=== PATIENT | male | born 1935 | race Caucasian/White ===

== ENCOUNTER 2016-04-22 13:19 | Inpatient (IN) | payer MEDICARE ==
--- NOTE | 2016-04-22 13:44 | ED ---
SOB HPI - General Chief Complaint: Shortness of Breath Stated Complaint: diff breathing Time Seen by Provider: 04/22/16 13:33 Source: patient, EMS, RN notes reviewed Mode of arrival: EMS Limitations: no limitations - History of Present Illness Initial Comments: 80-year-old male presents emergency Department with chief complaint shortness of breath. Patient had increased shortness breath last 3 days. Patient states that he has been at [facility] on the leg for rehab after being in the hospital for pneumonia. Patient denies fever, chills. Patient states she has a history of CHF and has been taken his water pill as directed. He has complained bilateral lower extremity swelling. Patient denies any abdominal pain including nausea, vomiting, diarrhea constipation. Patient has no chest pain. Patient denies any back pain of the usual. Denies any cold-like symptoms. - Related Data Home Medications Medication Instructions Recorded Confirmed Amiodarone [Cordarone] 200 mg PO DAILY 04/22/16 04/22/16 Ammonium Lactate Lotion 1 applic TOPICAL HS 04/22/16 04/22/16 [Lac-Hydrin 12% Lotion] Apixaban [Eliquis] 2.5 mg PO BID 04/22/16 04/22/16 Ascorbic Acid [Vitamin C] 500 mg PO DAILY 04/22/16 04/22/16 Aspirin EC [Ecotrin Low Dose] 81 mg PO DAILY@1200 04/22/16 04/22/16 Atorvastatin [Lipitor] 40 mg PO 04/22/16 04/22/16 Bisacodyl [Dulcolax] 10 mg RECTAL DAILY PRN 04/22/16 04/22/16 Budesonide [Pulmicort] 1 mg INHALATION RT-BID 04/22/16 04/22/16 Carvedilol [Coreg] 12.5 mg PO DAILY@1200 04/22/16 04/22/16 Carvedilol [Coreg] 25 mg PO DAILY 04/22/16 04/22/16 Carvedilol [Coreg] 37.5 mg PO DAILY@2100 04/22/16 04/22/16 Cholecalciferol [Vitamin D3] 2,000 unit PO BID 04/22/16 04/22/16 Clopidogrel [Plavix] 75 mg PO DAILY@1200 04/22/16 04/22/16 Fenofibrate Nanocrystallized 145 mg PO HS 04/22/16 04/22/16 [Tricor] Ferrous Sulfate [Feosol] 325 mg PO BID 04/22/16 04/22/16 Fluticasone Nasal [place] [Flonase 2 spr EA NOSTRIL DAILY 04/22/16 04/22/16 Nasal [place]] Folic Acid 1 mg PO DAILY@1200 04/22/16 04/22/16 Furosemide [Lasix] 20 mg PO BID 04/22/16 04/22/16 Furosemide [Lasix] 40 mg PO BID 04/22/16 04/22/16 Insulin Aspart [NovoLOG] See Protocol SQ ACHS 04/22/16 04/22/16 Insulin Detemir [Levemir] 10 unit SQ BID 04/22/16 04/22/16 Ipratropium-Albuterol Nebulize 3 ml INHALATION RT-TID PRN 04/22/16 04/22/16 [Duoneb 0.5 mg-3 mg/3 ml Soln] Isosorbide Mononitrate ER [Imdur] 60 mg PO BID 04/22/16 04/22/16 Lactobacillus Acidophilus 1 tab PO DAILY 04/22/16 04/22/16 [Acidophilus] Melatonin 6 mg PO HS 04/22/16 04/22/16 [place]-3 Fatty Acids/Fish Oil [Fish 1 cap PO BID 04/22/16 04/22/16 Oil 1,000 mg Softgel] Pantoprazole Sodium [Protonix] 40 mg PO DAILY 04/22/16 04/22/16 Polyethylene Glycol 3350 [Miralax] 17 gm PO DAILY PRN 04/22/16 04/22/16 Potassium Chloride [K-Tab ER] 10 meq PO BID 04/22/16 04/22/16 Potassium Chloride [K-Tab ER] 10 meq PO BID 04/22/16 04/22/16 Sennosides [Senna] 17.2 mg PO BID 04/22/16 04/22/16 Tamsulosin HCl [Flomax] 0.4 mg PO HS 04/22/16 04/22/16 Thera-M Multiple Vitamin Minerals 1 tab PO DAILY 04/22/16 Vitamin B Complex 1 cap PO DAILY 04/22/16 04/22/16 amLODIPine [Norvasc] 5 mg PO BID 04/22/16 04/22/16 cloNIDine HCL [Catapres] 0.1 mg PO DAILY PRN 04/22/16 04/22/16 rOPINIRole HCL [Requip] 1 mg PO HS 04/22/16 04/22/16 Allergies Allergy/AdvReac Type Severity Reaction Status Date / Time ciprofloxacin [From Cipro] Allergy Unknown Verified 04/22/16 13:26 corticotropin Allergy Unknown Verified 04/22/16 13:26 erythromycin base Allergy Unknown Verified 04/22/16 13:26 gabapentin Allergy Unknown Verified 04/22/16 13:26 hydralazine Allergy Unknown Verified 04/22/16 13:26 Penicillins Allergy Unknown Verified 04/22/16 13:26 pentoxifylline [From Trental] Allergy Unknown Verified 04/22/16 13:26 prednisone Allergy Unknown Verified 04/22/16 13:26 doxycycline AdvReac Unknown Verified 04/22/16 13:26 Review of Systems ROS Statement: Those systems with pertinent positive or pertinent negative responses have been documented in the HPI. ROS Other: All systems not noted in ROS Statement are negative. Past Medical History Past Medical History: COPD, Hyperlipidemia, Hypertension, Myocardial Infarction ([place]), Pneumonia Additional Past Medical History / Comment(s): CHF, History of Any Multi-Drug Resistant Organisms: None Reported Additional Past Surgical History / Comment(s): heart surgery, stents Past Psychological History: No Psychological Hx Reported Smoking Status: Former smoker Past Alcohol Use History: None Reported Past Drug Use History: None Reported General Exam Limitations: no limitations General appearance: alert, in no apparent distress Head exam: Present: atraumatic, normocephalic, normal inspection Eye exam: Present: normal appearance, PERRL, EOMI. Absent: scleral icterus, conjunctival injection, periorbital swelling ENT exam: Present: normal exam, normal oropharynx, mucous membranes moist Neck exam: Present: normal inspection, full ROM. Absent: tenderness, meningismus, lymphadenopathy Respiratory exam: Present: respiratory distress (Minimal tachypnea, hypoxia), rales (Bilateral). Absent: normal lung sounds bilaterally, wheezes, rhonchi, stridor Cardiovascular Exam: Present: regular rate, normal rhythm, normal heart sounds. Absent: systolic murmur, diastolic murmur, rubs, gallop, clicks Extremities exam: Present: pedal edema Neurological exam: Present: alert, oriented X3, CN II-XII intact Skin exam: Present: warm, dry, intact, normal color. Absent: rash Course Vital Signs 04/22/16 04/22/16 13:21 13:53 Pulse Rate 78 Respiratory 26 H 24 Rate Blood Pressure 171/76 O2 Sat by Pulse 85 L Oximetry Medical Decision Making - Lab Data Result diagrams: 04/22/16 13:49 04/22/16 13:49 Lab Results 04/22/16 04/22/16 04/22/16 Range/Units 13:49 13:49 13:49 WBC 8.0 (3.8-10.6) k/uL RBC 3.02 L (4.30-5.90) m/uL Hgb 8.2 L (13.0-17.5) gm/dL Hct 27.4 L (39.0-53.0) % MCV 90.7 (80.0-100.0) fL MCH 27.2 (25.0-35.0) pg MCHC 30.0 L (31.0-37.0) g/dL RDW 19.1 H (11.5-15.5) % Plt Count 190 (150-450) k/uL Neutrophils % 83 % Lymphocytes % 9 % Monocytes % 5 % Eosinophils % 2 % Basophils % 0 % Neutrophils # 6.6 (1.3-7.7) k/uL Lymphocytes # 0.7 L (1.0-4.8) k/uL Monocytes # 0.4 (0-1.0) k/uL Eosinophils # 0.1 (0-0.7) k/uL Basophils # 0.0 (0-0.2) k/uL Hypochromasia Moderate Poikilocytosis Slight Anisocytosis Slight PT (9.0-12.0) sec INR (<1.1) APTT (22.0-30.0) sec Sodium 145 (137-145) mmol/L Potassium 4.9 (3.5-5.1) mmol/L Chloride 105 (98-107) mmol/L Carbon Dioxide 34 H (22-30) mmol/L Anion Gap 6 mmol/L BUN 29 H (9-20) mg/dL Creatinine 1.60 H (0.66-1.25) mg/dL Est GFR (MDRD) Af Amer 51 (>60 ml/min/1.73 sqM) Est GFR (MDRD) Non-Af 42 (>60 ml/min/1.73 sqM) Glucose 121 H (74-99) mg/dL Calcium 9.3 (8.4-10.2) mg/dL Magnesium 2.2 (1.6-2.3) mg/dL Total Bilirubin 0.7 (0.2-1.3) mg/dL AST 20 (17-59) U/L ALT 48 (21-72) U/L Alkaline Phosphatase 82 (38-126) U/L NT-Pro-B Natriuret Pep 6850 pg/mL Total Protein 5.9 L (6.3-8.2) g/dL Albumin 3.1 L (3.5-5.0) g/dL 04/22/16 Range/Units 13:49 WBC (3.8-10.6) k/uL RBC (4.30-5.90) m/uL Hgb (13.0-17.5) gm/dL Hct (39.0-53.0) % MCV (80.0-100.0) fL MCH (25.0-35.0) pg MCHC (31.0-37.0) g/dL RDW (11.5-15.5) % Plt Count (150-450) k/uL Neutrophils % % Lymphocytes % % Monocytes % % Eosinophils % % Basophils % % Neutrophils # (1.3-7.7) k/uL Lymphocytes # (1.0-4.8) k/uL Monocytes # (0-1.0) k/uL Eosinophils # (0-0.7) k/uL Basophils # (0-0.2) k/uL Hypochromasia Poikilocytosis Anisocytosis PT 13.5 H (9.0-12.0) sec INR 1.4 (<1.1) APTT 29.1 (22.0-30.0) sec Sodium (137-145) mmol/L Potassium (3.5-5.1) mmol/L Chloride (98-107) mmol/L Carbon Dioxide (22-30) mmol/L Anion Gap mmol/L BUN (9-20) mg/dL Creatinine (0.66-1.25) mg/dL Est GFR (MDRD) Af Amer (>60 ml/min/1.73 sqM) Est GFR (MDRD) Non-Af (>60 ml/min/1.73 sqM) Glucose (74-99) mg/dL Calcium (8.4-10.2) mg/dL Magnesium (1.6-2.3) mg/dL Total Bilirubin (0.2-1.3) mg/dL AST (17-59) U/L ALT (21-72) U/L Alkaline Phosphatase (38-126) U/L NT-Pro-B Natriuret Pep pg/mL Total Protein (6.3-8.2) g/dL Albumin (3.5-5.0) g/dL 04/22/16 14:15 EKG performed at 13:47 AV dual paced rhythm with a rate of 60, MS interval 186, QRS duration 174, QT/QTC 498/498 Disposition Clinical Impression: CHF exacerbation, Hypoxic, Dyspnea Disposition: ADMITTED IP TO THIS HOSP
[2016-04-22 14:04] LABS: Anisocytosis Slight; Basophils % (A) 0 %; CH 28.2; CHCM 31.3; Eosinophils # (A) 0.1 k/uL (0-0.7); Eosinophils % (A) 2 %; HCT 27.4 % (39.0-53.0); HDW 3.49; HGB 8.2 gm/dL (13.0-17.5); Hypochromasia Moderate; Luc # (Auto) 0.06; Luc % (Auto) 1; Lymphocytes # (A) 0.7 k/uL (1.0-4.8); Lymphocytes % (A) 9 %; MCH 27.2 pg (25.0-35.0); MCV 90.7 fL (80.0-100.0); Mean Platelet Volume 8.4; Monocytes # (A) 0.4 k/uL (0-1.0); Monocytes % (A) 5 %; Neutrophils # (A) 6.6 k/uL (1.3-7.7); Neutrophils % (A) 83 %; Poikilocytosis Slight; RBC 3.02 m/uL (4.30-5.90); RDW 19.1 % (11.5-15.5); WBC (Perox) 8.35
[2016-04-22 14:14] LABS: INR 1.4 (<1.1)
[2016-04-22 14:15] LABS: Partial Thromboplastin Time 29.1 sec (22.0-30.0); Prothrombin Time 13.5 sec (9.0-12.0)
[2016-04-22 14:20] LABS: Calcium 9.3 mg/dL (8.4-10.2); Magnesium 2.2 mg/dL (1.6-2.3); Potassium 4.9 mmol/L (3.5-5.1); Total Bilirubin 0.7 mg/dL (0.2-1.3); Total Protein 5.9 g/dL (6.3-8.2)
[2016-04-22] MEDS ORDERED: FUROSEMIDE 10 MG/ML 4 ML VIAL IV STA (14:42)
--- NOTE | 2016-04-22 14:55 | XR ---
EXAMINATION TYPE: XR chest 2V DATE OF EXAM: 04/22/2016 2:35 PM COMPARISON: None HISTORY: 80-year-old male with difficulty breathing TECHNIQUE: Frontal and lateral views FINDINGS: Median sternotomy wires are present with post-CABG changes in the mediastinum. Left anterior chest wa ll pacemaker generator with right atrial and right ventricle disease. Right heart margin obscured by adjacent pleural parenchymal disease but heart is likely mildly enlarged. Diffuse interstitial promin ence with bibasilar hazy densities and small pleural effusions. Degenerative changes at both shoulder s. IMPRESSION: 1. Correlate for CHF with pulmonary vascular congestion/interstitial edema. 2. Small pleural effusions with adjacent bibasilar atelectasis and/or infiltrates.
[2016-04-22] MEDS ORDERED: cloNIDine HCL 0.1 MG TAB PO PRN (14:58)
[2016-04-22 15:22] LABS: Creatine Kinase MB 1.2 ng/mL (0.0-2.4); Troponin I 0.023 ng/mL (0.000-0.034)
[2016-04-22] MEDS: BUDESONIDE 1 MG/2 ML NEBU INHALATION SCH (19:57)
[2016-04-22] MEDS: IPRATROPIUM-ALBUTEROL 3 ML NEB INHALATION PRN (19:57)
[2016-04-22] MEDS: amLODIPine 5 MG TAB PO SCH (22:47)
[2016-04-22] MEDS: CARVEDILOL 12.5 MG TAB PO SCH (22:47)
[2016-04-22] MEDS: POTASSIUM CHLORIDE ER 10 MEQ TAB.ER.PRT PO SCH (22:47)
[2016-04-22] MEDS: MELATONIN 3 MG TABLET PO SCH (22:47)
[2016-04-22] MEDS: APIXABAN 2.5 MG TABLET PO SCH (22:48)
[2016-04-22] MEDS: FENOFIBRATE 160 MG TAB PO SCH (22:48)
[2016-04-22] MEDS: ATORVASTATIN 40 MG TAB PO SCH (22:48)
[2016-04-22] MEDS: ISOSORBIDE MONONITRATE ER 60 MG TAB.ER.24H PO SCH (22:48)
[2016-04-22] MEDS: FERROUS SULFATE 325 MG TAB PO SCH (22:48)
[2016-04-22] MEDS: TAMSULOSIN 0.4 MG CAP.ER.24H PO SCH (22:48)
[2016-04-22] MEDS: INSULIN DETEMIR 100 UNIT/ML 10 ML VIAL SQ SCH (22:54)
[2016-04-22 22:56] LABS: Glucose,Whole Blood 196 mg/dL (75-99)
[2016-04-22 23:29] VITALS: BMI 29.0
[2016-04-23] MEDS: FUROSEMIDE 10 MG/ML 4 ML VIAL IV SCH ×2 (06:51→17:13)
[2016-04-23] MEDS: ISOSORBIDE MONONITRATE ER 60 MG TAB.ER.24H PO SCH ×2 (08:45→20:17)
[2016-04-23] MEDS: POTASSIUM CHLORIDE ER 10 MEQ TAB.ER.PRT PO SCH ×2 (08:45→20:17)
[2016-04-23] MEDS: APIXABAN 2.5 MG TABLET PO SCH ×2 (08:45→20:17)
[2016-04-23] MEDS: AMIODARONE 200 MG TAB PO SCH (08:45)
[2016-04-23] MEDS: FERROUS SULFATE 325 MG TAB PO SCH ×2 (08:45→20:17)
[2016-04-23] MEDS: amLODIPine 5 MG TAB PO SCH ×2 (08:45→20:17)
[2016-04-23] MEDS: PANTOPRAZOLE 40 MG TABLET PO SCH (08:45)
[2016-04-23] MEDS: INSULIN DETEMIR 100 UNIT/ML 10 ML VIAL SQ SCH ×2 (08:49→20:31)
[2016-04-23] MEDS ORDERED: CARVEDILOL 12.5 MG TAB PO SCH ×2 (09:00→12:00)
[2016-04-23] MEDS: BUDESONIDE 1 MG/2 ML NEBU INHALATION SCH ×2 (09:24→20:56)
[2016-04-23] MEDS: IPRATROPIUM-ALBUTEROL 3 ML NEB INHALATION PRN ×2 (09:24→20:56)
[2016-04-23] MEDS ORDERED: LACTULOSE 20 GM/30 ML CUP PO ONE (12:03)
[2016-04-23 12:22] LABS: Glucose,Whole Blood 110 mg/dL (75-99)
--- NOTE | 2016-04-23 12:23 | ECHOF ---
Referral Reason:LVF MEASUREMENTS -------- HEIGHT: 175.3 cm WEIGHT: 89.4 kg BP: 162/75 RVIDd: 3.7 cm (< 3.3) IVSd: 1.3 cm (0.6 - 1.1) LVIDd: 5.4 cm (3.9 - 5.3) LVPWd: 1.3 cm (0.6 - 1.1) IVSs: 2.1 cm LVIDs: 3.6 cm LVPWs: 1.7 cm LA Diam: 4.1 cm (2.7 - 3.8) LAESV Index (A-L): 44.70 ml/m Ao Diam: 3.9 cm (2.0 - 3.7) AV Cusp: 2.4 cm (1.5 - 2.6) LA Diam: 3.8 cm (2.7 - 3.8) MV EXCURSION: 15.857 mm (> 18.000) MV EF SLOPE: 55 mm/s (70 - 150) EPSS: 0.3 cm MV E Tristen: 0.90 m/s MV DecT: 370 ms MV A Tristen: 0.78 m/s MV E/A Ratio: 1.14 RAP: 5.00 mmHg RVSP: 32.43 mmHg FINDINGS -------- Paced rhythm. Pacerwire seen in RV and RA. This was a technically good study. There is mild concentric left ventricular hypertrophy. Overall left ventricular systolic function is normal with, an EF between 55 - 60 %. The right ventricle is mildly enlarged. LA is severely dilated >40 ml/m2 The right atrium is mildly enlarged. Aortic valve is trileaflet and is mildly thickened. The mitral valve leaflets are mildly thickened. Mild mitral annular calcification present. Mild mitral regurgitation is present. Mild tricuspid regurgitation present. Right ventricular systolic pressure is normal at < 35 mmHg. Pulmonic valve appears structurally normal. The aortic root is mildy dilated. Normal inferior vena cava with normal inspiratory collapse consistent with estimated right atrial pressure of 5 mmHg. There is no pericardial effusion. CONCLUSIONS -------- 1. Paced rhythm. 2. The mitral valve leaflets are mildly thickened. 3. Mild mitral annular calcification present. 4. Mild mitral regurgitation is present. 5. Mild tricuspid regurgitation present. 6. Right ventricular systolic pressure is normal at < 35 mmHg. 7. Pulmonic valve appears structurally normal. 8. The aortic root is mildy dilated. 9. There is no pericardial effusion. 10. Pacerwire seen in RV and RA. 11. This was a technically good study. 12. There is mild concentric left ventricular hypertrophy. 13. Overall left ventricular systolic function is normal with, an EF between 55 - 60 %. 14. The right ventricle is mildly enlarged. 15. LA is severely dilated >40 ml/m2 16. The right atrium is mildly enlarged. 17. Aortic valve is trileaflet and is mildly thickened. PHOTOGRAPHIC INTELLIGENCE OFFICER: Cristian Beltrán RDCS
[2016-04-23] MEDS: INSULIN LISPRO (humaLOG) 300 UNIT/3 ML VIAL SQ SCH ×3 (12:24→20:31)
[2016-04-23] MEDS: ASPIRIN 81 MG CHEW PO SCH (12:31)
[2016-04-23] MEDS: FOLIC ACID 1 MG TAB PO SCH (12:32)
[2016-04-23] MEDS: CLOPIDOGREL 75 MG TAB PO SCH (12:32)
[2016-04-23 13:01] LABS: Hemoglobin A1C 4.7 % (4.2-6.1)
--- NOTE | 2016-04-23 13:02 | P.CNPUL ---
History of Present Illness Consult date: 04/23/16 Requesting physician: Ashu Campbell Reason for consult: dyspnea Chief complaint: Shortness of breath History of present illness: This is a 80-year-old white male with history of stage IV adenocarcinoma of the lungs, this was diagnosed back in February and the diagnosis was made at the [facility]. Patient apparently presented initially to [facility] with a right lung mass, and he underwent CT-guided needle biopsy. The pathology report was nonconclusive. Hence the patient was seen at the [facility] and he underwent bronchoscopy and transbronchial biopsy, and he was diagnosed as having adenocarcinoma. Patient was told that he had a stage IV but he has no idea as to where the metastasis is. Patient was placed on chemotherapy, and so far he received 2 courses of chemotherapy. 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 Patient was discharged from [facility] to the [facility] about a week ago. Over the last few days, the patient has been complaining of increased shortness of breath. And according to him he was retaining fluids in his lower extremities. No fever no chills no cough no wheezing no chest pain. Patient was evaluated in the ER yesterday, chest x-ray was suggestive of congestive heart failure, interstitial edema, and right lower lobe atelectasis with small pleural effusion. His echocardiogram was reported as a relatively normal, however according to the patient he was told by Dr. Chaudhari at [facility] that his LV function is compromised, and it is usually about 40-45%. His CBC on admission showed a low hemoglobin of 8.2 electrolytes were noted to be normal except for elevated bicarb of 34 proBNP level was almost 7000. Patient was admitted with the impression of congestive heart failure, and I was asked to see him on consultation. Presently, the patient denies any headaches, no blurred vision, no dizziness, he is a bit hard of hearing, denies any chest pain , no nausea, no vomiting no abdominal pain no melena no hematemesis no dysuria and no frequency no urgency. Review of Systems 12 point review of systems were obtained, please refer to pertinent positives and negatives as per HPI. Past Medical History Past Medical History: Atrial Fibrillation, COPD, Diabetes Mellitus, Hyperlipidemia, Hypertension, Myocardial Infarction ([place]), Pneumonia Additional Past Medical History / Comment(s): CHF, recently diagnosed non-small cell lung cancer/stage IV. Last Myocardial Infarction Date:: unknown History of Any Multi-Drug Resistant Organisms: None Reported Past Surgical History: Back Surgery, Coronary Bypass/CABG, Heart Catheterization With Stent Additional Past Surgical History / Comment(s): heart surgery, stents (multiple) Past Anesthesia/Blood Transfusion Reactions: No Reported Reaction Additional Past Anesthesia/Blood Transfusion Reaction / Comment(s): blood transfusion Date of Last Stent Placement:: unknown Past Psychological History: No Psychological Hx Reported Smoking Status: Former smoker Past Alcohol Use History: None Reported Past Drug Use History: None Reported - Past Family History Mother Family Medical History: Diabetes Mellitus, Hyperlipidemia, Hypertension Father Family Medical History: Diabetes Mellitus, Hyperlipidemia, Hypertension, Myocardial Infarction ([place]) Medications and Allergies Home Medications Medication Instructions Recorded Confirmed Type Amiodarone [Cordarone] 200 mg PO DAILY 04/22/16 04/22/16 History Ammonium Lactate Lotion 1 applic TOPICAL 04/22/16 04/22/16 History [Lac-Hydrin 12% Lotion] Apixaban [Eliquis] 2.5 mg PO BID 04/22/16 04/22/16 History Ascorbic Acid [Vitamin C] 500 mg PO DAILY 04/22/16 04/22/16 History Aspirin EC [Ecotrin Low Dose] 81 mg PO DAILY@1200 04/22/16 04/22/16 History Atorvastatin [Lipitor] 40 mg PO HS 04/22/16 04/22/16 History Bisacodyl [Dulcolax] 10 mg RECTAL DAILY PRN 04/22/16 04/22/16 History Budesonide [Pulmicort] 1 mg INHALATION RT-BID 04/22/16 04/22/16 History Carvedilol [Coreg] 12.5 mg PO DAILY@1200 04/22/16 04/22/16 History Carvedilol [Coreg] 25 mg PO DAILY 04/22/16 04/22/16 History Carvedilol [Coreg] 37.5 mg PO DAILY@2100 04/22/16 04/22/16 History Cholecalciferol [Vitamin D3] 2,000 unit PO BID 04/22/16 04/22/16 History Clopidogrel [Plavix] 75 mg PO DAILY@1200 04/22/16 04/22/16 History Fenofibrate Nanocrystallized 145 mg PO HS 04/22/16 04/22/16 History [Tricor] Ferrous Sulfate [Feosol] 325 mg PO BID 04/22/16 04/22/16 History Fluticasone Nasal [place] [Flonase 2 spr EA NOSTRIL DAILY 04/22/16 04/22/16 History Nasal [place]] Folic Acid 1 mg PO DAILY@1200 04/22/16 04/22/16 History Furosemide [Lasix] 20 mg PO BID 04/22/16 04/22/16 History Furosemide [Lasix] 40 mg PO BID 04/22/16 04/22/16 History Insulin Aspart [NovoLOG] See Protocol SQ ACHS 04/22/16 04/22/16 History Insulin Detemir [Levemir] 10 unit SQ BID 04/22/16 04/22/16 History Ipratropium-Albuterol Nebulize 3 ml INHALATION RT-TID PRN 04/22/16 04/22/16 History [Duoneb 0.5 mg-3 mg/3 ml Soln] Isosorbide Mononitrate ER [Imdur] 60 mg PO BID 04/22/16 04/22/16 History Lactobacillus Acidophilus 1 tab PO DAILY 04/22/16 04/22/16 History [Acidophilus] Melatonin 6 mg PO HS 04/22/16 04/22/16 History [place]-3 Fatty Acids/Fish Oil [Fish 1 cap PO BID 04/22/16 04/22/16 History Oil 1,000 mg Softgel] Pantoprazole Sodium [Protonix] 40 mg PO DAILY 04/22/16 04/22/16 History Polyethylene Glycol 3350 [Miralax] 17 gm PO DAILY PRN 04/22/16 04/22/16 History Potassium Chloride [K-Tab ER] 10 meq PO BID 04/22/16 04/22/16 History Potassium Chloride [K-Tab ER] 10 meq PO BID 04/22/16 04/22/16 History Sennosides [Senna] 17.2 mg PO BID 04/22/16 04/22/16 History Tamsulosin HCl [Flomax] 0.4 mg PO HS 04/22/16 04/22/16 History Thera-M Multiple Vitamin Minerals 1 tab PO DAILY 04/22/16 History Vitamin B Complex 1 cap PO DAILY 04/22/16 04/22/16 History amLODIPine [Norvasc] 5 mg PO BID 04/22/16 04/22/16 History cloNIDine HCL [Catapres] 0.1 mg PO DAILY PRN 04/22/16 04/22/16 History rOPINIRole HCL [Requip] 1 mg PO HS 04/22/16 04/22/16 History Allergies Allergy/AdvReac Type Severity Reaction Status Date / Time ciprofloxacin [From Cipro] Allergy Unknown Verified 04/22/16 13:26 corticotropin Allergy Unknown Verified 04/22/16 13:26 erythromycin base Allergy Unknown Verified 04/22/16 13:26 gabapentin Allergy Unknown Verified 04/22/16 13:26 hydralazine Allergy Unknown Verified 04/22/16 13:26 Penicillins Allergy Unknown Verified 04/22/16 13:26 pentoxifylline [From Trental] Allergy Unknown Verified 04/22/16 13:26 prednisone Allergy Unknown Verified 04/22/16 13:26 doxycycline AdvReac Unknown Verified 04/22/16 13:26 Physical Exam Vitals: Vital Signs Temp Pulse Pulse Resp BP BP Pulse Ox 04/23/16 09:40 92 04/23/16 09:25 88 04/23/16 08:45 98.1 F 74 20 162/75 95 04/23/16 06:45 18 95 04/23/16 04:00 98.4 F 64 16 157/63 98 04/23/16 00:00 60 18 152/65 97 04/22/16 22:58 98.1 F 62 23 173/77 99 04/22/16 21:48 98.2 F 56 L 16 115/55 95 04/22/16 20:12 65 04/22/16 20:00 61 04/22/16 19:02 98.6 F 66 16 180/95 90 L 04/22/16 15:46 60 24 162/68 90 L 04/22/16 14:59 60 24 187/81 94 L Intake and Output 04/22/16 04/23/16 04/23/16 22:59 06:59 14:59 Intake Total 120 Output Total 450 650 850 Balance -450 650 -730 Intake: Oral 120 Output: Urine 450 650 850 Other: # Voids 1 # Bowel Movements 0 Weight 89.4 kg 89.4 kg Physical Exam: Revealed a 80-year-old white male, looks chronically ill, pale, in no distress. HEENT:[Neck is supple.] [No neck masses.] [No thyromegaly.] [No JVD.] Chest: [Diminished breath sounds at the bases especially at the right base, no crackles or rhonchi or wheezes..] Cardiac Exam: [Irregular rhythm Normal S1 and S2, no S3 gallop, 2/6 systolic murmur throughout the precordium] Abdomen: [Soft, nontender, no megaly, no rebound, no guarding, normal bowel sounds.] Extremities: [No clubbing, trace of bipedal edema, no cyanosis.] Neurological Exam: [No focal neurologic deficit.] Results - Laboratory Findings CBC and BMP: 04/22/16 13:49 04/22/16 13:49 PT/INR, D-dimer PT 13.5 sec (9.0-12.0) H 04/22/16 13:49 INR 1.4 (<1.1) 04/22/16 13:49 Abnormal lab findings: Abnormal Labs 04/22/16 04/23/16 22:36 12:14 POC Glucose (mg/dL) 196 H 110 H - Diagnostic Findings Chest x-ray: image reviewed (Chest x-ray is consistent with congestive heart failure, suspect right lower lobe atelectasis and right pleural effusion.) Assessment and Plan Plan: Impression: Shortness of breath secondary to: 1 congestive heart failure, probable diastolic dysfunction 2 chronic atrial fibrillation 3 chronic anemia 4 chronic obstructive pulmonary disease 5 stage IV bronchogenic carcinoma recently diagnosed, patient is presently on chemotherapy at the [facility]. History of multiple comorbidities including hypertension, coronary artery disease previous SD and previous stents placed, history of hypertension, and recent history of pneumonia as well as recent history of congestive heart failure. Recommendation: Patient seems to be responding well to the present treatment plan, he is on Lasix at 40 mg IV push every 12 hours, he is also on updrafts, he is already feeling better since admission, hence I will recommend we continue the same treatment plan, and we'll repeat chest x-ray in the next 2 days. We'll continue to follow. Time with Patient: Greater than 30
--- NOTE | 2016-04-23 14:06 | P.HPIM ---
History of Present Illness H&P Date: 04/23/16 Chief Complaint: Shortness of breath This is a 80-year-old male. He is residing at [facility] on the [place] under the care of Dr. Jernigan for rehab after hospitalization following pneumonia. He has a past medical history of COPD, chronic systolic heart failure with ejection fraction 40-45%, chronic kidney disease stage III, benign prostatic hypertrophy, atrial fibrillation on eliquis hyperlipidemia, hypertension, myocardial infarction, recent diagnosis of 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, pacemaker, melanoma of the left axillary, diabetes mellitus type 2 with diabetic neuropathy. Patient states he had a recent hospitalization at [facility] and was treated for heart failure. He had pansensitive pseudomonas in his sputum on 03/23/2016. He went to [facility] for rehab and had worsening of his shortness of breath. His pulse ox dropped down to 81% and he was placed on a nonrebreather with respirations of 30. Patient was then transferred to [facility]. Patient came into [facility] emergency center for evaluation. Hemoglobin 8.2, BUN 29 creatinine 1.6. ProBNP 7000. Chest x-ray shows heart failure with pulmonary vascular congestion and interstitial edema. Small pleural effusions with adjacent bibasilar atelectasis and or infiltrates. Patient started on IV Lasix and admitted to the selective care unit. Cardiology consult will be requested. Pulmonary consult also added for history of recent pneumonia, lung cancer. Patient states he was just diagnosed with lung cancer in February 2016. He was initially treated at [facility] for CAT scan guided needle biopsy. Pathology report was nonconclusive. Patient went [facility] underwent bronchoscopy and transbronchial biopsy and was diagnosed with adenocarcinoma. His dietary assistant is Dr. Chaudhari at [place] Review of Systems All systems: negative Constitutional: Denies chills, Denies fever Eyes: denies blurred vision, denies pain Ears, nose, mouth and throat: Denies headache, Denies sore throat Cardiovascular: Reports leg edema, Reports shortness of breath, Denies chest pain Respiratory: Reports wheezing, Denies cough Gastrointestinal: Denies abdominal pain, Denies diarrhea, Denies nausea, Denies vomiting Musculoskeletal: Denies myalgias Integumentary: Denies pruritus, Denies rash Neurological: Denies numbness, Denies weakness Psychiatric: Denies anxiety, Denies depression Endocrine: Denies fatigue, Denies weight change Past Medical History Past Medical History: Atrial Fibrillation, Heart Failure, COPD, Diabetes Mellitus, Hyperlipidemia, Hypertension, Myocardial Infarction (LA), Pneumonia Additional Past Medical History / Comment(s): Chronic systolic heart failure, obstructive sleep apnea, benign prostatic hypertrophy, diabetes type 2 with diabetic neuropathy, 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, melanoma of left axillary Last Myocardial Infarction Date:: unknown History of Any Multi-Drug Resistant Organisms: None Reported Past Surgical History: Back Surgery, Coronary Bypass/CABG, Heart Catheterization With Stent Additional Past Surgical History / Comment(s): CABG, cardiac stents, peripheral stents, pacemaker, left axillary melanoma resection. Past Anesthesia/Blood Transfusion Reactions: No Reported Reaction Additional Past Anesthesia/Blood Transfusion Reaction / Comment(s): blood transfusion Date of Last Stent Placement:: unknown Past Psychological History: No Psychological Hx Reported Smoking Status: Former smoker Past Alcohol Use History: None Reported Additional Past Alcohol Use History / Comment(s): Patient was a smoker and quit 20 years ago. He denies any medical marijuana, marijuana, street drug use. He denies any alcohol abuse. Past Drug Use History: None Reported - Past Family History Mother Family Medical History: Diabetes Mellitus, Hyperlipidemia, Hypertension Additional Family Medical History / Comment(s): Mother is . Father Family Medical History: Diabetes Mellitus, Hyperlipidemia, Hypertension, Myocardial Infarction (LA) Additional Family Medical History / Comment(s): Father is from a myocardial infarction. Brother(s) Additional Family Medical History / Comment(s): Abraham Ramesh has 11 brothers and 2 sisters. Patient has 2 sons and 2 daughters with no major medical problems. Medications and Allergies Home Medications Medication Instructions Recorded Confirmed Type Amiodarone [Cordarone] 200 mg PO DAILY 04/22/16 04/22/16 History Ammonium Lactate Lotion 1 applic TOPICAL HS 04/22/16 04/22/16 History [Lac-Hydrin 12% Lotion] Apixaban [Eliquis] 2.5 mg PO BID 04/22/16 04/22/16 History Ascorbic Acid [Vitamin C] 500 mg PO DAILY 04/22/16 04/22/16 History Aspirin EC [Ecotrin Low Dose] 81 mg PO DAILY@1200 04/22/16 04/22/16 History Atorvastatin [Lipitor] 40 mg PO HS 04/22/16 04/22/16 History Bisacodyl [Dulcolax] 10 mg RECTAL DAILY PRN 04/22/16 04/22/16 History Budesonide [Pulmicort] 1 mg INHALATION RT-BID 04/22/16 04/22/16 History Carvedilol [Coreg] 12.5 mg PO DAILY@1200 04/22/16 04/22/16 History Carvedilol [Coreg] 25 mg PO DAILY 04/22/16 04/22/16 History Carvedilol [Coreg] 37.5 mg PO DAILY@2100 04/22/16 04/22/16 History Cholecalciferol [Vitamin D3] 2,000 unit PO BID 04/22/16 04/22/16 History Clopidogrel [Plavix] 75 mg PO DAILY@1200 04/22/16 04/22/16 History Fenofibrate Nanocrystallized 145 mg PO HS 04/22/16 04/22/16 History [Tricor] Ferrous Sulfate [Feosol] 325 mg PO BID 04/22/16 04/22/16 History Fluticasone Nasal [place] [Flonase 2 spr EA NOSTRIL DAILY 04/22/16 04/22/16 History Nasal [place]] Folic Acid 1 mg PO DAILY@1200 04/22/16 04/22/16 History Furosemide [Lasix] 20 mg PO BID 04/22/16 04/22/16 History Furosemide [Lasix] 40 mg PO BID 04/22/16 04/22/16 History Insulin Aspart [NovoLOG] See Protocol SQ ACHS 04/22/16 04/22/16 History Insulin Detemir [Levemir] 10 unit SQ BID 04/22/16 04/22/16 History Ipratropium-Albuterol Nebulize 3 ml INHALATION RT-TID PRN 04/22/16 04/22/16 History [Duoneb 0.5 mg-3 mg/3 ml Soln] Isosorbide Mononitrate ER [Imdur] 60 mg PO BID 04/22/16 04/22/16 History Lactobacillus Acidophilus 1 tab PO DAILY 04/22/16 04/22/16 History [Acidophilus] Melatonin 6 mg PO HS 04/22/16 04/22/16 History Hoffman-3 Fatty Acids/Fish Oil [Fish 1 cap PO BID 04/22/16 04/22/16 History Oil 1,000 mg Softgel] Pantoprazole Sodium [Protonix] 40 mg PO DAILY 04/22/16 04/22/16 History Polyethylene Glycol 3350 [Miralax] 17 gm PO DAILY PRN 04/22/16 04/22/16 History Potassium Chloride [K-Tab ER] 10 meq PO BID 04/22/16 04/22/16 History Potassium Chloride [K-Tab ER] 10 meq PO BID 04/22/16 04/22/16 History Sennosides [Senna] 17.2 mg PO BID 04/22/16 04/22/16 History Tamsulosin HCl [Flomax] 0.4 mg PO HS 04/22/16 04/22/16 History Thera-M Multiple Vitamin Minerals 1 tab PO DAILY 04/22/16 History Vitamin B Complex 1 cap PO DAILY 04/22/16 04/22/16 History amLODIPine [Norvasc] 5 mg PO BID 04/22/16 04/22/16 History cloNIDine HCL [Catapres] 0.1 mg PO DAILY PRN 04/22/16 04/22/16 History rOPINIRole HCL [Requip] 1 mg PO HS 04/22/16 04/22/16 History Allergies Allergy/AdvReac Type Severity Reaction Status Date / Time ciprofloxacin [From Cipro] Allergy Unknown Verified 04/22/16 13:26 corticotropin Allergy Unknown Verified 04/22/16 13:26 erythromycin base Allergy Unknown Verified 04/22/16 13:26 gabapentin Allergy Unknown Verified 04/22/16 13:26 hydralazine Allergy Unknown Verified 04/22/16 13:26 Penicillins Allergy Unknown Verified 04/22/16 13:26 pentoxifylline [From Trental] Allergy Unknown Verified 04/22/16 13:26 prednisone Allergy Unknown Verified 04/22/16 13:26 doxycycline AdvReac Unknown Verified 04/22/16 13:26 Physical Exam Vitals: Vital Signs Temp Pulse Pulse Resp BP BP Pulse Ox 04/23/16 08:45 98.1 F 74 20 162/75 95 04/23/16 06:45 18 95 04/23/16 04:00 98.4 F 64 16 157/63 98 04/23/16 00:00 60 18 152/65 97 04/22/16 22:58 98.1 F 62 23 173/77 99 04/22/16 21:48 98.2 F 56 L 16 115/55 95 04/22/16 20:12 65 04/22/16 20:00 61 04/22/16 19:02 98.6 F 66 16 180/95 90 L 04/22/16 15:46 60 24 162/68 90 L 04/22/16 14:59 60 24 187/81 94 L Intake and Output 04/22/16 04/23/16 04/23/16 22:59 06:59 14:59 Output Total 450 650 Balance -450 -650 Output: Urine 450 650 Other: # Voids 1 Weight 89.4 kg 89.4 kg Gen: This is a 80-year-old male. He is resting flat in bed and appears to be in no acute distress. No respiratory distress noted. HEENT: Head is atraumatic, normocephalic. Pupils equal, round. Sclerae is anicteric. NECK: Supple. No JVD. No lymphadenopathy. No thyromegaly. LUNGS: Diminished breath sounds with diffuse wheezing and rhonchi. No intercostal retractions. HEART: Regular rate and rhythm. 2/6 systolic murmur. ABDOMEN: Soft. Bowel sounds are present. No masses. No tenderness. EXTREMITIES: No pedal edema. No calf tenderness. NEUROLOGICAL: Patient is awake, alert and oriented x3. Cranial nerves 2 through 12 are grossly intact. Results CBC & Chem 7: 04/22/16 13:49 04/22/16 13:49 Labs: Abnormal Lab Results - Last 24 Hours (Table) 04/22/16 Range/Units 22:36 POC Glucose (mg/dL) 196 H (75-99) mg/dL Thrombosis Risk Factor Assmnt - DVT/VTE Prophylaxis DVT/VTE Prophylaxis: Pharmacologic Prophylaxis ordered - Choose All That Apply Any of the Below Risk Factors Present?: Yes Each Factor Represents 1 point: Swollen legs (current) Other Risk Factors: Yes Each Risk Factor Represents 3 Points: Age 75 years or older Thrombosis Risk Factor Assessment Total Risk Factor Score: 4 Thrombosis Risk Factor Assessment Level: Moderate Risk Assessment and Plan Plan: 1. Acute hypoxic respiratory failure with acute on chronic systolic heart failure with known ejection fraction of 40-45%. Lasix 40 mg IV every 12 hours. Cardiology consult requested. Daily weights and I&O. Monitor electrolytes and kidney function. Consult with Dr. Mckenzie appreciated. 2. Chronic atrial fibrillation status post pacemaker. Continue amiodarone and eliquis. 3. COPD, stable. Continue DuoNeb treatments 3 times daily as needed, Pulmicort 1 mg twice daily. 4. Stage IV adenocarcinoma of the lung recent diagnosis status post chemotherapy at [facility]. Consult with Dr. Mckenzie appreciated. 5. Hypertension. Continue Coreg, Norvasc and Catapres as needed. 6. History of coronary artery disease status post CABG. Continue Plavix, Imdur , aspirin, Lipitor. 7. Diabetes mellitus type 2, insulin requiring. Continue Levemir 10 units twice daily and Humalog scale before meals and at bedtime. 8. Hyperlipidemia. Continue Lipitor 40 mg at bedtime and fenofibrate. 9. Gastroesophageal reflux disease and gastrointestinal prophylaxis. Continue Protonix. 10. Benign prostatic hypertrophy. Continue Flomax. 11. Melanoma left axillary, stable. 12. DVT prophylaxis. Continue eliquis. Patient will be admitted to the hospital for a minimum of 2 night stay. Discharge plan: Return to [facility] Impression and plan of care have been directed as dictated by the signing physician. Arlen Pickering nurse practitioner acting as scribe for signing physician. Time with Patient: Greater than 30
[2016-04-23 16:52] LABS: Glucose,Whole Blood 140 mg/dL (75-99)
[2016-04-23] MEDS: MELATONIN 3 MG TABLET PO SCH (20:17)
[2016-04-23] MEDS: CARVEDILOL 12.5 MG TAB PO SCH (20:17)
[2016-04-23] MEDS: ATORVASTATIN 40 MG TAB PO SCH (20:17)
[2016-04-23] MEDS: FENOFIBRATE 160 MG TAB PO SCH (20:17)
[2016-04-23] MEDS: TAMSULOSIN 0.4 MG CAP.ER.24H PO SCH (20:17)
[2016-04-23 20:28] LABS: Glucose,Whole Blood 214 mg/dL (75-99)
[2016-04-24 05:56] LABS: Anisocytosis Slight; CH 27.8; CHCM 29.8; HCT 27.3 % (39.0-53.0); HDW 3.31; HGB 8.2 gm/dL (13.0-17.5); Hypochromasia Marked; MCH 28.2 pg (25.0-35.0); MCHC 30.1 g/dL (31.0-37.0); MCV 93.6 fL (80.0-100.0); Macrocytosis Slight; Mean Platelet Volume 8.4; RBC 2.92 m/uL (4.30-5.90); RDW 19.1 % (11.5-15.5); WBC 5.6 k/uL (3.8-10.6)
[2016-04-24 06:09] LABS: Potassium 4.3 mmol/L (3.5-5.1)
[2016-04-24] MEDS: FUROSEMIDE 10 MG/ML 4 ML VIAL IV SCH ×2 (06:42→17:15)
[2016-04-24] MEDS: INSULIN LISPRO (humaLOG) 300 UNIT/3 ML VIAL SQ SCH ×4 (06:49→21:07)
[2016-04-24 06:58] LABS: Glucose,Whole Blood 74 mg/dL (75-99)
[2016-04-24] MEDS: IPRATROPIUM-ALBUTEROL 3 ML NEB INHALATION PRN ×2 (08:56→20:35)
[2016-04-24] MEDS: BUDESONIDE 1 MG/2 ML NEBU INHALATION SCH ×2 (08:56→20:35)
[2016-04-24] MEDS: AMIODARONE 200 MG TAB PO SCH (09:05)
[2016-04-24] MEDS: CARVEDILOL 12.5 MG TAB PO SCH ×2 (09:05→17:15)
[2016-04-24] MEDS: amLODIPine 5 MG TAB PO SCH ×2 (09:06→21:07)
[2016-04-24] MEDS: ISOSORBIDE MONONITRATE ER 60 MG TAB.ER.24H PO SCH ×2 (09:06→21:07)
[2016-04-24] MEDS: FERROUS SULFATE 325 MG TAB PO SCH ×2 (09:06→21:06)
[2016-04-24] MEDS: APIXABAN 2.5 MG TABLET PO SCH ×2 (09:06→21:07)
[2016-04-24] MEDS: POTASSIUM CHLORIDE ER 10 MEQ TAB.ER.PRT PO SCH ×2 (09:06→21:07)
[2016-04-24] MEDS: INSULIN DETEMIR 100 UNIT/ML 10 ML VIAL SQ SCH ×2 (09:06→21:06)
[2016-04-24] MEDS: PANTOPRAZOLE 40 MG TABLET PO SCH (09:06)
--- NOTE | 2016-04-24 11:39 | P.PN ---
Subjective Principal diagnosis: Acute congestive heart failure This is a 80-year-old white male with history of stage IV adenocarcinoma of the lungs, this was diagnosed back in February and the diagnosis was made at the [facility]. Patient apparently presented initially to [facility] with a right lung mass, and he underwent CT-guided needle biopsy. The pathology report was nonconclusive. Hence the patient was seen at the [facility] and he underwent bronchoscopy and transbronchial biopsy, and he was diagnosed as having adenocarcinoma. Patient was told that he had a stage IV but he has no idea as to where the metastasis is. Patient was placed on chemotherapy, and so far he received 2 courses of chemotherapy. Since then, the patient was admitted to [facility] with pneumonia and congestive heart failure, and he was eventually transferred to [facility] and he was seen by his skin therapist, and his diuretics were adjusted. Patient was discharged from [facility] to the [facility] about a week ago. Over the last few days, the patient has been complaining of increased shortness of breath. And according to him he was retaining fluids in his lower extremities. No fever no chills no cough no wheezing no chest pain. Patient was evaluated in the ER yesterday, chest x-ray was suggestive of congestive heart failure, interstitial edema, and right lower lobe atelectasis with small pleural effusion. His echocardiogram was reported as a relatively normal, however according to the patient he was told by Dr. Chaudhari at [facility] that his LV function is compromised, and it is usually about 40-45%. His CBC on admission showed a low hemoglobin of 8.2 electrolytes were noted to be normal except for elevated bicarb of 34 proBNP level was almost 7000. Patient was admitted with the impression of congestive heart failure, and I was asked to see him on consultation. Presently, the patient denies any headaches, no blurred vision, no dizziness, he is a bit hard of hearing, denies any chest pain , no nausea, no vomiting no abdominal pain no melena no hematemesis no dysuria and no frequency no urgency. Reevaluated today on 04/24/2016, patient is feeling better, breathing a lot easier. No chest x-ray was done today, hemoglobin remains low at 8.2, electrolytes were reviewed, bicarb is 37 BUN is 29 creatinine is 1.60. His renal profile is the same as it was on admission. Overall the patient is feeling better and breathing easier, and I plan to repeat chest x-ray on this patient early Tuesday. Objective - Vital Signs Vital signs: Vital Signs Temp 97.6 F 04/24/16 03:50 Pulse 76 04/24/16 09:12 Resp 20 04/24/16 03:50 BP 138/58 04/24/16 03:50 Pulse Ox 98 04/24/16 03:50 Intake & Output 04/23/16 04/24/16 04/24/16 18:59 06:59 18:59 Intake Total 720 Output Total 850 1275 375 Balance -130 -1275 -375 Weight 89.4 kg 87 kg Intake: Oral 720 Output: Urine 850 1275 375 Other: # Voids 1 1 1 # Bowel Movements 0 - Exam Physical Exam: Revealed a 80-year-old white male, looks chronically ill, pale, in no distress. HEENT:[Neck is supple.] [No neck masses.] [No thyromegaly.] [No JVD.] Chest: [Diminished breath sounds at the bases especially at the right base, no crackles or rhonchi or wheezes..] Cardiac Exam: [Irregular rhythm Normal S1 and S2, no S3 gallop, 2/6 systolic murmur throughout the precordium] Abdomen: [Soft, nontender, no megaly, no rebound, no guarding, normal bowel sounds.] Extremities: [No clubbing, trace of bipedal edema, no cyanosis.] Neurological Exam: [No focal neurologic deficit.] - Labs CBC & Chem 7: 04/24/16 05:37 04/24/16 05:37 Labs: Abnormal Lab Results - Last 24 Hours (Table) 04/23/16 04/23/16 04/23/16 Range/Units 12:14 16:42 20:25 RBC (4.30-5.90) m/uL Hgb (13.0-17.5) gm/dL Hct (39.0-53.0) % MCHC (31.0-37.0) g/dL RDW (11.5-15.5) % Sodium (137-145) mmol/L Carbon Dioxide (22-30) mmol/L BUN (9-20) mg/dL Creatinine (0.66-1.25) mg/dL POC Glucose (mg/dL) 110 H 140 H 214 H (75-99) mg/dL 04/24/16 04/24/16 04/24/16 Range/Units 05:37 05:37 06:47 RBC 2.92 L (4.30-5.90) m/uL Hgb 8.2 L (13.0-17.5) gm/dL Hct 27.3 L (39.0-53.0) % MCHC 30.1 L (31.0-37.0) g/dL RDW 19.1 H (11.5-15.5) % Sodium 147 H (137-145) mmol/L Carbon Dioxide 37 H (22-30) mmol/L BUN 29 H (9-20) mg/dL Creatinine 1.60 H (0.66-1.25) mg/dL POC Glucose (mg/dL) 74 L (75-99) mg/dL Assessment and Plan Plan: Impression: Shortness of breath secondary to: 1 congestive heart failure, probable diastolic dysfunction 2 chronic atrial fibrillation 3 chronic anemia 4 chronic obstructive pulmonary disease 5 stage IV bronchogenic carcinoma recently diagnosed, patient is presently on chemotherapy at the [facility]. History of multiple comorbidities including hypertension, coronary artery disease previous LA and previous stents placed, history of hypertension, and recent history of pneumonia as well as recent history of congestive heart failure. Recommendation: Patient seems to be responding well to the present treatment plan, he is on Lasix at 40 mg IV push every 12 hours, he is also on updrafts, he is already feeling better since admission, hence I will recommend we continue the same treatment plan, and we'll repeat chest x-ray in the next 2 days. We'll continue to follow. Time with Patient: Less than 30
--- NOTE | 2016-04-24 11:46 | PN ---
Mr. Clemons continued to be hemodynamically stable overnight, but felt some ( ) this morning. The patient is alert, awake and oriented following commands. Denying any chest pain. No nausea, vomiting, abdominal pain, dizziness, light-headedness or blurry vision. His shortness of breath has significantly improved since yesterday. PHYSICAL EXAMINATION: VITAL SIGNS: 97.6, 64, 21, 138/58 and saturation is 98% on nasal cannula. The patient was using BiPAP at nighttime. HEART: Normal S1, S2. LUNGS: Coarse breathing sounds bilaterally with scattered rhonchi. LOWER EXTREMITIES: With improved edema. ABDOMEN: Soft, no tenderness. Positive bowel sounds in all 4 quadrants. IMAGING AND LABS: CBC showed normal findings this morning with stable hemoglobin at 8.2. Chem-7 showed sodium 147, creatinine 1.6. Glucose fluctuating between 74 and 214. ASSESSMENT AND PLAN: 1. Acute respiratory failure, which seems to be multifactorial on chronic respiratory failure, likely with congestive heart failure etiology with ( ) component. I would like to continue current diuretic dose, continue with aggressive pulmonary hygiene and monitor his I's and O's and daily weight. 2. Chronic atrial fibrillation, heart rate is controlled. Patient on Eliquis, seems to be tolerating without difficulty. 3. Chronic obstructive pulmonary disease. Will continue management as above. 4. Stage IV lung cancer, bronchogenic. Patient started chemotherapy at [facility] and we will optimize his medical treatment at this point and have him follow up outpatient in that regard. Discharge process based on clinical progress.
[2016-04-24 11:55] LABS: Glucose,Whole Blood 169 mg/dL (75-99)
--- NOTE | 2016-04-24 12:22 | P.CRDCN ---
<Kami Kc E - Last Filed: 04/24/16 12:04> History of Present Illness Consult date: 04/24/16 Requesting physician: Connie Jernigan Consult reason: congestive heart failure Chief complaint: Shortness of breath History of present illness: This is a 80-year-old gentleman who resides at [facility]. Patient has a known history of COPD, systolic congestive heart failure failure, chronic kidney disease, BPH, paroxysmal atrial fibrillation, hypertension, hyperlipidemia, recent diagnosis of stage IV adenocarcinoma of the lungs status post 2 treatments of chemo, prior pacemaker implantation, diabetes, patient was at [facility] because of a recent admission to [facility] with pneumonia. He was readmitted on this occasion because of worsening shortness of breath. BNP level on admission 7000, chest x-ray reveals congestive cardiac failure. With small bilateral pleural effusions. 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 Patient is currently on IV Lasix 40 mg every 12 hourly. On Eliquis for anticoagulation. Labs today, hemoglobin 8.2, BUN 29, creatinine 1.6. His weight today is down 2 kg. Past Medical History Past Medical History: Atrial Fibrillation, Heart Failure, COPD, Diabetes Mellitus, Hyperlipidemia, Hypertension, Myocardial Infarction ([place]), Pneumonia Additional Past Medical History / Comment(s): Chronic systolic heart failure, obstructive sleep apnea, benign prostatic hypertrophy, diabetes type 2 with diabetic neuropathy, 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, melanoma of left axillary Last Myocardial Infarction Date:: unknown History of Any Multi-Drug Resistant Organisms: None Reported Past Surgical History: Back Surgery, Coronary Bypass/CABG, Heart Catheterization With Stent Additional Past Surgical History / Comment(s): CABG, cardiac stents, peripheral stents, pacemaker, left axillary melanoma resection. Past Anesthesia/Blood Transfusion Reactions: No Reported Reaction Additional Past Anesthesia/Blood Transfusion Reaction / Comment(s): blood transfusion Date of Last Stent Placement:: unknown Past Psychological History: No Psychological Hx Reported Smoking Status: Former smoker Past Alcohol Use History: None Reported Additional Past Alcohol Use History / Comment(s): Patient was a smoker and quit 20 years ago. He denies any medical marijuana, marijuana, street drug use. He denies any alcohol abuse. Past Drug Use History: None Reported - Past Family History Mother Family Medical History: Diabetes Mellitus, Hyperlipidemia, Hypertension Additional Family Medical History / Comment(s): Mother is . Father Family Medical History: Diabetes Mellitus, Hyperlipidemia, Hypertension, Myocardial Infarction ([place]) Additional Family Medical History / Comment(s): Father is from a myocardial infarction. Brother(s) Additional Family Medical History / Comment(s): Abraham Ramesh has 11 brothers and 2 sisters. Patient has 2 sons and 2 daughters with no major medical problems. Medications and Allergies Home Medications Medication Instructions Recorded Confirmed Type Amiodarone [Cordarone] 200 mg PO DAILY 04/22/16 04/22/16 History Ammonium Lactate Lotion 1 applic TOPICAL HS 04/22/16 04/22/16 History [Lac-Hydrin 12% Lotion] Apixaban [Eliquis] 2.5 mg PO BID 04/22/16 04/22/16 History Ascorbic Acid [Vitamin C] 500 mg PO DAILY 04/22/16 04/22/16 History Aspirin EC [Ecotrin Low Dose] 81 mg PO DAILY@1200 04/22/16 04/22/16 History Atorvastatin [Lipitor] 40 mg PO HS 04/22/16 04/22/16 History Bisacodyl [Dulcolax] 10 mg RECTAL DAILY PRN 04/22/16 04/22/16 History Budesonide [Pulmicort] 1 mg INHALATION RT-BID 04/22/16 04/22/16 History Carvedilol [Coreg] 12.5 mg PO DAILY@1200 04/22/16 04/22/16 History Carvedilol [Coreg] 25 mg PO DAILY 04/22/16 04/22/16 History Carvedilol [Coreg] 37.5 mg PO DAILY@2100 04/22/16 04/22/16 History Cholecalciferol [Vitamin D3] 2,000 unit PO BID 04/22/16 04/22/16 History Clopidogrel [Plavix] 75 mg PO DAILY@1200 04/22/16 04/22/16 History Fenofibrate Nanocrystallized 145 mg PO HS 04/22/16 04/22/16 History [Tricor] Ferrous Sulfate [Feosol] 325 mg PO BID 04/22/16 04/22/16 History Fluticasone Nasal [place] [Flonase 2 spr EA NOSTRIL DAILY 04/22/16 04/22/16 History Nasal [place]] Folic Acid 1 mg PO DAILY@1200 04/22/16 04/22/16 History Furosemide [Lasix] 20 mg PO BID 04/22/16 04/22/16 History Furosemide [Lasix] 40 mg PO BID 04/22/16 04/22/16 History Insulin Aspart [NovoLOG] See Protocol SQ ACHS 04/22/16 04/22/16 History Insulin Detemir [Levemir] 10 unit SQ BID 04/22/16 04/22/16 History Ipratropium-Albuterol Nebulize 3 ml INHALATION RT-TID PRN 04/22/16 04/22/16 History [Duoneb 0.5 mg-3 mg/3 ml Soln] Isosorbide Mononitrate ER [Imdur] 60 mg PO BID 04/22/16 04/22/16 History Lactobacillus Acidophilus 1 tab PO DAILY 04/22/16 04/22/16 History [Acidophilus] Melatonin 6 mg PO HS 04/22/16 04/22/16 History Worthing-3 Fatty Acids/Fish Oil [Fish 1 cap PO BID 04/22/16 04/22/16 History Oil 1,000 mg Softgel] Pantoprazole Sodium [Protonix] 40 mg PO DAILY 04/22/16 04/22/16 History Polyethylene Glycol 3350 [Miralax] 17 gm PO DAILY PRN 04/22/16 04/22/16 History Potassium Chloride [K-Tab ER] 10 meq PO BID 04/22/16 04/22/16 History Potassium Chloride [K-Tab ER] 10 meq PO BID 04/22/16 04/22/16 History Sennosides [Senna] 17.2 mg PO BID 04/22/16 04/22/16 History Tamsulosin HCl [Flomax] 0.4 mg PO HS 04/22/16 04/22/16 History Thera-M Multiple Vitamin Minerals 1 tab PO DAILY 04/22/16 History Vitamin B Complex 1 cap PO DAILY 04/22/16 04/22/16 History amLODIPine [Norvasc] 5 mg PO BID 04/22/16 04/22/16 History cloNIDine HCL [Catapres] 0.1 mg PO DAILY PRN 04/22/16 04/22/16 History rOPINIRole HCL [Requip] 1 mg PO HS 04/22/16 04/22/16 History Allergies Allergy/AdvReac Type Severity Reaction Status Date / Time ciprofloxacin [From Cipro] Allergy Unknown Verified 04/22/16 13:26 corticotropin Allergy Unknown Verified 04/22/16 13:26 erythromycin base Allergy Unknown Verified 04/22/16 13:26 gabapentin Allergy Unknown Verified 04/22/16 13:26 hydralazine Allergy Unknown Verified 04/22/16 13:26 Penicillins Allergy Unknown Verified 04/22/16 13:26 pentoxifylline [From Trental] Allergy Unknown Verified 04/22/16 13:26 prednisone Allergy Unknown Verified 04/22/16 13:26 doxycycline AdvReac Unknown Verified 04/22/16 13:26 Physical Exam Vitals: Vital Signs Temp Pulse Pulse Resp BP Pulse Ox 04/24/16 09:12 76 04/24/16 08:56 76 04/24/16 03:50 97.6 F 64 20 138/58 98 04/24/16 00:00 62 17 125/48 98 04/23/16 21:14 77 04/23/16 20:57 74 04/23/16 20:00 98.1 F 60 20 141/67 93 L 04/23/16 15:29 20 04/23/16 15:00 97.5 F L 61 20 152/66 96 04/23/16 12:32 97.5 F L 60 20 160/70 94 L Intake and Output 04/23/16 04/24/16 04/24/16 22:59 06:59 14:59 Intake Total 480 Output Total 475 800 375 Balance 5 -800 -375 Intake: Oral 480 Output: Urine 475 800 375 Other: # Voids 1 1 1 # Bowel Movements 0 Weight 87 kg PHYSICAL EXAMINATION: HEENT: Head is atraumatic, normocephalic. Pupils equal, round. Neck is supple. There is no elevated jugular venous pressure. HEART EXAMINATION: Heart S1 and S2 systolic murmur is heard. CHEST EXAMINATION: Lungs reveal scattered coarse rhonchi throughout with mild diminished air entry to bilateral bases. ABDOMEN: Soft, nontender. Bowel sounds are heard. No organomegaly noted. EXTREMITIES: 2+ peripheral pulses with no evidence of peripheral edema and no calf tenderness noted. NEUROLOGIC patient is awake, alert and oriented -3. . Results 04/24/16 05:37 04/24/16 05:37 CBC 04/24/16 Range/Units 05:37 WBC 5.6 (3.8-10.6) k/uL RBC 2.92 L (4.30-5.90) m/uL Hgb 8.2 L (13.0-17.5) gm/dL Hct 27.3 L (39.0-53.0) % Plt Count 178 (150-450) k/uL Comprehensive Metabolic Panel 04/24/16 Range/Units 05:37 Sodium 147 H (137-145) mmol/L Potassium 4.3 (3.5-5.1) mmol/L Chloride 104 (98-107) mmol/L Carbon Dioxide 37 H (22-30) mmol/L BUN 29 H (9-20) mg/dL Creatinine 1.60 H (0.66-1.25) mg/dL Glucose 75 (74-99) mg/dL Calcium 9.0 (8.4-10.2) mg/dL Current Medications Generic Name Dose Route Start Last Admin Trade Name Freq PRN Reason Stop Dose Admin Albuterol/Ipratropium 3 ml 04/22/16 14:58 04/24/16 08:56 Duoneb 0.5 Mg-3 Mg/3 Ml Soln INHALATION 3 ml RT-TID PRN Administration Shortness Of Breath Amiodarone HCl 200 mg 04/23/16 09:00 04/24/16 09:05 Cordarone PO 200 mg DAILY MELISSA Administration Amlodipine Besylate 5 mg 04/22/16 21:00 04/24/16 09:06 Norvasc PO 5 mg BID MELISSA Administration Apixaban 2.5 mg 04/22/16 21:00 04/24/16 09:06 Eliquis PO 2.5 mg BID MELISSA Administration Aspirin 81 mg 04/23/16 12:00 04/23/16 12:31 Aspirin PO 81 mg DAILY@1200 MELISSA Administration Atorvastatin Calcium 40 mg 04/22/16 21:00 04/23/16 20:17 Lipitor PO 40 mg HS MELISSA Administration Budesonide 1 mg 04/22/16 20:00 04/24/16 08:56 Pulmicort INHALATION 1 mg RT-BID MELISSA Administration Carvedilol 50 mg 04/24/16 08:45 04/24/16 09:05 Coreg PO 50 mg BID-W/MEALS MELISSA Administration Clopidogrel Bisulfate 75 mg 04/23/16 12:00 04/23/16 12:32 Plavix PO 75 mg DAILY@1200 MELISSA Administration Fenofibrate 160 mg 04/22/16 21:00 04/23/16 20:17 Lofibra PO 160 mg HS MELISSA Administration Ferrous Sulfate 325 mg 04/22/16 21:00 04/24/16 09:06 Feosol PO 325 mg BID MELISSA Administration Folic Acid 1 mg 04/23/16 12:00 04/23/16 12:32 Folic Acid PO 1 mg DAILY@1200 MELISSA Administration Furosemide 40 mg 04/23/16 06:00 04/24/16 06:42 Lasix IV 40 mg Q12H MELISSA Administration Insulin Detemir 10 unit 04/22/16 21:00 04/24/16 09:06 Levemir SQ 10 unit BID MELISSA Administration Insulin Human Lispro 0 unit 04/23/16 12:30 04/24/16 06:49 Humalog SQ Not Given ACHS [facility] Protocol Isosorbide Mononitrate 60 mg 04/22/16 21:00 04/24/16 09:06 Imdur PO 60 mg BID MELISSA Administration Melatonin 6 mg 04/22/16 21:00 04/23/16 20:17 Melatonin PO 6 mg HS MELISSA Administration Pantoprazole Sodium 40 mg 04/23/16 09:00 04/24/16 09:06 Protonix PO 40 mg DAILY MELISSA Administration Potassium Chloride 10 meq 04/22/16 21:00 04/24/16 09:06 K-Dur 10 PO 10 meq BID MELISSA Administration Ropinirole HCl 1 mg 04/22/16 21:00 04/23/16 20:16 Requip PO 1 mg HS MELISSA Administration Tamsulosin HCl 0.4 mg 04/22/16 21:00 04/23/16 20:17 Flomax PO 0.4 mg HS MELISSA Administration Intake and Output 04/23/16 04/24/16 04/24/16 22:59 06:59 14:59 Intake Total 480 Output Total 475 800 375 Balance 5 -800 -375 Intake: Oral 480 Output: Urine 475 800 375 Other: # Voids 1 1 1 # Bowel Movements 0 Weight 87 kg 04/24/16 05:37 04/24/16 05:37 EKG Interpretations (text) EKG shows a dual paced rhythm Assessment and Plan Plan: Assessment and plan #1 systolic congestive heart failure acute on chronic, ejection fraction 40-45% . Currently on IV Lasix. #2 chronic persistent atrial fibrillation, on Eliquis for anticoagulation. #3 COPD exacerbation #4 stage IV adenocarcinoma of the lung, recently diagnosed in February. #5 hypertension #6 known history of coronary artery disease with prior bypass surgery #7 hyperlipidemia #8 diabetes #9 BPH Plan Would recommend to continue current dose of IV Lasix. Check daily lytes BUN and creatinine, continue Eliquis and baby aspirin. Further recommendations to follow. DNP note has been reviewed, I agree with a documented findings and plan of care. Patient was seen and examined. <Dom Garrison - Last Filed: 04/24/16 12:47> Physical Exam Vitals: Vital Signs Temp Pulse Pulse Resp BP Pulse Ox 04/24/16 09:12 76 04/24/16 08:56 76 04/24/16 03:50 97.6 F 64 20 138/58 98 04/24/16 00:00 62 17 125/48 98 04/23/16 21:14 77 04/23/16 20:57 74 04/23/16 20:00 98.1 F 60 20 141/67 93 L 04/23/16 15:29 20 04/23/16 15:00 97.5 F L 61 20 152/66 96 Intake and Output 04/23/16 04/24/16 04/24/16 22:59 06:59 14:59 Intake Total 480 Output Total 475 800 375 Balance 5 -800 -375 Intake: Oral 480 Output: Urine 475 800 375 Other: # Voids 1 1 1 # Bowel Movements 0 Weight 87 kg Results 04/24/16 05:37 04/24/16 05:37 CBC 04/24/16 Range/Units 05:37 WBC 5.6 (3.8-10.6) k/uL RBC 2.92 L (4.30-5.90) m/uL Hgb 8.2 L (13.0-17.5) gm/dL Hct 27.3 L (39.0-53.0) % Plt Count 178 (150-450) k/uL Comprehensive Metabolic Panel 04/24/16 Range/Units 05:37 Sodium 147 H (137-145) mmol/L Potassium 4.3 (3.5-5.1) mmol/L Chloride 104 (98-107) mmol/L Carbon Dioxide 37 H (22-30) mmol/L BUN 29 H (9-20) mg/dL Creatinine 1.60 H (0.66-1.25) mg/dL Glucose 75 (74-99) mg/dL Calcium 9.0 (8.4-10.2) mg/dL Current Medications Generic Name Dose Route Start Last Admin Trade Name Freq PRN Reason Stop Dose Admin Albuterol/Ipratropium 3 ml 04/22/16 14:58 04/24/16 08:56 Duoneb 0.5 Mg-3 Mg/3 Ml Soln INHALATION 3 ml RT-TID PRN Administration Shortness Of Breath Amiodarone HCl 200 mg 04/23/16 09:00 04/24/16 09:05 Cordarone PO 200 mg DAILY MLEISSA Administration Amlodipine Besylate 5 mg 04/22/16 21:00 04/24/16 09:06 Norvasc PO 5 mg BID MELISSA Administration Apixaban 2.5 mg 04/22/16 21:00 04/24/16 09:06 Eliquis PO 2.5 mg BID MELISSA Administration Aspirin 81 mg 04/23/16 12:00 04/24/16 12:32 Aspirin PO 81 mg DAILY@1200 MELISSA Administration Atorvastatin Calcium 40 mg 04/22/16 21:00 04/23/16 20:17 Lipitor PO 40 mg HS MELISSA Administration Budesonide 1 mg 04/22/16 20:00 04/24/16 08:56 Pulmicort INHALATION 1 mg RT-BID MELISSA Administration Carvedilol 50 mg 04/24/16 08:45 04/24/16 09:05 Coreg PO 50 mg BID-W/MEALS MELISSA Administration Clopidogrel Bisulfate 75 mg 04/23/16 12:00 04/24/16 12:32 Plavix PO 75 mg DAILY@1200 MELISSA Administration Fenofibrate 160 mg 04/22/16 21:00 04/23/16 20:17 Lofibra PO 160 mg HS MELISSA Administration Ferrous Sulfate 325 mg 04/22/16 21:00 04/24/16 09:06 Feosol PO 325 mg BID MELISSA Administration Folic Acid 1 mg 04/23/16 12:00 04/24/16 12:32 Folic Acid PO 1 mg DAILY@1200 MELISSA Administration Furosemide 40 mg 04/23/16 06:00 04/24/16 06:42 Lasix IV 40 mg Q12H MELISSA Administration Insulin Detemir 10 unit 04/22/16 21:00 04/24/16 09:06 Levemir SQ 10 unit BID MELISSA Administration Insulin Human Lispro 0 unit 04/23/16 12:30 04/24/16 12:33 Humalog SQ 2 unit ACHS MELISSA Administration Protocol Isosorbide Mononitrate 60 mg 04/22/16 21:00 04/24/16 09:06 Imdur PO 60 mg BID MELISSA Administration Melatonin 6 mg 04/22/16 21:00 04/23/16 20:17 Melatonin PO 6 mg HS MELISSA Administration Pantoprazole Sodium 40 mg 04/23/16 09:00 04/24/16 09:06 Protonix PO 40 mg DAILY MELISSA Administration Potassium Chloride 10 meq 04/22/16 21:00 04/24/16 09:06 K-Dur 10 PO 10 meq BID MELISSA Administration Ropinirole HCl 1 mg 04/22/16 21:00 04/23/16 20:16 Requip PO 1 mg HS MELISSA Administration Tamsulosin HCl 0.4 mg 04/22/16 21:00 04/23/16 20:17 Flomax PO 0.4 mg HS MELISSA Administration Intake and Output 04/23/16 04/24/16 04/24/16 22:59 06:59 14:59 Intake Total 480 Output Total 475 800 375 Balance 5 -800 -375 Intake: Oral 480 Output: Urine 475 800 375 Other: # Voids 1 1 1 # Bowel Movements 0 Weight 87 kg 04/24/16 05:37 04/24/16 05:37
[2016-04-24] MEDS: FOLIC ACID 1 MG TAB PO SCH (12:32)
[2016-04-24] MEDS: ASPIRIN 81 MG CHEW PO SCH (12:32)
[2016-04-24] MEDS: CLOPIDOGREL 75 MG TAB PO SCH (12:32)
[2016-04-24 17:10] LABS: Glucose,Whole Blood 155 mg/dL (75-99)
[2016-04-24 21:00] LABS: Glucose,Whole Blood 309 mg/dL (75-99)
[2016-04-24] MEDS: MELATONIN 3 MG TABLET PO SCH (21:06)
[2016-04-24] MEDS: TAMSULOSIN 0.4 MG CAP.ER.24H PO SCH (21:07)
[2016-04-24] MEDS: FENOFIBRATE 160 MG TAB PO SCH (21:07)
[2016-04-24] MEDS: ATORVASTATIN 40 MG TAB PO SCH (21:07)
[2016-04-25 05:57] LABS: Glucose,Whole Blood 98 mg/dL (75-99)
[2016-04-25] MEDS: INSULIN LISPRO (humaLOG) 300 UNIT/3 ML VIAL SQ SCH ×4 (06:12→20:59)
[2016-04-25 06:25] LABS: Anisocytosis Slight; CH 28.1; CHCM 30.3; HCT 26.6 % (39.0-53.0); HDW 3.28; Hypochromasia Marked; MCH 27.9 pg (25.0-35.0); MCHC 29.9 g/dL (31.0-37.0); MCV 93.2 fL (80.0-100.0); Macrocytosis Slight; RBC 2.86 m/uL (4.30-5.90); RDW 19.3 % (11.5-15.5); WBC 6.7 k/uL (3.8-10.6)
[2016-04-25 06:39] LABS: Calcium 8.7 mg/dL (8.4-10.2); Potassium 4.2 mmol/L (3.5-5.1)
[2016-04-25] MEDS: FUROSEMIDE 10 MG/ML 4 ML VIAL IV SCH ×2 (06:59→17:09)
[2016-04-25] MEDS: CARVEDILOL 12.5 MG TAB PO SCH ×2 (07:00→17:09)
[2016-04-25] MEDS: BUDESONIDE 1 MG/2 ML NEBU INHALATION SCH ×2 (09:17→19:54)
[2016-04-25] MEDS: FOLIC ACID 1 MG TAB PO SCH (10:13)
[2016-04-25] MEDS: amLODIPine 5 MG TAB PO SCH ×2 (10:13→20:58)
[2016-04-25] MEDS: CLOPIDOGREL 75 MG TAB PO SCH (10:13)
[2016-04-25] MEDS: APIXABAN 2.5 MG TABLET PO SCH ×2 (10:14→20:58)
[2016-04-25] MEDS: PANTOPRAZOLE 40 MG TABLET PO SCH (10:14)
[2016-04-25] MEDS: ASPIRIN 81 MG CHEW PO SCH (10:14)
[2016-04-25] MEDS: FERROUS SULFATE 325 MG TAB PO SCH ×2 (10:14→20:58)
[2016-04-25] MEDS: POTASSIUM CHLORIDE ER 10 MEQ TAB.ER.PRT PO SCH ×2 (10:14→21:00)
[2016-04-25] MEDS: ISOSORBIDE MONONITRATE ER 60 MG TAB.ER.24H PO SCH ×2 (10:14→21:00)
[2016-04-25] MEDS: INSULIN DETEMIR 100 UNIT/ML 10 ML VIAL SQ SCH ×2 (10:20→20:59)
--- NOTE | 2016-04-25 11:57 | P.PN ---
Subjective Principal diagnosis: Acute congestive heart failure This is a 80-year-old white male with history of stage IV adenocarcinoma of the lungs, this was diagnosed back in February and the diagnosis was made at the [facility]. Patient apparently presented initially to [facility] with a right lung mass, and he underwent CT-guided needle biopsy. The pathology report was nonconclusive. Hence the patient was seen at the [facility] and he underwent bronchoscopy and transbronchial biopsy, and he was diagnosed as having adenocarcinoma. Patient was told that he had a stage IV but he has no idea as to where the metastasis is. Patient was placed on chemotherapy, and so far he received 2 courses of chemotherapy. Since then, the patient was admitted to [facility] with pneumonia and congestive heart failure, and he was eventually transferred to [facility] and he was seen by his keyboard specialist, and his diuretics were adjusted. Patient was discharged from [facility] to the [facility] about a week ago. Over the last few days, the patient has been complaining of increased shortness of breath. And according to him he was retaining fluids in his lower extremities. No fever no chills no cough no wheezing no chest pain. Patient was evaluated in the ER yesterday, chest x-ray was suggestive of congestive heart failure, interstitial edema, and right lower lobe atelectasis with small pleural effusion. His echocardiogram was reported as a relatively normal, however according to the patient he was told by Dr. Chaudhari at [facility] that his LV function is compromised, and it is usually about 40-45%. His CBC on admission showed a low hemoglobin of 8.2 electrolytes were noted to be normal except for elevated bicarb of 34 proBNP level was almost 7000. Patient was admitted with the impression of congestive heart failure, and I was asked to see him on consultation. Presently, the patient denies any headaches, no blurred vision, no dizziness, he is a bit hard of hearing, denies any chest pain , no nausea, no vomiting no abdominal pain no melena no hematemesis no dysuria and no frequency no urgency. Reevaluated today on 04/24/2016, patient is feeling better, breathing a lot easier. No chest x-ray was done today, hemoglobin remains low at 8.2, electrolytes were reviewed, bicarb is 37 BUN is 29 creatinine is 1.60. His renal profile is the same as it was on admission. Overall the patient is feeling better and breathing easier, and I plan to repeat chest x-ray on this patient early Tuesday. Reevaluated on 04/25/2016, continues to improve steadily. No cough no wheezing no shortness of breath. Labs were reviewed, hemoglobin is 8.0, BUN is 30 creatinine is 1.63. Patient was in by cardiology, and recommended continuation of same medical treatment. Patient will definitely need a repeat chest x-ray in a.m. Objective - Vital Signs Vital signs: Vital Signs Temp 97.1 F L 04/25/16 08:00 Pulse 79 04/25/16 08:00 Resp 16 04/25/16 08:00 BP 135/61 04/25/16 08:00 Pulse Ox 97 04/25/16 08:00 Intake & Output 04/24/16 04/25/16 04/25/16 18:59 06:59 18:59 Intake Total 520 680 Output Total 725 700 Balance -205 -700 680 Weight 87.7 kg Intake: Oral 520 680 Output: Urine 725 700 Other: # Voids 1 3 - Exam Physical Exam: Revealed a 80-year-old white male, looks chronically ill, pale, in no distress. HEENT:[Neck is supple.] [No neck masses.] [No thyromegaly.] [No JVD.] Chest: [Diminished breath sounds at the bases especially at the right base, no crackles or rhonchi or wheezes..] Cardiac Exam: [Irregular rhythm Normal S1 and S2, no S3 gallop, 2/6 systolic murmur throughout the precordium] Abdomen: [Soft, nontender, no megaly, no rebound, no guarding, normal bowel sounds.] Extremities: [No clubbing, trace of bipedal edema, no cyanosis.] Neurological Exam: [No focal neurologic deficit.] - Labs CBC & Chem 7: 04/25/16 05:56 04/25/16 05:56 Labs: Abnormal Lab Results - Last 24 Hours (Table) 04/24/16 04/24/16 04/24/16 Range/Units 11:53 17:02 20:51 RBC (4.30-5.90) m/uL Hgb (13.0-17.5) gm/dL Hct (39.0-53.0) % MCHC (31.0-37.0) g/dL RDW (11.5-15.5) % Sodium (137-145) mmol/L Carbon Dioxide (22-30) mmol/L BUN (9-20) mg/dL Creatinine (0.66-1.25) mg/dL POC Glucose (mg/dL) 169 H 155 H 309 H (75-99) mg/dL 04/25/16 04/25/16 Range/Units 05:56 05:56 RBC 2.86 L (4.30-5.90) m/uL Hgb 8.0 L (13.0-17.5) gm/dL Hct 26.6 L (39.0-53.0) % MCHC 29.9 L (31.0-37.0) g/dL RDW 19.3 H (11.5-15.5) % Sodium 146 H (137-145) mmol/L Carbon Dioxide 35 H (22-30) mmol/L BUN 30 H (9-20) mg/dL Creatinine 1.63 H (0.66-1.25) mg/dL POC Glucose (mg/dL) (75-99) mg/dL Assessment and Plan Plan: Impression: Shortness of breath secondary to: 1 congestive heart failure, probable diastolic dysfunction 2 chronic atrial fibrillation 3 chronic anemia 4 chronic obstructive pulmonary disease 5 stage IV bronchogenic carcinoma recently diagnosed, patient is presently on chemotherapy at the [facility]. History of multiple comorbidities including hypertension, coronary artery disease previous CT and previous stents placed, history of hypertension, and recent history of pneumonia as well as recent history of congestive heart failure. Recommendation: Patient seems to be responding well to the present treatment plan, he is on Lasix at 40 mg IV push every 12 hours, he is also on updrafts, he is already feeling better since admission, hence I will recommend we continue the same treatment plan, and we'll repeat chest x-ray in a.m. Time with Patient: Less than 30
[2016-04-25] MEDS: AMIODARONE 200 MG TAB PO SCH (12:12)
[2016-04-25 12:18] LABS: Glucose,Whole Blood 174 mg/dL (75-99)
--- NOTE | 2016-04-25 16:49 | P.PN ---
Subjective Patient is doing better than yesterday. He denies any shortness of breath at rest, no chest discomfort no dizziness or lightheadedness. He had a comfortable night. Examination He is afebrile 97.1F, pulse rate in the 60s, blood pressure 138/68 mmHg Breath sounds are reduced bilaterally with some rhonchi bilaterally Heart sounds soft soft systolic murmur Abdomen is soft Extremities are warm no lower extremity edema Impression Chronic systolic dysfunction ejection fraction 40-45% Permanent atrial fibrillation on ELIQUIS COPD exacerbation Adenocarcinoma of the lung Hypertension Coronary artery disease status post coronary artery bypass grafting Dyslipidemia Diabetes Plan Continue current medications Objective - Vital Signs Vital signs: Vital Signs Temp 97.1 F L 04/25/16 16:00 Pulse 72 04/25/16 16:00 Resp 16 04/25/16 16:00 BP 142/69 04/25/16 16:00 Pulse Ox 97 04/25/16 16:00 Intake & Output 04/24/16 04/25/16 04/25/16 18:59 06:59 18:59 Intake Total 520 680 Output Total 725 700 625 Balance -205 -700 55 Weight 87.7 kg Intake: Oral 520 680 Output: Urine 725 700 625 Other: # Voids 1 3 1 - Labs CBC & Chem 7: 04/25/16 05:56 04/25/16 05:56 Labs: Abnormal Lab Results - Last 24 Hours (Table) 04/24/16 04/24/16 04/25/16 Range/Units 17:02 20:51 05:56 RBC 2.86 L (4.30-5.90) m/uL Hgb 8.0 L (13.0-17.5) gm/dL Hct 26.6 L (39.0-53.0) % MCHC 29.9 L (31.0-37.0) g/dL RDW 19.3 H (11.5-15.5) % Sodium (137-145) mmol/L Carbon Dioxide (22-30) mmol/L BUN (9-20) mg/dL Creatinine (0.66-1.25) mg/dL POC Glucose (mg/dL) 155 H 309 H (75-99) mg/dL 04/25/16 04/25/16 Range/Units 05:56 11:58 RBC (4.30-5.90) m/uL Hgb (13.0-17.5) gm/dL Hct (39.0-53.0) % MCHC (31.0-37.0) g/dL RDW (11.5-15.5) % Sodium 146 H (137-145) mmol/L Carbon Dioxide 35 H (22-30) mmol/L BUN 30 H (9-20) mg/dL Creatinine 1.63 H (0.66-1.25) mg/dL POC Glucose (mg/dL) 174 H (75-99) mg/dL
[2016-04-25 16:54] LABS: Glucose,Whole Blood 180 mg/dL (75-99)
--- NOTE | 2016-04-25 19:23 | PN ---
Patient continued to be hemodynamically stable, said that his shortness of breath has slightly improved from prior examination. Patient is concerned about his medical condition and has a lot of concerns and questions which were addressed all at the bedside. PHYSICAL EXAMINATION: VITAL SIGNS: Reviewed and are stable. LUNGS: Diminished bilaterally. HEART: Normal S1, S2, irregularly irregular heartbeats. ABDOMEN: Soft, no tenderness, positive bowel sounds in all 4 quadrants. Lower extremity improved edema. PSYCH: Alert, and oriented x3. IMAGING AND LABS: CBC revealed stable hemoglobin at 8, normal otherwise. Metabolic panel revealed creat at 1.6, sodium 146 and carbon dioxide is 35. Glucose fluctuating between 98 and 174. ASSESSMENT AND PLAN: 1. Acute respiratory failure with hypoxia. 2. Acute congestive heart failure exacerbation. 3. Chronic obstructive pulmonary disease. 4. Anemia. 5. Chronic atrial fibrillation. 6. Stage IV bronchogenic carcinoma diagnosed in February, status post one time chemotherapy at [facility]. PLAN: 1. I would like to continue with IV Lasix. Continue monitoring kidney function closely. Continue monitoring electrolytes, daily weight, I's and O's and follow up on patient's general condition closely. I would like to wean him off steroids as tolerated, patient with first day improvement. Will monitor him closely. 2. Will have patient follow up with [facility] for continuation of his chemotherapy. 3. All patient's concerns and questions addressed at the bedside and patient is satisfied with the current treatment plan.
[2016-04-25] MEDS: IPRATROPIUM-ALBUTEROL 3 ML NEB INHALATION PRN (19:54)
[2016-04-25 20:51] LABS: Glucose,Whole Blood 342 mg/dL (75-99)
[2016-04-25] MEDS: FENOFIBRATE 160 MG TAB PO SCH (20:58)
[2016-04-25] MEDS: ATORVASTATIN 40 MG TAB PO SCH (20:58)
[2016-04-25] MEDS: MELATONIN 3 MG TABLET PO SCH (21:00)
[2016-04-25] MEDS: TAMSULOSIN 0.4 MG CAP.ER.24H PO SCH (21:00)
[2016-04-26 06:30] LABS: Anisocytosis Slight; CH 27.8; CHCM 29.9; HCT 26.6 % (39.0-53.0); HDW 3.26; Hypochromasia Marked; MCH 28.2 pg (25.0-35.0); MCHC 30.2 g/dL (31.0-37.0); MCV 93.6 fL (80.0-100.0); Macrocytosis Slight; Mean Platelet Volume 7.5; RBC 2.84 m/uL (4.30-5.90); WBC 5.7 k/uL (3.8-10.6)
[2016-04-26] MEDS: INSULIN LISPRO (humaLOG) 300 UNIT/3 ML VIAL SQ SCH ×4 (06:30→20:50)
[2016-04-26 06:38] LABS: Calcium 8.8 mg/dL (8.4-10.2)
[2016-04-26] MEDS: FUROSEMIDE 10 MG/ML 4 ML VIAL IV SCH (06:58)
[2016-04-26] MEDS: CARVEDILOL 12.5 MG TAB PO SCH ×2 (06:58→17:23)
[2016-04-26 06:59] LABS: Glucose,Whole Blood 78 mg/dL (75-99)
[2016-04-26] MEDS: APIXABAN 2.5 MG TABLET PO SCH ×2 (09:01→20:54)
[2016-04-26] MEDS: AMIODARONE 200 MG TAB PO SCH (09:01)
[2016-04-26] MEDS: FERROUS SULFATE 325 MG TAB PO SCH ×2 (09:01→20:54)
[2016-04-26] MEDS: PANTOPRAZOLE 40 MG TABLET PO SCH (09:02)
[2016-04-26] MEDS: ISOSORBIDE MONONITRATE ER 60 MG TAB.ER.24H PO SCH ×2 (09:02→20:54)
[2016-04-26] MEDS: POTASSIUM CHLORIDE ER 10 MEQ TAB.ER.PRT PO SCH ×2 (09:03→20:55)
[2016-04-26] MEDS: BUDESONIDE 1 MG/2 ML NEBU INHALATION SCH ×2 (09:05→20:42)
[2016-04-26] MEDS: IPRATROPIUM-ALBUTEROL 3 ML NEB INHALATION PRN ×2 (09:06→20:42)
--- NOTE | 2016-04-26 09:10 | XR ---
EXAMINATION TYPE: XR chest 1V portable DATE OF EXAM: 04/26/2016 8:59 AM COMPARISON: NONE INDICATION: Follow-up CHF TECHNIQUE: Single frontal view of the chest is obtained. FINDINGS: Heart size is mildly prominent. The pulmonary vasculature is normal. Bibasilar infiltrates are present, greater on the right. Findings are worsening from comparison. Advanced degenerative changes are at the right shoulder. Degenerative changes are present at the left shoulder. Pacemaker overlies left chest IMPRESSION: 1. Bibasilar infiltrates, worsening. Correlate for atelectasis and pneumonia. Continued follow-up is recommended.
[2016-04-26] MEDS: INSULIN DETEMIR 100 UNIT/ML 10 ML VIAL SQ SCH ×2 (09:11→20:50)
[2016-04-26 11:53] LABS: Glucose,Whole Blood 140 mg/dL (75-99)
[2016-04-26] MEDS: CLOPIDOGREL 75 MG TAB PO SCH (12:03)
[2016-04-26] MEDS: amLODIPine 5 MG TAB PO SCH ×2 (12:04→20:55)
[2016-04-26] MEDS: ASPIRIN 81 MG CHEW PO SCH (12:04)
[2016-04-26] MEDS: FOLIC ACID 1 MG TAB PO SCH (12:05)
--- NOTE | 2016-04-26 12:10 | P.PN ---
Subjective Principal diagnosis: CHF This is a 80-year-old gentleman who resides at [facility]. Patient has a known history of COPD, systolic congestive heart failure failure, chronic kidney disease, BPH, paroxysmal atrial fibrillation, hypertension, hyperlipidemia, recent diagnosis of stage IV adenocarcinoma of the lungs status post 2 treatments of chemo, prior pacemaker implantation, diabetes, patient was at [facility] because of a recent admission to [facility] with pneumonia. He was readmitted on this occasion because of worsening shortness of breath. BNP level on admission 7000, chest x-ray revealed congestive cardiac failure. Patient was diuresed overall very well on IV Lasix. Feeling much better today. Creatinine 1.7, hemoglobin 8.0. Objective - Vital Signs Vital signs: Vital Signs Temp 97.5 F L 04/26/16 12:00 Pulse 76 04/26/16 09:20 Resp 20 04/26/16 12:00 BP 130/57 04/26/16 12:00 Pulse Ox 98 04/26/16 12:00 Intake & Output 04/25/16 04/26/16 04/26/16 18:59 06:59 18:59 Intake Total 680 220 Output Total 625 900 400 Balance 55 -900 -180 Weight 88.1 kg Intake: Oral 680 220 Output: Urine 625 900 400 Other: Voiding Method Urinal # Voids 1 1 - Exam PHYSICAL EXAMINATION: HEENT: Head is atraumatic, normocephalic. Pupils equal, round. Neck is supple. There is no elevated jugular venous pressure. HEART EXAMINATION: Heart S1 and S2 systolic murmur is heard. CHEST EXAMINATION: Lungs reveal scattered coarse rhonchi throughout with mild diminished air entry to bilateral bases. ABDOMEN: Soft, nontender. Bowel sounds are heard. No organomegaly noted. EXTREMITIES: 2+ peripheral pulses with no evidence of peripheral edema and no calf tenderness noted. NEUROLOGIC patient is awake, alert and oriented -3. - Labs CBC & Chem 7: 04/26/16 05:29 04/26/16 05:29 Labs: Abnormal Lab Results - Last 24 Hours (Table) 04/25/16 04/25/16 04/25/16 Range/Units 11:58 16:53 20:46 RBC (4.30-5.90) m/uL Hgb (13.0-17.5) gm/dL Hct (39.0-53.0) % MCHC (31.0-37.0) g/dL RDW (11.5-15.5) % Carbon Dioxide (22-30) mmol/L BUN (9-20) mg/dL Creatinine (0.66-1.25) mg/dL Glucose (74-99) mg/dL POC Glucose (mg/dL) 174 H 180 H 342 H (75-99) mg/dL 04/26/16 04/26/16 04/26/16 Range/Units 05:29 05:29 11:33 RBC 2.84 L (4.30-5.90) m/uL Hgb 8.0 L (13.0-17.5) gm/dL Hct 26.6 L (39.0-53.0) % MCHC 30.2 L (31.0-37.0) g/dL RDW 19.0 H (11.5-15.5) % Carbon Dioxide 36 H (22-30) mmol/L BUN 32 H (9-20) mg/dL Creatinine 1.78 H (0.66-1.25) mg/dL Glucose 69 L (74-99) mg/dL POC Glucose (mg/dL) 140 H (75-99) mg/dL Assessment and Plan Plan: Assessment and plan #1 systolic congestive heart failure acute on chronic, ejection fraction 40-45% . Currently on IV Lasix. #2 chronic persistent atrial fibrillation, on Eliquis for anticoagulation. #3 COPD exacerbation #4 stage IV adenocarcinoma of the lung, recently diagnosed in February. #5 hypertension #6 known history of coronary artery disease with prior bypass surgery #7 hyperlipidemia #8 diabetes #9 BPH Plan We will discontinue the patient's IV Lasix. Start the patient on Lasix 60 mg one tablet by mouth twice a day. Patient may be able to be discharged from cardiology's perspective. He's been instructed to follow-up with his flush tester, Dr. Chaudhari, within one to 2 weeks. DNP note has been reviewed, I agree with a documented findings and plan of care. Patient was seen and examined.
--- NOTE | 2016-04-26 13:22 | P.PN ---
Subjective This is a 80-year-old male. He is residing at [facility] on the [place] under the care of Dr. Jernigan for rehab after hospitalization following pneumonia. He has a past medical history of COPD, chronic systolic heart failure with ejection fraction 40-45%, chronic kidney disease stage III, benign prostatic hypertrophy, atrial fibrillation on eliquis hyperlipidemia, hypertension, myocardial infarction, recent diagnosis of 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, pacemaker, melanoma of the left axillary, diabetes mellitus type 2 with diabetic neuropathy. Patient states he had a recent hospitalization at [facility] and was treated for heart failure. He had pansensitive pseudomonas in his sputum on 03/23/2016. He went to [facility] for rehab and had worsening of his shortness of breath. His pulse ox dropped down to 81% and he was placed on a nonrebreather with respirations of 30. Patient was then transferred to [facility]. Patient came into [facility] emergency center for evaluation. Hemoglobin 8.2, BUN 29 creatinine 1.6. ProBNP 7000. Chest x-ray shows heart failure with pulmonary vascular congestion and interstitial edema. Small pleural effusions with adjacent bibasilar atelectasis and or infiltrates. Patient started on IV Lasix and admitted to the selective care unit. Cardiology consult will be requested. Pulmonary consult also added for history of recent pneumonia, lung cancer. Patient states he was just diagnosed with lung cancer in February 2016. He was initially treated at [facility] for CAT scan guided needle biopsy. Pathology report was nonconclusive. Patient went [facility] underwent bronchoscopy and transbronchial biopsy and was diagnosed with adenocarcinoma. His soda flaker is Dr. Chaudhari at [place] 04/26: Echocardiogram reveals mild mitral regurgitation, mild tricuspid regurgitation, mild concentric left hypertrophy, EF 55-60%. Repeat chest x-ray shows bibasilar infiltrates worsening. Correlate for atelectasis and pneumonia. He is continued on IV Lasix 40 mg twice daily which has been increased to 60 mg twice daily by cardiology. BUN 32 and creatinine 1.78. Blood sugar this morning was 69 and last evening 342. No changes made to insulins. Objective - Vital Signs Vital signs: Vital Signs Temp 97.9 F 04/26/16 08:55 Pulse 76 04/26/16 09:06 Resp 20 04/26/16 08:55 BP 127/54 04/26/16 08:55 Pulse Ox 95 04/26/16 08:55 Intake & Output 04/25/16 04/26/16 04/26/16 18:59 06:59 18:59 Intake Total 680 220 Output Total 625 900 400 Balance 55 -900 -180 Weight 88.1 kg Intake: Oral 680 220 Output: Urine 625 900 400 Other: # Voids 1 1 - Exam Gen: This is a 80-year-old male. He is resting flat in bed and appears to be in no acute distress. No respiratory distress noted. HEENT: Head is atraumatic, normocephalic. Pupils equal, round. Sclerae is anicteric. NECK: Supple. No JVD. No lymphadenopathy. No thyromegaly. LUNGS: Diminished breath sounds with diffuse wheezing and rhonchi. No intercostal retractions. HEART: Regular rate and rhythm. 2/6 systolic murmur. ABDOMEN: Soft. Bowel sounds are present. No masses. No tenderness. EXTREMITIES: No pedal edema. No calf tenderness. NEUROLOGICAL: Patient is awake, alert and oriented x3. Cranial nerves 2 through 12 are grossly intact. - Labs CBC & Chem 7: 04/26/16 05:29 04/26/16 05:29 Labs: Abnormal Lab Results - Last 24 Hours (Table) 04/25/16 04/25/16 04/25/16 Range/Units 11:58 16:53 20:46 RBC (4.30-5.90) m/uL Hgb (13.0-17.5) gm/dL Hct (39.0-53.0) % MCHC (31.0-37.0) g/dL RDW (11.5-15.5) % Carbon Dioxide (22-30) mmol/L BUN (9-20) mg/dL Creatinine (0.66-1.25) mg/dL Glucose (74-99) mg/dL POC Glucose (mg/dL) 174 H 180 H 342 H (75-99) mg/dL 04/26/16 04/26/16 Range/Units 05:29 05:29 RBC 2.84 L (4.30-5.90) m/uL Hgb 8.0 L (13.0-17.5) gm/dL Hct 26.6 L (39.0-53.0) % MCHC 30.2 L (31.0-37.0) g/dL RDW 19.0 H (11.5-15.5) % Carbon Dioxide 36 H (22-30) mmol/L BUN 32 H (9-20) mg/dL Creatinine 1.78 H (0.66-1.25) mg/dL Glucose 69 L (74-99) mg/dL POC Glucose (mg/dL) (75-99) mg/dL Assessment and Plan Plan: 1. Acute hypoxic respiratory failure with acute on chronic systolic heart failure with known ejection fraction of 40-45%. Lasix 40 mg IV every 12 hours. Cardiology consult requested. Daily weights and I&O. Monitor electrolytes and kidney function. Consult with Dr. Mckenzie appreciated. 2. Chronic atrial fibrillation status post pacemaker. Continue amiodarone and eliquis. 3. COPD, stable. Continue DuoNeb treatments 3 times daily as needed, Pulmicort 1 mg twice daily. 4. Stage IV adenocarcinoma of the lung recent diagnosis status post chemotherapy at [facility]. Consult with Dr. Mckenzie appreciated. 5. Hypertension. Continue Coreg, Norvasc and Catapres as needed. 6. History of coronary artery disease status post CABG. Continue Plavix, Imdur , aspirin, Lipitor. 7. Diabetes mellitus type 2, insulin requiring. Continue Levemir 10 units twice daily and Humalog scale before meals and at bedtime. 8. Hyperlipidemia. Continue Lipitor 40 mg at bedtime and fenofibrate. 9. Gastroesophageal reflux disease and gastrointestinal prophylaxis. Continue Protonix. 10. Benign prostatic hypertrophy. Continue Flomax. 11. Melanoma left axillary, stable. 12. DVT prophylaxis. Continue eliquis. Discharge plan: Return to [facility] Impression and plan of care have been directed as dictated by the signing physician. Arlen Pickering nurse practitioner acting as scribe for signing physician. Time with Patient: Greater than 30
--- NOTE | 2016-04-26 15:09 | P.PN ---
Subjective This is a 72-year-old gentleman with a history of CHF probably diastolic dysfunction, chronic atrial fibrillation, chronic anemia, COPD, and stage IV bronchogenic carcinoma recently diagnosed and starting on chemotherapy at [facility]. The patient has a history of hypertension CAD previous ID previous stent placement and an episode of pneumonia in the past. When Dr. Solis saw the patient yesterday on April 25, he was improved. Objective - Vital Signs Vital signs: Vital Signs Temp 97.5 F L 04/26/16 12:00 Pulse 76 04/26/16 09:20 Resp 20 04/26/16 12:00 BP 130/57 04/26/16 12:00 Pulse Ox 98 04/26/16 12:00 Intake & Output 04/25/16 04/26/16 04/26/16 18:59 06:59 18:59 Intake Total 680 620 Output Total 625 900 400 Balance 55 -900 220 Weight 88.1 kg Intake: Oral 680 620 Output: Urine 625 900 400 Other: Voiding Method Urinal # Voids 1 1 - Exam No acute distress, oriented 3. Ada patient's laying flat in bed. He is wearing nasal O2. In no distress whatsoever. HEENT examination is grossly unremarkable. Mucous membranes are moist. Neck supple. Full range of motion. No adenopathy. Cardiovascular examination reveals regular rhythm rate.2/6 systolic murmur. No S3. No S4. Sophia examination reveals diminished breath sounds. A few scattered rhonchi. No wheezes. Abdomen soft bowel sounds are heard. Extremities are intact. - Labs CBC & Chem 7: 04/26/16 05:29 04/26/16 05:29 Labs: Abnormal Lab Results - Last 24 Hours (Table) 04/25/16 04/25/16 04/26/16 Range/Units 16:53 20:46 05:29 RBC 2.84 L (4.30-5.90) m/uL Hgb 8.0 L (13.0-17.5) gm/dL Hct 26.6 L (39.0-53.0) % MCHC 30.2 L (31.0-37.0) g/dL RDW 19.0 H (11.5-15.5) % Carbon Dioxide (22-30) mmol/L BUN (9-20) mg/dL Creatinine (0.66-1.25) mg/dL Glucose (74-99) mg/dL POC Glucose (mg/dL) 180 H 342 H (75-99) mg/dL 04/26/16 04/26/16 Range/Units 05:29 11:33 RBC (4.30-5.90) m/uL Hgb (13.0-17.5) gm/dL Hct (39.0-53.0) % MCHC (31.0-37.0) g/dL RDW (11.5-15.5) % Carbon Dioxide 36 H (22-30) mmol/L BUN 32 H (9-20) mg/dL Creatinine 1.78 H (0.66-1.25) mg/dL Glucose 69 L (74-99) mg/dL POC Glucose (mg/dL) 140 H (75-99) mg/dL Assessment and Plan (1) CHF exacerbation Status: Acute (2) Dyspnea Status: Acute (3) Hypoxic Status: Acute Plan: Plan The patient apparently is doing much better. He feels well. He states he probably will be discharged home tomorrow. Other than that doing well. No particular complaints today. Time with Patient: Less than 30
[2016-04-26] MEDS: FUROSEMIDE 20 MG TAB PO SCH (16:07)
[2016-04-26 17:21] LABS: Glucose,Whole Blood 190 mg/dL (75-99)
[2016-04-26 20:46] LABS: Glucose,Whole Blood 258 mg/dL (75-99)
[2016-04-26] MEDS: TAMSULOSIN 0.4 MG CAP.ER.24H PO SCH (20:52)
[2016-04-26] MEDS: MELATONIN 3 MG TABLET PO SCH (20:52)
[2016-04-26] MEDS: ATORVASTATIN 40 MG TAB PO SCH (20:54)
[2016-04-26] MEDS: FENOFIBRATE 160 MG TAB PO SCH (20:54)
[2016-04-26] MEDS ORDERED: FUROSEMIDE 10 MG/ML 10 ML VIAL IV SCH (21:00)
[2016-04-27 06:32] LABS: Glucose,Whole Blood 86 mg/dL (75-99)
[2016-04-27] MEDS: INSULIN LISPRO (humaLOG) 300 UNIT/3 ML VIAL SQ SCH ×2 (06:47→12:16)
[2016-04-27] MEDS: CARVEDILOL 12.5 MG TAB PO SCH (06:55)
[2016-04-27] MEDS: IPRATROPIUM-ALBUTEROL 3 ML NEB INHALATION PRN ×2 (08:26→12:37)
[2016-04-27] MEDS: BUDESONIDE 1 MG/2 ML NEBU INHALATION SCH (08:26)
[2016-04-27] MEDS: FUROSEMIDE 20 MG TAB PO SCH (08:31)
[2016-04-27] MEDS: AMIODARONE 200 MG TAB PO SCH (08:32)
[2016-04-27] MEDS: FERROUS SULFATE 325 MG TAB PO SCH (08:32)
[2016-04-27] MEDS: amLODIPine 5 MG TAB PO SCH (08:32)
[2016-04-27] MEDS: APIXABAN 2.5 MG TABLET PO SCH (08:33)
[2016-04-27] MEDS: PANTOPRAZOLE 40 MG TABLET PO SCH (08:34)
[2016-04-27] MEDS: POTASSIUM CHLORIDE ER 10 MEQ TAB.ER.PRT PO SCH (08:34)
[2016-04-27] MEDS: ISOSORBIDE MONONITRATE ER 60 MG TAB.ER.24H PO SCH (08:34)
[2016-04-27] MEDS: FOLIC ACID 1 MG TAB PO SCH (08:35)
[2016-04-27] MEDS: ASPIRIN 81 MG CHEW PO SCH (08:35)
[2016-04-27] MEDS: CLOPIDOGREL 75 MG TAB PO SCH (08:35)
[2016-04-27] MEDS: INSULIN DETEMIR 100 UNIT/ML 10 ML VIAL SQ SCH (08:39)
--- NOTE | 2016-04-27 10:15 | P.PN ---
Subjective This is a 72-year-old gentleman with a history of CHF probably diastolic dysfunction, chronic atrial fibrillation, chronic anemia, COPD, and stage IV bronchogenic carcinoma recently diagnosed and starting on chemotherapy at [facility]. The patient has a history of hypertension CAD previous ME previous stent placement and an episode of pneumonia in the past. When Dr. Solis saw the patient yesterday on April 25, he was improved. Progress note dated 04/27/2016 This is a 72-year-old male with a history of CHF. It's diastolic CHF. His history of chronic atrial fibrillation chronic anemia COPD bronchogenic carcinoma. The patient also suffers from hypertension CAD with previous ME and previous stent placement. He's also had pneumonia in the past. The patient has since been seen over the last week and over the weekend by Dr. Mcintosh. The patient mentions that he may be discharged home today. Objective - Vital Signs Vital signs: Vital Signs Temp 97.9 F 04/27/16 04:00 Pulse 66 04/27/16 08:48 Resp 24 04/27/16 04:00 BP 120/52 04/27/16 04:00 Pulse Ox 99 04/27/16 04:00 Intake & Output 04/26/16 04/27/16 04/27/16 18:59 06:59 18:59 Intake Total 860 Output Total 400 1000 Balance 460 -1000 Weight 87.9 kg Intake: Oral 860 Output: Urine 400 1000 Other: Voiding Method Urinal Urinal # Voids 2 1 # Bowel Movements 1 - Exam No acute distress, oriented 3. Ada patient's laying flat in bed. He is wearing nasal O2. In no distress whatsoever. HEENT examination is grossly unremarkable. Mucous membranes are moist. Neck supple. Full range of motion. No adenopathy. Cardiovascular examination reveals regular rhythm rate.2/6 systolic murmur. No S3. No S4. Pulmonary examination reveals diminished breath sounds. A few scattered rhonchi. No wheezes. Abdomen soft bowel sounds are heard. Extremities are intact. - Labs CBC & Chem 7: 04/26/16 05:29 04/26/16 05:29 Labs: Abnormal Lab Results - Last 24 Hours (Table) 04/26/16 04/26/16 04/26/16 Range/Units 11:33 17:05 20:44 POC Glucose (mg/dL) 140 H 190 H 258 H (75-99) mg/dL Assessment and Plan (1) CHF exacerbation Status: Acute (2) Dyspnea Status: Acute (3) Hypoxic Status: Acute Plan: Plan The patient apparently is doing much better. He feels well. He states he probably will be discharged home tomorrow. Other than that doing well. No particular complaints today. Plan dated 04/27/2016 The patient is likely be discharged home today. We'll continue to follow. Additional recommendations are made. He has a follow-up appointment with my partner. Time with Patient: Less than 30
[2016-04-27 10:42] LABS: Calcium 8.5 mg/dL (8.4-10.2); Potassium 4.2 mmol/L (3.5-5.1)
[2016-04-27 11:04] VITALS: RESP 16
--- NOTE | 2016-04-27 11:24 | P.DS ---
Providers Date of admission: 04/22/16 14:57 Expected date of discharge: 04/27/16 Attending physician: Ashu Campbell Consults: 04/23/16 09:22 Consult Physician Routine Consulting Provider: Juan Contreras Consult Reason/Comments: CHF Do you want consulting provider notified?: Yes 04/23/16 10:56 Consult Physician Routine Consulting Provider: Maya Mcintosh Consult Reason/Comments: pneumonia, recent pseudomonas sputum, lung ca/nodule Do you want consulting provider notified?: Yes Primary care physician: Connie Jernigan [facility] Hospital Course: This is a 80-year-old male. He is residing at [facility] on the [place] under the care of Dr. Jernigan for rehab after hospitalization following pneumonia. He has a past medical history of COPD, chronic systolic heart failure with ejection fraction 40-45%, chronic kidney disease stage III, benign prostatic hypertrophy, atrial fibrillation on eliquis hyperlipidemia, hypertension, myocardial infarction, recent diagnosis of 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, pacemaker, melanoma of the left axillary, diabetes mellitus type 2 with diabetic neuropathy. Patient states he had a recent hospitalization at [facility] and was treated for heart failure. He had pansensitive pseudomonas in his sputum on 03/23/2016. He went to [facility] for rehab and had worsening of his shortness of breath. His pulse ox dropped down to 81% and he was placed on a nonrebreather with respirations of 30. Patient was then transferred to [facility]. Patient came into [facility] emergency center for evaluation. Hemoglobin 8.2, BUN 29 creatinine 1.6. ProBNP 7000. Chest x-ray shows heart failure with pulmonary vascular congestion and interstitial edema. Small pleural effusions with adjacent bibasilar atelectasis and or infiltrates. Patient started on IV Lasix and admitted to the selective care unit. Cardiology consult will be requested. Pulmonary consult also added for history of recent pneumonia, lung cancer. Patient states he was just diagnosed with lung cancer in February 2016. He was initially treated at [facility] for CAT scan guided needle biopsy. Pathology report was nonconclusive. Patient went [facility] underwent bronchoscopy and transbronchial biopsy and was diagnosed with adenocarcinoma. His modular set crew member is Dr. Chaudhari at [place] 04/26: Echocardiogram reveals mild mitral regurgitation, mild tricuspid regurgitation, mild concentric left hypertrophy, EF 55-60%. Repeat chest x-ray shows bibasilar infiltrates worsening. Correlate for atelectasis and pneumonia. He is continued on IV Lasix 40 mg twice daily which has been increased to 60 mg twice daily by cardiology. BUN 32 and creatinine 1.78. Blood sugar this morning was 69 and last evening 342. No changes made to insulins. 04/27: Cardiology recommends Lasix 60mg twice daily for discharge. BUN 33, creatinine 1.93. Patient will be discharged back to [facility] today in stable condition. Discharge diagnoses: 1. Acute hypoxic respiratory failure with acute on chronic systolic heart failure with known ejection fraction of 40-45%. 2. Chronic atrial fibrillation status post pacemaker. 3. COPD, stable. 4. Stage IV adenocarcinoma of the lung recent diagnosis status post chemotherapy at [facility]. 5. Hypertension. 6. History of coronary artery disease status post CABG. 7. Diabetes mellitus type 2, insulin requiring. 8. Hyperlipidemia. 9. Gastroesophageal reflux disease and gastrointestinal prophylaxis. 10. Benign prostatic hypertrophy. 11. Melanoma left axillary, stable. Discharge plan: Return to [facility] Impression and plan of care have been directed as dictated by the signing physician. Arlen Pickering nurse practitioner acting as scribe for signing physician. Patient Condition at Discharge: Good Plan - Discharge Summary Discharge Medication List Amiodarone [Cordarone] 200 mg PO DAILY 04/22/16 [History] Ammonium Lactate Lotion [Lac-Hydrin 12% Lotion] 1 applic TOPICAL HS 04/22/16 [ History] Apixaban [Eliquis] 2.5 mg PO BID 04/22/16 [History] Ascorbic Acid [Vitamin C] 500 mg PO DAILY 04/22/16 [History] Aspirin EC [Ecotrin Low Dose] 81 mg PO DAILY@1200 04/22/16 [History] Atorvastatin [Lipitor] 40 mg PO HS 04/22/16 [History] Bisacodyl [Dulcolax] 10 mg RECTAL DAILY PRN 04/22/16 [History] Budesonide [Pulmicort] 1 mg INHALATION RT-BID 04/22/16 [History] Cholecalciferol [Vitamin D3] 2,000 unit PO BID 04/22/16 [History] Clopidogrel [Plavix] 75 mg PO DAILY@1200 04/22/16 [History] Fenofibrate Nanocrystallized [Tricor] 145 mg PO HS 04/22/16 [History] Ferrous Sulfate [Iron (65 MG Elemental)] 325 mg PO BID 04/22/16 [History] Fluticasone Nasal [place] [Flonase Nasal [place]] 2 spr EA NOSTRIL DAILY 04/22/16 [ History] Folic Acid 1 mg PO DAILY@1200 04/22/16 [History] Insulin Aspart [NovoLOG] See Protocol SQ ACHS 04/22/16 [History] Insulin Detemir [Levemir] 10 unit SQ BID 04/22/16 [History] Ipratropium-Albuterol Nebulize [Duoneb 0.5 mg-3 mg/3 ml Soln] 3 ml INHALATION RT -TID PRN 04/22/16 [History] Isosorbide Mononitrate ER [Imdur] 60 mg PO BID 04/22/16 [History] Lactobacillus Acidophilus [Acidophilus] 1 tab PO DAILY 04/22/16 [History] Melatonin 6 mg PO HS 04/22/16 [History] Protem-3 Fatty Acids/Fish Oil [Fish Oil 1,000 mg Softgel] 1 cap PO BID 04/22/16 [ History] Pantoprazole Sodium [Protonix] 40 mg PO DAILY 04/22/16 [History] Polyethylene Glycol 3350 [Miralax] 17 gm PO DAILY PRN 04/22/16 [History] Potassium Chloride [K-Tab ER] 10 meq PO BID 04/22/16 [History] Sennosides [Senna] 17.2 mg PO BID 04/22/16 [History] Tamsulosin HCl [Flomax] 0.4 mg PO HS 04/22/16 [History] Thera-M Multiple Vitamin Minerals 1 tab PO DAILY 04/22/16 [History] Vitamin B Complex 1 cap PO DAILY 04/22/16 [History] amLODIPine [Norvasc] 5 mg PO BID 04/22/16 [History] rOPINIRole HCL [Requip] 1 mg PO HS 04/22/16 [History] Carvedilol [Coreg*] 50 mg PO BID-W/MEALS tab 04/26/16 [Rx] Furosemide [Lasix] 60 mg PO BID #0 04/27/16 [Rx] Follow up Appointment(s)/Referral(s): Maya Mcintosh MD [STAFF PHYSICIAN] - 1 Week Connie Jernigan MD [Primary Care Provider] - 1 Week (at [facility]) Activity/Diet/Wound Care/Special Instructions: return to [facility] for rehab Discharge Disposition: TRANSFER TO SNF/ECF
[2016-04-27 11:54] LABS: Glucose,Whole Blood 210 mg/dL (75-99)
[2016-04-27 14:18] VITALS: BP 119/42; PULSE 60; TEMP 97.6
== END 2016-04-27 14:36 | DRG 291 ==
LOC: EC 13:19 → 6SEL 14:57
PROVIDERS: ADMIT Internal Medicine; ATTEND Internal Medicine
DX: I13.0 Hypertensive heart and chronic kidney disease with heart failure and stage 1 through stage 4 chronic kidney disease, or unspecified chronic kidney disease (principal); I50.23 Acute on chronic systolic (congestive) heart failure; J96.21 Acute and chronic respiratory failure with hypoxia; C34.90 Malignant neoplasm of unspecified part of unspecified bronchus or lung; I48.1 Persistent atrial fibrillation; I08.1 Rheumatic disorders of both mitral and tricuspid valves; J98.11 Atelectasis; N18.3 Chronic kidney disease, stage 3 (moderate); E11.40 Type 2 diabetes mellitus with diabetic neuropathy, unspecified; E11.22 Type 2 diabetes mellitus with diabetic chronic kidney disease; J44.9 Chronic obstructive pulmonary disease, unspecified; D64.9 Anemia, unspecified; N40.0 Benign prostatic hyperplasia without lower urinary tract symptoms; E78.5 Hyperlipidemia, unspecified; I25.10 Atherosclerotic heart disease of native coronary artery without angina pectoris; G47.33 Obstructive sleep apnea (adult) (pediatric); I25.2 Old myocardial infarction; Z92.21 Personal history of antineoplastic chemotherapy; Z82.49 Family history of ischemic heart disease and other diseases of the circulatory system; Z95.0 Presence of cardiac pacemaker; Z85.820 Personal history of malignant melanoma of skin; Z95.1 Presence of aortocoronary bypass graft; Z95.5 Presence of coronary angioplasty implant and graft; Z87.891 Personal history of nicotine dependence; Z87.01 Personal history of pneumonia (recurrent); Z79.01 Long term (current) use of anticoagulants; Z79.02 Long term (current) use of antithrombotics/antiplatelets; Z79.82 Long term (current) use of aspirin; Z79.4 Long term (current) use of insulin; Z79.51 Long term (current) use of inhaled steroids; Z79.899 Other long term (current) drug therapy
CPT/HCPCS: 36415; 71010; 71020; 80048; 80053; 82550; 82553; 83036; 83735; 83880; 84443; 84484; 85025; 85027; 85610; 85730; 93005; 93306; 94640; 94660; 94760; 96374; 99285

== ENCOUNTER 2016-05-08 19:56 | Inpatient (IN) | payer MEDICARE ==
[2016-05-08] MEDS ORDERED: SODIUM CHLORIDE 0.9% 1,000 ML IV STA (20:31)
[2016-05-08] MEDS ORDERED: IPRATROPIUM-ALBUTEROL 3 ML NEB INHALATION STA (20:31)
--- NOTE | 2016-05-08 20:35 | ED ---
SOB HPI - General Chief Complaint: Shortness of Breath Stated Complaint: SOB Time Seen by Provider: 05/08/16 20:20 Source: patient, family, RN notes reviewed, old records reviewed Mode of arrival: wheelchair Limitations: no limitations - History of Present Illness Initial Comments: This is a 80-year-old male with a history of COPD who was just discharged from the hospital about a week and a half ago who after a couple days until he is oxygen started developing shortness of breath which is gotten progressively worse since then. He has a cough of dark brown phlegm he denies any fevers he does have some mild chest discomfort with breathing. No nausea no vomiting. He voices no other complaints at this time MD Complaint: shortness of breath, cough - Related Data Home Medications Medication Instructions Recorded Confirmed Amiodarone [Cordarone] 200 mg PO DAILY 04/22/16 04/22/16 Ammonium Lactate Lotion 1 applic TOPICAL HS 04/22/16 04/22/16 [Lac-Hydrin 12% Lotion] Apixaban [Eliquis] 2.5 mg PO BID 04/22/16 04/22/16 Ascorbic Acid [Vitamin C] 500 mg PO DAILY 04/22/16 04/22/16 Aspirin EC [Ecotrin Low Dose] 81 mg PO DAILY@1200 04/22/16 04/22/16 Atorvastatin [Lipitor] 40 mg PO HS 04/22/16 04/22/16 Bisacodyl [Dulcolax] 10 mg RECTAL DAILY PRN 04/22/16 04/22/16 Budesonide [Pulmicort] 1 mg INHALATION RT-BID 04/22/16 04/22/16 Cholecalciferol [Vitamin D3] 2,000 unit PO BID 04/22/16 04/22/16 Clopidogrel [Plavix] 75 mg PO DAILY@1200 04/22/16 04/22/16 Fenofibrate Nanocrystallized 145 mg PO HS 04/22/16 04/22/16 [Tricor] Ferrous Sulfate [Iron (65 MG 325 mg PO BID 04/22/16 04/22/16 Elemental)] Fluticasone Nasal [place] [Flonase 2 spr EA NOSTRIL DAILY 04/22/16 04/22/16 Nasal [place]] Folic Acid 1 mg PO DAILY@1200 04/22/16 04/22/16 Insulin Aspart [NovoLOG] See Protocol SQ ACHS 04/22/16 04/22/16 Insulin Detemir [Levemir] 10 unit SQ BID 04/22/16 04/22/16 Ipratropium-Albuterol Nebulize 3 ml INHALATION RT-TID PRN 04/22/16 04/22/16 [Duoneb 0.5 mg-3 mg/3 ml Soln] Isosorbide Mononitrate ER [Imdur] 60 mg PO BID 04/22/16 04/22/16 Lactobacillus Acidophilus 1 tab PO DAILY 04/22/16 04/22/16 [Acidophilus] Melatonin 6 mg PO HS 04/22/16 04/22/16 [place]-3 Fatty Acids/Fish Oil [Fish 1 cap PO BID 04/22/16 04/22/16 Oil 1,000 mg Softgel] Pantoprazole Sodium [Protonix] 40 mg PO DAILY 04/22/16 04/22/16 Polyethylene Glycol 3350 [Miralax] 17 gm PO DAILY PRN 04/22/16 04/22/16 Potassium Chloride [K-Tab ER] 10 meq PO BID 04/22/16 04/22/16 Sennosides [Senna] 17.2 mg PO BID 04/22/16 04/22/16 Tamsulosin HCl [Flomax] 0.4 mg PO HS 04/22/16 04/22/16 Thera-M Multiple Vitamin Minerals 1 tab PO DAILY 04/22/16 Vitamin B Complex 1 cap PO DAILY 04/22/16 04/22/16 amLODIPine [Norvasc] 5 mg PO BID 04/22/16 04/22/16 rOPINIRole HCL [Requip] 1 mg PO HS 04/22/16 04/22/16 Previous Rx's Medication Instructions Recorded Carvedilol [Coreg*] 50 mg PO BID-W/MEALS tab 04/26/16 Furosemide [Lasix] 60 mg PO BID #0 04/27/16 Allergies Allergy/AdvReac Type Severity Reaction Status Date / Time ciprofloxacin [From Cipro] Allergy Unknown Verified 05/08/16 20:08 corticotropin Allergy Unknown Verified 05/08/16 20:08 erythromycin base Allergy Unknown Verified 05/08/16 20:08 gabapentin Allergy Unknown Verified 05/08/16 20:08 hydralazine Allergy Unknown Verified 05/08/16 20:08 Penicillins Allergy Unknown Verified 05/08/16 20:08 pentoxifylline [From [place]] Allergy Unknown Verified 05/08/16 20:08 prednisone Allergy Unknown Verified 05/08/16 20:08 doxycycline AdvReac Unknown Verified 05/08/16 20:08 Review of Systems ROS Statement: Those systems with pertinent positive or pertinent negative responses have been documented in the HPI. ROS Other: All systems not noted in ROS Statement are negative. 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 Past Anesthesia/Blood Transfusion Reactions: No Reported Reaction Additional Past Anesthesia/Blood Transfusion Reaction / Comment(s): blood transfusion Date of Last Stent Placement:: unknown Past Psychological History: No Psychological Hx Reported Smoking Status: Former smoker Past Alcohol Use History: None Reported Additional Past Alcohol Use History / Comment(s): Patient was a smoker and quit 20 years ago. He denies any medical marijuana, marijuana, street drug use. He denies any alcohol abuse. Past Drug Use History: None Reported - Past Family History Mother Family Medical History: Diabetes Mellitus, Hyperlipidemia, Hypertension Additional Family Medical History / Comment(s): Mother is . Father Family Medical History: Diabetes Mellitus, Hyperlipidemia, Hypertension, Myocardial Infarction ([place]) Additional Family Medical History / Comment(s): Father is from a myocardial infarction. Brother(s) Additional Family Medical History / Comment(s): Abraham Ramesh has 11 brothers and 2 sisters. Patient has 2 sons and 2 daughters with no major medical problems. General Exam - General Exam Comments Initial Comments: This is a well-developed well-nourished awake alert oriented 3 male Limitations: no limitations General appearance: alert, in distress Head exam: Present: atraumatic, normocephalic, normal inspection Eye exam: Present: normal appearance, PERRL, EOMI. Absent: scleral icterus, conjunctival injection, periorbital swelling ENT exam: Present: mucous membranes dry Neck exam: Present: normal inspection. Absent: tenderness, meningismus, lymphadenopathy Respiratory exam: Present: respiratory distress, wheezes, decreased breath sounds, prolonged expiratory. Absent: rales, rhonchi, stridor Cardiovascular Exam: Present: regular rate, normal rhythm, normal heart sounds. Absent: systolic murmur, diastolic murmur, rubs, gallop, clicks GI/Abdominal exam: Present: soft, normal bowel sounds. Absent: distended, tenderness, guarding, rebound, rigid Extremities exam: Present: full ROM, normal capillary refill, pedal edema. Absent: tenderness, joint swelling, calf tenderness Back exam: Present: normal inspection Neurological exam: Present: alert, oriented X3, CN II-XII intact Psychiatric exam: Present: normal affect, normal mood Skin exam: Present: warm, dry, intact, normal color. Absent: rash Course Vital Signs 05/08/16 05/08/16 05/08/16 20:05 21:28 21:41 Temperature 97.9 F Pulse Rate 83 83 82 Respiratory 20 Rate Blood Pressure 131/62 O2 Sat by Pulse 94 L Oximetry 05/08/16 05/08/16 21:50 21:51 Temperature Pulse Rate 63 Respiratory 26 H Rate Blood Pressure 160/73 O2 Sat by Pulse 88 L 93 L Oximetry - Reevaluation(s) Reevaluation #1: 05/08/16 23:21 Reevaluation patient reveals some improvement in his aeration he does have continued wheezing and now rales the bases. Medical Decision Making - Medical Decision Making Reevaluation patient reveals him the breathing somewhat better I did a long discussion with him and his family regarding findings. Patient be admitted I did discuss the case with Dr. Batres. Patient does demonstrate evidence of congestive heart failure as well as COPD exacerbation. He does have chronic anemia. He also has hyperglycemia - Lab Data Result diagrams: 05/08/16 20:24 05/08/16 20:24 Lab Results 05/08/16 05/08/16 05/08/16 Range/Units 20:24 20:24 20:24 WBC 3.9 (3.8-10.6) k/uL RBC 2.84 L (4.30-5.90) m/uL Hgb 7.8 L (13.0-17.5) gm/dL Hct 27.2 L (39.0-53.0) % MCV 95.8 (80.0-100.0) fL MCH 27.5 (25.0-35.0) pg MCHC 28.7 L (31.0-37.0) g/dL RDW 17.9 H (11.5-15.5) % Plt Count 215 (150-450) k/uL Neutrophils % 75 % Lymphocytes % 15 % Monocytes % 6 % Eosinophils % 2 % Basophils % 0 % Neutrophils # 2.9 (1.3-7.7) k/uL Lymphocytes # 0.6 L (1.0-4.8) k/uL Monocytes # 0.2 (0-1.0) k/uL Eosinophils # 0.1 (0-0.7) k/uL Basophils # 0.0 (0-0.2) k/uL Hypochromasia Marked Anisocytosis Slight Macrocytosis Slight PT (9.0-12.0) sec INR (<1.1) APTT (22.0-30.0) sec Sodium 138 (137-145) mmol/L Potassium 5.7 H (3.5-5.1) mmol/L Chloride 96 L (98-107) mmol/L Carbon Dioxide 33 H (22-30) mmol/L Anion Gap 9 mmol/L BUN 67 H (9-20) mg/dL Creatinine 2.30 H (0.66-1.25) mg/dL Est GFR (MDRD) Af Amer 33 (>60 ml/min/1.73 sqM) Est GFR (MDRD) Non-Af 28 (>60 ml/min/1.73 sqM) Glucose 555 H* (74-99) mg/dL Calcium 9.2 (8.4-10.2) mg/dL Magnesium 2.4 H (1.6-2.3) mg/dL Total Bilirubin 0.5 (0.2-1.3) mg/dL AST 14 L (17-59) U/L ALT 31 (21-72) U/L Alkaline Phosphatase 91 (38-126) U/L Total Creatine Kinase 32 L (55-170) U/L CK-MB (CK-2) 2.1 (0.0-2.4) ng/mL CK-MB (CK-2) Rel Index 6.6 Troponin I <0.012 (0.000-0.034) ng/mL NT-Pro-B Natriuret Pep pg/mL Total Protein 6.2 L (6.3-8.2) g/dL Albumin 3.4 L (3.5-5.0) g/dL Acetone, Qual (Negative) 05/08/16 05/08/16 05/08/16 Range/Units 20:24 20:24 20:24 WBC (3.8-10.6) k/uL RBC (4.30-5.90) m/uL Hgb (13.0-17.5) gm/dL Hct (39.0-53.0) % MCV (80.0-100.0) fL MCH (25.0-35.0) pg MCHC (31.0-37.0) g/dL RDW (11.5-15.5) % Plt Count (150-450) k/uL Neutrophils % % Lymphocytes % % Monocytes % % Eosinophils % % Basophils % % Neutrophils # (1.3-7.7) k/uL Lymphocytes # (1.0-4.8) k/uL Monocytes # (0-1.0) k/uL Eosinophils # (0-0.7) k/uL Basophils # (0-0.2) k/uL Hypochromasia Anisocytosis Macrocytosis PT 12.8 H (9.0-12.0) sec INR 1.3 (<1.1) APTT 30.6 H (22.0-30.0) sec Sodium (137-145) mmol/L Potassium (3.5-5.1) mmol/L Chloride (98-107) mmol/L Carbon Dioxide (22-30) mmol/L Anion Gap mmol/L BUN (9-20) mg/dL Creatinine (0.66-1.25) mg/dL Est GFR (MDRD) Af Amer (>60 ml/min/1.73 sqM) Est GFR (MDRD) Non-Af (>60 ml/min/1.73 sqM) Glucose (74-99) mg/dL Calcium (8.4-10.2) mg/dL Magnesium (1.6-2.3) mg/dL Total Bilirubin (0.2-1.3) mg/dL AST (17-59) U/L ALT (21-72) U/L Alkaline Phosphatase (38-126) U/L Total Creatine Kinase (55-170) U/L CK-MB (CK-2) (0.0-2.4) ng/mL CK-MB (CK-2) Rel Index Troponin I (0.000-0.034) ng/mL NT-Pro-B Natriuret Pep 7790 pg/mL Total Protein (6.3-8.2) g/dL Albumin (3.5-5.0) g/dL Acetone, Qual Negative (Negative) - EKG Data -: EKG Interpreted by Me (EKG was reviewed by me ventricular rate of 68 pacer rhythm ME interval 186 ) - Radiology Data Radiology results: report reviewed (I did review the x-ray report is evidence of CHF and pleural effusions.), image reviewed Critical Care Time Critical Care Time: Yes Critical Care Time: 37 minutes of critical care time which includes initial presentation with history physical lab and x-rays evaluation of the same. Reevaluation the patient response to therapy. Discussion with the patient family regarding the findings. Discussed with the admitting physician. Inpatient orders and documentation of the above. Disposition Clinical Impression: Congestive heart failure, Acute exacerbation of chronic obstructive airways disease, Adult respiratory distress syndrome, Hypoglycemia, Dyspnea, CHF exacerbation, Chronic anemia, Renal insufficiency syndrome Disposition: ADMITTED IP TO THIS HOSP Condition: Stable
[2016-05-08] MEDS ORDERED: MAGNESIUM SULFATE-D5W PMX 1 GM in DEXTROSE/WATER 1 100ML.BAG IVPB ONE (20:40)
[2016-05-08 20:55] LABS: Anisocytosis Slight; Basophils % (A) 0 %; CH 27.6; Eosinophils # (A) 0.1 k/uL (0-0.7); Eosinophils % (A) 2 %; HCT 27.2 % (39.0-53.0); HDW 3.15; HGB 7.8 gm/dL (13.0-17.5); Hypochromasia Marked; Luc # (Auto) 0.08; Luc % (Auto) 2; Lymphocytes # (A) 0.6 k/uL (1.0-4.8); Lymphocytes % (A) 15 %; MCH 27.5 pg (25.0-35.0); MCHC 28.7 g/dL (31.0-37.0); MCV 95.8 fL (80.0-100.0); Macrocytosis Slight; Mean Platelet Volume 8.4; Monocytes # (A) 0.2 k/uL (0-1.0); Monocytes % (A) 6 %; Neutrophils # (A) 2.9 k/uL (1.3-7.7); Neutrophils % (A) 75 %; RBC 2.84 m/uL (4.30-5.90); RDW 17.9 % (11.5-15.5); WBC 3.9 k/uL (3.8-10.6); WBC (Perox) 3.96
[2016-05-08 21:03] LABS: Calcium 9.2 mg/dL (8.4-10.2); Magnesium 2.4 mg/dL (1.6-2.3); Potassium 5.7 mmol/L (3.5-5.1); Total Bilirubin 0.5 mg/dL (0.2-1.3); Total Protein 6.2 g/dL (6.3-8.2)
[2016-05-08 21:05] LABS: INR 1.3 (<1.1); Partial Thromboplastin Time 30.6 sec (22.0-30.0); Prothrombin Time 12.8 sec (9.0-12.0)
--- NOTE | 2016-05-08 21:08 | XR ---
EXAMINATION TYPE: XR chest 2V DATE OF EXAM: 05/08/2016 8:56 PM COMPARISON: 04/26/2016 HISTORY: Difficulty breathing TECHNIQUE: Frontal and lateral views of the chest are obtained. FINDINGS: Heart is enlarged. There is pulmonary vascular congestion with blunting of the costophreni c angles. There is infiltrate at the right lung base. There is a left axillary pacemaker with the ricardo d tips in the right ventricle. There are chest leads. There are sternal wires. IMPRESSION: Congestive heart failure with pleural effusions and right basilar pulmonary infiltrates. Pulmonary congestion is the same or worse than last exam. Pleural fluid on the right side is increas ed.
[2016-05-08 21:13] LABS: Creatine Kinase 32 U/L (55-170)
[2016-05-08 21:26] LABS: Creatine Kinase MB 2.1 ng/mL (0.0-2.4); Troponin I <0.012 ng/mL (0.000-0.034)
[2016-05-08] MEDS ORDERED: INSULIN REGULAR 100 UNIT/ML VIAL IV ONE (23:32)
[2016-05-08] MEDS ORDERED: FUROSEMIDE 10 MG/ML 4 ML VIAL IV SCH (23:45)
[2016-05-09] MEDS ORDERED: IPRATROPIUM-ALBUTEROL 3 ML NEB INHALATION SCH
[2016-05-09 00:12] LABS: Glucose,Whole Blood 490 mg/dL (75-99)
[2016-05-09] MEDS: methylPREDNISolone SOD SUCCI 125 MG/2 ML VIAL IV SCH ×5 (00:14→23:46)
[2016-05-09 01:22] LABS: Glucose,Whole Blood 530 mg/dL (75-99)
[2016-05-09] MEDS: SODIUM CHLORIDE 0.9% 1,000 ML IV SCH ×2 (01:50→23:46)
[2016-05-09 02:33] LABS: Glucose,Whole Blood 462 mg/dL (75-99)
[2016-05-09] MEDS ORDERED: SODIUM POLYSTYRENE SULFONATE 15 GM/60 ML BOTTLE PO STA (03:03)
[2016-05-09] MEDS ORDERED: INSULIN LISPRO (humaLOG) 300 UNIT/3 ML VIAL SQ ONE ×2 (03:03→17:12)
[2016-05-09] MEDS: IPRATROPIUM-ALBUTEROL 3 ML NEB INHALATION PRN (04:21)
[2016-05-09 06:13] LABS: Anisocytosis Slight; CH 27.7; CHCM 29.3; HCT 27.1 % (39.0-53.0); HDW 3.09; Hypochromasia Marked; MCH 28.2 pg (25.0-35.0); MCHC 29.7 g/dL (31.0-37.0); MCV 94.9 fL (80.0-100.0); Mean Platelet Volume 7.8; RBC 2.85 m/uL (4.30-5.90); RDW 17.8 % (11.5-15.5); WBC 4.9 k/uL (3.8-10.6)
[2016-05-09 06:21] LABS: Glucose,Whole Blood 311 mg/dL (75-99)
[2016-05-09 06:24] LABS: Calcium 9.3 mg/dL (8.4-10.2); Potassium 4.7 mmol/L (3.5-5.1)
[2016-05-09] MEDS: CARVEDILOL 12.5 MG TAB PO SCH ×2 (06:35→17:20)
[2016-05-09] MEDS: INSULIN LISPRO (humaLOG) 300 UNIT/3 ML VIAL SQ SCH ×4 (06:35→20:57)
[2016-05-09] MEDS ORDERED: INSULIN LISPRO (humaLOG) 300 UNIT/3 ML VIAL SQ SCH ×2 (07:30)
[2016-05-09] MEDS: APIXABAN 2.5 MG TABLET PO SCH ×2 (08:14→21:09)
[2016-05-09] MEDS: AMIODARONE 200 MG TAB PO SCH (08:14)
[2016-05-09] MEDS: FERROUS SULFATE 325 MG TAB PO SCH ×2 (08:14→21:08)
[2016-05-09] MEDS: amLODIPine 5 MG TAB PO SCH ×2 (08:14→21:07)
[2016-05-09] MEDS: ISOSORBIDE MONONITRATE ER 60 MG TAB.ER.24H PO SCH ×2 (08:15→21:08)
[2016-05-09] MEDS: NITROGLYCERIN OINT 1 INCH/GM PACKET TOPICAL SCH ×4 (08:16→21:09)
[2016-05-09] MEDS: INSULIN DETEMIR 100 UNIT/ML 10 ML VIAL SQ SCH ×2 (08:27→20:57)
[2016-05-09] MEDS: PANTOPRAZOLE 40 MG TABLET PO SCH (08:27)
[2016-05-09] MEDS: IPRATROPIUM-ALBUTEROL 3 ML NEB INHALATION SCH ×4 (08:38→20:30)
[2016-05-09] MEDS ORDERED: FUROSEMIDE 40 MG TAB PO SCH (09:00)
[2016-05-09] MEDS ORDERED: INSULIN DETEMIR 100 UNIT/ML 10 ML VIAL SQ SCH (09:00)
--- NOTE | 2016-05-09 09:47 | CONS ---
DATE OF CONSULTATION: 05/09/2016 REASON FOR CONSULTATION: Renal failure. HISTORY OF PRESENT ILLNESS: Patient is a 80-year-old male who was admitted to the hospital with complaints of shortness of breath. He does have cardiomyopathy with ejection fraction of about 50 to 60% with concentric left ventricular hypertrophy on an echocardiogram done in April. His serum creatinine was at 2.3 mg/dL on initial admission. Previous creatinine had been about 1.6 to 1.7 mg/dL in April 2016 when he was recently admitted as well. Patient denies the use of any nonsteroidal anti-inflammatory agents. He has been voiding in a urinal. Blood pressure has not been low in fact slightly on the high side. Chest x-ray showed evidence of pleural effusions. PAST MEDICAL HISTORY: Atrial fibrillation, COPD, type 2 diabetes, hyperlipidemia, chronic kidney disease, and hypertension, history of [place], history of pneumonia, history of lung cancer, status post chemotherapy. History of melanoma in the left axillary region, BPH, and diabetic neuropathy. PAST SURGICAL HISTORY: Coronary artery bypass surgery, back surgery, coronary stent placement, peripheral stent, pacemaker, melanoma resection. SOCIAL HISTORY: The patient is an ex-smoker. No history of drug abuse or alcohol abuse. Medications at home prior to admission included: 1. Amiodarone 2. Vitamin C. 3. Lipitor. 4. Aspirin. 5. Dulcolax. 6. Vitamin D3. 7. Plavix. 8. Pulmicort. 9. Insulin. 10. Protonix. 11. MiraLax. 12. Potassium. 13. Flomax. 14. Norvasc. 15. Requip. 16. Coreg. 17. Lasix. ALLERGIES INCLUDE COSYNTROPIN, AUGMENTIN, ERYTHROMYCIN, CIPRO, PREDNISONE, PENICILLIN, HYDRALAZINE, DOXYCYCLINE. On examination currently the patient is comfortable. He is not in any acute distress. Awake, alert, oriented, blood pressure is 152/69, heart rate 84 per minute. He is afebrile. Examination of the heart S1 and S2. Examination of the lungs: Decreased breath sounds at the bases. Minimal basal crackles. Examination of lower extremities shows chronic skin changes with edema 1+ bilaterally. 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 Labs show sodium 143, potassium 4.7, BUN 66, serum creatinine 2.38. Hemoglobin 8.0 g/dL. ASSESSMENT: 1. Acute kidney injury. Possibly cardiorenal, need to rule out urine retention. Patient's Lasix was changed to p.o. We can give him IV Lasix for 24 hours and then switch back to p.o. tomorrow. 2. Chronic kidney disease with previous creatinine at about 1.6 to 1.7 mg/dL in April 2016 chronic kidney disease stage IIIB, most likely secondary to nephrosclerosis. Will check a urinalysis as well. Ultrasound of the kidneys will also be ordered as I do not see one recently. 3. Cardiomyopathy mainly diastolic dysfunction. 4. Lung cancer, status post chemotherapy for stage IV adenocarcinoma. PLAN: Increase Lasix to IV q.12 hours, repeat labs in a.m., check UA and check a bladder scan to rule out urine retention and check ultrasound of the kidneys. Thank you for this consultation. We will continue to follow the patient with you during his hospitalization.
--- NOTE | 2016-05-09 10:19 | P.HPIM ---
History of Present Illness This is a 80-year-old male. He is residing at [facility] on the [place] under the care of Dr. Reddy and Dr. Jernigan for rehab after hospitalization following pneumonia. He has a past medical history of COPD, chronic systolic heart failure with ejection fraction 40-45%, chronic kidney disease stage III, benign prostatic hypertrophy, atrial fibrillation on eliquis hyperlipidemia, hypertension, myocardial infarction, recent diagnosis of 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, pacemaker, melanoma of the left axillary, diabetes mellitus type 2 with diabetic neuropathy. Patient states he had a recent hospitalization at [facility] and was treated for heart failure. He had pansensitive pseudomonas in his sputum on 03/23/2016. He went to [facility] for rehab and had worsening of his shortness of breath. His pulse ox dropped down to 81% and he was placed on a nonrebreather with respirations of 30. Patient was then transferred to [facility]. At that time was treated and subsequently was sent back to [facility] for a few more days I saw the patient on Tuesday the week before last at [facility] and he was getting ready to be discharged on Tuesday patient was supposed to follow-up with Dr. 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 Review of Systems Constitutional: Reports weight gain, Denies anorexia, Denies chronic headaches, Denies lethargy, Denies malaise, Denies weakness Eyes: denies blurred vision, denies bulging eye, denies decreased vision, denies diplopia Ears: deny: decreased hearing Ears, nose, mouth and throat: Denies dysphagia, Denies neck lump, Denies sore throat, Denies vertigo Cardiovascular: Reports decreased exercise tolerance, Reports dyspnea on exertion, Reports edema, Reports irregular heart beat, Reports leg edema, Reports shortness of breath, Denies chest pain, Denies syncope Respiratory: Reports congestion, Reports cough with sputum, Reports dyspnea, Reports home oxygen, Reports sleep apnea, Denies snoring, Denies wheezing Gastrointestinal: Denies abdominal pain, Denies bloating, Denies change in bowel habits, Denies heartburn, Denies hematemesis, Denies melena, Denies nausea , Denies vomiting Genitourinary: Reports nocturia, Denies dysuria Musculoskeletal: Denies myalgias Musculoskeletal: bilateral: as per HPI, foot swelling, absent: ankle pain, ankle stiffness, ankle swelling, elbow pain, elbow stiffness, elbow swelling, foot pain, foot stiffness, hand pain, hand stiffness, hand swelling, hip pain, hip stiffness, hip swelling, knee pain, knee stiffness, knee swelling, shoulder pain, shoulder stiffness, shoulder swelling, wrist pain, wrist stiffness, wrist swelling Integumentary: Denies pruritus, Denies rash Neurological: Denies numbness, Denies weakness Psychiatric: Denies anxiety, Denies depression Endocrine: Denies fatigue, Denies weight change Past Medical History Past Medical History: Atrial Fibrillation, Heart Failure, COPD, Diabetes Mellitus, Hyperlipidemia, Hypertension, Myocardial Infarction (VT), Pneumonia Additional Past Medical History / Comment(s): Chronic systolic heart failure, obstructive sleep apnea, benign prostatic hypertrophy, diabetes type 2 with diabetic neuropathy, 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, melanoma of left axillary Last Myocardial Infarction Date:: unknown History of Any Multi-Drug Resistant Organisms: None Reported Past Surgical History: Back Surgery, Coronary Bypass/CABG, Heart Catheterization With Stent, Pacemaker Additional Past Surgical History / Comment(s): CABG, cardiac stents, peripheral stents, pacemaker, left axillary melanoma resection. Past Anesthesia/Blood Transfusion Reactions: No Reported Reaction Additional Past Anesthesia/Blood Transfusion Reaction / Comment(s): blood transfusion Date of Last Stent Placement:: unknown Type of Cardiac Device: Permanent Pacemaker Device Placement Date:: 07-07-11 Past Psychological History: Anxiety Smoking Status: Former smoker Past Alcohol Use History: None Reported Additional Past Alcohol Use History / Comment(s): Patient was a smoker and quit 20 years ago. He denies any medical marijuana, marijuana, street drug use. He denies any alcohol abuse. Past Drug Use History: None Reported - Past Family History Mother Family Medical History: Diabetes Mellitus, Hyperlipidemia, Hypertension Additional Family Medical History / Comment(s): Mother is . Father Family Medical History: Diabetes Mellitus, Hyperlipidemia, Hypertension, Myocardial Infarction (VT) Additional Family Medical History / Comment(s): Father is from a myocardial infarction. Brother(s) Additional Family Medical History / Comment(s): Abraham Ramesh has 11 brothers and 2 sisters. Patient has 2 sons and 2 daughters with no major medical problems. Medications and Allergies Home Medications Medication Instructions Recorded Confirmed Type Amiodarone [Cordarone] 200 mg PO DAILY 04/22/16 04/22/16 History Ammonium Lactate Lotion 1 applic TOPICAL HS 04/22/16 04/22/16 History [Lac-Hydrin 12% Lotion] Apixaban [Eliquis] 2.5 mg PO BID 04/22/16 04/22/16 History Ascorbic Acid [Vitamin C] 500 mg PO DAILY 04/22/16 04/22/16 History Aspirin EC [Ecotrin Low Dose] 81 mg PO DAILY@1200 04/22/16 04/22/16 History Atorvastatin [Lipitor] 40 mg PO HS 04/22/16 04/22/16 History Bisacodyl [Dulcolax] 10 mg RECTAL DAILY PRN 04/22/16 04/22/16 History Budesonide [Pulmicort] 1 mg INHALATION RT-BID 04/22/16 04/22/16 History Cholecalciferol [Vitamin D3] 2,000 unit PO BID 04/22/16 04/22/16 History Clopidogrel [Plavix] 75 mg PO DAILY@1200 04/22/16 04/22/16 History Fenofibrate Nanocrystallized 145 mg PO HS 04/22/16 04/22/16 History [Tricor] Ferrous Sulfate [Iron (65 MG 325 mg PO BID 04/22/16 04/22/16 History Elemental)] Fluticasone Nasal [place] [Flonase 2 spr EA NOSTRIL DAILY 04/22/16 04/22/16 History Nasal [place]] Folic Acid 1 mg PO DAILY@1200 04/22/16 04/22/16 History Insulin Aspart [NovoLOG] See Protocol SQ ACHS 04/22/16 04/22/16 History Insulin Detemir [Levemir] 10 unit SQ BID 04/22/16 04/22/16 History Ipratropium-Albuterol Nebulize 3 ml INHALATION RT-TID PRN 04/22/16 04/22/16 History [Duoneb 0.5 mg-3 mg/3 ml Soln] Isosorbide Mononitrate ER [Imdur] 60 mg PO BID 04/22/16 04/22/16 History Lactobacillus Acidophilus 1 tab PO DAILY 04/22/16 04/22/16 History [Acidophilus] Melatonin 6 mg PO HS 04/22/16 04/22/16 History [place]-3 Fatty Acids/Fish Oil [Fish 1 cap PO BID 04/22/16 04/22/16 History Oil 1,000 mg Softgel] Pantoprazole Sodium [Protonix] 40 mg PO DAILY 04/22/16 04/22/16 History Polyethylene Glycol 3350 [Miralax] 17 gm PO DAILY PRN 04/22/16 04/22/16 History Potassium Chloride [K-Tab ER] 10 meq PO BID 04/22/16 04/22/16 History Sennosides [Senna] 17.2 mg PO BID 04/22/16 04/22/16 History Tamsulosin HCl [Flomax] 0.4 mg PO HS 04/22/16 04/22/16 History Thera-M Multiple Vitamin Minerals 1 tab PO DAILY 04/22/16 History Vitamin B Complex 1 cap PO DAILY 04/22/16 04/22/16 History amLODIPine [Norvasc] 5 mg PO BID 04/22/16 04/22/16 History rOPINIRole HCL [Requip] 1 mg PO HS 04/22/16 04/22/16 History Allergies Allergy/AdvReac Type Severity Reaction Status Date / Time ciprofloxacin [From Cipro] Allergy Unknown Verified 05/08/16 20:08 corticotropin Allergy Unknown Verified 05/08/16 20:08 erythromycin base Allergy Unknown Verified 05/08/16 20:08 gabapentin Allergy Unknown Verified 05/08/16 20:08 hydralazine Allergy Unknown Verified 05/08/16 20:08 Penicillins Allergy Unknown Verified 05/08/16 20:08 pentoxifylline [From Trental] Allergy Unknown Verified 05/08/16 20:08 prednisone Allergy Unknown Verified 05/08/16 20:08 doxycycline AdvReac Unknown Verified 05/08/16 20:08 Iodinated Contrast Media - AdvReac Unknown Verified 05/09/16 01:01 Oral and Physical Exam Vitals: Vital Signs Temp Pulse Pulse Resp BP BP BP 05/09/16 04:24 92 05/09/16 04:15 92 05/09/16 04:00 97 F L 78 22 173/77 05/09/16 00:23 61 26 H 151/71 05/08/16 23:55 97 F L 63 22 146/65 Pulse Ox 05/09/16 04:24 05/09/16 04:15 05/09/16 04:00 94 L 05/09/16 00:23 93 L 05/08/16 23:55 97 Intake and Output 05/08/16 05/09/16 05/09/16 22:59 06:59 14:59 Intake Total 420 236 Output Total 350 400 Balance 70 -164 Intake: IV 120 Sodium Chloride 0.9% 1, 120 000 ml @ 20 mls/hr IV . Q24H MELISSA Rx#:[id number] Oral 300 236 Output: Urine 350 400 Other: Voiding Method Urinal # Voids 1 Weight 90 kg - Constitutional General appearance: average body habitus, mild distress - EENT Eyes: anicteric sclerae, PERRLA, no ptosis, no scleral icterus, normal appearance ENT: hearing grossly normal, NA/AT, normal oropharynx, no thrush, no tonsillar exudates Ears: bilateral: normal - Neck Neck: no lymphadenopathy, normal ROM, no rigidity, no stridor, no thyromegaly Carotids: bilateral: upstroke delayed - Respiratory Respiratory: bilateral: diminished, dullness, rhonchi, wheezing, prolonged expiration - Cardiovascular Rhythm: irregularly irregular Heart sounds: normal: S1, S2 Abnormal Heart Sounds: systolic murmur, no rub, no click - Gastrointestinal General gastrointestinal: soft, no tenderness, no umbilical hernia, no ventral hernia - Integumentary Integumentary: normal, normal turgor - Musculoskeletal Musculoskeletal: gait normal, generalized weakness - Psychiatric Psychiatric: A&O x's 3, appropriate affect, intact judgment & insight Results CBC & Chem 7: 05/09/16 05:42 05/09/16 05:42 Labs: Abnormal Lab Results - Last 24 Hours (Table) 05/09/16 05/09/16 05/09/16 Range/Units 00:10 01:20 02:31 RBC (4.30-5.90) m/uL Hgb (13.0-17.5) gm/dL Hct (39.0-53.0) % MCHC (31.0-37.0) g/dL RDW (11.5-15.5) % Carbon Dioxide (22-30) mmol/L BUN (9-20) mg/dL Creatinine (0.66-1.25) mg/dL Glucose (74-99) mg/dL POC Glucose (mg/dL) 490 H 530 H 462 H (75-99) mg/dL 05/09/16 05/09/16 05/09/16 Range/Units 05:42 05:42 06:19 RBC 2.85 L (4.30-5.90) m/uL Hgb 8.0 L (13.0-17.5) gm/dL Hct 27.1 L (39.0-53.0) % MCHC 29.7 L (31.0-37.0) g/dL RDW 17.8 H (11.5-15.5) % Carbon Dioxide 33 H (22-30) mmol/L BUN 66 H (9-20) mg/dL Creatinine 2.38 H (0.66-1.25) mg/dL Glucose 326 H (74-99) mg/dL POC Glucose (mg/dL) 311 H (75-99) mg/dL Thrombosis Risk Factor Assmnt - DVT/VTE Prophylaxis DVT/VTE Prophylaxis: Pharmacologic Prophylaxis ordered, Mechanical Prophylaxis ordered - Choose All That Apply Each Risk Factor Represents 3 Points: Age 75 years or older Thrombosis Risk Factor Assessment Total Risk Factor Score: 3 Thrombosis Risk Factor Assessment Level: Moderate Risk Assessment and Plan Plan: Assessment and plan: 1. Acute respiratory failure secondary to acute systolic heart failure and acute COPD exacerbation. Patient will be started on Lasix 40 mg IV push every 12 hours, Coreg 50 mg orally twice every day, continue to monitor the patient input and updated with. Monitor chest x-ray, start the patient on Solu-Medrol 60 mg IV push every 6 hours, DuoNeb nebulization 4 times every day. 2. Acute kidney injury and top of chronic kidney disease stage III. Continue Lasix 40 mg IV push every 12 hours. Monitor CMP magnesium or phosphorus, nephrology consultation. 3. Chronic atrial fibrillation. Continue Paxil and 2.5 mg orally twice every day and amiodarone 200 mg orally once every day. 4. Hypertension and hypertensive cardiovascular disease. Continue patient on amlodipine 5 mg orally twice every day, Coreg 50 mg orally twice every day. 5. Hyperlipidemia. Continue Lipitor 40 mg orally once every day, discontinue fenofibrate. 6. Diabetes mellitus type 2 with steroid-induced hyperglycemia. Continue and increase Levemir to 15 units twice every day along with the Humalog per sliding scale, continue patient on carbohydrate/cardiac/renal diet. BGM to be checked before each meal and at bedtime. 7. PAD. Monitor the patient very closely. Continue with Lipitor 40 mg orally once every day for secondary prevention. 8. CAD post CABG and PCI with stents. Continue Plavix 75 mg orally once every day, Imdur 30 mg orally once every day, Coreg 50 mg orally twice every day, and Lipitor 40 mg orally once every day. 9. Enlarged Prostate. Continue with Flomax 0.4 g orally once every day. 10. DVT prophylaxis. Continue Adipex event 2.5 mg orally twice every day. 11. GI prophylaxis. Continue Protonix 40 mg orally once every day. 12. Restless leg syndrome. Continue with ropinirole 1 mg orally at bedtime. 13. Admit to inpatient. Estimate length of stay 2 midnights. 14. Patient is full code.
--- NOTE | 2016-05-09 11:32 | US ---
EXAMINATION TYPE: US renals and bladder DATE OF EXAM: 05/09/2016 10:37 AM COMPARISON: NONE CLINICAL HISTORY: renal failure. Renal failure EXAM MEASUREMENTS: Right Kidney: 11.0 x 5.7 x 5.7 cm Left Kidney: 12.2 x 6.0 x 4.7 cm Right Kidney: Appeared wnl Left Kidney: Appeared wnl Bladder: Possible bladder wall thickening Bilateral Jets seen: No There is no evidence for hydronephrosis at this point in time. No nephrolithiasis is seen. No clau s are identified. The urinary bladder is anechoic. Bilateral ureteral jets are seen. Incidental finding gallbladder gallbladder polyp vs. sludge ball IMPRESSION: Remarkable evaluation of the kidneys. Gallbladder polyp versus sludge.
--- NOTE | 2016-05-09 11:51 | CONS ---
DATE OF CONSULTATION: CHIEF COMPLAINT: Shortness of breath Michael is a 80-year-old gentleman with history of diastolic heart failure, carcinoma of the lung, atrial fibrillation, hypertension, diabetes, dyslipidemia, who presented to hospital with worsening shortness of breath. Patient in fact was in the hospital a week ago, went home, comes back complaining of worsening shortness of breath. It is moderate to severe intensity at rest. The patient is not able to lie down in the bed and has some leg edema also. On this admission, we found that his creatinine is elevated suggestive of acute worsening of chronic renal failure. His ejection fraction was normal at last admission. A chest x-ray shows evidence of pleural effusion and pulmonary congestion. Patient has lung cancer and I believe currently being treated at [facility]. At the time of my evaluation this morning, he appears comfortable at rest. Just took a shower. He is lying down comfortably in the bed. BUN and creatinine are elevated at 66 and 2.38. BNP is elevated at 7790/ Past medical history is significant for renal insufficiency, congestive heart failure, coronary artery disease, status post CABG, hypertension, dyslipidemia, insulin-requiring diabetes, CA of the lung, dyslipidemia. Home medications are as listed and are as charted and I reviewed them. ALLERGIES: He has multiple drug allergies which I have reviewed. FAMILY HISTORY: Negative for premature coronary artery disease. SOCIAL HISTORY: Denies current smoking or ETOH abuse. REVIEW OF SYSTEMS: HEENT: Unremarkable. CARDIAC: As described above. RESPIRATORY: As described above. GI: Negative. GENITOURINARY: Significant for worsening renal function. PSYCHOSOCIAL: Negative. ENDOCRINE: Negative. HEMATOLOGICAL: Negative. CONSTITUTIONAL: Negative. Oncological: Significant for CA lung. On exam, heart rate is 84 beats per minute, blood pressure is 150/69, respiratory rate is 18. Chest exam reveals diminished air entry at the bases. Heart exam reveals first and second heart sounds. No gallop. ABDOMEN: Soft. Exam of the extremities reveals 1+ edema. Peripheral pulses are palpable. Labs have been reviewed. Potassium is 4.7, BUN is 56. Creatinine is 2.3. BNP is elevated. Hemoglobin is low at 8. ASSESSMENT: 1. Shortness of breath, probably due to a combination of problems including diastolic heart failure, renal insufficiency, COPD, and underlying lung cancer, shortness of breath is probably more related to the underlying lung cancer than the diastolic heart failure. 2. Renal insufficiency mostly prerenal, probably secondary to the diuretics. 3. Hypertension. 4. Dyslipidemia. 5. Coronary artery disease, status post coronary artery bypass grafting. 6. History of atrial fibrillation. 7. History of sick sinus syndrome status post permanent pacemaker. PLAN: I reviewed his medications. I will continue those. I reviewed his echocardiogram. I am going to let nephrology drive his diuretic therapy at this time. I am not concerned that he is in significant heart failure at this time.
[2016-05-09 12:00] LABS: Glucose,Whole Blood 298 mg/dL (75-99)
[2016-05-09] MEDS: CLOPIDOGREL 75 MG TAB PO SCH (12:09)
[2016-05-09] MEDS: ASPIRIN 81 MG CHEW PO SCH (12:09)
--- NOTE | 2016-05-09 12:20 | CT ---
EXAMINATION TYPE: CT chest wo con DATE OF EXAM: 05/09/2016 12:07 PM COMPARISON: Correlation radiograph 05/08/2016 HISTORY: 80-year-old male follow-up Lung cancer TECHNIQUE: Contiguous axial scanning of the chest without IV contrast. Coronal and sagittal reconstru ctions performed. CT DLP: 569.8 mGycm Automated exposure control for dose reduction was used. FINDINGS: Median sternotomy wires are present with post-CABG changes. Left anterior chest wall pacemaker genera tor with right atrial and right ventricular leads. Heart is borderline enlarged without pericardial effusion. The ascending aorta is ectatic at 3.9 cm with moderate atherosclerotic arch calcifications and conven tional arch vessel branching anatomy. Large caliber to the main right and left pulmonary arteries and 2.9 cm each compatible with underlyin g pulmonary arterial hypertension. There is a small to moderate right and small left pleural effusion. Adjacent atelectasis at the left base and with more extensive right lower lobe basilar segmental collapse/consolidation on the right. There is a mild hazy areas of groundglass in the visualized upper lungs. Bilateral pulmonary nodules are present most numerous on the left side measuring up to 2.8 cm in the superior segment left lower lobe. There are approximately 10 nodules on the left and 3 nodules on the right. Mild left greater than right gynecomastia. No thoracic lymphadenopathy seen by CT size criteria allowing for noncontrast technique. Visualized upper abdomen shows possible noncalcified gallstones in a nondistended gallbladder and natalia ateral renal calcifications equivocal between nonobstructive calculi and vascular calcifications. Sof t tissue thickening of the right adrenal gland measuring up to 2.8 cm. In anterior hilar splenule are demonstrated. Bones: End-stage osteoarthrosis at both glenohumeral joints. Advanced degenerative changes in the upp er lumbar spine. No osseous destructive process seen. IMPRESSION: 1. PULMONARY ARTERIAL HYPERTENSION, BORDERLINE HEART SIZE, SMALL TO MODERATE RIGHT, AND SMALL LEFT PL EURAL EFFUSIONS. THERE ARE HAZY DENSITIES IN THE UPPER LUNGS WELL. CORRELATE FOR MILD TO MODERATE CHF. 2. BILATERAL PULMONARY NODULES MORE NUMEROUS ON THE LEFT MEASURING UP TO 2.8 CM. FINDINGS SUGGEST MET ASTATIC DISEASE. 3. NODULARITY OF THE RIGHT ADRENAL GLAND MEASURING UP TO 2.8 CM. ADRENAL METASTASES NOT EXCLUDED AT T HIS TIME. 4. BASILAR SEGMENTAL RIGHT LOWER LOBE COLLAPSE AND CONSOLIDATION.
[2016-05-09 12:23] LABS: Hemoglobin A1C 5.9 % (4.2-6.1)
--- NOTE | 2016-05-09 13:02 | P.CNPUL ---
History of Present Illness Consult date: 05/09/16 Reason for consult: dyspnea History of present illness: 80-year-old male patient, known history of stage IV adenocarcinoma of the lungs , coming in from home because of worsening shortness of breath and hypoxemia. This is the patient's second admission over the past month for the same. In terms of his lung cancer, the patient was diagnosed having stage IV adenocarcinoma of the lung at [facility] following a bronchoscopy and transbronchial biopsy. The patient does not provide detailed information about his malignancy history however he tells that he has received systemic chemotherapy, probably a total of 2 cycles and treatment was stopped because of complications and comorbidities. He was in [facility] for pneumonia and CHF. He was transferred to [facility] where he was seen by various other consultants including cardiology as the patient was also having issues with congestion heart failure and bilateral pleural effusions. He has a permanent pacemaker in place. The patient has had a previous echocardiogram showing an ejection fraction of 40-45% however his proBNP level was quite elevated and the patient was told to have a combination of systolic and diastolic dysfunction. The patient was treated here in the hospital in mid April was discharged to [facility] and ultimately was released home to be readmitted for the same. Denies having any aspiration. No cough or sputum production. No fever chills or night sweats. Chest x-ray shows cardiomegaly along with increased pulmonary vascular markings and possibly a right-sided pleural effusion. No change in mental status. No hemoptysis. No pleurisy. No calf pain or tenderness. He was noted also that the patient's renal failure has been worse. He has a component of chronic renal insufficiency and has been acute decompensations renal function with a creatinine being up to 2.3. The patient is still producing urine. Ultrasound of the kidneys showed no acute abnormalities. Review of Systems As above 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, melanoma of left axillary, chronic renal failure, chronic anemia, coronary artery disease with previous cardiac catheterization and stenting, chronic back pain, coronary artery bypass surgery, pacemaker insertion , peripheral vascular disease, chronic atrial fibrillation Last Myocardial Infarction Date:: unknown History of Any Multi-Drug Resistant Organisms: None Reported Past Surgical History: Back Surgery, Coronary Bypass/CABG, Heart Catheterization With Stent, Pacemaker Additional Past Surgical History / Comment(s): CABG, cardiac stents, peripheral stents, pacemaker, left axillary melanoma resection. Past Anesthesia/Blood Transfusion Reactions: No Reported Reaction Additional Past Anesthesia/Blood Transfusion Reaction / Comment(s): blood transfusion Date of Last Stent Placement:: unknown Type of Cardiac Device: Permanent Pacemaker Device Placement Date:: 07-07-11 Past Psychological History: Anxiety Smoking Status: Former smoker Past Alcohol Use History: None Reported Additional Past Alcohol Use History / Comment(s): Patient was a smoker and quit 20 years ago. He denies any medical marijuana, marijuana, street drug use. He denies any alcohol abuse. Past Drug Use History: None Reported - Past Family History Mother Family Medical History: Diabetes Mellitus, Hyperlipidemia, Hypertension Additional Family Medical History / Comment(s): Mother is . Father Family Medical History: Diabetes Mellitus, Hyperlipidemia, Hypertension, Myocardial Infarction ([place]) Additional Family Medical History / Comment(s): Father is from a myocardial infarction. Brother(s) Additional Family Medical History / Comment(s): Abraham Ramesh has 11 brothers and 2 sisters. Patient has 2 sons and 2 daughters with no major medical problems. Medications and Allergies Home Medications Medication Instructions Recorded Confirmed Type Amiodarone [Cordarone] 200 mg PO DAILY 04/22/16 05/09/16 History Apixaban [Eliquis] 2.5 mg PO BID 04/22/16 05/09/16 History Ascorbic Acid [Vitamin C] 500 mg PO DAILY 04/22/16 05/09/16 History Aspirin EC [Ecotrin Low Dose] 81 mg PO DAILY@1200 04/22/16 05/09/16 History Atorvastatin [Lipitor] 40 mg PO HS 04/22/16 05/09/16 History Budesonide [Pulmicort] 1 mg INHALATION RT-BID 04/22/16 05/09/16 History Cholecalciferol [Vitamin D3] 2,000 unit PO BID 04/22/16 05/09/16 History Clopidogrel [Plavix] 75 mg PO DAILY@1200 04/22/16 05/09/16 History Fenofibrate Nanocrystallized 145 mg PO HS 04/22/16 05/09/16 History [Tricor] Ferrous Sulfate [Iron (65 MG 325 mg PO BID 04/22/16 05/09/16 History Elemental)] Folic Acid 1 mg PO DAILY@1200 04/22/16 05/09/16 History Ipratropium-Albuterol Nebulize 3 ml INHALATION RT-TID PRN 04/22/16 05/09/16 History [Duoneb 0.5 mg-3 mg/3 ml Soln] Isosorbide Mononitrate ER [Imdur] 60 mg PO BID 04/22/16 05/09/16 History Lactobacillus Acidophilus 1 tab PO DAILY 04/22/16 05/09/16 History [Acidophilus] Melatonin 6 mg PO HS 04/22/16 05/09/16 History Howard-3 Fatty Acids/Fish Oil [Fish 1 cap PO BID 04/22/16 05/09/16 History Oil 1,000 mg Softgel] Pantoprazole Sodium [Protonix] 40 mg PO DAILY 04/22/16 05/09/16 History Polyethylene Glycol 3350 [Miralax] 17 gm PO DAILY PRN 04/22/16 05/09/16 History Potassium Chloride [K-Tab ER] 10 meq PO BID 04/22/16 05/09/16 History Sennosides [Senna] 17.2 mg PO BID 04/22/16 05/09/16 History Tamsulosin HCl [Flomax] 0.4 mg PO HS 04/22/16 05/09/16 History Vitamin B Complex 1 cap PO DAILY 04/22/16 05/09/16 History amLODIPine [Norvasc] 5 mg PO BID 04/22/16 05/09/16 History rOPINIRole HCL [Requip] 1 mg PO HS 04/22/16 05/09/16 History ALPRAZolam [Xanax] 0.25 mg PO DAILY PRN 05/09/16 05/09/16 History Albuterol Inhaler [Ventolin Hfa 1 - 2 puff INHALATION RT-Q6H PRN 05/09/16 History Inhaler] Carvedilol [Coreg] 25 mg PO BID 05/09/16 05/09/16 History Furosemide [Lasix] 40 mg PO TID 05/09/16 05/09/16 History Multivit-Min/FA/Lycopene/Lut 1 tab PO DAILY@1200 05/09/16 05/09/16 History [Centrum Silver Tablet] Nitroglycerin Sl Tabs [Nitrostat] 0.4 mg SUBLINGUAL Q5M PRN 05/09/16 05/09/16 History Pregabalin [Lyrica] 75 mg PO DAILY@1200 05/09/16 05/09/16 History Prochlorperazine [Compazine] 10 mg PO Q6H PRN 05/09/16 05/09/16 History Tiotropium 18 Mcg/Puff [Spiriva] 1 cap INHALATION RT-DAILY 05/09/16 05/09/16 History Zolpidem [Ambien] 5 mg PO HS PRN 05/09/16 05/09/16 History cloNIDine HCL [Catapres] 0.1 mg PO DAILY PRN 05/09/16 05/09/16 History traMADol HCL [Ultram] 50 - 100 mg PO BID PRN 05/09/16 05/09/16 History Allergies Allergy/AdvReac Type Severity Reaction Status Date / Time ciprofloxacin [From Cipro] Allergy Unknown Verified 05/09/16 11:10 corticotropin Allergy Unknown Verified 05/09/16 11:10 erythromycin base Allergy Unknown Verified 05/09/16 11:10 gabapentin Allergy Unknown Verified 05/09/16 11:10 hydralazine Allergy Unknown Verified 05/09/16 11:10 Penicillins Allergy Unknown Verified 05/09/16 11:10 pentoxifylline [From Trental] Allergy Unknown Verified 05/09/16 11:10 prednisone Allergy Unknown Verified 05/09/16 11:10 doxycycline AdvReac Unknown Verified 05/09/16 11:10 Iodinated Contrast Media - AdvReac Unknown Verified 05/09/16 11:10 Oral and Physical Exam Vitals: Vital Signs Temp Pulse Pulse Resp BP BP BP 05/09/16 11:40 97.0 F L 69 18 168/74 05/09/16 08:51 84 05/09/16 08:38 84 05/09/16 08:05 96.9 F L 65 22 152/69 05/09/16 04:24 92 05/09/16 04:15 92 05/09/16 04:00 97 F L 78 22 173/77 05/09/16 00:23 61 26 H 151/71 05/08/16 23:55 97 F L 63 22 146/65 Pulse Ox 05/09/16 11:40 93 L 05/09/16 08:51 05/09/16 08:38 05/09/16 08:05 93 L 05/09/16 04:24 05/09/16 04:15 05/09/16 04:00 94 L 05/09/16 00:23 93 L 05/08/16 23:55 97 Intake and Output 05/08/16 05/09/16 05/09/16 22:59 06:59 14:59 Intake Total 420 236 Output Total 350 400 Balance 70 -164 Intake: IV 120 Sodium Chloride 0.9% 1, 120 000 ml @ 20 mls/hr IV . Q24H [facility] Rx#:[id number] Oral 300 236 Output: Urine 350 400 Other: Voiding Method Urinal Urinal # Voids 1 Weight 90 kg Head exam was generally normal. There was no scleral icterus or corneal arcus. Mucous membranes were moist.Neck was supple and without jugular venous distension, thyromegaly, or carotid bruits. Carotids were easily palpable bilaterally. There was no adenopathy. Lung sounds are diminished bilaterally especially in the right lung base. Few scattered expiratory wheeze otherwise no rhonchi. No significant crackles appreciated. Heart sounds are regular, positive S1-S2, distant, no significant murmurs could be appreciated.Abdominal exam revealed normal bowel sounds. The abdomen was soft, non-tender, and without masses, organomegaly, or appreciable enlargement of the abdominal aorta. Extremities reveal is no edema no cyanosis or clubbing at this point. Neurologically awake and alert. Results - Laboratory Findings CBC and BMP: 05/09/16 05:42 05/09/16 05:42 PT/INR, D-dimer PT 12.8 sec (9.0-12.0) H 05/08/16 20:24 INR 1.3 (<1.1) 05/08/16 20:24 Abnormal lab findings: Abnormal Labs 05/09/16 05/09/16 05/09/16 00:10 01:20 02:31 RBC Hgb Hct MCHC RDW Carbon Dioxide BUN Creatinine Glucose POC Glucose (mg/dL) 490 H 530 H 462 H 02/05/17 02/05/17 02/05/17 05:42 05:42 06:19 RBC 2.85 L Hgb 8.0 L Hct 27.1 L MCHC 29.7 L RDW 17.8 H Carbon Dioxide 33 H BUN 66 H Creatinine 2.38 H Glucose 326 H POC Glucose (mg/dL) 311 H 05/09/16 11:40 RBC Hgb Hct MCHC RDW Carbon Dioxide BUN Creatinine Glucose POC Glucose (mg/dL) 298 H - Diagnostic Findings Chest x-ray: image reviewed Assessment and Plan Plan: Assessment 1 shortness of breath. The patient is chronic dyspnea and hypoxia respiratory failure and there has been interval worsening shortness of breath with further worsening in his oxygenation. Possible decompensated heart failure with development of bilateral pleural effusions. Possible worsening in his metastatic lung cancer with malignant pleural effusions. Pulmonary embolism is less likely. 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 7 BPH 8 paroxysmal atrial fibrillation on long-term anticoagulation 9 chronic renal failure with acute worsening his kidney function and acute rise in the creatinine and nephrology is on the case 10 systemic chemotherapy for metastatic adenocarcinoma of the lung 11 previous coronary intervention and stenting 12 peripheral vascular disease 13 melanoma of the left axillary line, resected 14 chronic anemia Plan Agree on the current treatment. Would optimize CHF. The patient is on diuretics. Monitor renal function as the patient is receiving diuretics. Agree on bronchodilators. Steroids can be tapered knowing that there is no need for COPD exacerbation at this point. We'll obtain a CAT scan of the chest without contrast to characterize abnormalities the patient's chest. A sizable pleural effusion will be considered for thoracentesis with the understanding that the pleural effusions could be also potentially malignant. The CAT scan of the chest was also assess the progression of his underlying lung cancer. This was ordered without contrast. Rest of the medication was reviewed. We'll continue to follow.
[2016-05-09 15:28] LABS: Appearance,Urine Clear (Clear); Bacteria,Urine Rare /hpf; Bilirubin,Urine Negative (Negative); Glucose,Urine (UA) 1+ (Negative); Ketones,Urine Negative (Negative); Leukocyte Esterase,Urine Negative (Negative); Nitrite,Urine Negative (Negative); Particle Count 924; Protein,Urine 1+ (Negative); Specific Gravity,Urine 1.008 (1.001-1.035); UA Billing (MACRO vs. MICRO) MICRO; Urobilinogen,Urine <2.0 mg/dL (<2.0); WBC,Urine 1 /hpf (0-5)
[2016-05-09 16:49] LABS: Glucose,Whole Blood 315 mg/dL (75-99)
[2016-05-09 20:37] LABS: Glucose,Whole Blood 425 mg/dL (75-99)
[2016-05-09] MEDS ORDERED: INSULIN REGULAR BOLUS (FROM DRIP BAG) IV ONE ×2 (20:46→20:54)
[2016-05-09] MEDS ORDERED: FENOFIBRATE 160 MG TAB PO SCH (21:00)
[2016-05-09] MEDS: TAMSULOSIN 0.4 MG CAP.ER.24H PO SCH (21:08)
[2016-05-09] MEDS: ATORVASTATIN 40 MG TAB PO SCH (21:08)
[2016-05-09] MEDS: FUROSEMIDE 10 MG/ML 4 ML VIAL IV SCH (21:09)
[2016-05-09] MEDS: INSULIN REGULAR 100 UNIT in SODIUM CHLORIDE 0.9% 100 ML IV SCH ×2 (21:20→23:38)
[2016-05-09 21:55] LABS: Glucose,Whole Blood 430 mg/dL (75-99)
[2016-05-09 22:30] LABS: Glucose,Whole Blood 278 mg/dL (75-99)
[2016-05-09 22:57] LABS: Glucose,Whole Blood 198 mg/dL (75-99)
[2016-05-10] MEDS: INSULIN REGULAR 100 UNIT in SODIUM CHLORIDE 0.9% 100 ML IV SCH (00:28)
[2016-05-10 01:01] LABS: Glucose,Whole Blood 51 mg/dL (75-99)
[2016-05-10] MEDS: IPRATROPIUM-ALBUTEROL 3 ML NEB INHALATION PRN (01:14)
[2016-05-10 01:18] LABS: Glucose,Whole Blood 58 mg/dL (75-99)
[2016-05-10] MEDS ORDERED: DEXTROSE 50%-WATER 50 ML SYRINGE IVP ONE (01:19)
[2016-05-10 01:36] LABS: Glucose,Whole Blood 204 mg/dL (75-99)
[2016-05-10 03:41] LABS: Glucose,Whole Blood 82 mg/dL (75-99)
[2016-05-10 04:35] LABS: Glucose,Whole Blood 110 mg/dL (75-99)
[2016-05-10 05:51] LABS: Glucose,Whole Blood 154 mg/dL (75-99)
[2016-05-10 06:36] LABS: Anisocytosis Slight; Basophils % (A) 0 %; CH 27.7; CHCM 29.7; Eosinophils % (A) 0 %; HCT 24.3 % (39.0-53.0); HDW 3.17; HGB 7.3 gm/dL (13.0-17.5); Hypochromasia Marked; Luc # (Auto) 0.03; Luc % (Auto) 1; Lymphocytes # (A) 0.3 k/uL (1.0-4.8); Lymphocytes % (A) 5 %; MCH 27.9 pg (25.0-35.0); MCHC 29.9 g/dL (31.0-37.0); MCV 93.5 fL (80.0-100.0); Mean Platelet Volume 7.6; Monocytes # (A) 0.1 k/uL (0-1.0); Monocytes % (A) 2 %; Neutrophils % (A) 92 %; RDW 17.9 % (11.5-15.5); WBC 5.5 k/uL (3.8-10.6); WBC (Perox) 6.31
[2016-05-10 06:52] LABS: Potassium 4.5 mmol/L (3.5-5.1); Total Bilirubin 0.5 mg/dL (0.2-1.3); Total Protein 5.8 g/dL (6.3-8.2)
[2016-05-10] MEDS: CARVEDILOL 12.5 MG TAB PO SCH ×2 (07:06→17:06)
[2016-05-10] MEDS: methylPREDNISolone SOD SUCCI 125 MG/2 ML VIAL IV SCH ×2 (07:06→11:35)
[2016-05-10] MEDS: INSULIN LISPRO (humaLOG) 300 UNIT/3 ML VIAL SQ SCH ×5 (07:07→22:11)
[2016-05-10] MEDS ORDERED: INSULIN LISPRO (humaLOG) 300 UNIT/3 ML VIAL SQ SCH (07:30)
[2016-05-10] MEDS: amLODIPine 5 MG TAB PO SCH ×2 (08:58→22:06)
[2016-05-10] MEDS: NITROGLYCERIN OINT 1 INCH/GM PACKET TOPICAL SCH ×4 (08:58→22:09)
[2016-05-10] MEDS: ASPIRIN 81 MG CHEW PO SCH (08:58)
[2016-05-10] MEDS: PANTOPRAZOLE 40 MG TABLET PO SCH (08:59)
[2016-05-10] MEDS: APIXABAN 2.5 MG TABLET PO SCH ×2 (08:59→22:07)
[2016-05-10] MEDS: FERROUS SULFATE 325 MG TAB PO SCH ×2 (08:59→22:08)
[2016-05-10] MEDS: AMIODARONE 200 MG TAB PO SCH (08:59)
[2016-05-10] MEDS: FUROSEMIDE 10 MG/ML 4 ML VIAL IV SCH ×2 (09:00→22:10)
[2016-05-10] MEDS: ISOSORBIDE MONONITRATE ER 60 MG TAB.ER.24H PO SCH ×2 (09:00→22:09)
[2016-05-10] MEDS: IPRATROPIUM-ALBUTEROL 3 ML NEB INHALATION SCH ×4 (10:31→20:56)
[2016-05-10 11:26] VITALS: BMI 29.5
[2016-05-10] MEDS: CLOPIDOGREL 75 MG TAB PO SCH (11:36)
[2016-05-10 12:01] LABS: Glucose,Whole Blood 352 mg/dL (75-99)
[2016-05-10] MEDS ORDERED: LACTULOSE 20 GM/30 ML CUP PO ONE (12:38)
--- NOTE | 2016-05-10 12:51 | PN ---
CHIEF COMPLAINT: Shortness of breath. This is a 80-year-old gentleman who is admitted to hospital with shortness of breath, has complex and multiple medical problems including stage IV adeno CA, atrial fibrillation, diastolic heart failure, hypertension, diabetes, dyslipidemia, and coronary artery disease, status post CABG. This morning he looks better, but continues to have a shortness of breath with activity. He is being treated with IV diuretics for congestive heart failure. He has already received 2 cycles of chemotherapy. On exam, heart rate is 70 beats per minute, blood pressure is 150/70, respiratory rate is 18. Chest exam reveals diminished air entry at the bases. I do not hear any crackles or rhonchi. Heart exam reveals first and second heart sounds. No gallop. ABDOMEN: Soft. Exam of extremities reveals trace edema. Peripheral pulses are felt. A CT scan of the chest revealed pulmonary hypertension, pleural effusion and some pulmonary nodules. ASSESSMENT: 1. Shortness of breath, probably due to a combination of congestive heart failure exacerbation and underlying adenocarcinoma and chronic obstructive pulmonary disease. 2. Coronary artery disease status post coronary artery bypass graft. 3. Insulin-requiring diabetes. PLAN: I am going to increase the dose of Lasix and see if that makes a difference to his symptoms, but I am not convinced that I am dealing with congestive heart failure as an etiology for his symptomatology.
--- NOTE | 2016-05-10 13:49 | P.PN ---
Subjective Principal diagnosis: Acute on chronic congestive heart failure secondary to LV dysfunction, systolic congestive heart failure 80-year-old male patient, known history of stage IV adenocarcinoma of the lungs , coming in from home because of worsening shortness of breath and hypoxemia. This is the patient's second admission over the past month for the same. In terms of his lung cancer, the patient was diagnosed having stage IV adenocarcinoma of the lung at [facility] following a bronchoscopy and transbronchial biopsy. The patient does not provide detailed information about his malignancy history however he tells that he has received systemic chemotherapy, probably a total of 2 cycles and treatment was stopped because of complications and comorbidities. He was in [facility] for pneumonia and CHF. He was transferred to [facility] where he was seen by various other consultants including cardiology as the patient was also having issues with congestion heart failure and bilateral pleural effusions. He has a permanent pacemaker in place. The patient has had a previous echocardiogram showing an ejection fraction of 40-45% however his proBNP level was quite elevated and the patient was told to have a combination of systolic and diastolic dysfunction. The patient was treated here in the hospital in mid April was discharged to [facility] and ultimately was released home to be readmitted for the same. Denies having any aspiration. No cough or sputum production. No fever chills or night sweats. Chest x-ray shows cardiomegaly along with increased pulmonary vascular markings and possibly a right-sided pleural effusion. No change in mental status. No hemoptysis. No pleurisy. No calf pain or tenderness. He was noted also that the patient's renal failure has been worse. He has a component of chronic renal insufficiency and has been acute decompensations renal function with a creatinine being up to 2.3. The patient is still producing urine. Ultrasound of the kidneys showed no acute abnormalities. Patient was reevaluated today on 04/09/2016, feeling a bit better, breathing easier. I reviewed the chest x-ray, it is mostly consistent with congestive heart failure. Patient is on diuretics, and he is being followed by cardiology. CT of the chest report was also reviewed consistent with CHF and metastatic advanced adenocarcinoma of the lung labs showed the PEEP cigar a 5.5 hemoglobin 7.3 renal profile is abnormal with a BUN of 74 creatinine of 2.30 this is most likely a cardiorenal type picture. Objective - Vital Signs Vital signs: Vital Signs Temp 96.8 F L 05/10/16 11:35 Pulse 72 05/10/16 11:50 Resp 20 05/10/16 11:35 BP 151/67 05/10/16 11:35 Pulse Ox 95 05/10/16 11:35 Intake & Output 05/09/16 05/10/16 05/10/16 18:59 06:59 18:59 Intake Total 661 528.156 616 Output Total 1000 950 325 Balance -339 -421.844 291 Weight 90.6 kg 90.6 kg Intake: IV 180 250 100 Insulin Regular 100 unit 90 In Sodium Chloride 0.9% 100 ml @ Titrate IV .Q0M [facility] Rx#:[id number] Sodium Chloride 0.9% 1, 180 160 100 000 ml @ 20 mls/hr IV . Q24H [facility] Rx#:[id number] Intake, IV Titration 78.156 Amount Insulin Regular 100 unit 78.156 In Sodium Chloride 0.9% 100 ml @ Titrate IV .Q0M [facility] Rx#:[id number] Oral 481 200 516 Output: Urine 1000 950 325 Other: Voiding Method Urinal Urinal Urinal # Voids 2 1 - Exam Physical Exam: Revealed a 80-year-old white male pleasant, in no distress. HEENT:[Neck is supple.] [No neck masses.] [No thyromegaly.] [No JVD.] Chest: [Diminished breath sounds bilaterally mostly at the right lung base.] Cardiac Exam: [Irregular irregular rhythm Normal S1 and S2, no S3 gallop, no murmur.] Abdomen: [Soft, nontender, no megaly, no rebound, no guarding, normal bowel sounds.] Extremities: [No clubbing, no edema, no cyanosis.] Neurological Exam: [No focal neurologic deficit.] - Labs CBC & Chem 7: 05/10/16 05:55 05/10/16 05:55 Labs: Abnormal Lab Results - Last 24 Hours (Table) 05/09/16 05/09/16 05/09/16 Range/Units 15:00 16:40 20:36 RBC (4.30-5.90) m/uL Hgb (13.0-17.5) gm/dL Hct (39.0-53.0) % MCHC (31.0-37.0) g/dL RDW (11.5-15.5) % Lymphocytes # (1.0-4.8) k/uL Carbon Dioxide (22-30) mmol/L BUN (9-20) mg/dL Creatinine (0.66-1.25) mg/dL Glucose (74-99) mg/dL POC Glucose (mg/dL) 315 H 425 H (75-99) mg/dL AST (17-59) U/L Total Protein (6.3-8.2) g/dL Albumin (3.5-5.0) g/dL Urine Protein 1+ H (Negative) Urine Glucose (UA) 1+ H (Negative) Urine Bacteria Rare H (None) /hpf 05/09/16 05/09/16 05/09/16 Range/Units 21:54 22:28 22:56 RBC (4.30-5.90) m/uL Hgb (13.0-17.5) gm/dL Hct (39.0-53.0) % MCHC (31.0-37.0) g/dL RDW (11.5-15.5) % Lymphocytes # (1.0-4.8) k/uL Carbon Dioxide (22-30) mmol/L BUN (9-20) mg/dL Creatinine (0.66-1.25) mg/dL Glucose (74-99) mg/dL POC Glucose (mg/dL) 430 H 278 H 198 H (75-99) mg/dL AST (17-59) U/L Total Protein (6.3-8.2) g/dL Albumin (3.5-5.0) g/dL Urine Protein (Negative) Urine Glucose (UA) (Negative) Urine Bacteria (None) /[facility] 05/10/16 05/10/16 05/10/16 Range/Units 00:59 01:16 01:35 RBC (4.30-5.90) m/uL Hgb (13.0-17.5) gm/dL Hct (39.0-53.0) % MCHC (31.0-37.0) g/dL RDW (11.5-15.5) % Lymphocytes # (1.0-4.8) k/uL Carbon Dioxide (22-30) mmol/L BUN (9-20) mg/dL Creatinine (0.66-1.25) mg/dL Glucose (74-99) mg/dL POC Glucose (mg/dL) 51 L 58 L 204 H (75-99) mg/dL AST (17-59) U/L Total Protein (6.3-8.2) g/dL Albumin (3.5-5.0) g/dL Urine Protein (Negative) Urine Glucose (UA) (Negative) Urine Bacteria (None) /hpf 05/10/16 05/10/16 05/10/16 Range/Units 04:34 05:50 05:55 RBC 2.60 L (4.30-5.90) m/uL Hgb 7.3 L (13.0-17.5) gm/dL Hct 24.3 L (39.0-53.0) % MCHC 29.9 L (31.0-37.0) g/dL RDW 17.9 H (11.5-15.5) % Lymphocytes # 0.3 L (1.0-4.8) k/uL Carbon Dioxide (22-30) mmol/L BUN (9-20) mg/dL Creatinine (0.66-1.25) mg/dL Glucose (74-99) mg/dL POC Glucose (mg/dL) 110 H 154 H (75-99) mg/dL AST (17-59) U/L Total Protein (6.3-8.2) g/dL Albumin (3.5-5.0) g/dL Urine Protein (Negative) Urine Glucose (UA) (Negative) Urine Bacteria (None) /hpf 05/10/16 05/10/16 Range/Units 05:55 11:58 RBC (4.30-5.90) m/uL Hgb (13.0-17.5) gm/dL Hct (39.0-53.0) % MCHC (31.0-37.0) g/dL RDW (11.5-15.5) % Lymphocytes # (1.0-4.8) k/uL Carbon Dioxide 33 H (22-30) mmol/L BUN 74 H (9-20) mg/dL Creatinine 2.30 H (0.66-1.25) mg/dL Glucose 129 H (74-99) mg/dL POC Glucose (mg/dL) 352 H (75-99) mg/dL AST 15 L (17-59) U/L Total Protein 5.8 L (6.3-8.2) g/dL Albumin 3.0 L (3.5-5.0) g/dL Urine Protein (Negative) Urine Glucose (UA) (Negative) Urine Bacteria (None) /hpf Assessment and Plan Plan: 1 shortness of breath. The patient is chronic dyspnea and hypoxia respiratory failure and there has been interval worsening shortness of breath with further worsening in his oxygenation. Possible decompensated heart failure with development of bilateral pleural effusions. Possible worsening in his metastatic lung cancer with malignant pleural effusions. Pulmonary embolism is less likely. 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 7 BPH 8 paroxysmal atrial fibrillation on long-term anticoagulation 9 chronic renal failure with acute worsening his kidney function and acute rise in the creatinine and nephrology is on the case 10 systemic chemotherapy for metastatic adenocarcinoma of the lung 11 previous coronary intervention and stenting 12 peripheral vascular disease 13 melanoma of the left axillary line, resected 14 chronic anemia Recommendation: Continue present treatment plan including diuretics and bronchodilators, continue the tapering of the steroids for COPD, consider discharge planning in the next 24-48 hours. If the right pleural effusion does not improve with diuretics, may have to consider ultrasound guided thoracentesis. Continue to monitor renal functioning, overall prognosis remains poor and guarded, especially with a patient known history of advanced and metastatic adenocarcinoma of the lungs. In the meantime continue aggressive diuresis, and follow-up chest x-ray in a.m. Time with Patient: Less than 30
[2016-05-10 13:55] LABS: Glucose,Whole Blood 384 mg/dL (75-99)
--- NOTE | 2016-05-10 14:20 | P.PN ---
Subjective This is a 80-year-old male. He is residing at [facility] on the [place] under the care of Dr. Reddy and Dr. Jernigan for rehab after hospitalization following pneumonia. He has a past medical history of COPD, chronic systolic heart failure with ejection fraction 40-45%, chronic kidney disease stage III, benign prostatic hypertrophy, atrial fibrillation on eliquis hyperlipidemia, hypertension, myocardial infarction, recent diagnosis of 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, pacemaker, melanoma of the left axillary, diabetes mellitus type 2 with diabetic neuropathy. Patient states he had a recent hospitalization at [facility] and was treated for heart failure. He had pansensitive pseudomonas in his sputum on 03/23/2016. He went to [facility] for rehab and had worsening of his shortness of breath. His pulse ox dropped down to 81% and he was placed on a nonrebreather with respirations of 30. Patient was then transferred to [facility]. At that time was treated and subsequently was sent back to [facility] for a few more days I saw the patient on Tuesday the week before last at [facility] and he was getting ready to be discharged on Tuesday patient was supposed to follow-up with Dr. 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 05/10: Hgb 7.3, BUN 74 and creatinine 2.30. He continues to complain of shortness of breath with ambulating. He appears to be comfortable at rest but now on O2 at 5L. Blood sugars have been high since off insulin drip. He will be placed back on humalog scale and scheduled humalog. Solumedrol will be decreased to 40 mg every 8 hours. Pulmicort added. He is continued on Lasix 40 mg IV every 12 hours. He is also complaining of constipation and requesting Lactulose which was ordered. Objective - Vital Signs Vital signs: Vital Signs Temp 97.1 F L 05/10/16 08:00 Pulse 61 05/10/16 08:00 Resp 20 05/10/16 08:00 BP 116/56 05/10/16 08:00 Pulse Ox 93 L 05/10/16 08:00 Intake & Output 05/09/16 05/10/16 05/10/16 18:59 06:59 18:59 Intake Total 661 528.156 336 Output Total 1000 950 Balance -339 -421.844 336 Weight 90.6 kg Intake: IV 180 250 Insulin Regular 100 unit 90 In Sodium Chloride 0.9% 100 ml @ Titrate IV .Q0M MELISSA Rx#:[id number] Sodium Chloride 0.9% 1, 180 160 000 ml @ 20 mls/hr IV . Q24H MELISSA Rx#:[id number] Intake, IV Titration 78.156 Amount Insulin Regular 100 unit 78.156 In Sodium Chloride 0.9% 100 ml @ Titrate IV .Q0M MELISSA Rx#:[id number] Oral 481 200 336 Output: Urine 1000 950 Other: Voiding Method Urinal Urinal # Voids 2 - Exam General appearance: average body habitus, mild distress - EENT Eyes: anicteric sclerae, PERRLA, no ptosis, no scleral icterus, normal appearance ENT: hearing grossly normal, NA/AT, normal oropharynx, no thrush, no tonsillar exudates Ears: bilateral: normal - Neck Neck: no lymphadenopathy, normal ROM, no rigidity, no stridor, no thyromegaly Carotids: bilateral: upstroke delayed - Respiratory Respiratory: bilateral: diminished, dullness, rhonchi, wheezing, prolonged expiration - Cardiovascular Rhythm: irregularly irregular Heart sounds: normal: S1, S2 Abnormal Heart Sounds: systolic murmur, no rub, no click - Gastrointestinal General gastrointestinal: soft, no tenderness, no umbilical hernia, no ventral hernia - Integumentary Integumentary: normal, normal turgor - Musculoskeletal Musculoskeletal: gait normal, generalized weakness - Psychiatric Psychiatric: A&O x's 3, appropriate affect, intact judgment & insight - Labs CBC & Chem 7: 05/10/16 05:55 05/10/16 05:55 Labs: Abnormal Lab Results - Last 24 Hours (Table) 05/09/16 05/09/16 05/09/16 Range/Units 11:40 15:00 16:40 RBC (4.30-5.90) m/uL Hgb (13.0-17.5) gm/dL Hct (39.0-53.0) % MCHC (31.0-37.0) g/dL RDW (11.5-15.5) % Lymphocytes # (1.0-4.8) k/uL Carbon Dioxide (22-30) mmol/L BUN (9-20) mg/dL Creatinine (0.66-1.25) mg/dL Glucose (74-99) mg/dL POC Glucose (mg/dL) 298 H 315 H (75-99) mg/dL AST (17-59) U/L Total Protein (6.3-8.2) g/dL Albumin (3.5-5.0) g/dL Urine Protein 1+ H (Negative) Urine Glucose (UA) 1+ H (Negative) Urine Bacteria Rare H (None) /hpf 05/09/16 05/09/16 05/09/16 Range/Units 20:36 21:54 22:28 RBC (4.30-5.90) m/uL Hgb (13.0-17.5) gm/dL Hct (39.0-53.0) % MCHC (31.0-37.0) g/dL RDW (11.5-15.5) % Lymphocytes # (1.0-4.8) k/uL Carbon Dioxide (22-30) mmol/L BUN (9-20) mg/dL Creatinine (0.66-1.25) mg/dL Glucose (74-99) mg/dL POC Glucose (mg/dL) 425 H 430 H 278 H (75-99) mg/dL AST (17-59) U/L Total Protein (6.3-8.2) g/dL Albumin (3.5-5.0) g/dL Urine Protein (Negative) Urine Glucose (UA) (Negative) Urine Bacteria (None) /[facility] 05/09/16 05/10/16 05/10/16 Range/Units 22:56 00:59 01:16 RBC (4.30-5.90) m/uL Hgb (13.0-17.5) gm/dL Hct (39.0-53.0) % MCHC (31.0-37.0) g/dL RDW (11.5-15.5) % Lymphocytes # (1.0-4.8) k/uL Carbon Dioxide (22-30) mmol/L BUN (9-20) mg/dL Creatinine (0.66-1.25) mg/dL Glucose (74-99) mg/dL POC Glucose (mg/dL) 198 H 51 L 58 L (75-99) mg/dL AST (17-59) U/L Total Protein (6.3-8.2) g/dL Albumin (3.5-5.0) g/dL Urine Protein (Negative) Urine Glucose (UA) (Negative) Urine Bacteria (None) /hpf 05/10/16 05/10/16 05/10/16 Range/Units 01:35 04:34 05:50 RBC (4.30-5.90) m/uL Hgb (13.0-17.5) gm/dL Hct (39.0-53.0) % MCHC (31.0-37.0) g/dL RDW (11.5-15.5) % Lymphocytes # (1.0-4.8) k/uL Carbon Dioxide (22-30) mmol/L BUN (9-20) mg/dL Creatinine (0.66-1.25) mg/dL Glucose (74-99) mg/dL POC Glucose (mg/dL) 204 H 110 H 154 H (75-99) mg/dL AST (17-59) U/L Total Protein (6.3-8.2) g/dL Albumin (3.5-5.0) g/dL Urine Protein (Negative) Urine Glucose (UA) (Negative) Urine Bacteria (None) /hpf 05/10/16 05/10/16 Range/Units 05:55 05:55 RBC 2.60 L (4.30-5.90) m/uL Hgb 7.3 L (13.0-17.5) gm/dL Hct 24.3 L (39.0-53.0) % MCHC 29.9 L (31.0-37.0) g/dL RDW 17.9 H (11.5-15.5) % Lymphocytes # 0.3 L (1.0-4.8) k/uL Carbon Dioxide 33 H (22-30) mmol/L BUN 74 H (9-20) mg/dL Creatinine 2.30 H (0.66-1.25) mg/dL Glucose 129 H (74-99) mg/dL POC Glucose (mg/dL) (75-99) mg/dL AST 15 L (17-59) U/L Total Protein 5.8 L (6.3-8.2) g/dL Albumin 3.0 L (3.5-5.0) g/dL Urine Protein (Negative) Urine Glucose (UA) (Negative) Urine Bacteria (None) /hpf Assessment and Plan Plan: 1. Acute respiratory failure secondary to acute systolic heart failure and acute COPD exacerbation. Patient will be started on Lasix 40 mg IV push every 12 hours, Coreg 50 mg orally twice every day, continue to monitor the patient input and updated with. Monitor chest x-ray, start the patient on Solu-Medrol 40 mg IV push every 8 hours, DuoNeb nebulization 4 times every day. Pulmicort added. 2. Acute kidney injury and top of chronic kidney disease stage III. Continue Lasix 40 mg IV push every 12 hours. Monitor CMP magnesium or phosphorus, nephrology consultation. 3. Chronic atrial fibrillation. Continue Paxil and 2.5 mg orally twice every day and amiodarone 200 mg orally once every day. 4. Hypertension and hypertensive cardiovascular disease. Continue patient on amlodipine 5 mg orally twice every day, Coreg 50 mg orally twice every day. 5. Hyperlipidemia. Continue Lipitor 40 mg orally once every day, discontinue fenofibrate. 6. Diabetes mellitus type 2 with steroid-induced hyperglycemia. Humalog scheduled and per sliding scale, continue patient on carbohydrate/cardiac/renal diet. BGM to be checked before each meal and at bedtime. 7. PAD. Monitor the patient very closely. Continue with Lipitor 40 mg orally once every day for secondary prevention. 8. CAD post CABG and PCI with stents. Continue Plavix 75 mg orally once every day, Imdur 30 mg orally once every day, Coreg 50 mg orally twice every day, and Lipitor 40 mg orally once every day. 9. Enlarged Prostate. Continue with Flomax 0.4 g orally once every day. 10. DVT prophylaxis. Continue Adipex event 2.5 mg orally twice every day. 11. GI prophylaxis. Continue Protonix 40 mg orally once every day. 12. Restless leg syndrome. Continue with ropinirole 1 mg orally at bedtime. 13. Admit to inpatient. Estimate length of stay 2 midnights. 14. Patient is full code. Discharge plan: Impression and plan of care have been directed as dictated by the signing physician. Arlen Pickering nurse practitioner acting as scribe for signing physician. Time with Patient: Greater than 30
[2016-05-10] MEDS ORDERED: DARBEPOETIN ALFA 40 MCG/0.4 ML SYRINGE SQ SCH (16:15)
[2016-05-10 16:34] LABS: Glucose,Whole Blood 419 mg/dL (75-99)
--- NOTE | 2016-05-10 16:34 | PN ---
Patient is seen for followup for acute kidney injury on top of chronic kidney disease. Patient was admitted to the hospital with weakness and some shortness of breath. He has had lower extremity edema which was slightly worse at the time of admission. Patient is maintained on IV Lasix at 40 mg q.12 hours. He states he is slightly better; however, not significantly improved since admission. He did have a chest CT done yesterday, which shows evidence of pulmonary nodules as well as pleural effusions and possible consolidation on the right side. Serum creatinine has been at about 2.3 mg/dL. Baseline creatinine is about 1.6 to 1.7 mg/dL. Patient's blood pressure has not been low and he has not received any nephrotoxic agents. On examination, he is currently comfortable. Blood pressure is 141/61, heart rate 72 per minute. He is afebrile. HEART: S1 and S2. LUNGS: Bilateral breath sounds are heard. Abdomen is soft, nontender. Lower extremities show edema 2+ bilaterally. TANK OFFICER is grossly intact. Patient is moving all 4 extremities. Labs show sodium 143, potassium 4.5. Hemoglobin 7.3 g/dL. Serum creatinine 2.3. Albumin 3.0. ASSESSMENT: 1. Acute kidney injury on top of chronic kidney disease, possibly cardiorenal. Patient is currently nonoliguric. He is maintained on IV Lasix 40 mg q.12 hours, which we can continue. I will increase that to q.8 hours for maybe 1 to 2 days. Patient is also on amlodipine, which will cause lower extremity edema. Zaroxolyn has been added and it will be started tomorrow. 2. Chronic kidney disease, [employer] stage 3 secondary to nephrosclerosis with urinalysis showing 1+ protein and ultrasound of the kidney which was fairly unremarkable. Baseline creatinine about 1.6 to 1.7 mg/dL. 3. Stage IV adenocarcinoma of the lung, maintained on chemotherapy. 4. Coronary artery disease, being followed by breast surgeon out of town. 5. Congestive heart failure with diastolic dysfunction with ejection fraction 50% to 60% with concentric left ventricular hypertrophy on an echocardiogram done in April of this year. 6. Atrial fibrillation with controlled rate. 7. Chronic obstructive pulmonary disease. 8. Anemia with hemoglobin currently at 7.3 g/dL, which is lower than yesterday, when it was at 8.0. No active bleeding is noted. Check iron studies and start Procrit. PLAN: Add Zaroxolyn, increase Lasix to q.8 hours for 1 day and repeat labs in the a.m. start Aranesp/Procrit. Check iron studies.
[2016-05-10 16:38] LABS: % Iron Saturation 10.5 % (20-50)
[2016-05-10] MEDS: methylPREDNISolone SOD SUCCI 40 MG/ML 1 ML VIAL IV SCH ×2 (17:14→23:58)
[2016-05-10 20:56] LABS: Glucose,Whole Blood 411 mg/dL (75-99)
[2016-05-10] MEDS: BUDESONIDE 0.5 MG/2 ML NEBU INHALATION SCH (20:57)
[2016-05-10] MEDS: TAMSULOSIN 0.4 MG CAP.ER.24H PO SCH (22:08)
[2016-05-10] MEDS: ATORVASTATIN 40 MG TAB PO SCH (22:08)
[2016-05-11 04:44] LABS: Glucose,Whole Blood 167 mg/dL (75-99)
[2016-05-11] MEDS: CARVEDILOL 12.5 MG TAB PO SCH ×2 (06:44→17:03)
[2016-05-11] MEDS: INSULIN LISPRO (humaLOG) 300 UNIT/3 ML VIAL SQ SCH ×7 (06:45→21:25)
--- NOTE | 2016-05-11 06:52 | XR ---
EXAMINATION TYPE: XR chest 2V DATE OF EXAM: 05/11/2016 6:39 AM COMPARISON: Chest x-ray [address] chest 2 days ago. HISTORY: CHF progress study. TECHNIQUE: Frontal and lateral views of the chest are obtained. FINDINGS: Mediastinal clips and sternal wires are redemonstrated. There is persistent cardiomegaly w ith dual lead pacemaker. There is persistent small to moderate-sized right greater than left pleural effusions with associated right basilar atelectasis and/or infiltrate. There is persistent mild to mo derate central vascular congestion. Osseous structures are demineralized. Advanced degenerative thakur e at bilateral glenohumeral joints is redemonstrated. IMPRESSION: Overall stable findings, there is persistent cardiomegaly with central vascular congesti on and small to moderate-sized right greater than left pleural effusions consistent with CHF exacerba tion. Associated right basilar atelectasis and/or infiltrate is redemonstrated.
[2016-05-11 07:23] LABS: Anisocytosis Slight; CHCM 30.3; HCT 24.9 % (39.0-53.0); HDW 3.07; HGB 7.3 gm/dL (13.0-17.5); Hypochromasia Marked; MCH 27.4 pg (25.0-35.0); MCHC 29.5 g/dL (31.0-37.0); MCV 92.8 fL (80.0-100.0); Mean Platelet Volume 9.4; RBC 2.68 m/uL (4.30-5.90); RDW 18.7 % (11.5-15.5); WBC 5.3 k/uL (3.8-10.6)
[2016-05-11 07:48] LABS: Calcium 9.2 mg/dL (8.4-10.2); Potassium 3.8 mmol/L (3.5-5.1)
[2016-05-11] MEDS: IPRATROPIUM-ALBUTEROL 3 ML NEB INHALATION SCH ×4 (08:59→19:16)
[2016-05-11] MEDS: BUDESONIDE 0.5 MG/2 ML NEBU INHALATION SCH ×2 (08:59→19:16)
[2016-05-11] MEDS ORDERED: METOLAZONE 5 MG TAB PO SCH (09:00)
[2016-05-11] MEDS: METOLAZONE 5 MG TAB PO SCH (09:31)
[2016-05-11] MEDS: AMIODARONE 200 MG TAB PO SCH (09:31)
[2016-05-11] MEDS: FERROUS SULFATE 325 MG TAB PO SCH ×2 (09:31→21:24)
[2016-05-11] MEDS: amLODIPine 5 MG TAB PO SCH ×2 (09:31→21:24)
[2016-05-11] MEDS: FUROSEMIDE 10 MG/ML 4 ML VIAL IV SCH (09:31)
[2016-05-11] MEDS: methylPREDNISolone SOD SUCCI 40 MG/ML 1 ML VIAL IV SCH ×2 (09:31→21:25)
[2016-05-11] MEDS: NITROGLYCERIN OINT 1 INCH/GM PACKET TOPICAL SCH ×4 (09:32→21:25)
[2016-05-11] MEDS: PANTOPRAZOLE 40 MG TABLET PO SCH (09:32)
[2016-05-11] MEDS: ISOSORBIDE MONONITRATE ER 60 MG TAB.ER.24H PO SCH ×2 (09:32→21:24)
[2016-05-11] MEDS: APIXABAN 2.5 MG TABLET PO SCH ×2 (09:32→21:24)
[2016-05-11 11:25] LABS: Glucose,Whole Blood 272 mg/dL (75-99)
--- NOTE | 2016-05-11 11:56 | PN ---
Michael is admitted with shortness of breath due to a combination of problems related to his underlying lung CA and congestive heart failure. He has known CAD and had prior bypass surgery. We are treating him with IV diuretics for heart failure. Yesterday, I increased the dose of diuretics with significant improvement in his symptoms. This morning he is feeling well and his shortness of breath had improved. He is on Lasix 40 mg q.8 hours IV. We can switch her to p.o. now. He is also on Eliquis 2.5 b.i.d., amiodarone 200 q. daily, aspirin, Coreg, atorvastatin and Plavix. On exam, comfortable at rest. Vital signs are stable. There is no jugular venous distention. Chest exam reveals good air entry bilaterally. Heart exam reveals first and second heart sounds. No gallop. Chest exam reveals diminished air entry with occasional crackles or rhonchi. Heart exam reveals first and second heart sounds. No gallop. Exam of the extremities revealed trace edema. Peripheral pulses are felt. Labs show that the BUN is 87. Creatinine is 2.3. Hemoglobin is 7.3. ASSESSMENT: Shortness of breath secondary to a combination of problems including heart failure, chronic obstructive pulmonary disease and lung cancer. PLAN: We can switch his Lasix to p.o. today, ambulate him and hopefully home tomorrow.
[2016-05-11] MEDS: ASPIRIN 81 MG CHEW PO SCH (12:11)
[2016-05-11] MEDS: CLOPIDOGREL 75 MG TAB PO SCH (12:11)
--- NOTE | 2016-05-11 13:58 | P.PN ---
Subjective This is a 80-year-old male. He is residing at [facility] on the [place] under the care of Dr. Reddy and Dr. Jernigan for rehab after hospitalization following pneumonia. He has a past medical history of COPD, chronic systolic heart failure with ejection fraction 40-45%, chronic kidney disease stage III, benign prostatic hypertrophy, atrial fibrillation on eliquis hyperlipidemia, hypertension, myocardial infarction, recent diagnosis of 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, pacemaker, melanoma of the left axillary, diabetes mellitus type 2 with diabetic neuropathy. Patient states he had a recent hospitalization at [facility] and was treated for heart failure. He had pansensitive pseudomonas in his sputum on 03/23/2016. He went to [facility] for rehab and had worsening of his shortness of breath. His pulse ox dropped down to 81% and he was placed on a nonrebreather with respirations of 30. Patient was then transferred to [facility]. At that time was treated and subsequently was sent back to [facility] for a few more days I saw the patient on Tuesday the week before last at [facility] and he was getting ready to be discharged on Tuesday patient was supposed to follow-up with Dr. 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 05/10: Hgb 7.3, BUN 74 and creatinine 2.30. He continues to complain of shortness of breath with ambulating. He appears to be comfortable at rest but now on O2 at 5L. Blood sugars have been high since off insulin drip. He will be placed back on humalog scale and scheduled humalog. Solumedrol will be decreased to 40 mg every 8 hours. Pulmicort added. He is continued on Lasix 40 mg IV every 12 hours. He is also complaining of constipation and requesting Lactulose which was ordered. 05/11: Repeat hemoglobin 7.3, BUN 87 creatinine 2.32. Repeat chest x-ray shows overall stable findings, persistent cardiomegaly with central vascular congestion and small to moderate size right greater than left pleural effusions consistent with heart failure exacerbation. Associated right basilar atelectasis and/or infiltrate is redemonstrated. If pleural effusions are not improving with diuretics, pulmonary medicine is contemplating ultrasound-guided thoracentesis. Lasix was changed to oral Zaroxolyn added. Aranesp started. Probable discharge home tomorrow. Objective - Vital Signs Vital signs: Vital Signs Temp 97.1 F L 05/11/16 04:00 Pulse 72 05/11/16 08:59 Resp 18 05/11/16 04:00 BP 121/59 05/11/16 04:00 Pulse Ox 92 L 05/11/16 04:00 Intake & Output 05/10/16 05/11/16 05/11/16 18:59 06:59 18:59 Intake Total 908 180 180 Output Total 325 200 Balance 583 -20 180 Weight 90.6 kg 91.1 kg Intake: IV 170 Sodium Chloride 0.9% 1, 170 000 ml @ 20 mls/hr IV . Q24H MELISSA Rx#:[id number] Oral 738 180 180 Output: Urine 325 200 Other: Voiding Method Urinal Urinal # Voids 1 # Bowel Movements 2 - Exam General appearance: average body habitus, mild distress - EENT Eyes: anicteric sclerae, PERRLA, no ptosis, no scleral icterus, normal appearance ENT: hearing grossly normal, NA/AT, normal oropharynx, no thrush, no tonsillar exudates Ears: bilateral: normal - Neck Neck: no lymphadenopathy, normal ROM, no rigidity, no stridor, no thyromegaly Carotids: bilateral: upstroke delayed - Respiratory Respiratory: bilateral: diminished, dullness, rhonchi, wheezing, prolonged expiration - Cardiovascular Rhythm: irregularly irregular Heart sounds: normal: S1, S2 Abnormal Heart Sounds: systolic murmur, no rub, no click - Gastrointestinal General gastrointestinal: soft, no tenderness, no umbilical hernia, no ventral hernia - Integumentary Integumentary: normal, normal turgor - Musculoskeletal Musculoskeletal: gait normal, generalized weakness - Psychiatric Psychiatric: A&O x's 3, appropriate affect, intact judgment & insight - Labs CBC & Chem 7: 05/11/16 07:11 05/11/16 07:11 Labs: Abnormal Lab Results - Last 24 Hours (Table) 05/10/16 05/10/1605/10/17 Range/Units 05:55 11:58 13:52 RBC (4.30-5.90) m/uL Hgb (13.0-17.5) gm/dL Hct (39.0-53.0) % MCHC (31.0-37.0) g/dL RDW (11.5-15.5) % Carbon Dioxide (22-30) mmol/L BUN (9-20) mg/dL Creatinine (0.66-1.25) mg/dL Glucose (74-99) mg/dL POC Glucose (mg/dL) 352 H 384 H (75-99) mg/dL Iron 30 L (49-181) ug/dL % Saturation 10.5 L (20-50) % 05/10/16 05/10/16 05/11/16 Range/Units 16:31 20:53 04:43 RBC (4.30-5.90) m/uL Hgb (13.0-17.5) gm/dL Hct (39.0-53.0) % MCHC (31.0-37.0) g/dL RDW (11.5-15.5) % Carbon Dioxide (22-30) mmol/L BUN (9-20) mg/dL Creatinine (0.66-1.25) mg/dL Glucose (74-99) mg/dL POC Glucose (mg/dL) 419 H 411 H 167 H (75-99) mg/dL Iron (49-181) ug/dL % Saturation (20-50) % 05/11/16 05/11/16 Range/Units 07:11 07:11 RBC 2.68 L (4.30-5.90) m/uL Hgb 7.3 L (13.0-17.5) gm/dL Hct 24.9 L (39.0-53.0) % MCHC 29.5 L (31.0-37.0) g/dL RDW 18.7 H (11.5-15.5) % Carbon Dioxide 32 H (22-30) mmol/L BUN 87 H* (9-20) mg/dL Creatinine 2.32 H (0.66-1.25) mg/dL Glucose 178 H (74-99) mg/dL POC Glucose (mg/dL) (75-99) mg/dL Iron (49-181) ug/dL % Saturation (20-50) % Assessment and Plan Plan: 1. Acute respiratory failure secondary to acute systolic heart failure and acute COPD exacerbation. Patient will be started on Lasix to oral, Coreg 50 mg orally twice every day, continue to monitor the patient input and updated with. Monitor chest x-ray, start the patient on Solu-Medrol 40 mg IV push every 8 hours, DuoNeb nebulization 4 times every day. Pulmicort added. 2. Acute kidney injury and top of chronic kidney disease stage III. Continue Lasix 40 mg IV push every 12 hours. Monitor CMP magnesium or phosphorus, nephrology consultation. 3. Chronic atrial fibrillation. Continue Paxil and 2.5 mg orally twice every day and amiodarone 200 mg orally once every day. 4. Hypertension and hypertensive cardiovascular disease. Continue patient on amlodipine 5 mg orally twice every day, Coreg 50 mg orally twice every day. 5. Hyperlipidemia. Continue Lipitor 40 mg orally once every day, discontinue fenofibrate. 6. Diabetes mellitus type 2 with steroid-induced hyperglycemia. Humalog scheduled and per sliding scale, continue patient on carbohydrate/cardiac/renal diet. BGM to be checked before each meal and at bedtime. 7. PAD. Monitor the patient very closely. Continue with Lipitor 40 mg orally once every day for secondary prevention. 8. CAD post CABG and PCI with stents. Continue Plavix 75 mg orally once every day, Imdur 30 mg orally once every day, Coreg 50 mg orally twice every day, and Lipitor 40 mg orally once every day. 9. Enlarged Prostate. Continue with Flomax 0.4 g orally once every day. 10. DVT prophylaxis. Continue Adipex event 2.5 mg orally twice every day. 11. GI prophylaxis. Continue Protonix 40 mg orally once every day. 12. Restless leg syndrome. Continue with ropinirole 1 mg orally at bedtime. 13. Chronic hypoxic respiratory failure with home O2. 14. Patient is full code. Discharge plan: Home with [facility] tomorrow. Impression and plan of care have been directed as dictated by the signing physician. Arlen Pickering nurse practitioner acting as scribe for signing physician. Time with Patient: Greater than 30
--- NOTE | 2016-05-11 14:25 | P.PN ---
Subjective This is a very pleasant 80-year-old gentleman who has a history of systolic congestive heart failure. He also has a history of stage IV adenocarcinoma of the lungs and had been undergoing treatment at the [facility]. He was initially treated with systemic chemotherapy but based on complications and comorbidities he states he only received 2 cycles. The patient has had admissions for acute exacerbations of congestive heart failure and was recently here for the same. He was discharged to an extended care facility and subsequently home for a few days but presented back here on 05/08/2016 with complaints of increasing shortness of breath cough and congestion. His chest x- ray and labs were mostly consistent with congestive heart failure. He is being diuresed and this improved. He is anxious to go home. He is seen again today 05/11/2016 on the selective care unit. He is awake and alert in no acute distress. He is currently receiving 5 L of high flow nasal cannula to maintain O2 saturations in the 90s. Today's chest x-ray reveals persistent cardiomegaly with central vascular congestion and a small to moderate right-sided greater than left pleural effusions. Initial proBNP is 7790. He remains anemic at 7.3. Stable creatinine at 2.32. Objective - Vital Signs Vital signs: Vital Signs Temp 96.3 F L 05/11/16 11:45 Pulse 72 05/11/16 13:20 Resp 18 05/11/16 11:45 BP 136/64 05/11/16 11:45 Pulse Ox 93 L 05/11/16 11:45 Intake & Output 05/10/16 05/11/16 05/11/16 18:59 06:59 18:59 Intake Total 908 180 380 Output Total 325 200 Balance 583 -20 380 Weight 90.6 kg 91.1 kg Intake: IV 170 Sodium Chloride 0.9% 1, 170 000 ml @ 20 mls/hr IV . Q24H [facility] Rx#:[id number] Oral 738 180 380 Output: Urine 325 200 Other: Voiding Method Urinal Urinal Urinal # Voids 1 # Bowel Movements 2 1 - Exam GENERAL EXAM: Alert, comfortable in no apparent distress. HEAD: Normocephalic. EYES: Normal reaction of pupils, equal size. NOSE: Clear with pink turbinates. THROAT: No erythema or exudates. NECK: No masses, no JVD. CHEST: No chest wall deformity. LUNGS: Equal air entry with crackles in the last year bases more so on the right.. CVS: S1 and S2 normal with an audible mumur, regular rhythm. ABDOMEN: No hepatosplenomegaly, normal bowel sounds, no guarding or rigidity. Extremities: There is trace peripheral edema. No clubbing, no cyanosis. Peripheral pulses are intact. - Labs CBC & Chem 7: 05/11/16 07:11 05/11/16 07:11 Labs: Abnormal Lab Results - Last 24 Hours (Table) 05/10/16 05/10/16 05/10/16 Range/Units 05:55 16:31 20:53 RBC (4.30-5.90) m/uL Hgb (13.0-17.5) gm/dL Hct (39.0-53.0) % MCHC (31.0-37.0) g/dL RDW (11.5-15.5) % Carbon Dioxide (22-30) mmol/L BUN (9-20) mg/dL Creatinine (0.66-1.25) mg/dL Glucose (74-99) mg/dL POC Glucose (mg/dL) 419 H 411 H (75-99) mg/dL Iron 30 L (49-181) ug/dL % Saturation 10.5 L (20-50) % Crossmatch 05/11/16 05/11/16 05/11/16 Range/Units 04:43 07:11 07:11 RBC 2.68 L (4.30-5.90) m/uL Hgb 7.3 L (13.0-17.5) gm/dL Hct 24.9 L (39.0-53.0) % MCHC 29.5 L (31.0-37.0) g/dL RDW 18.7 H (11.5-15.5) % Carbon Dioxide 32 H (22-30) mmol/L BUN 87 H* (9-20) mg/dL Creatinine 2.32 H (0.66-1.25) mg/dL Glucose 178 H (74-99) mg/dL POC Glucose (mg/dL) 167 H (75-99) mg/dL Iron (49-181) ug/dL % Saturation (20-50) % Crossmatch 05/11/16 05/11/16 Range/Units 11:23 12:38 RBC (4.30-5.90) m/uL Hgb (13.0-17.5) gm/dL Hct (39.0-53.0) % MCHC (31.0-37.0) g/dL RDW (11.5-15.5) % Carbon Dioxide (22-30) mmol/L BUN (9-20) mg/dL Creatinine (0.66-1.25) mg/dL Glucose (74-99) mg/dL POC Glucose (mg/dL) 272 H (75-99) mg/dL Iron (49-181) ug/dL % Saturation (20-50) % Crossmatch See Detail Assessment and Plan Plan: Impression: 1 shortness of breath. The patient is chronic dyspnea and hypoxia respiratory failure and there has been interval worsening shortness of breath with further worsening in his oxygenation. Possible decompensated heart failure with development of bilateral pleural effusions. Possible worsening in his metastatic lung cancer with malignant pleural effusions. Pulmonary embolism is less likely. 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 7 BPH 8 paroxysmal atrial fibrillation on long-term anticoagulation 9 chronic renal failure with acute worsening his kidney function and acute rise in the creatinine and nephrology is on the case 10 systemic chemotherapy for metastatic adenocarcinoma of the lung 11 previous coronary intervention and stenting 12 peripheral vascular disease 13 melanoma of the left axillary line, resected 14 chronic anemia Plan The patient was seen and evaluated by Dr. Mcintosh. His chest x-ray and labs were reviewed. We will continue to titrate down his FiO2 to maintain O2 saturations greater than 92%. We'll continue with his current medications including diuretics him a taper the Solu-Medrol, continue bronchodilators. We will increase his activity as tolerated. We'll continue to follow make further recommendations based on his clinical status.
[2016-05-11] MEDS: FUROSEMIDE 20 MG TAB PO SCH (15:14)
[2016-05-11] MEDS ORDERED: FUROSEMIDE 10 MG/ML 4 ML VIAL IV SCH (16:00)
[2016-05-11 16:36] LABS: Glucose,Whole Blood 244 mg/dL (75-99)
--- NOTE | 2016-05-11 20:11 | PN ---
Patient is seen for followup for acute kidney injury on top of chronic kidney disease. He was admitted to the hospital with weakness. He was short of breath with increased lower extremity edema. Currently patient is maintained on diuretics. Lasix has been changed to p.o. Zaroxolyn has also been added. Hemoglobin is low at 7.3 g/dL. No active bleeding is noted. On examination, blood pressure is 156/72, heart rate of 65 per minute. He is afebrile. EXAMINATION OF THE HEART: S1 and S2. EXAMINATION OF THE LUNGS: Bilateral breath sounds are heard. ABDOMEN: Soft, nontender. Examination of lower extremities shows edema 1+ bilaterally; appears to have decreased from 2 days ago. [employer] exam is grossly intact. Labs show sodium 144, potassium 3.8, BUN 87, serum creatinine 2.32; hemoglobin 7.3 g/dL. ASSESSMENT: 1. Chronic kidney disease with an element of acute kidney injury, possibly cardiorenal, maintained on diuretics. The Lasix has now been changed to p.o. Continue with the Lasix and Zaroxolyn for now. Patient also has significant anemia, which will also impact the acute kidney injury. I will transfuse 1 unit packed RBCs. 2. Chronic kidney disease, NKF stage III, secondary to nephrosclerosis with baseline creatinine about 1.6 to 1.7 mg/dL. 3. Stage IV adenocarcinoma of the lung, maintained on chemotherapy. 4. Coronary artery disease, being followed by a independent agent music education out of town. 5. Congestive heart failure with diastolic dysfunction with ejection fraction 50% to 60% with concentric left ventricular hypertrophy on echocardiogram done in April of this year. 6. Atrial fibrillation with controlled rate. 7. Chronic obstructive pulmonary disease. 8. Anemia; no active bleeding noted; maintained on Aranesp. Transfuse 1 unit packed RBCs. PLAN: Transfuse packed RBCs. Repeat labs in a.m. Hopefully patient can be discharged tomorrow. He will need to follow up as outpatient.
[2016-05-11 20:58] LABS: Glucose,Whole Blood 167 mg/dL (75-99)
[2016-05-11] MEDS: TAMSULOSIN 0.4 MG CAP.ER.24H PO SCH (21:23)
[2016-05-11] MEDS: ATORVASTATIN 40 MG TAB PO SCH (21:24)
[2016-05-12] MEDS: IPRATROPIUM-ALBUTEROL 3 ML NEB INHALATION PRN (01:37)
[2016-05-12 06:20] LABS: Glucose,Whole Blood 249 mg/dL (75-99)
[2016-05-12 06:23] LABS: Anisocytosis Slight; CH 27.8; CHCM 30.5; HCT 28.5 % (39.0-53.0); HDW 3.42; HGB 8.6 gm/dL (13.0-17.5); Hypochromasia Marked; MCH 27.7 pg (25.0-35.0); MCHC 30.3 g/dL (31.0-37.0); MCV 91.6 fL (80.0-100.0); Mean Platelet Volume 7.9; Poikilocytosis Slight; RBC 3.11 m/uL (4.30-5.90); RDW 18.1 % (11.5-15.5); WBC 4.8 k/uL (3.8-10.6)
[2016-05-12] MEDS: CARVEDILOL 12.5 MG TAB PO SCH (06:33)
[2016-05-12 06:47] LABS: Calcium 9.2 mg/dL (8.4-10.2); Potassium 3.8 mmol/L (3.5-5.1)
[2016-05-12] MEDS: INSULIN LISPRO (humaLOG) 300 UNIT/3 ML VIAL SQ SCH ×4 (07:29→13:02)
[2016-05-12] MEDS: AMIODARONE 200 MG TAB PO SCH (08:13)
[2016-05-12] MEDS: APIXABAN 2.5 MG TABLET PO SCH (08:13)
[2016-05-12] MEDS: amLODIPine 5 MG TAB PO SCH (08:13)
[2016-05-12] MEDS: FERROUS SULFATE 325 MG TAB PO SCH (08:13)
[2016-05-12] MEDS: FUROSEMIDE 20 MG TAB PO SCH (08:14)
[2016-05-12] MEDS: ISOSORBIDE MONONITRATE ER 60 MG TAB.ER.24H PO SCH (08:14)
[2016-05-12] MEDS: METOLAZONE 5 MG TAB PO SCH (08:14)
[2016-05-12] MEDS: NITROGLYCERIN OINT 1 INCH/GM PACKET TOPICAL SCH ×2 (08:15→12:53)
[2016-05-12] MEDS: PANTOPRAZOLE 40 MG TABLET PO SCH (08:15)
[2016-05-12 08:21] VITALS: RESP 18
[2016-05-12] MEDS: methylPREDNISolone SOD SUCCI 40 MG/ML 1 ML VIAL IV SCH (08:27)
[2016-05-12] MEDS: BUDESONIDE 0.5 MG/2 ML NEBU INHALATION SCH (08:58)
[2016-05-12] MEDS: IPRATROPIUM-ALBUTEROL 3 ML NEB INHALATION SCH ×2 (08:59→13:12)
[2016-05-12 11:32] VITALS: BP 140/59; TEMP 97.5
[2016-05-12 12:09] LABS: Glucose,Whole Blood 314 mg/dL (75-99)
[2016-05-12] MEDS: ASPIRIN 81 MG CHEW PO SCH (12:59)
[2016-05-12] MEDS: CLOPIDOGREL 75 MG TAB PO SCH (12:59)
--- NOTE | 2016-05-12 13:11 | P.PN ---
Subjective Principal diagnosis: Acute on chronic congestive heart failure secondary to LV dysfunction, systolic congestive heart failure 80-year-old male patient, known history of stage IV adenocarcinoma of the lungs , coming in from home because of worsening shortness of breath and hypoxemia. This is the patient's second admission over the past month for the same. In terms of his lung cancer, the patient was diagnosed having stage IV adenocarcinoma of the lung at [facility] following a bronchoscopy and transbronchial biopsy. The patient does not provide detailed information about his malignancy history however he tells that he has received systemic chemotherapy, probably a total of 2 cycles and treatment was stopped because of complications and comorbidities. He was in [facility] for pneumonia and CHF. He was transferred to [facility] where he was seen by various other consultants including cardiology as the patient was also having issues with congestion heart failure and bilateral pleural effusions. He has a permanent pacemaker in place. The patient has had a previous echocardiogram showing an ejection fraction of 40-45% however his proBNP level was quite elevated and the patient was told to have a combination of systolic and diastolic dysfunction. The patient was treated here in the hospital in mid April was discharged to [facility] and ultimately was released home to be readmitted for the same. Denies having any aspiration. No cough or sputum production. No fever chills or night sweats. Chest x-ray shows cardiomegaly along with increased pulmonary vascular markings and possibly a right-sided pleural effusion. No change in mental status. No hemoptysis. No pleurisy. No calf pain or tenderness. He was noted also that the patient's renal failure has been worse. He has a component of chronic renal insufficiency and has been acute decompensations renal function with a creatinine being up to 2.3. The patient is still producing urine. Ultrasound of the kidneys showed no acute abnormalities. Patient was reevaluated today on 05/10/2016, feeling a bit better, breathing easier. I reviewed the chest x-ray, it is mostly consistent with congestive heart failure. Patient is on diuretics, and he is being followed by cardiology. CT of the chest report was also reviewed consistent with CHF and metastatic advanced adenocarcinoma of the lung labs showed the PEEP cigar a 5.5 hemoglobin 7.3 renal profile is abnormal with a BUN of 74 creatinine of 2.30 this is most likely a cardiorenal type picture. Reevaluated today on 05/12/2016, patient is feeling better, breathing a lot easier , and I believe discharge planning is in progress for today. No cough no wheezing no shortness of breath. Objective - Vital Signs Vital signs: Vital Signs Temp 97.5 F L 05/12/16 11:26 Pulse 60 05/12/16 11:26 Resp 18 05/12/16 11:26 BP 140/59 05/12/16 11:26 Pulse Ox 96 05/12/16 11:26 Intake & Output 05/11/16 05/12/16 05/12/16 18:59 06:59 18:59 Intake Total 952 386 Output Total 450 Balance 952 -450 386 Weight 91.4 kg Intake: IV 40 Insulin Regular 100 unit 40 In Sodium Chloride 0.9% 100 ml @ Titrate IV .Q0M [facility] Rx#:[id number] Oral 602 386 Blood Product 310 Rc As-1 Unit 310 [id number] Output: Urine 450 Other: Voiding Method Urinal Urinal # Bowel Movements 1 - Exam GENERAL EXAM: Alert, comfortable in no apparent distress. HEAD: Normocephalic. EYES: Normal reaction of pupils, equal size. NOSE: Clear with pink turbinates. THROAT: No erythema or exudates. NECK: No masses, no JVD. CHEST: No chest wall deformity. LUNGS: Equal air entry with crackles in the last year bases more so on the right.. CVS: S1 and S2 normal with an audible mumur, regular rhythm. ABDOMEN: No hepatosplenomegaly, normal bowel sounds, no guarding or rigidity. Extremities: There is trace peripheral edema. No clubbing, no cyanosis. Peripheral pulses are intact. - Labs CBC & Chem 7: 05/12/16 05:59 05/12/16 05:58 Labs: Abnormal Lab Results - Last 24 Hours (Table) 05/11/16 05/11/16 05/11/16 Range/Units 12:38 16:32 20:46 RBC (4.30-5.90) m/uL Hgb (13.0-17.5) gm/dL Hct (39.0-53.0) % MCHC (31.0-37.0) g/dL RDW (11.5-15.5) % Chloride (98-107) mmol/L Carbon Dioxide (22-30) mmol/L BUN (9-20) mg/dL Creatinine (0.66-1.25) mg/dL Glucose (74-99) mg/dL POC Glucose (mg/dL) 244 H 167 H (75-99) mg/dL Crossmatch See Detail 05/12/16 05/12/16 05/12/16 Range/Units 05:58 05:59 06:00 RBC 3.11 L (4.30-5.90) m/uL Hgb 8.6 L (13.0-17.5) gm/dL Hct 28.5 L (39.0-53.0) % MCHC 30.3 L (31.0-37.0) g/dL RDW 18.1 H (11.5-15.5) % Chloride 97 L (98-107) mmol/L Carbon Dioxide 34 H (22-30) mmol/L BUN 91 H* (9-20) mg/dL Creatinine 2.27 H (0.66-1.25) mg/dL Glucose 235 H (74-99) mg/dL POC Glucose (mg/dL) 249 H (75-99) mg/dL Crossmatch 05/12/16 Range/Units 11:57 RBC (4.30-5.90) m/uL Hgb (13.0-17.5) gm/dL Hct (39.0-53.0) % MCHC (31.0-37.0) g/dL RDW (11.5-15.5) % Chloride (98-107) mmol/L Carbon Dioxide (22-30) mmol/L BUN (9-20) mg/dL Creatinine (0.66-1.25) mg/dL Glucose (74-99) mg/dL POC Glucose (mg/dL) 314 H (75-99) mg/dL Crossmatch Assessment and Plan Plan: 1 shortness of breath. The patient is chronic dyspnea and hypoxia respiratory failure and there has been interval worsening shortness of breath with further worsening in his oxygenation. Possible decompensated heart failure with development of bilateral pleural effusions. Possible worsening in his metastatic lung cancer with malignant pleural effusions. Pulmonary embolism is less likely. 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 7 BPH 8 paroxysmal atrial fibrillation on long-term anticoagulation 9 chronic renal failure with acute worsening his kidney function and acute rise in the creatinine and nephrology is on the case 10 systemic chemotherapy for metastatic adenocarcinoma of the lung 11 previous coronary intervention and stenting 12 peripheral vascular disease 13 melanoma of the left axillary line, resected 14 chronic anemia Recommendation: Agree with discharge planning, diuretics as recommended by cardiology, continue bronchodilators and follow-up on outpatient basis. If the patient continues to develop worsening right-sided pleural effusion, thoracentesis could be considered on outpatient basis. Time with Patient: Less than 30
[2016-05-12 13:14] VITALS: PULSE 70
--- NOTE | 2016-05-12 13:20 | PN ---
Michael is a 80-year-old gentleman with history of CA lung, known CAD prior bypass surgery who came in with shortness of breath that has improved with diuretics. This morning, he is feeling better. On exam, afebrile. Heart rate is 60 beats per minute, blood pressure 140/59, respiratory rate is 18. Chest exam reveals diminished air entry with occasional rhonchi. Heart exam reveals first and second heart sounds. No gallop. Abdomen is soft. Examination of the extremities reveals trace edema. Peripheral pulses are felt. Labs show a hemoglobin of 8.6. BUN is 90, creatinine is 2.27. ASSESSMENT: 1. Acute exacerbation of heart failure. 2. Carcinoma lung. PLAN: We will continue the patient on current medications including the IV Lasix.
[2016-05-12] MEDS ORDERED: LACTULOSE 20 GM/30 ML CUP PO ONE (14:08)
--- NOTE | 2016-05-12 14:40 | PN ---
Patient is seen for follow-up for acute kidney injury on top of chronic kidney disease. He is currently being treated for volume overload, Zaroxolyn was added and overall the patient states he is feeling better. He was also transfused a unit of packed RBCs yesterday. On examination, blood pressure is 140/59, heart rate 60 per minute. He is afebrile. Examination of the heart S1 and S2. Examination of the lungs: Bilateral breath sounds are heard. Decreased breath sounds at bases. ABDOMEN: Soft, nontender. Examination of the lower extremities shows chronic skin changes with the 1+ edema noted bilaterally. Labs show sodium 143, potassium 3.8. Hemoglobin 8.6 g/dL. ASSESSMENT: 1. Chronic kidney disease, NKF stage III with baseline creatinine about 1.6 to 1.7 mg/dL. 2. Acute kidney injury, mainly cardiorenal maintained on increased dose of diuretics. The patient is stable for discharge. Continue with the Lasix and Zaroxolyn and follow up as outpatient. 3. Stage IV adenocarcinoma of the lungs, maintained on chemotherapy. 4. Coronary artery disease. He is followed by tree trimmer out of town. 5. Congestive heart failure, mainly diastolic dysfunction with ejection fraction 50% to 60% with concentric left ventricular hypertrophy on echocardiogram done in April of this year. 6. Atrial fibrillation with controlled ventricular response. 7. Anemia, likely anemia of chronic disease. No active bleeding noted, maintained on Aranesp, status post 1 unit packed RBC transfusion yesterday. 8. Chronic obstructive pulmonary disease. PLAN: The patient is scheduled for discharge. We will follow as outpatient. Continue current diuretics upon discharge.
--- NOTE | 2016-05-12 15:45 | P.DS ---
Providers Date of admission: 05/08/16 23:36 Expected date of discharge: 05/12/16 Attending physician: Pollo Batres Consults: 05/09/16 00:08 Consult Physician Routine Consulting Provider: Caniddo Ochoa Consult Reason/Comments: CHF Do you want consulting provider notified?: Yes, Notify in am 05/09/16 03:03 Consult Physician Routine Consulting Provider: Sonia Marin Consult Reason/Comments: Renal Insufficiency Do you want consulting provider notified?: Yes, Notify in am 05/09/16 03:04 Consult Physician Routine Consulting Provider: Clemencia Brown Consult Reason/Comments: COPD exacerbation Do you want consulting provider notified?: Yes, Notify in am Primary care physician: Connie Jernigan [facility] Course: This is a 80-year-old male. He is residing at [facility] on [facility] under the care of Dr. Reddy and Dr. Jernigan for rehab after hospitalization following pneumonia. He has a past medical history of COPD, chronic systolic heart failure with ejection fraction 40-45%, chronic kidney disease stage III, benign prostatic hypertrophy, atrial fibrillation on eliquis hyperlipidemia, hypertension, myocardial infarction, recent diagnosis of 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, pacemaker, melanoma of the left axillary, diabetes mellitus type 2 with diabetic neuropathy. Patient states he had a recent hospitalization at [facility] and was treated for heart failure. He had pansensitive pseudomonas in his sputum on 03/23/2016. He went to [facility] for rehab and had worsening of his shortness of breath. His pulse ox dropped down to 81% and he was placed on a nonrebreather with respirations of 30. Patient was then transferred to [facility]. At that time was treated and subsequently was sent back to [facility] for a few more days I saw the patient on Tuesday the week before last at [facility] and he was getting ready to be discharged on Tuesday patient was supposed to follow-up with Dr. 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 05/10: Hgb 7.3, BUN 74 and creatinine 2.30. He continues to complain of shortness of breath with ambulating. He appears to be comfortable at rest but now on O2 at 5L. Blood sugars have been high since off insulin drip. He will be placed back on humalog scale and scheduled humalog. Solumedrol will be decreased to 40 mg every 8 hours. Pulmicort added. He is continued on Lasix 40 mg IV every 12 hours. He is also complaining of constipation and requesting Lactulose which was ordered. 05/11: Repeat hemoglobin 7.3, BUN 87 creatinine 2.32. Repeat chest x-ray shows overall stable findings, persistent cardiomegaly with central vascular congestion and small to moderate size right greater than left pleural effusions consistent with heart failure exacerbation. Associated right basilar atelectasis and/or infiltrate is redemonstrated. If pleural effusions are not improving with diuretics, pulmonary medicine is contemplating ultrasound-guided thoracentesis. Lasix was changed to oral Zaroxolyn added. Aranesp started. Probable discharge home tomorrow. 05/12: Patient is feeling better today. He is seen sitting up in a chair and looks much improved. No cough or wheezing. He denies any shortness of breath. His daughter is at the bedside and prescriptions provided for any medications he did not have at home. Patient will be discharged home today in stable condition. Discharge diagnoses: 1. Acute respiratory failure secondary to acute systolic heart failure and acute COPD exacerbation. 2. Acute kidney injury and top of chronic kidney disease stage III. 3. Chronic atrial fibrillation. 4. Hypertension and hypertensive cardiovascular disease. 5. Hyperlipidemia. 6. Diabetes mellitus type 2 with steroid-induced hyperglycemia. 7. PAD. 8. CAD post CABG and PCI with stents. 9. Enlarged Prostate. 10. Restless leg syndrome. 11. Chronic hypoxic respiratory failure with home O2. Discharge plan: Home with [facility] Impression and plan of care have been directed as dictated by the signing physician. Arlen Pickering nurse practitioner acting as scribe for signing physician. Cc: Dr. Amaury Reddy Patient Condition at Discharge: Good Plan - Discharge Summary New Discharge Prescriptions: Carvedilol [Coreg] 50 mg PO BID #120 tablet Lactulose [Cephulac] 30 gm PO DAILY #1000 ml Metolazone [Zaroxolyn] 10 mg PO DAILY #30 tab Nitroglycerin Sl Tabs [Nitrostat] 0.4 mg SUBLINGUAL Q5M PRN #25 tab PRN Reason: CHEST PAIN Pantoprazole Sodium [Protonix] 40 mg PO DAILY #30 tablet.dr Discharge Medication List Amiodarone [Cordarone] 200 mg PO DAILY 04/22/16 [History] Apixaban [Eliquis] 2.5 mg PO BID 04/22/16 [History] Ascorbic Acid [Vitamin C] 500 mg PO DAILY 04/22/16 [History] Aspirin EC [Ecotrin Low Dose] 81 mg PO DAILY@1200 04/22/16 [History] Atorvastatin [Lipitor] 40 mg PO HS 04/22/16 [History] Budesonide [Pulmicort] 1 mg INHALATION RT-BID 04/22/16 [History] Cholecalciferol [Vitamin D3] 2,000 unit PO BID 04/22/16 [History] Clopidogrel [Plavix] 75 mg PO DAILY@1200 04/22/16 [History] Fenofibrate Nanocrystallized [Tricor] 145 mg PO HS 04/22/16 [History] Ferrous Sulfate [Iron (65 MG Elemental)] 325 mg PO BID 04/22/16 [History] Folic Acid 1 mg PO DAILY@1200 04/22/16 [History] Ipratropium-Albuterol Nebulize [Duoneb 0.5 mg-3 mg/3 ml Soln] 3 ml INHALATION RT -TID PRN 04/22/16 [History] Isosorbide Mononitrate ER [Imdur] 60 mg PO BID 04/22/16 [History] Lactobacillus Acidophilus [Acidophilus] 1 tab PO DAILY 04/22/16 [History] Melatonin 6 mg PO HS 04/22/16 [History] Novinger-3 Fatty Acids/Fish Oil [Fish Oil 1,000 mg Softgel] 1 cap PO BID 04/22/16 [ History] Polyethylene Glycol 3350 [Miralax] 17 gm PO DAILY PRN 04/22/16 [History] Sennosides [Senna] 17.2 mg PO BID 04/22/16 [History] Tamsulosin HCl [Flomax] 0.4 mg PO HS 04/22/16 [History] Vitamin B Complex 1 cap PO DAILY 04/22/16 [History] amLODIPine [Norvasc] 5 mg PO BID 04/22/16 [History] rOPINIRole HCL [Requip] 1 mg PO HS 04/22/16 [History] ALPRAZolam [Xanax] 0.25 mg PO DAILY PRN 05/09/16 [History] Albuterol Inhaler [Ventolin Hfa Inhaler] 1 - 2 puff INHALATION RT-Q6H PRN [History] Multivit-Min/FA/Lycopene/Lut [Centrum Silver Tablet] 1 tab PO DAILY@1200 [History] Pregabalin [Lyrica] 75 mg PO DAILY@1200 05/09/16 [History] Prochlorperazine [Compazine] 10 mg PO Q6H PRN 05/09/16 [History] Tiotropium 18 Mcg/Puff [Spiriva] 1 cap INHALATION RT-DAILY 05/09/16 [History] Zolpidem [Ambien] 5 mg PO HS PRN 05/09/16 [History] traMADol HCL [Ultram] 50 - 100 mg PO BID PRN 05/09/16 [History] Carvedilol [Coreg] 50 mg PO BID #120 tablet 05/12/16 [Rx] Furosemide [Lasix] 60 mg PO BID@0900,1600 tab 05/12/16 [Rx] INSULIN LISPRO (humaLOG) [humaLOG (formulary)] 12 unit SQ AC-TID vial 05/12/16 [Rx] Lactulose [Cephulac] 30 gm PO DAILY #1000 ml 05/12/16 [Rx] Metolazone [Zaroxolyn] 10 mg PO DAILY #30 tab 05/12/16 [Rx] Nitroglycerin Sl Tabs [Nitrostat] 0.4 mg SUBLINGUAL Q5M PRN #25 tab 05/12/16 [Rx ] Pantoprazole Sodium [Protonix] 40 mg PO DAILY #30 tablet. 05/12/16 [Rx] Potassium Chloride [K-Tab ER] 10 meq PO DAILY #0 05/12/16 [Rx] Follow up Appointment(s)/Referral(s): Sonia Marin MD [STAFF PHYSICIAN] - 05/25/16 1:15 pm () Priyank Denney MD [STAFF PHYSICIAN] - 05/18/16 3:00 pm Amaury Reddy MD [REFERRING] - 1 Week (Please call office to make recheck appointment. ) Clemencia Brown MD [STAFF PHYSICIAN] - 05/13/16 2:30 pm Ambulatory/Diagnostic Orders: Basic Metabolic Panel [LAB.AMB] Location: Determined By Patient Complete Blood Count w/diff [LAB.AMB] Location: Determined By Patient Patient Instructions/Handouts: Heart Failure (GEN), Gestational Diabetes (GEN) , Type 2 Diabetes in Adults (GEN) Activity/Diet/Wound Care/Special Instructions: [facility] Discharge Disposition: HOME WITH HOME HEALTH SERVICES
== END 2016-05-12 16:12 | disposition home health service (06) | DRG 291 ==
LOC: EC 19:56 → 6SEL 23:36
PROVIDERS: ADMIT Internal Medicine; ATTEND Internal Medicine
PROC: 30233N1 Transfusion of Nonautologous Red Blood Cells into Peripheral Vein, Percutaneous Approach (ICD-10-PCS; principal; 2016-05-11)
DX: I13.0 Hypertensive heart and chronic kidney disease with heart failure and stage 1 through stage 4 chronic kidney disease, or unspecified chronic kidney disease (principal); I50.41 Acute combined systolic (congestive) and diastolic (congestive) heart failure; J96.21 Acute and chronic respiratory failure with hypoxia; N17.9 Acute kidney failure, unspecified; J91.0 Malignant pleural effusion; E11.22 Type 2 diabetes mellitus with diabetic chronic kidney disease; C34.90 Malignant neoplasm of unspecified part of unspecified bronchus or lung; I42.9 Cardiomyopathy, unspecified; D63.8 Anemia in other chronic diseases classified elsewhere; J44.1 Chronic obstructive pulmonary disease with (acute) exacerbation; J98.11 Atelectasis; E11.40 Type 2 diabetes mellitus with diabetic neuropathy, unspecified; E11.649 Type 2 diabetes mellitus with hypoglycemia without coma; E11.65 Type 2 diabetes mellitus with hyperglycemia; N18.3 Chronic kidney disease, stage 3 (moderate); E78.5 Hyperlipidemia, unspecified; F41.9 Anxiety disorder, unspecified; G25.81 Restless legs syndrome; G47.33 Obstructive sleep apnea (adult) (pediatric); I25.10 Atherosclerotic heart disease of native coronary artery without angina pectoris; I27.2 Other secondary pulmonary hypertension; I48.0 Paroxysmal atrial fibrillation; I48.2 Chronic atrial fibrillation; I73.9 Peripheral vascular disease, unspecified; N40.0 Benign prostatic hyperplasia without lower urinary tract symptoms; T38.0X5A Adverse effect of glucocorticoids and synthetic analogues, initial encounter; T50.2X5A Adverse effect of carbonic-anhydrase inhibitors, benzothiadiazides and other diuretics, initial encounter; Z79.01 Long term (current) use of anticoagulants; I25.2 Old myocardial infarction; Z79.4 Long term (current) use of insulin; Z82.49 Family history of ischemic heart disease and other diseases of the circulatory system; Z85.820 Personal history of malignant melanoma of skin; Z87.01 Personal history of pneumonia (recurrent); Z87.891 Personal history of nicotine dependence; Z88.0 Allergy status to penicillin; Z92.21 Personal history of antineoplastic chemotherapy; Z95.0 Presence of cardiac pacemaker; Z95.1 Presence of aortocoronary bypass graft; Z95.5 Presence of coronary angioplasty implant and graft; Z79.899 Other long term (current) drug therapy; Z79.82 Long term (current) use of aspirin; Z88.1 Allergy status to other antibiotic agents; Z91.041 Radiographic dye allergy status; K59.00 Constipation, unspecified
CPT/HCPCS: 36415; 71020; 71250; 76770; 80048; 80053; 81001; 82009; 82550; 82553; 83036; 83540; 83550; 83735; 83880; 84484; 85025; 85027; 85610; 85730; 86850; 86900; 86901; 86920; 87040; 93005; 94640; 94760; 96365; 96375; 99291

== ENCOUNTER → 2016-05-14 | Outpatient (CLI) | payer MEDICARE ==
[2016-05-14 13:01] LABS: Calcium 8.5 mg/dL (8.4-10.2); Potassium 4.4 mmol/L (3.5-5.1)
[2016-05-14 13:37] LABS: Anisocytosis Slight; Basophils % (A) 0 %; CH 27.7; CHCM 29.6; Eosinophils # (A) 0.1 k/uL (0-0.7); Eosinophils % (A) 2 %; HCT 29.7 % (39.0-53.0); HDW 3.05; Hypochromasia Marked; Luc # (Auto) 0.04; Luc % (Auto) 1; Lymphocytes # (A) 0.5 k/uL (1.0-4.8); Lymphocytes % (A) 11 %; MCH 28.3 pg (25.0-35.0); MCHC 30.2 g/dL (31.0-37.0); MCV 93.8 fL (80.0-100.0); Mean Platelet Volume 8.4; Monocytes # (A) 0.3 k/uL (0-1.0); Monocytes % (A) 6 %; Neutrophils # (A) 3.8 k/uL (1.3-7.7); Neutrophils % (A) 81 %; RBC 3.16 m/uL (4.30-5.90); RDW 17.5 % (11.5-15.5); WBC 4.7 k/uL (3.8-10.6); WBC (Perox) 5.39
== END | disposition home or self-care (01) ==
LOC: LABWHC1 11:51
PROVIDERS: ATTEND Family Medicine
DX: N19 Unspecified kidney failure (principal)
CPT/HCPCS: 36415; 80048; 85025

== ENCOUNTER → 2016-07-27 | Outpatient (CLI) | payer MEDICARE ==
--- NOTE | 2016-07-27 09:32 | CT ---
EXAMINATION TYPE: CT chest wo con DATE OF EXAM: 07/27/2016 7:43 AM COMPARISON: Chest CT May 09, 2016. HISTORY: Lung cancer progress study. CT DLP: 466.30 mGycm. Automated Exposure Control for Dose Reduction was Utilized. TECHNIQUE: CT scan of the thorax is performed without IV contrast. FINDINGS: LUNGS: Mild to moderate underlying emphysematous change is present bilaterally. There is redemonstrat ion of scattered pulmonary nodules which are diminished in size from prior exam. For reference superi or left lower lobe nodule measured 2.8 x 1.8 cm on prior study image 30 now measures 1.4 x 1.3 cm on axial image 29. Largest nodule right middle lobe on current study measures 1.6 x 1.3 cm on axial imag e 39 was obscured by consolidation or atelectasis on prior exam so difficult to assess for interval c hange. Left upper lobe nodule measures 11 mm on long axis prior study image 14 versus 16 mm on prior study axial image 13. There is interval resolution of small bilateral pleural effusions. There is int erval resolution of associated bibasilar atelectasis and/or consolidation. Pleural-based nodule anter iorly left midlung measures 2.1 cm in long axis axial image 27 is grossly stable from prior study axi al image 29 where it measured 1.9 cm on long axis. There is interval resolution of diffuse groundglas s opacity in both upper lungs. MEDIASTINUM: Lack of IV contrast is noted to limit evaluation for mediastinal and especially hilar ad enopathy. There are no definitive greater than 1 cm hilar or mediastinal lymph nodes. No significan t pericardial effusion is seen. Post CABG changes with mediastinal clips and sternal wires is redemon strated. There is persistent borderline mild cardiomegaly with dual lead pacemaker. Main pulmonary re ramila prominent 3.5 cm on axial image 25, adjacent ascending aorta is similar size. Findings suggesti ng underlying pulmonary artery hypertension. OTHER: Some left-sided gynecomastia is redemonstrated. Dependent density is in gallbladder is felt to reflect gallbladder sludge or small stones. Posterior right adrenal mass or nodular thickening is improved on axial image 55 versus prior study, difficult to accurately measure. Anterior lower dense nodularity measuring 1.6 x 1.2 cm on axial imag e 57 is stable. Slight low dense nodular thickening to central aspect of left adrenal gland on axial image 62 is stable. Small splenule in splenic hilum is redemonstrated. There is stable nonspecific 1. 3 cm low dense lesion anterior spleen on axial image 57 favoring benign. Advanced joint space loss with subchondral cystic change and reforming of medial aspect bilateral hum eral heads in bilateral glenohumeral joints is redemonstrated. Bulb Tester image shows aortobiiliac stent g raft. There is moderate to severe calcified plaque in the visualized thoracic aorta. IMPRESSION: 1. Mild to moderate emphysematous change with scattered pulmonary nodules redemonstrated. Left-sided nodules are stable or diminished in size. Right-sided nodules are difficult to assess for change give n more obscured on prior exam. Suspicious posterior right adrenal nodule is diminished in size. 2. Interval resolution of small bilateral pleural effusions and bilateral alveolar edema suggests res olved CHF or fluid overload state. No acute pulmonary process currently.
== END | disposition home or self-care (01) ==
LOC: RADCTMAIN 07:17
PROVIDERS: ATTEND Internal Medicine
DX: R91.8 Other nonspecific abnormal finding of lung field (principal); J90 Pleural effusion, not elsewhere classified; C34.90 Malignant neoplasm of unspecified part of unspecified bronchus or lung
CPT/HCPCS: 71250

== ENCOUNTER → 2016-10-20 | Outpatient (CLI) | payer MEDICARE ==
--- NOTE | 2016-10-20 09:49 | CT ---
EXAMINATION TYPE: CT chest wo con DATE OF EXAM: 10/20/2016 COMPARISON: Previous study dated 07/27/2016. HISTORY: melanoma of lung CT DLP: 850 mGycm. Automated Exposure Control for Dose Reduction was Utilized. TECHNIQUE: CT scan of the thorax is performed without IV contrast. FINDINGS: Previous right middle lobe pulmonary nodule previously measured 16 x 13.4 mm and today janna ures 18.6 x 16.4 mm. A lesion in the posterior segment of the right upper lobe adjacent to the right axilla previously measured 14.7 x 9.4 mm. Today this measures 15.6 x 12.8 mm. On the same slice in th e lateral segment of the right upper lobe there is a peripheral nodule which previously measured 5.9 mm and today measures 3.8 mm groundglass nodule in the posterior segment of the right upper lobe prev iously measured 5.2 mm and today measures 5.1 mm. Left upper lobe pulmonary nodule previously measure d 10.7 mm and today measures 9.7 mm. Lesion in the anterior aspect of the left lingula previously kera sured 20.6 mm and today is less conspicuous and measures 14.4 mm. Lesion in the superior segment of t he left lower lobe previously measured 12.6 mm and today measures 11.7 mm. Small lesion in the apical posterior segment of the left upper lobe previously measured 9.8 mm and today measures 6.6 mm. No de finite new nodules are seen. There is a pacemaker in place via a left subclavian approach. There has been a midline sternotomy and before meals bypass. There is no significant there is a stable 1.6 mm mediastinal lymph node. There is significant coronary artery calcification. There is no pleural or pericardial fluid. The hea rt is not enlarged. This calcifications associated with both kidneys but these are believed to be vascular. The previously described right adrenal mass which previously measured 1.6 x 12 mm today measures 1.6 x 13 mm but appears less conspicuous. Visualized portions of the upper abdomen are otherwise unremark able. This hypertrophic spondylosis within the spine. There is some left-sided gynecomastia which is unchanged from previous. IMPRESSION: 1. WAXING AND WANING PULMONARY NODULES. OVERALL THERE HAS BEEN A REDUCTION OF SIZE OF MOST OF THE NOD ULES. 2. ALTHOUGH MEASUREMENTS ARE UNCHANGED THE PATIENT'S RIGHT ADRENAL MASS APPEARS MUCH LESS CONSPICUOUS ON TODAY'S EXAMINATION. 3. SIGNIFICANT VASCULAR CALCIFICATIONS. 4. DEGENERATIVE CHANGES WITHIN THE SPINE. 5. LEFT-SIDED GYNECOMASTIA.
== END | disposition home or self-care (01) ==
LOC: RADCTMAIN 09:00
PROVIDERS: ATTEND Internal Medicine
DX: C34.80 Malignant neoplasm of overlapping sites of unspecified bronchus and lung (principal); R91.8 Other nonspecific abnormal finding of lung field; N62 Hypertrophy of breast
CPT/HCPCS: 71250

== ENCOUNTER → 2016-12-10 | Outpatient (CLI) | payer MEDICARE ==
--- NOTE | 2016-12-10 11:59 | CT ---
EXAMINATION TYPE: CT lumbar spine wo con DATE OF EXAM: 12/10/2016 COMPARISON: NONE HISTORY: Spinal stenosis with neurogenic claudication CT DLP: 1765.0 mGycm CONTRAST: Unenhanced CT of the lumbar spine was performed. Bone and soft tissue window settings are submitted as well as coronal and sagittal reconstructions. There is curvature of the lumbar spine convex to the right. L1-L2: Severe degenerative disc space narrowing. Ventral and dorsal hypertrophic changes. There is de compressive laminectomy change identified. Calcification extending posterior to the L1 vertebral segm ent measuring 8.7 mm in AP dimension impresses upon the thecal sac. There is a central stenosis and b ilateral foraminal encroachment. Sclerotic osseous changes noted. L2-L3: Severe degenerative disc space narrowing. Probable changes of fusion and left gabrielle-laminectomy . Ventral and dorsal hypertrophic changes moderate in degree. There is moderate central stenosis darrius ntified. Bilateral foraminal encroachment. L3-L4: Moderate degenerative disc space narrowing. Circumferential disc bulge greatest posteriorly. E ffacement of the ventral thecal sac. Hypertrophy of the ligamentum flavum and facet joint arthropathy result in moderate central stenosis. L4-L5: Moderate degenerative disc space narrowing. Circumferential disc bulge greatest posteriorly. E ffacement of the ventral thecal sac. Hypertrophy of the ligamentum flavum and facet joint arthropathy result in moderate to severe central stenosis. L5-S1: Moderate degenerative disc space narrowing. Moderate posterior disc bulge with effacement of t he ventral thecal sac. Hypertrophy of the ligamentum flavum resulting in [id number] central stephenie nosis. No paraspinal masses are identified. Lumbar segments are free if fracture. Renal vascular calcificat ions and nephrolithiasis. IMPRESSION: 1. Severe multilevel degenerative disc disease with multilevel central stenosis as discussed.
== END ==
LOC: RADCTMAIN 10:55
PROVIDERS: ATTEND Family Medicine
DX: M48.06 Spinal stenosis, lumbar region (principal); M51.36 Other intervertebral disc degeneration, lumbar region
CPT/HCPCS: 72131

== ENCOUNTER → 2016-12-10 | Outpatient (CLI) | payer MEDICARE ==
--- NOTE | 2016-12-10 11:49 | CT ---
EXAMINATION TYPE: CT chest wo con DATE OF EXAM: 12/10/2016 COMPARISON: 10/20/2016 HISTORY: Adenocarcinoma CT DLP: 559.[address] of the chest was performed with lung and mediastinal window settings submitted. The la ck of contrast limits evaluation of the vascular, mediastinal and parenchymal structures including th e upper abdomen. LUNGS: Right perihilar and nodular density measures 1.5 cm versus 1.3 cm previously. 4 mm nodule with in the periphery of the right upper lobe is unchanged. Smoothly marginated nodule within the lateral segment right middle lobe measures 1.6 cm versus 1.6 cm previously and is unchanged. Small spiculated nodule left lower lobe posteriorly appears less nodular at this time and currently measures 8 mm lulu orlin 1.2 cm. Enlarging left upper lobe pleural-based nodule and measures 1 cm versus 9.8 mm. Left apic al nodule is smaller in size and measures 6.4 mm versus 9.7 mm maximal dimension previously. Stable l eft upper lobe nodule measuring 6.6 mm versus 6.6 mm previously. Stable area of parenchymal scarring within the region of the lingula. MEDIASTINUM/HARI: Thoracic aorta is of normal caliber with limited evaluation given lack of contrast . The heart is mildly enlarged. Coronary calcifications noted. No evidence for mediastinal mass. No lymph nodes greater than 1cm. UPPER ABDOMEN: Bilateral nephrolithiasis. Adrenal glandular thickening. Hypoattenuating lesion within the spleen is stable and nonspecific and measures approximately 1.6 cm. OTHER: No significant other abnormality. IMPRESSION: 1. Scattered pulmonary nodularity some which have increased slightly in size and also decreased mini bucky in size. No new nodules are identified with absolute certainty at this time.
== END | disposition home or self-care (01) ==
LOC: RADCTMAIN 10:59
PROVIDERS: ATTEND Internal Medicine Critical Care Medicine
DX: C34.90 Malignant neoplasm of unspecified part of unspecified bronchus or lung (principal)
CPT/HCPCS: 71250

== ENCOUNTER 2017-02-09 10:55 | Inpatient (IN) | payer MEDICARE ==
[2017-02-09] MEDS ORDERED: SODIUM CHLORIDE 0.9% 1,000 ML IV STA (11:13)
--- NOTE | 2017-02-09 11:25 | ED ---
General Adult HPI - General Chief complaint: Weakness Stated complaint: Lt weakness Time Seen by Provider: 02/09/17 11:09 Source: patient, family, RN notes reviewed, old records reviewed Mode of arrival: wheelchair Limitations: physical limitation - History of Present Illness Initial comments: This is a 81-year-old male to the ER for evaluation and repair patient is presenting for evaluation of left-sided weakness. Patient has history of lung CA also has multiple medical issues including heart disease. Patient coming in for progressive left-sided weakness and decreased ability to walk over the last 4 days. Patient states he has constant and chronic headaches. He currently does have a headache. Patient denies nausea or vomiting. Patient denies any injury or trauma - Related Data Home Medications Medication Instructions Recorded Confirmed Amiodarone [Cordarone] 100 mg PO DAILY 04/22/16 02/09/17 Apixaban [Eliquis] 2.5 mg PO BID 04/22/16 02/09/17 Aspirin EC [Ecotrin Low Dose] 81 mg PO W/SUPPER 04/22/16 02/09/17 Atorvastatin [Lipitor] 40 mg PO HS 04/22/16 02/09/17 Clopidogrel [Plavix] 75 mg PO W/LUNCH 04/22/16 02/09/17 Ferrous Sulfate [Iron (65 MG 325 mg PO BID@1200,2100 04/22/16 02/09/17 Elemental)] Folic Acid 1 mg PO DAILY@1200 04/22/16 02/09/17 Ipratropium-Albuterol Nebulize 3 ml INHALATION RT-QID PRN 04/22/16 02/09/17 [Duoneb 0.5 mg-3 mg/3 ml Soln] Isosorbide Mononitrate ER [Imdur] 60 mg PO BID 04/22/16 02/09/17 [place]-3 Fatty Acids/Fish Oil [Fish 1 cap PO BID@0800,1200 04/22/16 02/09/17 Oil 1,000 mg Softgel] Polyethylene Glycol 3350 [Miralax] 17 gm PO DAILY PRN 04/22/16 02/09/17 Tamsulosin HCl [Flomax] 0.4 mg PO HS 04/22/16 02/09/17 Vitamin B Complex 1 cap PO W/SUPPER 04/22/16 02/09/17 amLODIPine [Norvasc] 5 mg PO W/SUPPER 04/22/16 02/09/17 rOPINIRole HCL [Requip] 1 mg PO HS 04/22/16 02/09/17 ALPRAZolam [Xanax] 0.25 mg PO DAILY PRN 05/09/16 02/09/17 Albuterol Inhaler [Ventolin Hfa 1 - 2 puff INHALATION RT-Q6H PRN 05/09/16 Inhaler] Pregabalin [Lyrica] 75 mg PO W/SUPPER 05/09/16 02/09/17 Prochlorperazine [Compazine] 10 mg PO Q6H PRN 05/09/16 02/09/17 Tiotropium 18 Mcg/Puff [Spiriva] 1 cap INHALATION RT-DAILY 05/09/16 02/09/17 Zolpidem [Ambien] 5 mg PO HS PRN 05/09/16 02/09/17 traMADol HCL [Ultram] 50 - 100 mg PO BID PRN 05/09/16 02/09/17 Carvedilol [Carvedilol] 25 mg PO W/SUPPER 02/09/17 02/09/17 Carvedilol [Coreg] 12.5 mg PO BID@0800,1200 02/09/17 02/09/17 Furosemide [Lasix] 60 mg PO BID-W/MEALS 02/09/17 02/09/17 INSULIN LISPRO (humaLOG) [humaLOG 12 unit SQ AC-BID 02/09/17 02/09/17 (formulary)] Insulin Glargine [Lantus] 12 unit SQ BID 02/09/17 02/09/17 L.acidoph,Paracasei, B.lactis 1 cap PO W/LUNCH 02/09/17 02/09/17 [Probiotic] Lactulose [Cephulac] 30 gm PO DAILY PRN 02/09/17 02/09/17 Melatonin 10 mg PO HS 02/09/17 02/09/17 Sennosides-Docusate Sodium 2 tab PO BID 02/09/17 02/09/17 [Senokot-S] amLODIPine [Norvasc] 2.5 mg PO W/BRKFST 02/09/17 02/09/17 cloNIDine HCL [Catapres] 0.1 mg PO BID@0000,1200 02/09/17 02/09/17 Previous Rx's Medication Instructions Recorded Nitroglycerin Sl Tabs [Nitrostat] 0.4 mg SUBLINGUAL Q5M PRN #25 tab 05/12/16 Pantoprazole Sodium [Protonix] 40 mg PO DAILY #30 tablet. 05/12/16 Potassium Chloride [K-Tab ER] 10 meq PO DAILY #0 05/12/16 Allergies Allergy/AdvReac Type Severity Reaction Status Date / Time ciprofloxacin [From Cipro] Allergy Rash/Hives Verified 02/09/17 11:51 corticotropin Allergy SEVERE Verified 02/09/17 11:51 HYPERGLYCEMIA erythromycin base Allergy HIVES/SWELL Verified 02/09/17 11:51 ING gabapentin Allergy Swelling Verified 02/09/17 11:51 Iodinated Contrast- Oral and Allergy Unknown Verified 02/09/17 11:51 IV Dye [Iodinated Contrast Media - Oral and] Iodine and Iodide Containing Allergy Unknown Verified 02/09/17 11:51 Produc Penicillins Allergy Unknown Verified 02/09/17 11:51 pentoxifylline [From Trental] Allergy Unknown Verified 02/09/17 11:51 phenytoin [From Dilantin] Allergy Unknown Verified 02/09/17 11:51 sulfamethoxazole Allergy Unknown Verified 02/09/17 11:51 [From Bactrim] trimethoprim [From Bactrim] Allergy Unknown Verified 02/09/17 11:51 doxycycline AdvReac TREMORS Verified 02/09/17 11:51 hydralazine AdvReac Confusion Verified 02/09/17 11:51 prednisone AdvReac NERVOUSNESS Verified 02/09/17 11:51 Review of Systems ROS Statement: Those systems with pertinent positive or pertinent negative responses have been documented in the HPI. ROS Other: All systems not noted in ROS Statement are negative. 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, melanoma of left axillary, chronic renal failure, chronic anemia, coronary artery disease with previous cardiac catheterization and stenting, chronic back pain, coronary artery bypass surgery, pacemaker insertion , peripheral vascular disease, chronic atrial fibrillation Last Myocardial Infarction Date:: unknown History of Any Multi-Drug Resistant Organisms: None Reported Past Surgical History: Back Surgery, Coronary Bypass/CABG, Heart Catheterization With Stent, Pacemaker Additional Past Surgical History / Comment(s): CABG, cardiac stents, peripheral stents, pacemaker, left axillary melanoma resection. Past Anesthesia/Blood Transfusion Reactions: No Reported Reaction Additional Past Anesthesia/Blood Transfusion Reaction / Comment(s): blood transfusion Date of Last Stent Placement:: unknown Type of Cardiac Device: Permanent Pacemaker Device Placement Date:: 07-07-11 Past Psychological History: Anxiety Smoking Status: Former smoker Past Alcohol Use History: None Reported Past Drug Use History: None Reported - Past Family History Mother Family Medical History: Diabetes Mellitus, Hyperlipidemia, Hypertension Additional Family Medical History / Comment(s): Mother is . Father Family Medical History: Diabetes Mellitus, Hyperlipidemia, Hypertension, Myocardial Infarction ([place]) Additional Family Medical History / Comment(s): Father is from a myocardial infarction. Brother(s) Additional Family Medical History / Comment(s): Abraham Ramesh has 11 brothers and 2 sisters. Patient has 2 sons and 2 daughters with no major medical problems. General Exam - General Exam Comments Initial Comments: Left-sided weakness to gravity Limitations: physical limitation General appearance: alert, in no apparent distress Head exam: Present: atraumatic, normocephalic, normal inspection Eye exam: Present: normal appearance, PERRL, EOMI. Absent: scleral icterus, conjunctival injection, periorbital swelling ENT exam: Present: normal exam, mucous membranes moist Neck exam: Present: normal inspection. Absent: tenderness, meningismus, lymphadenopathy Respiratory exam: Present: normal lung sounds bilaterally. Absent: respiratory distress, wheezes, rales, rhonchi, stridor Cardiovascular Exam: Present: regular rate, normal rhythm, normal heart sounds. Absent: systolic murmur, diastolic murmur, rubs, gallop, clicks GI/Abdominal exam: Present: soft, normal bowel sounds. Absent: distended, tenderness, guarding, rebound, rigid Extremities exam: Present: normal inspection, full ROM, normal capillary refill. Absent: tenderness, pedal edema, joint swelling, calf tenderness Back exam: Present: normal inspection Neurological exam: Present: alert, oriented X3, CN II-XII intact Psychiatric exam: Present: normal affect, normal mood Skin exam: Present: warm, dry, intact, normal color. Absent: rash Course Vital Signs 02/09/17 02/09/17 02/09/17 10:58 11:56 13:24 Temperature 97.1 F L Pulse Rate 67 62 60 Respiratory 20 18 16 Rate Blood Pressure 196/81 193/84 191/86 O2 Sat by Pulse 97 97 99 Oximetry - Reevaluation(s) Reevaluation #1: 02/09/17 14:14 Spoke with patient's physicians,, okay to admit for MRI and further evaluation EKG Findings - EKG Comments: EKG Findings:: EKG shows paced rhythm rate of 66, MI 186, QRS 1:30, QTc 505 Medical Decision Making - Medical Decision Making 81 male to ed co left sided weakness, likely brain metastasis disease, will admit for MRI and neuro evaluation - Lab Data Result diagrams: 02/09/17 11:21 02/09/17 11:21 Lab Results 02/09/17 02/09/17 02/09/17 Range/Units 11:21 11:21 11:21 WBC 6.6 (3.8-10.6) k/uL RBC 4.27 L (4.30-5.90) m/uL Hgb 11.8 L (13.0-17.5) gm/dL Hct 37.6 L (39.0-53.0) % MCV 88.0 (80.0-100.0) fL MCH 27.7 (25.0-35.0) pg MCHC 31.4 (31.0-37.0) g/dL RDW 18.5 H (11.5-15.5) % Plt Count 188 (150-450) k/uL Neutrophils % 77 % Lymphocytes % 14 % Monocytes % 6 % Eosinophils % 1 % Basophils % 0 % Neutrophils # 5.1 (1.3-7.7) k/uL Lymphocytes # 1.0 (1.0-4.8) k/uL Monocytes # 0.4 (0-1.0) k/uL Eosinophils # 0.1 (0-0.7) k/uL Basophils # 0.0 (0-0.2) k/uL Hypochromasia Moderate Anisocytosis Slight PT (9.0-12.0) sec INR (<1.2) APTT (22.0-30.0) sec Sodium 140 (137-145) mmol/L Potassium 4.9 (3.5-5.1) mmol/L Chloride 105 (98-107) mmol/L Carbon Dioxide 27 (22-30) mmol/L Anion Gap 8 mmol/L BUN 59 H (9-20) mg/dL Creatinine 2.27 H (0.66-1.25) mg/dL Est GFR (MDRD) Af Amer 34 (>60 ml/min/1.73 sqM) Est GFR (MDRD) Non-Af 28 (>60 ml/min/1.73 sqM) Glucose 227 H (74-99) mg/dL Calcium 9.2 (8.4-10.2) mg/dL Phosphorus 3.9 (2.5-4.5) mg/dL Magnesium 2.4 H (1.6-2.3) mg/dL Total Bilirubin 0.4 (0.2-1.3) mg/dL AST 20 (17-59) U/L ALT 28 (21-72) U/L Alkaline Phosphatase 90 (38-126) U/L Total Creatine Kinase 98 (55-170) U/L CK-MB (CK-2) 2.5 H* (0.0-2.4) ng/mL CK-MB (CK-2) Rel Index 2.6 Troponin I <0.012 (0.000-0.034) ng/mL Total Protein 6.8 (6.3-8.2) g/dL Albumin 3.7 (3.5-5.0) g/dL Urine Color Urine Appearance (Clear) Urine pH (5.0-8.0) Ur Specific [place] (1.001-1.035) Urine Protein (Negative) Urine Glucose (UA) (Negative) Urine Ketones (Negative) Urine Blood (Negative) Urine Nitrite (Negative) Urine Bilirubin (Negative) Urine Urobilinogen (<2.0) mg/dL Ur Leukocyte Esterase (Negative) 02/09/17 02/09/17 Range/Units 11:21 12:20 WBC (3.8-10.6) k/uL RBC (4.30-5.90) m/uL Hgb (13.0-17.5) gm/dL Hct (39.0-53.0) % MCV (80.0-100.0) fL MCH (25.0-35.0) pg MCHC (31.0-37.0) g/dL RDW (11.5-15.5) % Plt Count (150-450) k/uL Neutrophils % % Lymphocytes % % Monocytes % % Eosinophils % % Basophils % % Neutrophils # (1.3-7.7) k/uL Lymphocytes # (1.0-4.8) k/uL Monocytes # (0-1.0) k/uL Eosinophils # (0-0.7) k/uL Basophils # (0-0.2) k/uL Hypochromasia Anisocytosis PT 11.4 (9.0-12.0) sec INR 1.1 (<1.2) APTT 31.0 H (22.0-30.0) sec Sodium (137-145) mmol/L Potassium (3.5-5.1) mmol/L Chloride (98-107) mmol/L Carbon Dioxide (22-30) mmol/L Anion Gap mmol/L BUN (9-20) mg/dL Creatinine (0.66-1.25) mg/dL Est GFR (MDRD) Af Amer (>60 ml/min/1.73 sqM) Est GFR (MDRD) Non-Af (>60 ml/min/1.73 sqM) Glucose (74-99) mg/dL Calcium (8.4-10.2) mg/dL Phosphorus (2.5-4.5) mg/dL Magnesium (1.6-2.3) mg/dL Total Bilirubin (0.2-1.3) mg/dL AST (17-59) U/L ALT (21-72) U/L Alkaline Phosphatase (38-126) U/L Total Creatine Kinase (55-170) U/L CK-MB (CK-2) (0.0-2.4) ng/mL CK-MB (CK-2) Rel Index Troponin I (0.000-0.034) ng/mL Total Protein (6.3-8.2) g/dL Albumin (3.5-5.0) g/dL Urine Color Yellow Urine Appearance Clear (Clear) Urine pH 5.0 (5.0-8.0) Ur Specific [place] 1.007 (1.001-1.035) Urine Protein Negative (Negative) Urine Glucose (UA) Negative (Negative) Urine Ketones Negative (Negative) Urine Blood Negative (Negative) Urine Nitrite Negative (Negative) Urine Bilirubin Negative (Negative) Urine Urobilinogen <2.0 (<2.0) mg/dL Ur Leukocyte Esterase Negative (Negative) - Radiology Data Radiology results: report reviewed (CT brain w with brain mets), image reviewed Disposition Clinical Impression: Brain metastasis, Lung cancer, Right sided weakness Disposition: ADMITTED IP TO THIS HOSP Condition: Serious
[2017-02-09 11:48] LABS: Anisocytosis Slight; Basophils % (A) 0 %; CH 26.9; CHCM 30.7; Eosinophils # (A) 0.1 k/uL (0-0.7); Eosinophils % (A) 1 %; HCT 37.6 % (39.0-53.0); HDW 2.66; HGB 11.8 gm/dL (13.0-17.5); Hypochromasia Moderate; Luc % (Auto) 2; Lymphocytes % (A) 14 %; MCH 27.7 pg (25.0-35.0); MCHC 31.4 g/dL (31.0-37.0); Mean Platelet Volume 8.3; Monocytes # (A) 0.4 k/uL (0-1.0); Monocytes % (A) 6 %; Neutrophils # (A) 5.1 k/uL (1.3-7.7); Neutrophils % (A) 77 %; RBC 4.27 m/uL (4.30-5.90); RDW 18.5 % (11.5-15.5); WBC 6.6 k/uL (3.8-10.6); WBC (Perox) 6.89
[2017-02-09 11:52] LABS: INR 1.1 (<1.2); Prothrombin Time 11.4 sec (9.0-12.0)
[2017-02-09 11:53] LABS: Calcium 9.2 mg/dL (8.4-10.2); Magnesium 2.4 mg/dL (1.6-2.3); Phosphorus 3.9 mg/dL (2.5-4.5); Potassium 4.9 mmol/L (3.5-5.1); Total Bilirubin 0.4 mg/dL (0.2-1.3); Total Protein 6.8 g/dL (6.3-8.2)
[2017-02-09 12:02] LABS: Creatine Kinase 98 U/L (55-170)
--- NOTE | 2017-02-09 12:02 | CT ---
EXAMINATION TYPE: CT brain wo con DATE OF EXAM: 02/09/2017 COMPARISON: NONE HISTORY: Lt sided weakness, history of adenocarcinoma of lungs CT DLP: 946.[address] of the brain was performed. The ventricles, basal cisterns and sulci overlying the cerebral convexities demonstrate mild enlargem ent. There is high right parasagittal lesion noted of increased attenuation measuring 2.4 x 2.0 cm which m ay reflect meningioma or metastatic lesion. Mild surrounding edema is seen. A second lesion is noted within the high left frontal region measuring an estimated 2.2 x 2.2 cm could reflect additional meni ngioma or metastatic lesion. Mild surrounding edema is noted. A third lesion is noted within the left frontal parietal lobe measuring 1.1 cm. No intracranial hemorrhage is identified. No evidence for midline shift. No additional lesions are se en with certainty There is decreased attenuation about the periventricular white matter and deep white matter of both c erebral hemispheres, compatible with chronic small vessel ischemia. Differential diagnosis does inclu de demyelination. Osseous calvarium is intact. If symptoms persist consider MRI. IMPRESSION: 1. Given patient history metastatic disease to the brain as noted above is not excluded. Recommend MR I for further evaluation. 2. Age related atrophic and chronic small vessel ischemic change .
[2017-02-09] MEDS ORDERED: LABETALOL 5 MG/ML VIAL MDV IVP STA (12:11)
[2017-02-09 12:15] LABS: Troponin I <0.012 ng/mL (0.000-0.034)
[2017-02-09 12:19] LABS: Creatine Kinase MB 2.5 ng/mL (0.0-2.4)
[2017-02-09] MEDS ORDERED: DEXAMETHASONE SOD PHOSPHATE 4 MG/ML 1 ML VIAL IV PRN ×2 (12:22→21:15)
[2017-02-09] MEDS ORDERED: DEXAMETHASONE SOD PHOSPHATE 10 MG/ML 1 ML VIAL IV STA (12:22)
[2017-02-09 12:31] LABS: Appearance,Urine Clear (Clear); Bilirubin,Urine Negative (Negative); Glucose,Urine (UA) Negative (Negative); Ketones,Urine Negative (Negative); Leukocyte Esterase,Urine Negative (Negative); Nitrite,Urine Negative (Negative); Protein,Urine Negative (Negative); Specific Gravity,Urine 1.007 (1.001-1.035); UA Billing (MACRO vs. MICRO) CHEM; Urobilinogen,Urine <2.0 mg/dL (<2.0)
[2017-02-09] MEDS ORDERED: SODIUM CHLORIDE 0.9% 1,000 ML IV ONE (13:04)
[2017-02-09] MEDS ORDERED: hydrALAZINE HCL 20 MG/ML 1 ML VIAL IVP STA (13:37)
[2017-02-09 13:58] LABS: Glucose,Whole Blood 218 mg/dL (75-99)
[2017-02-09] MEDS ORDERED: MORPHINE SULFATE 10 MG/ML SYRINGE IVP STA (14:03)
[2017-02-09] MEDS ORDERED: MORPHINE SULFATE 10 MG/ML SYRINGE IVP PRN (14:03)
[2017-02-09] MEDS ORDERED: ENALAPRILAT 1.25 MG/ML 1 ML VIAL IVP PRN (14:22)
[2017-02-09 16:56] LABS: Glucose,Whole Blood 249 mg/dL (75-99)
[2017-02-09] MEDS ORDERED: INSULIN ASPART 100 UNIT/ML 1 ML 10 ML VIAL SQ ONE ×2 (18:11→21:55)
[2017-02-09] MEDS ORDERED: INSULIN ASPART 100 UNIT/ML 1 ML 10 ML VIAL SQ SCH (21:00)
[2017-02-09 21:20] LABS: Glucose,Whole Blood 412 mg/dL (75-99)
[2017-02-09 21:20] LABS: Glucose,Whole Blood 442 mg/dL (75-99)
[2017-02-09] MEDS: INSULIN DETEMIR 100 UNIT/ML 10 ML VIAL SQ SCH (21:34)
[2017-02-09] MEDS: INSULIN ASPART 100 UNIT/ML 1 ML 10 ML VIAL SQ SCH (21:34)
[2017-02-09] MEDS ORDERED: RX INFO: IV CONTRAST WAS GIVEN 1 EACH MISC MISCELLANE PRN (21:44)
--- NOTE | 2017-02-09 21:44 | P.CNNES ---
History of Present Illness Consult date: 02/09/17 Reason for Consult: Patient with history of lung cancer and new left sided weakness. History of Present Illness: Mr. Navdeep Clemons is a 81-year-old right-handed white male who was brought into the emergency room today for evaluation of left leg weakness. The patient states that for the past 2 weeks he has been having difficulty with left-sided weakness. 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 He had a hard time getting in and out of his truck to go to work. His 2 sons with whom he works also noticed that the father was having more weakness. For this reason he was brought into the emergency room at [facility] for further evaluation today. Patient was evaluated in the ER by Dr. Urbina. The patient notes that the left-sided weakness had been progressive over the last 2 weeks. There was concern for possibility of stroke and he was sent for a computed tomography scan of the brain. His CAT scan of the brain without contrast did reveal evidence of 3 lesions. The largest lesion was in the right parasagittal region measuring about 2 x 2 centimeters in size. A second lesion was noted in the left frontal lobe also measuring 2 x 2 centimeters. Third lesion was noted in the left frontal parietal lobe measuring 1 cm in size. It was recommended the patient to undergo MRI of the brain for further evaluation. Unfortunately the patient has a history of atrial fibrillation and does have a pacemaker. Due to the pacemaker he is unable to have an MRI of the brain. Patient has a history of recently being diagnosed with lung cancer around July of this year. He has been followed for his lung cancer at the [facility] and has been treated by Dr. Mckeon. The patient states that Dr. Mckeon recommended starting him on chemotherapy early in the spring of this year. He has completed at least 1-1/2 cycles of chemotherapy since his initial diagnosis. The patient undergo serial CT scans of the chest for monitoring of his lung cancer. Apparently his most recent CAT scan of the lungs revealed shrinkage of the size of the tumors. Apparently the tumors to involve both lobes of the lung. Given the CAT scan findings in the ER the patient was given a one-time dose of IV Decadron at 10 mg. He was admitted to the hospital for further neurological evaluation and recommendations. Review of the CAT scan of the brain results and films clearly indicate 3 isolated lesions. Given his history of lung cancer we are concerned for metastatic lesions to the brain. An oncology consultation has been requested. We will await their further evaluation and recommendations. Since the patient is unable to have an MRI of the brain due to his pacemaker we will attempt a repeat computed tomography scan of the brain tomorrow with him without contrast. The patient may need to consider reinstitution of chemotherapy with radiation therapy as well. We will need to discuss these findings in detail with the patient and his daughter once the CAT scan of the brain with and without contrast is completed and test results reviewed. The patient does have some degree of headache symptoms. We have recommended to have him continue on IV Decadron for at least 2-3 days. This dose of Decadron can be gradually weaned off. We will see if his headache symptoms also improve with the use of the steroids. The patient mentions he does have a history of diabetes mellitus. Since the IV steroids are to be initiated he needs to have his blood sugars very closely monitored. The patient's neurological examination reveals only minimal left-sided weakness on examination. We will await the results of his CAT scan of the brain to be done and we'll discuss further treatment plans with him in detail. We will also need to obtain the input from oncology regarding his lung cancer findings. We have discussed all of the test results and CAT scan results today with the patient in detail. We will continue close neurological follow-up with the patient during this admission. His overall prognosis at this time remains guarded. Review of Systems Constitutional: Denies chills, Denies fever Eyes: denies blurred vision, denies pain Ears, nose, mouth and throat: Denies headache, Denies sore throat Cardiovascular: Denies chest pain, Denies shortness of breath Respiratory: Denies cough Gastrointestinal: Denies abdominal pain, Denies diarrhea, Denies nausea, Denies vomiting Musculoskeletal: Denies myalgias Integumentary: Denies pruritus, Denies rash Neurological: Reports balance difficulties, Reports headaches, Reports paresthesias, Denies numbness, Denies weakness Psychiatric: Denies anxiety, Denies depression Endocrine: Denies fatigue, Denies weight change Past Medical History Past Medical History: Atrial Fibrillation, Coronary Artery Disease (CAD), Cancer , Heart Failure, COPD, Diabetes Mellitus, Hyperlipidemia, Hypertension, Myocardial Infarction ([place]), Pneumonia, Prostate Disorder Additional Past Medical History / Comment(s): pt is rt side dominant.Chronic systolic heart failure, obstructive sleep apnea, benign prostatic hypertrophy, diabetes type 2 with diabetic neuropathy, 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, melanoma of left axillary, chronic renal failure, chronic anemia, coronary artery disease with previous cardiac catheterization and stenting, chronic back pain, coronary artery bypass surgery , pacemaker insertion, peripheral vascular disease, chronic atrial fibrillation , constipation,tremors in hands, rls, Last Myocardial Infarction Date:: unknown History of Any Multi-Drug Resistant Organisms: None Reported Past Surgical History: Back Surgery, Coronary Bypass/CABG, Heart Catheterization With Stent, Pacemaker Additional Past Surgical History / Comment(s): 5 vessel CABG, cardiac stentsx3, peripheral stents, pacemaker, left axillary melanoma resection.natalia cataracts, bronch/bx, past back sx-fusion. Past Anesthesia/Blood Transfusion Reactions: Previous Problems w/ Anesthesia Additional Past Anesthesia/Blood Transfusion Reaction / Comment(s): blood transfusion -no reaction. difficulty waking up after aa. Date of Last Stent Placement:: unknown Type of Cardiac Device: Permanent Pacemaker Device Placement Date:: 07-07-11 Smoking Status: Former smoker - Past Family History Mother Family Medical History: Diabetes Mellitus, Hyperlipidemia, Hypertension Additional Family Medical History / Comment(s): Mother is . Father Family Medical History: Diabetes Mellitus, Hyperlipidemia, Hypertension, Myocardial Infarction ([place]) Additional Family Medical History / Comment(s): Father is from a myocardial infarction. Brother(s) Additional Family Medical History / Comment(s): has 11 brothers and 2 sisters. Patient has 2 sons and 2 daughters with no major medical problems. Medications and Allergies Home Medications Medication Instructions Recorded Confirmed Type Amiodarone [Cordarone] 100 mg PO DAILY 04/22/16 02/09/17 History Apixaban [Eliquis] 2.5 mg PO BID 04/22/16 02/09/17 History Aspirin EC [Ecotrin Low Dose] 81 mg PO W/SUPPER 04/22/16 02/09/17 History Atorvastatin [Lipitor] 40 mg PO HS 04/22/16 02/09/17 History Clopidogrel [Plavix] 75 mg PO W/LUNCH 04/22/16 02/09/17 History Ferrous Sulfate [Iron (65 MG 325 mg PO BID@1200,2100 04/22/16 02/09/17 History Elemental)] Folic Acid 1 mg PO DAILY@1200 04/22/16 02/09/17 History Ipratropium-Albuterol Nebulize 3 ml INHALATION RT-QID PRN 04/22/16 02/09/17 History [Duoneb 0.5 mg-3 mg/3 ml Soln] Isosorbide Mononitrate ER [Imdur] 60 mg PO BID 04/22/16 02/09/17 History [place]-3 Fatty Acids/Fish Oil [Fish 1 cap PO BID@0800,1200 04/22/16 02/09/17 History Oil 1,000 mg Softgel] Polyethylene Glycol 3350 [Miralax] 17 gm PO DAILY PRN 04/22/16 02/09/17 History Tamsulosin HCl [Flomax] 0.4 mg PO HS 04/22/16 02/09/17 History Vitamin B Complex 1 cap PO W/SUPPER 04/22/16 02/09/17 History amLODIPine [Norvasc] 5 mg PO W/SUPPER 04/22/16 02/09/17 History rOPINIRole HCL [Requip] 1 mg PO HS 04/22/16 02/09/17 History ALPRAZolam [Xanax] 0.25 mg PO DAILY PRN 05/09/16 02/09/17 History Albuterol Inhaler [Ventolin Hfa 1 - 2 puff INHALATION RT-Q6H PRN 05/09/16 History Inhaler] Pregabalin [Lyrica] 75 mg PO W/SUPPER 05/09/16 02/09/17 History Prochlorperazine [Compazine] 10 mg PO Q6H PRN 05/09/16 02/09/17 History Tiotropium 18 Mcg/Puff [Spiriva] 1 cap INHALATION RT-DAILY 05/09/16 02/09/17 History Zolpidem [Ambien] 5 mg PO HS PRN 05/09/16 02/09/17 History traMADol HCL [Ultram] 50 - 100 mg PO BID PRN 05/09/16 02/09/17 History Nitroglycerin Sl Tabs [Nitrostat] 0.4 mg SUBLINGUAL Q5M PRN #25 tab 05/12/1611/18 Rx Pantoprazole Sodium [Protonix] 40 mg PO DAILY #30 tablet. 05/12/16 02/09/17 Rx Potassium Chloride [K-Tab ER] 10 meq PO DAILY #0 05/12/16 02/09/17 Rx Carvedilol [Carvedilol] 25 mg PO W/SUPPER 02/09/17 02/09/17 History Carvedilol [Coreg] 12.5 mg PO BID@0800,1200 02/09/17 02/09/17 History Furosemide [Lasix] 60 mg PO BID-W/MEALS 02/09/17 02/09/17 History INSULIN LISPRO (humaLOG) [humaLOG 12 unit SQ AC-BID 02/09/17 02/09/17 History (formulary)] Insulin Glargine [Lantus] 12 unit SQ BID 02/09/17 02/09/17 History L.acidoph,Paracasei, B.lactis 1 cap PO W/LUNCH 02/09/17 02/09/17 History [Probiotic] Lactulose [Cephulac] 30 gm PO DAILY PRN 02/09/17 02/09/17 History Melatonin 10 mg PO HS 02/09/17 02/09/17 History Sennosides-Docusate Sodium 2 tab PO BID 02/09/17 02/09/17 History [Senokot-S] amLODIPine [Norvasc] 2.5 mg PO W/BRKFST 02/09/17 02/09/17 History cloNIDine HCL [Catapres] 0.1 mg PO BID@0000,1200 02/09/17 02/09/17 History Allergies Allergy/AdvReac Type Severity Reaction Status Date / Time ciprofloxacin [From Cipro] Allergy Rash/Hives Verified 02/09/17 11:51 corticotropin Allergy SEVERE Verified 02/09/17 11:51 HYPERGLYCEMIA erythromycin base Allergy HIVES/SWELL Verified 02/09/17 11:51 ING gabapentin Allergy Swelling Verified 02/09/17 11:51 Iodinated Contrast- Oral and Allergy Unknown Verified 02/09/17 11:51 IV Dye [Iodinated Contrast Media - Oral and] Iodine and Iodide Containing Allergy Unknown Verified 02/09/17 11:51 Produc Penicillins Allergy Unknown Verified 02/09/17 11:51 pentoxifylline [From Trental] Allergy Unknown Verified 02/09/17 11:51 phenytoin [From Dilantin] Allergy Unknown Verified 02/09/17 11:51 sulfamethoxazole Allergy Unknown Verified 02/09/17 11:51 [From Bactrim] trimethoprim [From Bactrim] Allergy Unknown Verified 02/09/17 11:51 doxycycline AdvReac TREMORS Verified 02/09/17 11:51 hydralazine AdvReac Confusion Verified 02/09/17 11:51 prednisone AdvReac NERVOUSNESS Verified 02/09/17 11:51 Physical Examination - Vital Signs Vital Signs: Vital Signs Temp Pulse Pulse Resp BP BP Pulse Ox 02/09/17 15:00 97.4 F L 60 18 153/71 96 02/09/17 14:45 97.8 F 60 16 165/71 97 02/09/17 14:13 98.9 F 60 16 166/66 100 02/09/17 13:24 60 16 191/86 99 02/09/17 11:56 62 18 193/84 97 02/09/17 10:58 97.1 F L 67 20 196/81 97 Intake and Output 02/09/17 02/09/17 02/09/17 06:59 14:59 22:59 Other: Weight 92.079 kg Patient Weight 02/10/17 06:59 Weight 92.079 kg - Constitutional General appearance: average body habitus, cooperative - EENT EENT: PERRL, mucous membranes moist - Respiratory Respiratory: lungs clear, normal breath sounds - Cardiovascular Cardiovascular: regular rate, normal S1, normal S2 Extremities: no peripheral edema bilaterally - Gastrointestinal Gastrointestinal: normoactive bowel sounds - Integumentary Integumentary: normal - Neurologic Cranial nerve examination: PERRL, EOMI, VFF, V1/V2/V3 grossly intact, face symmetric, tongue midline, intact gag reflex, intact corneal reflex, normal palatal elevation Speech examination: intact Sensorimotor examination: intact Detailed motor examination: grossly full strength in all extremities Motor examination - right side: 4/5: biceps, triceps, wrist flexion, wrist extension, chiller tender, hip flexors, knee extensors, dorsiflexion, toe extension (EHL) , plantarflexion Motor examination - left side: 4/5: biceps, triceps, wrist flexion, wrist extension, chiller tender, hip flexors, knee extensors, dorsiflexion, toe extension (EHL) , plantarflexion Detailed sensory examination: intact Reflex and gait examination: intact Reflexes: 1+: ankle, bicep, knee, tricep - Musculoskeletal Musculoskeletal: no pain - Psychiatric Psychiatric: mood/affect appropriate, cooperative Results - Laboratory Findings CBC and BMP: 02/09/17 11:21 02/09/17 11:21 Abnormal Lab Findings: Abnormal Labs 02/09/17 02/09/17 02/09/17 11:21 11:21 11:21 RBC 4.27 L Hgb 11.8 L Hct 37.6 L RDW 18.5 H APTT BUN 59 H Creatinine 2.27 H Glucose 227 H POC Glucose (mg/dL) Magnesium 2.4 H CK-MB (CK-2) 2.5 H* 02/09/17 02/09/17 02/09/17 11:21 13:53 16:51 RBC Hgb Hct RDW APTT 31.0 H BUN Creatinine Glucose POC Glucose (mg/dL) 218 H 249 H Magnesium CK-MB (CK-2) Assessment and Plan (1) Brain metastasis Current Visit: Yes Status: Acute Code(s): C79.31 - SECONDARY MALIGNANT NEOPLASM OF BRAIN SNOMED Code(s): 41703251 (2) Left-sided weakness Current Visit: Yes Status: Acute Code(s): R53.1 - WEAKNESS SNOMED Code(s) : 029354849 (3) Lung cancer Current Visit: Yes Status: Acute Code(s): C34.90 - MALIGNANT NEOPLASM OF UNSP PART OF UNSP BRONCHUS OR LUNG SNOMED Code(s): 066251857 (4) Diabetes mellitus Current Visit: Yes Status: Acute Code(s): E11.9 - TYPE 2 DIABETES MELLITUS WITHOUT COMPLICATIONS SNOMED Code(s): 33662474 (5) Atrial fibrillation Current Visit: Yes Status: Acute Code(s): I48.91 - UNSPECIFIED ATRIAL FIBRILLATION SNOMED Code(s): 72995212 (6) Coronary artery disease Current Visit: Yes Status: Acute Code(s): I25.10 - ATHSCL HEART DISEASE OF [place] CORONARY ARTERY W/O ANG PCTRS SNOMED Code(s): 37870741 Plan: This patient is a pleasant 81-year-old right-handed white male who was brought into the emergency room at [facility] for evaluation of left leg weakness. Patient had been symptomatic for over 2 weeks with left-sided weakness. The symptoms became progressively worse causing him difficulty to ambulate. He was also unable to hold things with his left hand. He was evaluated in the emergency room by Dr. Urbina. He was sent for a computed tomography scan of the brain which revealed 3 isolated lesions in the right and left frontoparietal region of the brain. He does have an underlying history of lung cancer. It was felt that these 3 lesions could represent metastatic lesions to the brain. We are recommending to maintain the patient on IV Decadron until her repeat neuroimaging study can be done for him. The patient is unable to go for MRI of the brain as he has a pacemaker. We have recommended a computed tomography scan of the brain with and without contrast to be done tomorrow for further assessment. We will await further recommendations from oncology as well in regards to his lung cancer and possible metastatic disease. We will obtain a routine EEG tomorrow for further evaluation for possibility of partial seizures. He has no previous history of seizures. We have discussed the CAT scan results today with the patient in detail. He is having a clear understanding that these lesions may represent metastatic lesions secondary to his known history of lung cancer. We will continue close neurological follow-up of the patient during this admission. His overall prognosis at this time remains guarded. We will continue close neurological follow-up of this patient during this admission. His overall prognosis at this time remains guarded. Time with Patient: Greater than 30
[2017-02-10 00:18] LABS: Glucose,Whole Blood 398 mg/dL (75-99)
[2017-02-10] MEDS ORDERED: INSULIN ASPART 100 UNIT/ML 1 ML 10 ML VIAL SQ ONE (00:49)
[2017-02-10] MEDS ORDERED: IPRATROPIUM-ALBUTEROL 3 ML NEB INHALATION PRN (00:55)
[2017-02-10] MEDS ORDERED: POLYETHYLENE GLYCOL 3350 17 GM POWD.PACK PO PRN (00:55)
[2017-02-10] MEDS ORDERED: ALPRAZolam 0.25 MG TAB PO PRN (00:55)
[2017-02-10] MEDS ORDERED: PROCHLORPERAZINE 10 MG TAB PO PRN (00:55)
[2017-02-10] MEDS ORDERED: NITROGLYCERIN SL TABS 0.4 MG TAB SUBLINGUAL PRN (00:55)
[2017-02-10] MEDS ORDERED: traMADol 50 MG TAB PO PRN (00:55)
[2017-02-10] MEDS ORDERED: ALBUTEROL NEBULIZED 2.5 MG/3 ML INHALATION PRN (00:55)
[2017-02-10] MEDS ORDERED: amLODIPine 5 MG TAB PO SCH (01:00)
[2017-02-10] MEDS ORDERED: CARVEDILOL 12.5 MG TAB PO SCH ×2 (01:00→08:00)
[2017-02-10] MEDS: DEXAMETHASONE SOD PHOSPHATE 4 MG/ML 1 ML VIAL IV SCH ×4 (01:26→17:49)
[2017-02-10] MEDS: TAMSULOSIN 0.4 MG CAP.ER.24H PO SCH ×2 (02:27→22:36)
[2017-02-10] MEDS: MELATONIN 5 MG TABLET PO SCH ×2 (03:42→22:34)
[2017-02-10] MEDS ORDERED: amLODIPine 2.5 MG TAB PO SCH (07:30)
[2017-02-10] MEDS: FUROSEMIDE 20 MG TAB PO SCH ×2 (07:41→17:48)
[2017-02-10] MEDS: NON-FORMULARY DRUG (Omega-3 Fatty Acids/Fish Oil [Fish Oil 1,000 Mg Softgel] 1 CAP) PO SCH ×2 (07:41→12:38)
[2017-02-10] MEDS: PANTOPRAZOLE 40 MG TABLET PO SCH (07:42)
[2017-02-10] MEDS: ISOSORBIDE MONONITRATE ER 60 MG TAB.ER.24H PO SCH ×2 (07:42→22:35)
[2017-02-10] MEDS: APIXABAN 2.5 MG TABLET PO SCH ×2 (07:42→22:31)
[2017-02-10] MEDS: AMIODARONE 200 MG TAB PO SCH (07:42)
[2017-02-10] MEDS: POTASSIUM CHLORIDE ER 10 MEQ TAB.ER.PRT PO SCH (07:42)
[2017-02-10] MEDS: SENNOSIDES-DOCUSATE SODIUM 1 EACH TAB PO SCH ×2 (07:42→22:36)
[2017-02-10 07:46] LABS: Anisocytosis Slight; Basophils % (A) 0 %; CH 27.6; CHCM 30.6; Eosinophils % (A) 0 %; HCT 39.8 % (39.0-53.0); HDW 2.69; Hypochromasia Moderate; Luc # (Auto) 0.02; Luc % (Auto) 0; Lymphocytes # (A) 0.4 k/uL (1.0-4.8); Lymphocytes % (A) 5 %; MCH 27.3 pg (25.0-35.0); MCHC 30.1 g/dL (31.0-37.0); MCV 90.7 fL (80.0-100.0); Mean Platelet Volume 7.8; Monocytes # (A) 0.3 k/uL (0-1.0); Monocytes % (A) 3 %; Neutrophils # (A) 6.6 k/uL (1.3-7.7); Neutrophils % (A) 91 %; RBC 4.39 m/uL (4.30-5.90); RDW 17.2 % (11.5-15.5); WBC 7.3 k/uL (3.8-10.6); WBC (Perox) 7.68
[2017-02-10 07:51] LABS: Glucose,Whole Blood 290 mg/dL (75-99)
[2017-02-10] MEDS ORDERED: NON-FORMULARY DRUG (Tiotropium 18 Mcg/Puff 1 CAP) INHALATION SCH (08:00)
[2017-02-10 08:09] LABS: Potassium 4.8 mmol/L (3.5-5.1)
[2017-02-10] MEDS: INSULIN ASPART 100 UNIT/ML 1 ML 10 ML VIAL SQ SCH ×6 (08:09→22:40)
[2017-02-10] MEDS: INSULIN DETEMIR 100 UNIT/ML 10 ML VIAL SQ SCH ×2 (08:52→22:31)
[2017-02-10] MEDS: CLOPIDOGREL 75 MG TAB PO SCH (11:44)
[2017-02-10] MEDS: cloNIDine HCL 0.1 MG TAB PO SCH ×2 (11:44→17:48)
[2017-02-10] MEDS: FERROUS SULFATE 325 MG TAB PO SCH ×2 (11:44→22:35)
[2017-02-10] MEDS: CARVEDILOL 12.5 MG TAB PO SCH (11:44)
[2017-02-10] MEDS: FOLIC ACID 1 MG TAB PO SCH (11:44)
[2017-02-10 11:54] LABS: Glucose,Whole Blood 340 mg/dL (75-99)
[2017-02-10] MEDS ORDERED: cloNIDine HCL 0.1 MG TAB PO SCH (12:00)
[2017-02-10] MEDS: LACTOBACILLUS ACIDOPH & BULGAR 1 EACH PACKET PO SCH (12:50)
[2017-02-10] MEDS: amLODIPine 2.5 MG TAB PO SCH (12:50)
--- NOTE | 2017-02-10 13:00 | CT ---
EXAMINATION TYPE: CT brain wo con DATE OF EXAM: 02/10/2017 COMPARISON: 02/09/2017 HISTORY: 81-year-old male 24 hour follow up. History of lung cancer and possible brain metastases. TECHNIQUE: Examination was done in axial plane without intravenous contrast. Coronal and sagittal r econstructions performed. CT DLP: 1026.3 mGycm Automated exposure control for dose reduction was used. FINDINGS: Redemonstrated hyperdense lesions, one at the right paramedian posterior frontal montesinos-white matter in terface measuring 2.5 x 2.0 cm, second in the posterior left frontal lobe measuring 1.6 x 1.7 cm, and a third in the lateral left frontal lobe measuring 1.1 cm. The 2 more superior lesions show similar surrounding vasogenic edema. Some patchy white matter hypodensities elsewhere in the cerebral hemispheres suggesting underlying ch anges of chronic small vessel ischemic disease. No midline shift, hydrocephalus, effacement of basal subarachnoid cisterns, or evidence for acute int racranial hemorrhage. Montesinos-white matter interface is maintained. Continued opacification of the mastoid air cells on both sides IMPRESSION: 1. Redemonstrated 3 hyperdense lesions measuring up to 2.5 cm, unchanged from 02/09/2017. The 2 larger lesions in the posterior frontal lobes continue to show surrounding vasogenic edema. No midline shif t or herniation. 2. Hemorrhagic brain metastases should be excluded if the patient has history of lung cancer. 3. No evolving large vascular territory infarct is seen. 4. Fluid remains trapped within the mastoid air cells on both sides. Correlate for any mastoid pain t o exclude mastoiditis.
[2017-02-10] MEDS ORDERED: LABETALOL 5 MG/ML VIAL MDV IVP PRN (13:19)
--- NOTE | 2017-02-10 13:21 | P.NPCON ---
History of Present Illness - Reason for Consult acute renal failure - History of Present Illness Reason for consultation: Acute kidney injury History of present illness: Patient is a 81-year-old male seen in renal consultation for acute kidney injury on chronic kidney disease. Patient has chronic kidney disease stage IIIB with baseline creatinine near 2. Creatinine was elevated at 2.7 and is down to 1.68 today. Patient presented with right-sided weakness. Patient states he was unable to move his right lower and upper extremity. The symptoms have improved today. Patient is known to have lung adenocarcinoma and was unable to tolerate chemotherapy. He has undergone a brain CT this admission which is suggestive of metastatic disease to the brain. Patient states he has been voiding however according to the nurse he's been having high volumes of bladder scan requiring straight catheterization. His blood pressures have been quite labile according to his daughter as an outpatient. The dose of his Coreg was recently decreased because his blood pressure was running low. However this admission his blood pressure has been high in the systolic 180s to 190s. Urinalysis is completely benign. Denies use of NSAIDs. Denies vomiting or diarrhea. Oral intake is fair. Vital signs are stable. General: The patient appeared well nourished and normally developed. HEENT: Head exam is unremarkable. Neck is without jugular venous distension. LUNGS: Lungs are clear to auscultation and percussion. Breath sounds decreased. HEART: Rate and Rhythm are regular. First and second heart sounds normal. No murmurs, rubs or gallops. ABDOMEN: Abdominal exam reveals normal bowel sounds. Non-tender and non- distended. No evidence of peritonitis. EXTREMITITES: No clubbing, cyanosis, or edema. Past Medical History Past Medical History: Atrial Fibrillation, Coronary Artery Disease (CAD), Cancer , Heart Failure, COPD, Diabetes Mellitus, Hyperlipidemia, Hypertension, Myocardial Infarction ([place]), Pneumonia, Prostate Disorder Additional Past Medical History / Comment(s): pt is rt side dominant.Chronic systolic heart failure, obstructive sleep apnea, benign prostatic hypertrophy, diabetes type 2 with diabetic neuropathy, 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, melanoma of left axillary, chronic renal failure, chronic anemia, coronary artery disease with previous cardiac catheterization and stenting, chronic back pain, coronary artery bypass surgery , pacemaker insertion, peripheral vascular disease, chronic atrial fibrillation , constipation,tremors in hands, rls, Last Myocardial Infarction Date:: unknown History of Any Multi-Drug Resistant Organisms: None Reported Past Surgical History: Back Surgery, Coronary Bypass/CABG, Heart Catheterization With Stent, Pacemaker Additional Past Surgical History / Comment(s): 5 vessel CABG, cardiac stentsx3, peripheral stents, pacemaker, left axillary melanoma resection.natalia cataracts, bronch/bx, past back sx-fusion. Past Anesthesia/Blood Transfusion Reactions: Previous Problems w/ Anesthesia Additional Past Anesthesia/Blood Transfusion Reaction / Comment(s): blood transfusion -no reaction. difficulty waking up after aa. Date of Last Stent Placement:: unknown Type of Cardiac Device: Permanent Pacemaker Device Placement Date:: 07-07-11 Smoking Status: Former smoker - Past Family History Mother Family Medical History: Diabetes Mellitus, Hyperlipidemia, Hypertension Additional Family Medical History / Comment(s): Mother is . Father Family Medical History: Diabetes Mellitus, Hyperlipidemia, Hypertension, Myocardial Infarction ([place]) Additional Family Medical History / Comment(s): Father is from a myocardial infarction. Brother(s) Additional Family Medical History / Comment(s): has 11 brothers and 2 sisters. Patient has 2 sons and 2 daughters with no major medical problems. Medications and Allergies Home Medications Medication Instructions Recorded Confirmed Type Amiodarone [Cordarone] 100 mg PO DAILY 04/22/16 02/09/17 History Apixaban [Eliquis] 2.5 mg PO BID 04/22/16 02/09/17 History Aspirin EC [Ecotrin Low Dose] 81 mg PO W/SUPPER 04/22/16 02/09/17 History Atorvastatin [Lipitor] 40 mg PO HS 04/22/16 02/09/17 History Clopidogrel [Plavix] 75 mg PO W/LUNCH 04/22/16 02/09/17 History Ferrous Sulfate [Iron (65 MG 325 mg PO BID@1200,2100 04/22/16 02/09/17 History Elemental)] Folic Acid 1 mg PO DAILY@1200 04/22/16 02/09/17 History Ipratropium-Albuterol Nebulize 3 ml INHALATION RT-QID PRN 04/22/16 02/09/17 History [Duoneb 0.5 mg-3 mg/3 ml Soln] Isosorbide Mononitrate ER [Imdur] 60 mg PO BID 04/22/16 02/09/17 History [place]-3 Fatty Acids/Fish Oil [Fish 1 cap PO BID@0800,1200 04/22/16 02/09/17 History Oil 1,000 mg Softgel] Polyethylene Glycol 3350 [Miralax] 17 gm PO DAILY PRN 04/22/16 02/09/17 History Tamsulosin HCl [Flomax] 0.4 mg PO HS 04/22/16 02/09/17 History Vitamin B Complex 1 cap PO W/SUPPER 04/22/16 02/09/17 History amLODIPine [Norvasc] 5 mg PO W/SUPPER 04/22/16 02/09/17 History rOPINIRole HCL [Requip] 1 mg PO HS 04/22/16 02/09/17 History ALPRAZolam [Xanax] 0.25 mg PO DAILY PRN 05/09/16 02/09/17 History Albuterol Inhaler [Ventolin Hfa 1 - 2 puff INHALATION RT-Q6H PRN 05/09/16 History Inhaler] Pregabalin [Lyrica] 75 mg PO W/SUPPER 05/09/16 02/09/17 History Prochlorperazine [Compazine] 10 mg PO Q6H PRN 05/09/16 02/09/17 History Tiotropium 18 Mcg/Puff [Spiriva] 1 cap INHALATION RT-DAILY 05/09/16 02/09/17 History Zolpidem [Ambien] 5 mg PO HS PRN 05/09/16 02/09/17 History traMADol HCL [Ultram] 50 - 100 mg PO BID PRN 05/09/16 02/09/17 History Nitroglycerin Sl Tabs [Nitrostat] 0.4 mg SUBLINGUAL Q5M PRN #25 tab 05/12/1611/18 Rx Pantoprazole Sodium [Protonix] 40 mg PO DAILY #30 tablet. 05/12/16 02/09/17 Rx Potassium Chloride [K-Tab ER] 10 meq PO DAILY #0 05/12/16 02/09/17 Rx Carvedilol [Carvedilol] 25 mg PO W/SUPPER 02/09/17 02/09/17 History Carvedilol [Coreg] 12.5 mg PO BID@0800,1200 02/09/17 02/09/17 History Furosemide [Lasix] 60 mg PO BID-W/MEALS 02/09/17 02/09/17 History INSULIN LISPRO (humaLOG) [humaLOG] 12 unit SQ AC-BID 02/09/17 02/09/17 History Insulin Glargine [Lantus] 12 unit SQ BID 02/09/17 02/09/17 History L.acidoph,Paracasei, B.lactis 1 cap PO W/LUNCH 02/09/17 02/09/17 History [Probiotic] Lactulose [Cephulac] 30 gm PO DAILY PRN 02/09/17 02/09/17 History Melatonin 10 mg PO HS 02/09/17 02/09/17 History Sennosides-Docusate Sodium 2 tab PO BID 02/09/17 02/09/17 History [Senokot-S] amLODIPine [Norvasc] 2.5 mg PO W/BRKFST 02/09/17 02/09/17 History cloNIDine HCL [Catapres] 0.1 mg PO BID@0000,1200 02/09/17 02/09/17 History Allergies Allergy/AdvReac Type Severity Reaction Status Date / Time ciprofloxacin [From Cipro] Allergy Rash/Hives Verified 02/09/17 11:51 corticotropin Allergy SEVERE Verified 02/09/17 11:51 HYPERGLYCEMIA erythromycin base Allergy HIVES/SWELL Verified 02/09/17 11:51 ING gabapentin Allergy Swelling Verified 02/09/17 11:51 Iodinated Contrast- Oral and Allergy Unknown Verified 02/09/17 11:51 IV Dye [Iodinated Contrast Media - Oral and] Iodine and Iodide Containing Allergy Unknown Verified 02/09/17 11:51 Produc Penicillins Allergy Unknown Verified 02/09/17 11:51 pentoxifylline [From Trental] Allergy Unknown Verified 02/09/17 11:51 phenytoin [From Dilantin] Allergy Unknown Verified 02/09/17 11:51 sulfamethoxazole Allergy Unknown Verified 02/09/17 11:51 [From Bactrim] trimethoprim [From Bactrim] Allergy Unknown Verified 02/09/17 11:51 doxycycline AdvReac TREMORS Verified 02/09/17 11:51 hydralazine AdvReac Confusion Verified 02/09/17 11:51 prednisone AdvReac NERVOUSNESS Verified 02/09/17 11:51 Physical Exam Vitals: Vital Signs Temp Pulse Pulse Resp BP BP BP 02/10/17 10:54 67 16 180/76 02/10/17 07:00 97.0 F L 66 16 191/81 02/09/17 23:00 97.3 F L 75 20 191/73 02/09/17 15:00 97.4 F L 60 18 153/71 02/09/17 14:45 97.8 F 60 16 165/71 02/09/17 14:13 98.9 F 60 16 166/66 02/09/17 13:24 60 16 191/86 Pulse Ox 02/10/17 10:54 98 02/10/17 07:00 94 L 02/09/17 23:00 96 02/09/17 15:00 96 02/09/17 14:45 97 02/09/17 14:13 100 02/09/17 13:24 99 Intake and Output 02/09/17 02/10/17 02/10/17 22:59 06:59 14:59 Intake Total 200 100 Output Total 1225 800 Balance -1025 -700 Intake: Oral 200 100 Output: Urine 1225 800 Straight 1100 800 Other: Voiding Method Urinal Urinal Urinal # Voids 1 0 # Bowel Movements 0 Results - Lab Results Most recent lab results Calcium 9.0 mg/dL (8.4-10.2) 02/10/17 07:16 Phosphorus 3.9 mg/dL (2.5-4.5) 02/09/17 11:21 Magnesium 2.4 mg/dL (1.6-2.3) H 02/09/17 11:21 02/10/17 07:16 02/10/17 07:16 Assessment and Plan Plan: Assessment: #1. Nonoliguric acute kidney injury mostly prerenal related to hemodynamic instability as well as a component of urinary retention . Resolved. GFR is back to baseline. #2. Chronic kidney disease stage IIIB with baseline creatinine near 2. Etiology is nephrosclerosis. Urinalysis is benign. #3. Urinary retention requiring straight catheterizations. #4. Right-sided weakness possibly related to metastatic disease to the brain. Neurology following. EEG pending. #5. History of lung adenocarcinoma with metastatic disease. #6. Hypertension with chronic kidney disease. His blood pressures have been quite labile. He is currently also on dexamethasone for vasogenic edema which can also be a contributor factor Plan: Insert Green catheter for now. Avoid nephrotoxic agents and hypotensive episodes. I will add labetalol 10 mg IV every 4 hours if needed for systolic blood pressure greater than 160. If blood pressures remain persistently elevated, then we will increase the dose of either amlodipine or Coreg. Repeat electrolytes in the morning. Thank you for the consultation. I will continue to follow the patient with you during his hospital stay.
[2017-02-10 14:58] LABS: Glucose,Whole Blood 298 mg/dL (75-99)
[2017-02-10 17:05] LABS: Glucose,Whole Blood 310 mg/dL (75-99)
[2017-02-10] MEDS: PREGABALIN 75 MG CAP PO SCH (17:48)
[2017-02-10] MEDS: B COMPLEX-VIT C-VIT E-ZINC 1 EACH TAB PO SCH (17:48)
[2017-02-10] MEDS: ASPIRIN 81 MG PO SCH (17:48)
--- NOTE | 2017-02-10 17:52 | P.CONS ---
History of Present Illness - Reason for Consult Consult date: 02/10/17 lesions in brain, hx NSCLC Requesting physician: Kennedi Haque - Chief Complaint left sided weakness - History of Present Illness Mr. Clemons is a very pleasant 81-year-old male patient of Dr. Velazquez at [facility]. Patient has a history of being treated for non-small cell lung adenocarcinoma, patient tolerated "one and a half treatments ", side effects hospitalized him. He was diagnosed earlier this year, May or June, patient has been on follow-up since then. His follow CT scans are available in the [facility] records as he has them locally, patient reports stable disease. Unfortunately though, patient experienced sudden onset, severe left-sided weakness yesterday, he was brought to the hospital for evaluation, CT of the head revealed 3 lesions. Patient was started on steroids with significant improvement in his left arm and left leg weakness. Patient denied headaches, dizziness, vision changes, difficulty swallowing, he states good appetite, no nausea or vomiting, abdominal pain, he does have frequent urination and difficulty initiating the stream but this is not new, he denies dysuria or hematuria, he has chronic constipation, bowel movement about every 3 days is his norm, he is fully ambulatory, no respiratory complaints, no pain. Review of Systems 10 point ROS as stated in HPI Past Medical History Past Medical History: Atrial Fibrillation, Coronary Artery Disease (CAD), Cancer , Heart Failure, COPD, Diabetes Mellitus, Hyperlipidemia, Hypertension, Myocardial Infarction (ID), Pneumonia, Prostate Disorder Additional Past Medical History / Comment(s): pt is rt side dominant.Chronic systolic heart failure, obstructive sleep apnea, benign prostatic hypertrophy, diabetes type 2 with diabetic neuropathy, 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, melanoma of left axillary, chronic renal failure, chronic anemia, coronary artery disease with previous cardiac catheterization and stenting, chronic back pain, coronary artery bypass surgery , pacemaker insertion, peripheral vascular disease, chronic atrial fibrillation , constipation,tremors in hands, rls, Last Myocardial Infarction Date:: unknown History of Any Multi-Drug Resistant Organisms: None Reported Past Surgical History: Back Surgery, Coronary Bypass/CABG, Heart Catheterization With Stent, Pacemaker Additional Past Surgical History / Comment(s): 5 vessel CABG, cardiac stentsx3, peripheral stents, pacemaker, left axillary melanoma resection.natalia cataracts, bronch/bx, past back sx-fusion. Past Anesthesia/Blood Transfusion Reactions: Previous Problems w/ Anesthesia Additional Past Anesthesia/Blood Transfusion Reaction / Comm: blood transfusion -no reaction. difficulty waking up after aa. Date of Last Stent Placement:: unknown Type of Cardiac Device: Permanent Pacemaker Device Placement Date:: 07-07-11 Smoking Status: Former smoker - Past Family History Mother Family Medical History: Diabetes Mellitus, Hyperlipidemia, Hypertension Additional Family Medical History / Comment(s): Mother is . Father Family Medical History: Diabetes Mellitus, Hyperlipidemia, Hypertension, Myocardial Infarction (ID) Additional Family Medical History / Comment(s): Father is from a myocardial infarction. Brother(s) Additional Family Medical History / Comment(s): has 11 brothers and 2 sisters. Patient has 2 sons and 2 daughters with no major medical problems. Medications and Allergies Home Medications Medication Instructions Recorded Confirmed Type RX: Amiodarone [Cordarone] 100 mg PO DAILY 04/22/16 02/09/17 History RX: Apixaban [Eliquis] 2.5 mg PO BID 04/22/16 02/09/17 History RX: Aspirin EC [Ecotrin Low Dose] 81 mg PO W/SUPPER 04/22/16 02/09/17 History RX: Atorvastatin [Lipitor] 40 mg PO HS 04/22/16 02/09/17 History RX: Clopidogrel [Plavix] 75 mg PO W/LUNCH 04/22/16 02/09/17 History RX: Ferrous Sulfate [Iron (65 MG 325 mg PO BID@1200,2100 04/22/16 02/09/17 History Elemental)] RX: Folic Acid 1 mg PO DAILY@1200 04/22/16 02/09/17 History RX: Ipratropium-Albuterol Nebulize 3 ml INHALATION RT-QID PRN 04/22/16 02/09/17 History [Duoneb 0.5 mg-3 mg/3 ml Soln] RX: Isosorbide Mononitrate ER 60 mg PO BID 04/22/16 02/09/17 History [Imdur] RX: [place]-3 Fatty Acids/Fish Oil 1 cap PO BID@0800,1200 04/22/16 02/09/17 History [Fish Oil 1,000 mg Softgel] RX: Polyethylene Glycol 3350 17 gm PO DAILY PRN 04/22/16 02/09/17 History [Miralax] RX: Tamsulosin HCl [Flomax] 0.4 mg PO HS 04/22/16 02/09/17 History RX: Vitamin B Complex 1 cap PO W/SUPPER 04/22/16 02/09/17 History RX: amLODIPine [Norvasc] 5 mg PO W/SUPPER 04/22/16 02/09/17 History RX: rOPINIRole HCL [Requip] 1 mg PO HS 04/22/16 02/09/17 History RX: ALPRAZolam [Xanax] 0.25 mg PO DAILY PRN 05/09/16 02/09/17 History RX: Albuterol Inhaler [Ventolin 1 - 2 puff INHALATION RT-Q6H PRN 05/09/16 History Hfa Inhaler] RX: Pregabalin [Lyrica] 75 mg PO W/SUPPER 05/09/16 02/09/17 History RX: Prochlorperazine [Compazine] 10 mg PO Q6H PRN 05/09/16 02/09/17 History RX: Tiotropium 18 Mcg/Puff 1 cap INHALATION RT-DAILY 05/09/16 02/09/17 History [Spiriva] RX: Zolpidem [Ambien] 5 mg PO HS PRN 05/09/16 02/09/17 History RX: traMADol HCL [Ultram] 50 - 100 mg PO BID PRN 05/09/16 02/09/17 History RX: Nitroglycerin Sl Tabs 0.4 mg SUBLINGUAL Q5M PRN #25 tab 05/12/16 02/09/17 Rx [Nitrostat] RX: Pantoprazole Sodium [Protonix] 40 mg PO DAILY #30 tablet. 05/12/16 Rx RX: Potassium Chloride [K-Tab ER] 10 meq PO DAILY #0 05/12/16 02/09/17 Rx Carvedilol [Carvedilol] 25 mg PO W/SUPPER 02/09/17 02/09/17 History Carvedilol [Coreg] 12.5 mg PO BID@0800,1200 02/09/17 02/09/17 History Insulin Glargine [Lantus] 12 unit SQ BID 02/09/17 02/09/17 History L.acidoph,Paracasei, B.lactis 1 cap PO W/LUNCH 02/09/17 02/09/17 History [Probiotic] RX: Furosemide [Lasix] 60 mg PO BID-W/MEALS 02/09/17 02/09/17 History RX: INSULIN LISPRO (humaLOG) 12 unit SQ AC-BID 02/09/17 02/09/17 History [humaLOG] RX: Lactulose [Cephulac] 30 gm PO DAILY PRN 02/09/17 02/09/17 History RX: Melatonin 10 mg PO HS 02/09/17 02/09/17 History RX: amLODIPine [Norvasc] 2.5 mg PO W/BRKFST 02/09/17 02/09/17 History RX: cloNIDine HCL [Catapres] 0.1 mg PO BID@0000,1200 02/09/17 02/09/17 History Sennosides-Docusate Sodium 2 tab PO BID 02/09/17 02/09/17 History [Senokot-S] Allergies Allergy/AdvReac Type Severity Reaction Status Date / Time ciprofloxacin [From Cipro] Allergy Rash/Hives Verified 02/09/17 11:51 corticotropin Allergy SEVERE Verified 02/09/17 11:51 HYPERGLYCEMIA erythromycin base Allergy HIVES/SWELL Verified 02/09/17 11:51 ING gabapentin Allergy Swelling Verified 02/09/17 11:51 Iodinated Contrast- Oral and Allergy Unknown Verified 02/09/17 11:51 IV Dye [Iodinated Contrast Media - Oral and] Iodine and Iodide Containing Allergy Unknown Verified 02/09/17 11:51 Produc Penicillins Allergy Unknown Verified 02/09/17 11:51 pentoxifylline [From Trental] Allergy Unknown Verified 02/09/17 11:51 phenytoin [From Dilantin] Allergy Unknown Verified 02/09/17 11:51 sulfamethoxazole Allergy Unknown Verified 02/09/17 11:51 [From Bactrim] trimethoprim [From Bactrim] Allergy Unknown Verified 02/09/17 11:51 doxycycline AdvReac TREMORS Verified 02/09/17 11:51 hydralazine AdvReac Confusion Verified 02/09/17 11:51 prednisone AdvReac NERVOUSNESS Verified 02/09/17 11:51 Physical Exam Vitals: Vital Signs Temp Pulse Resp BP BP Pulse Ox 02/10/17 15:00 97.6 F 60 16 151/65 97 02/10/17 10:54 67 16 180/76 98 02/10/17 07:00 97.0 F L 66 16 191/81 94 L 02/09/17 23:00 97.3 F L 75 20 191/73 96 Intake and Output 02/10/17 02/10/17 02/10/17 06:59 14:59 22:59 Intake Total 100 200 Output Total 800 175 Balance -700 25 Intake: Oral 100 200 Output: Urine 800 Straight 800 Post Void Residual 175 Other: Voiding Method Urinal Urinal Urinal # Voids 0 # Bowel Movements 0 0 - Constitutional General appearance: cooperative, no acute distress, obese - EENT Eyes: anicteric sclerae, EOMI, PERRLA, normal appearance ENT: normal oropharynx - Neck Neck: no lymphadenopathy - Respiratory Respiratory: bilateral: CTA - Cardiovascular Rhythm: regular Heart sounds: normal: S1, S2 leg Peripheral Edema: bilateral: None - Gastrointestinal General gastrointestinal: no absent bowel sounds, no decreased bowel sounds, no distended, no hepatomegaly, no hyperactive bowel sounds, normal bowel sounds, no organomegaly, no rigid, no scaphoid, soft, no splenomegaly, no tenderness, no umbilical hernia, no ventral hernia - Integumentary Integumentary: normal - Neurologic Neurologic: CNII-XII intact - Musculoskeletal very minor weakness noted in left hand grasp, patient is able to raise both lower extremities greater than 16 inches off the bed independently, no facial droop, patient's left upper extremity does have restricted range of motion at the shoulder, this is not new for the patient Musculoskeletal: left sided weakness - Psychiatric Psychiatric: A&O x's 3, appropriate affect, intact judgment & insight Results CBC & Chem 7: 02/10/17 07:16 02/10/17 07:16 Labs: Abnormal Lab Results - Last 24 Hours (Table) 02/09/17 02/09/17 02/09/17 Range/Units 11:21 21:16 21:18 Hgb (13.0-17.5) gm/dL MCHC (31.0-37.0) g/dL RDW (11.5-15.5) % Lymphocytes # (1.0-4.8) k/uL BUN (9-20) mg/dL Creatinine (0.66-1.25) mg/dL Glucose (74-99) mg/dL POC Glucose (mg/dL) 412 H 442 H (75-99) mg/dL Hemoglobin A1c 7.3 H (4.0-6.0) % 02/10/17 02/10/17 02/10/17 Range/Units 00:14 07:16 07:16 Hgb 12.0 L (13.0-17.5) gm/dL MCHC 30.1 L (31.0-37.0) g/dL RDW 17.2 H (11.5-15.5) % Lymphocytes # 0.4 L (1.0-4.8) k/uL BUN 56 H (9-20) mg/dL Creatinine 1.68 H (0.66-1.25) mg/dL Glucose 260 H (74-99) mg/dL POC Glucose (mg/dL) 398 H (75-99) mg/dL Hemoglobin A1c (4.0-6.0) % 02/10/17 02/10/17 02/10/17 Range/Units 07:33 11:49 14:57 Hgb (13.0-17.5) gm/dL MCHC (31.0-37.0) g/dL RDW (11.5-15.5) % Lymphocytes # (1.0-4.8) k/uL BUN (9-20) mg/dL Creatinine (0.66-1.25) mg/dL Glucose (74-99) mg/dL POC Glucose (mg/dL) 290 H 340 H 298 H (75-99) mg/dL Hemoglobin A1c (4.0-6.0) % 02/10/17 Range/Units 16:58 Hgb (13.0-17.5) gm/dL MCHC (31.0-37.0) g/dL RDW (11.5-15.5) % Lymphocytes # (1.0-4.8) k/uL BUN (9-20) mg/dL Creatinine (0.66-1.25) mg/dL Glucose (74-99) mg/dL POC Glucose (mg/dL) 310 H (75-99) mg/dL Hemoglobin A1c (4.0-6.0) % Microbiology - Last 24 Hours (Table) 02/09/17 12:20 Urine Culture - Preliminary Urine,Voided Comments: EKG reviewed CT Scan - head: report reviewed Assessment and Plan (1) Brain metastasis Narrative/Plan: Contacted patient's primary Oncologist Dr. Velazquez at the [facility]. Dr. Velazquez is agreeable to Radiation Oncology evaluation and opinion here. Patient is stable with improvement in his neurologic symptoms on steroids so, Dr. Velazquez agreed to allow the patient to be discharged and see him in follow up, he states he will ciontact pt tomorrow. CD of CT of the head requested to be made for patient to take with him, please send copy of Radiation Oncology's opinion and contact information with pt as well. Dr. Velazquez will collaborate with local Radiation Oncology for treatment plan since pt lives locally. Rad/Onc consulted to see pt in AM. If pt remains stable he can be discharged from a Hem/Onc standpoint. Current Visit: Yes Status: Acute Priority: High Code(s): C79.31 - SECONDARY MALIGNANT NEOPLASM OF BRAIN SNOMED Code(s): 68154860 (2) Left-sided weakness Narrative/Plan: continue steroids at 4 mg every 6 hours. Current Visit: Yes Status: Acute Priority: High Code(s): R53.1 - WEAKNESS SNOMED Code(s): 550311563 (3) Non-small cell lung cancer (NSCLC) Narrative/Plan: Previous follow up scans do show stable disease in the body, brain metastasis new finding. Dr. Velazquez contacted, patient will follow up as directed. Current Visit: Yes Status: Chronic Priority: Medium Code(s): C34.90 - MALIGNANT NEOPLASM OF UNSP PART OF UNSP BRONCHUS OR LUNG SNOMED Code(s): 689024692
[2017-02-10] MEDS ORDERED: IPRATROPIUM 0.5 MG/2.5 ML NEBU INHALATION SCH (20:00)
[2017-02-10] MEDS: IPRATROPIUM 0.5 MG/2.5 ML NEBU INHALATION SCH (20:27)
[2017-02-10] MEDS: ALBUTEROL NEBULIZED 2.5 MG/3 ML INHALATION SCH (20:27)
--- NOTE | 2017-02-10 20:44 | P.HPIM ---
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 Patient has been having progressive left- sided weakness and also decrease able to walk over the past 4 days. Patient also slightly confused and was having headache as well. Patient otherwise did not have any nausea or vomiting. No recent trauma. Patients daughter is at bedside. Patient otherwise denied any fever or chills. No recent illnesses or sick contacts at home. EKG showed AV dual paced rhythm CT head showed hiatal right parasagittal lesion noted of increased attenuation measuring 2.4 x 2 which may reflect meningioma are metastatic lesion. Review of Systems Constitutional: Patient denies any fever or chills . No generalized weakness or weight loss. Abdomen: Patient denied nausea vomiting and diarrhea and abdominal pain. Cardiovascular: Patient denies any chest pain or short of breath no palpitations. Respiratory: patient denied any cough is from production. No shortness of breath Neurologic: Patient denied any numbness or tingling . Patient does have left- sided weakness. And headache Musculoskeletal: Patient denies any complaints of joint swelling or deformity. Skin: Negative Psychiatric: Negative Endocrine: No heat or cold intolerance. No recent weight gain. Genitourinary: No dysuria or hematuria. All other 14 point ROS negative except the above Past Medical History Past Medical History: Atrial Fibrillation, Coronary Artery Disease (CAD), Cancer , Heart Failure, COPD, Diabetes Mellitus, Hyperlipidemia, Hypertension, Myocardial Infarction (SC), Pneumonia, Prostate Disorder Additional Past Medical History / Comment(s): pt is rt side dominant.Chronic systolic heart failure, obstructive sleep apnea, benign prostatic hypertrophy, diabetes type 2 with diabetic neuropathy, 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, melanoma of left axillary, chronic renal failure, chronic anemia, coronary artery disease with previous cardiac catheterization and stenting, chronic back pain, coronary artery bypass surgery , pacemaker insertion, peripheral vascular disease, chronic atrial fibrillation , constipation,tremors in hands, rls, Last Myocardial Infarction Date:: unknown History of Any Multi-Drug Resistant Organisms: None Reported Past Surgical History: Back Surgery, Coronary Bypass/CABG, Heart Catheterization With Stent, Pacemaker Additional Past Surgical History / Comment(s): 5 vessel CABG, cardiac stentsx3, peripheral stents, pacemaker, left axillary melanoma resection.natalia cataracts, bronch/bx, past back sx-fusion. Past Anesthesia/Blood Transfusion Reactions: Previous Problems w/ Anesthesia Additional Past Anesthesia/Blood Transfusion Reaction / Comment(s): blood transfusion -no reaction. difficulty waking up after aa. Date of Last Stent Placement:: unknown Type of Cardiac Device: Permanent Pacemaker Device Placement Date:: 07-07-11 Smoking Status: Former smoker - Past Family History Mother Family Medical History: Diabetes Mellitus, Hyperlipidemia, Hypertension Additional Family Medical History / Comment(s): Mother is . Father Family Medical History: Diabetes Mellitus, Hyperlipidemia, Hypertension, Myocardial Infarction ([place]) Additional Family Medical History / Comment(s): Father is from a myocardial infarction. Brother(s) Additional Family Medical History / Comment(s): has 11 brothers and 2 sisters. Patient has 2 sons and 2 daughters with no major medical problems. Medications and Allergies Home Medications Medication Instructions Recorded Confirmed Type Amiodarone [Cordarone] 100 mg PO DAILY 04/22/16 02/09/17 History Apixaban [Eliquis] 2.5 mg PO BID 04/22/16 02/09/17 History Aspirin EC [Ecotrin Low Dose] 81 mg PO W/SUPPER 04/22/16 02/09/17 History Atorvastatin [Lipitor] 40 mg PO HS 04/22/16 02/09/17 History Clopidogrel [Plavix] 75 mg PO W/LUNCH 04/22/16 02/09/17 History Ferrous Sulfate [Iron (65 MG 325 mg PO BID@1200,2100 04/22/16 02/09/17 History Elemental)] Folic Acid 1 mg PO DAILY@1200 04/22/16 02/09/17 History Ipratropium-Albuterol Nebulize 3 ml INHALATION RT-QID PRN 04/22/16 02/09/17 History [Duoneb 0.5 mg-3 mg/3 ml Soln] Isosorbide Mononitrate ER [Imdur] 60 mg PO BID 04/22/16 02/09/17 History [place]-3 Fatty Acids/Fish Oil [Fish 1 cap PO BID@0800,1200 04/22/16 02/09/17 History Oil 1,000 mg Softgel] Polyethylene Glycol 3350 [Miralax] 17 gm PO DAILY PRN 04/22/16 02/09/17 History Tamsulosin HCl [Flomax] 0.4 mg PO HS 04/22/16 02/09/17 History Vitamin B Complex 1 cap PO W/SUPPER 04/22/16 02/09/17 History amLODIPine [Norvasc] 5 mg PO W/SUPPER 04/22/16 02/09/17 History rOPINIRole HCL [Requip] 1 mg PO HS 04/22/16 02/09/17 History ALPRAZolam [Xanax] 0.25 mg PO DAILY PRN 05/09/16 02/09/17 History Albuterol Inhaler [Ventolin Hfa 1 - 2 puff INHALATION RT-Q6H PRN 05/09/16 History Inhaler] Pregabalin [Lyrica] 75 mg PO W/SUPPER 05/09/16 02/09/17 History Prochlorperazine [Compazine] 10 mg PO Q6H PRN 05/09/16 02/09/17 History Tiotropium 18 Mcg/Puff [Spiriva] 1 cap INHALATION RT-DAILY 05/09/16 02/09/17 History Zolpidem [Ambien] 5 mg PO HS PRN 05/09/16 02/09/17 History traMADol HCL [Ultram] 50 - 100 mg PO BID PRN 05/09/16 02/09/17 History Nitroglycerin Sl Tabs [Nitrostat] 0.4 mg SUBLINGUAL Q5M PRN #25 tab 05/12/1611/18 Rx Pantoprazole Sodium [Protonix] 40 mg PO DAILY #30 tablet. 05/12/16 02/09/17 Rx Potassium Chloride [K-Tab ER] 10 meq PO DAILY #0 05/12/16 02/09/17 Rx Carvedilol [Carvedilol] 25 mg PO W/SUPPER 02/09/17 02/09/17 History Carvedilol [Coreg] 12.5 mg PO BID@0800,1200 02/09/17 02/09/17 History Furosemide [Lasix] 60 mg PO BID-W/MEALS 02/09/17 02/09/17 History INSULIN LISPRO (humaLOG) [humaLOG] 12 unit SQ AC-BID 02/09/17 02/09/17 History Insulin Glargine [Lantus] 12 unit SQ BID 02/09/17 02/09/17 History L.acidoph,Paracasei, B.lactis 1 cap PO W/LUNCH 02/09/17 02/09/17 History [Probiotic] Lactulose [Cephulac] 30 gm PO DAILY PRN 02/09/17 02/09/17 History Melatonin 10 mg PO HS 02/09/17 02/09/17 History Sennosides-Docusate Sodium 2 tab PO BID 02/09/17 02/09/17 History [Senokot-S] amLODIPine [Norvasc] 2.5 mg PO W/BRKFST 02/09/17 02/09/17 History cloNIDine HCL [Catapres] 0.1 mg PO BID@0000,1200 02/09/17 02/09/17 History Allergies Allergy/AdvReac Type Severity Reaction Status Date / Time ciprofloxacin [From Cipro] Allergy Rash/Hives Verified 02/09/17 11:51 corticotropin Allergy SEVERE Verified 02/09/17 11:51 HYPERGLYCEMIA erythromycin base Allergy HIVES/SWELL Verified 02/09/17 11:51 ING gabapentin Allergy Swelling Verified 02/09/17 11:51 Iodinated Contrast- Oral and Allergy Unknown Verified 02/09/17 11:51 IV Dye [Iodinated Contrast Media - Oral and] Iodine and Iodide Containing Allergy Unknown Verified 02/09/17 11:51 Produc Penicillins Allergy Unknown Verified 02/09/17 11:51 pentoxifylline [From Trental] Allergy Unknown Verified 02/09/17 11:51 phenytoin [From Dilantin] Allergy Unknown Verified 02/09/17 11:51 sulfamethoxazole Allergy Unknown Verified 02/09/17 11:51 [From Bactrim] trimethoprim [From Bactrim] Allergy Unknown Verified 02/09/17 11:51 doxycycline AdvReac TREMORS Verified 02/09/17 11:51 hydralazine AdvReac Confusion Verified 02/09/17 11:51 prednisone AdvReac NERVOUSNESS Verified 02/09/17 11:51 Physical Exam Vitals: Vital Signs Temp Pulse Resp BP Pulse Ox 02/09/17 14:45 97.8 F 60 16 165/71 97 02/09/17 14:13 98.9 F 60 16 166/66 100 02/09/17 13:24 60 16 191/86 99 02/09/17 11:56 62 18 193/84 97 02/09/17 10:58 97.1 F L 67 20 196/81 97 Intake and Output 02/09/17 02/09/17 02/09/17 06:59 14:59 22:59 Other: Weight 92.079 kg Patient Weight 02/10/17 06:59 Weight 92.079 kg PHYSICAL EXAMINATION: Patient is lying in the bed comfortably, no acute distress, awake alert and oriented.. HEENT: Normocephalic. Neck is supple. Pupils reactive. Nostrils clear. Oral cavity is moist. Ears reveal no drainage. Neck reveals no JVD, carotid bruits, or thyromegaly. CHEST EXAMINATION: Trachea is central. Symmetrical expansion. Lung quick clear to auscultation and percussion. CARDIAC: Normal S1, S2 with no gallops. No murmurs ABDOMEN: Soft. Bowel sounds normal. No organomegaly. No abdominal bruits. Extremities: reveal no edema. No clubbing or cyanosis Neurologically awake, alert, oriented x2-3 with well-coordinated movements. Patient does have left sided motor activity 3/5 Skin: No rash or skin lesions. Psychiatric: Cooperative. Could not be assessed completely Musculoskeletal: No joint swelling or deformity. Normal range of motion. Results CBC & Chem 7: 02/10/17 07:16 02/10/17 07:16 Labs: Abnormal Lab Results - Last 24 Hours (Table) 02/09/17 02/09/17 02/09/17 Range/Units 11:21 11:21 11:21 RBC 4.27 L (4.30-5.90) m/uL Hgb 11.8 L (13.0-17.5) gm/dL Hct 37.6 L (39.0-53.0) % RDW 18.5 H (11.5-15.5) % APTT (22.0-30.0) sec BUN 59 H (9-20) mg/dL Creatinine 2.27 H (0.66-1.25) mg/dL Glucose 227 H (74-99) mg/dL POC Glucose (mg/dL) (75-99) mg/dL Magnesium 2.4 H (1.6-2.3) mg/dL CK-MB (CK-2) 2.5 H* (0.0-2.4) ng/mL 02/09/17 02/09/17 Range/Units 11:21 13:53 RBC (4.30-5.90) m/uL Hgb (13.0-17.5) gm/dL Hct (39.0-53.0) % RDW (11.5-15.5) % APTT 31.0 H (22.0-30.0) sec BUN (9-20) mg/dL Creatinine (0.66-1.25) mg/dL Glucose (74-99) mg/dL POC Glucose (mg/dL) 218 H (75-99) mg/dL Magnesium (1.6-2.3) mg/dL CK-MB (CK-2) (0.0-2.4) ng/mL Assessment and Plan Assessment: #1 left-sided weakness most likely due to brain metastasis involving right parasagittal area as per CT head #2 adenocarcinoma the lung stage IV. With history of 2 courses of chemotherapy #2 acute kidney injury most likely prerenal #3 chronic kidney disease stage III #4 chronic atrial fibrillation on anticoagulation #5 coronary artery disease with history of stent placement and CABG #6 CHF with systolic dysfunction chronic #7 Ischemic cardio myopathy #8 pacemaker placement history #9 BPH #10 diabetes type 2 insulin-dependent. Uncontrolled due to steroids #11 diabetic neuropathy #12 hypertension #13 hyperlipidemia #14 COPD stable #15 and chronic back pain #16 peripheral vascular disease #17 Amaury in hands #18 melanoma left axillary resection history Plan: Patient will be continued on dexamethasone IV every 6 hourly. Patient was given a dose of IV steroids in the ER. We'll continue the insulin Levemir and sliding scale and monitor CBG. Neurology was consulted. Will follow renal function. Prognosis is poor. Patient does have multiple medical problems and comorbid conditions along with stage IV lung cancer. Further recommendations based on the clinical course. Discussed with his daughter at bedside in detail. Time with Patient: Greater than 30
[2017-02-10 21:43] LABS: Glucose,Whole Blood 238 mg/dL (75-99)
[2017-02-10] MEDS: ATORVASTATIN 40 MG TAB PO SCH (22:35)
--- NOTE | 2017-02-10 23:58 | P.PN ---
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 Patient has been having progressive left- sided weakness and also decrease able to walk over the past 4 days. Patient also slightly confused and was having headache as well. Patient otherwise did not have any nausea or vomiting. No recent trauma. Patients daughter is at bedside. Patient otherwise denied any fever or chills. No recent illnesses or sick contacts at home. EKG showed AV dual paced rhythm CT head showed hiatal right parasagittal lesion noted of increased attenuation measuring 2.4 x 2 which may reflect meningioma are metastatic lesion. 02/10/2017 Patient's left lower and upper extremity strength improved today. Repeat CT head was ordered. Patient being continued on IV steroids. Patient is having hyperglycemia due to steroids and insulin dose has been adjusted. Renal function improved with creatinine 1.68. No other acute overnight issues. Patient is more awake and oriented today. All other review of systems negative except the above Current medications reviewed. Objective - Vital Signs Vital signs: Vital Signs Temp 97.6 F 02/10/17 15:00 Pulse 60 02/10/17 15:00 Resp 16 02/10/17 15:00 BP 151/65 02/10/17 15:00 Pulse Ox 97 02/10/17 15:00 Intake & Output 02/10/17 02/10/17 02/11/17 06:59 18:59 06:59 Intake Total 300 200 Output Total 2024 275 Balance -1725 -75 Intake: Oral 300 200 Output: Urine 2024 Straight 1900 Post Void Residual 275 Other: Voiding Method Urinal Urinal # Voids 0 0 # Bowel Movements 0 0 0 - Exam PHYSICAL EXAMINATION: Patient is lying in the bed comfortably, no acute distress, awake alert and oriented.. HEENT: Normocephalic. Neck is supple. Pupils reactive. Nostrils clear. Oral cavity is moist. Ears reveal no drainage. Neck reveals no JVD, carotid bruits, or thyromegaly. CHEST EXAMINATION: Trachea is central. Symmetrical expansion. Lung quick clear to auscultation and percussion. CARDIAC: Normal S1, S2 with no gallops. No murmurs ABDOMEN: Soft. Bowel sounds normal. No organomegaly. No abdominal bruits. Extremities: reveal no edema. No clubbing or cyanosis Neurologically awake, alert, oriented x3 with well-coordinated movements. Left- sided weakness much improved 4/5 motor. Skin: No rash or skin lesions. Psychiatric: Cooperative. Nonsuicidal Musculoskeletal: No joint swelling or deformity. Normal range of motion. - Labs CBC & Chem 7: 02/10/17 07:16 02/10/17 07:16 Labs: Abnormal Lab Results - Last 24 Hours (Table) 02/09/17 02/10/17 02/10/17 Range/Units 11:21 00:14 07:16 Hgb 12.0 L (13.0-17.5) gm/dL MCHC 30.1 L (31.0-37.0) g/dL RDW 17.2 H (11.5-15.5) % Lymphocytes # 0.4 L (1.0-4.8) k/uL BUN (9-20) mg/dL Creatinine (0.66-1.25) mg/dL Glucose (74-99) mg/dL POC Glucose (mg/dL) 398 H (75-99) mg/dL Hemoglobin A1c 7.3 H (4.0-6.0) % 02/10/17 02/10/17 02/10/17 Range/Units 07:16 07:33 11:49 Hgb (13.0-17.5) gm/dL MCHC (31.0-37.0) g/dL RDW (11.5-15.5) % Lymphocytes # (1.0-4.8) k/uL BUN 56 H (9-20) mg/dL Creatinine 1.68 H (0.66-1.25) mg/dL Glucose 260 H (74-99) mg/dL POC Glucose (mg/dL) 290 H 340 H (75-99) mg/dL Hemoglobin A1c (4.0-6.0) % 02/10/17 02/10/17 02/10/17 Range/Units 14:57 16:58 21:38 Hgb (13.0-17.5) gm/dL MCHC (31.0-37.0) g/dL RDW (11.5-15.5) % Lymphocytes # (1.0-4.8) k/uL BUN (9-20) mg/dL Creatinine (0.66-1.25) mg/dL Glucose (74-99) mg/dL POC Glucose (mg/dL) 298 H 310 H 238 H (75-99) mg/dL Hemoglobin A1c (4.0-6.0) % Microbiology - Last 24 Hours (Table) 02/09/17 12:20 Urine Culture - Final Urine,Voided Assessment and Plan Assessment: #1 left-sided weakness most likely due to brain metastasis involving right parasagittal area as per CT head #2 adenocarcinoma the lung stage IV. With history of 2 courses of chemotherapy #2 acute kidney injury most likely prerenal. Improved #3 chronic kidney disease stage III #4 chronic atrial fibrillation on anticoagulation #5 coronary artery disease with history of stent placement and CABG #6 CHF with systolic dysfunction chronic #7 Ischemic cardio myopathy #8 pacemaker placement history #9 BPH #10 diabetes type 2 insulin-dependent. Uncontrolled due to steroids #11 diabetic neuropathy #12 hypertension #13 hyperlipidemia #14 COPD stable #15 and chronic back pain #16 peripheral vascular disease #17 Amaury in hands #18 melanoma left axillary resection history Plan: Patient will be continued on dexamethasone IV every 6 hourly. Patient was given a dose of IV steroids in the ER. We'll continue the insulin Levemir and sliding scale and monitor CBG. Neurology is following. Repeat CT head was ordered.. Will follow renal function. Prognosis is poor. Patient does have multiple medical problems and comorbid conditions along with stage IV lung cancer. Further recommendations based on the clinical course. Discussed with his daughter at bedside in detail. Time with Patient: Greater than 30
--- NOTE | 2017-02-11 00:05 | P.PN ---
Subjective Progress Note Date: 02/10/17 Michael Clemons is a 81-year-old right-handed white male who was seen in neurology consultation yesterday for evaluation of left-sided weakness and possible metastatic lesions to the brain. The patient has a history of being treated for non-small cell lung adenocarcinoma and is being followed by Dr. Velazquez at the [facility]. Patient was diagnosed earlier this year and has undergone 1-1/2 chemotherapy cycles. He had to stop those treatments due to side effect of the medications. The patient had developed significant left-sided weakness over a period of several days. This was his reason for evaluation and admission to the hospital yesterday. His CAT scan of the brain revealed 3 lesions suggesting metastatic disease. There was no evidence of acute hemorrhage. The patient was started on Decadron as there was moderate degree of edema surrounding these lesions. Since starting on the Decadron the patient has noted improvement with his left-sided weakness. He has an able to use his leg and arm easily and feels there is improvement with muscle strength of his left side. Apparently his oncologist at the [facility] Dr. jordan has been contacted regarding this patient's overall findings. He is been suggesting the patient should be seen by radiation oncology for their opinion. He will follow-up with Dr. Velazquez soon after discharge from the hospital. The patient underwent a routine EEG today which was reviewed. His EEG was mildly abnormal with slight slowing however there was no evidence of any epileptiform discharges. We reviewed the results of the EEG today with the patient at bedside. The patient denies any headache symptoms today. He has been able to get up and ambulate fairly well today. We will await further recommendations from oncology and radiation oncology in terms of management of his lung cancer and metastatic disease. We will continue close neurological follow-up with this patient during this admission. Objective - Vital Signs Vital signs: Vital Signs Temp 97.6 F 02/10/17 15:00 Pulse 60 02/10/17 15:00 Resp 16 02/10/17 15:00 BP 151/65 02/10/17 15:00 Pulse Ox 97 02/10/17 15:00 Intake & Output 02/10/17 02/10/17 02/11/17 06:59 18:59 06:59 Intake Total 300 200 Output Total 2024 275 Balance -1724 Intake: Oral 300 200 Output: Urine 2024 Straight 1899 Post Void Residual 275 Other: Voiding Method Urinal Urinal # Voids 0 0 # Bowel Movements 0 0 0 - Exam Physical examination: PHYSICAL EXAMINATION: Patient is resting comfortably in bed. VITAL SIGNS: Blood pressure is [151/65]. Heart rate is [60]. Respiration is [16] . Temperature is [97.7]. HEENT: Head is atraumatic, neck is supple, there were no carotid bruits. CHEST: Lungs are clear to auscultation and percussion. CARDIAC: S1, S2 normal rate and rhythm. There is no murmur. ABDOMEN: Soft and nontender. Bowel sounds are present. EXTREMITIES: There is no pedal edema. Peripheral pulses are present. Neurological examination: Patient is awake alert and oriented 3. His speech is fluent with no evidence of any aphasia or dysarthria. His memory and intellectual functions are appropriate for his age. Cranial nerve examination: Cranial nerves II through XII are grossly intact. Motor examination: There was no pronator drift. Muscle tone is normal. Muscle strength testing reveals 4/5 strength throughout. Sensory examination was intact. Deep tendon reflexes: The DTRs are 1+ and symmetric. Plantar responses flexor bilaterally. Coordination: Finger to nose was performed normally. Gait: Patient has normal based gait. - Labs CBC & Chem 7: 02/10/17 07:16 02/10/17 07:16 Labs: Abnormal Lab Results - Last 24 Hours (Table) 02/09/17 02/10/17 02/10/17 Range/Units 11:21 00:14 07:16 Hgb 12.0 L (13.0-17.5) gm/dL MCHC 30.1 L (31.0-37.0) g/dL RDW 17.2 H (11.5-15.5) % Lymphocytes # 0.4 L (1.0-4.8) k/uL BUN (9-20) mg/dL Creatinine (0.66-1.25) mg/dL Glucose (74-99) mg/dL POC Glucose (mg/dL) 398 H (75-99) mg/dL Hemoglobin A1c 7.3 H (4.0-6.0) % 02/10/17 02/10/17 02/10/17 Range/Units 07:16 07:33 11:49 Hgb (13.0-17.5) gm/dL MCHC (31.0-37.0) g/dL RDW (11.5-15.5) % Lymphocytes # (1.0-4.8) k/uL BUN 56 H (9-20) mg/dL Creatinine 1.68 H (0.66-1.25) mg/dL Glucose 260 H (74-99) mg/dL POC Glucose (mg/dL) 290 H 340 H (75-99) mg/dL Hemoglobin A1c (4.0-6.0) % 02/10/17 02/10/17 02/10/17 Range/Units 14:57 16:58 21:38 Hgb (13.0-17.5) gm/dL MCHC (31.0-37.0) g/dL RDW (11.5-15.5) % Lymphocytes # (1.0-4.8) k/uL BUN (9-20) mg/dL Creatinine (0.66-1.25) mg/dL Glucose (74-99) mg/dL POC Glucose (mg/dL) 298 H 310 H 238 H (75-99) mg/dL Hemoglobin A1c (4.0-6.0) % Microbiology - Last 24 Hours (Table) 02/09/17 12:20 Urine Culture - Final Urine,Voided Assessment and Plan (1) Brain metastasis Current Visit: Yes Status: Acute Priority: High Code(s): C79.31 - SECONDARY MALIGNANT NEOPLASM OF BRAIN SNOMED Code(s): 81068465 (2) Left-sided weakness Current Visit: Yes Status: Acute Priority: High Code(s): R53.1 - WEAKNESS SNOMED Code(s): 058435092 (3) Lung cancer Current Visit: Yes Status: Acute Code(s): C34.90 - MALIGNANT NEOPLASM OF UNSP PART OF UNSP BRONCHUS OR LUNG SNOMED Code(s): 297311316 (4) Diabetes mellitus Current Visit: Yes Status: Acute Code(s): E11.9 - TYPE 2 DIABETES MELLITUS WITHOUT COMPLICATIONS SNOMED Code(s): 48211839 (5) Atrial fibrillation Current Visit: Yes Status: Acute Code(s): I48.91 - UNSPECIFIED ATRIAL FIBRILLATION SNOMED Code(s): 07041535 (6) Coronary artery disease Current Visit: Yes Status: Acute Code(s): I25.10 - ATHSCL HEART DISEASE OF [place] CORONARY ARTERY W/O ANG PCTRS SNOMED Code(s): 98602038 Plan: Navdeep Clemons is a 81-year-old right-handed white male who was admitted to hospital yesterday for evaluation of acute left-sided weakness. Patient has a history of underlying non-small cell lung cancer and is being followed by his oncologist at the [facility] Dr. Velazquez. The patient underwent computed tomography scan of the brain yesterday as well as a repeat study today. There are 3 isolated lesions noted on the CAT scan of the brain. These suggest probable metastatic lesion is some degree of cerebral edema surrounding the lesions. The patient is currently on Decadron for treatment of some of the vasogenic edema symptoms. He has noted improvement with his left-sided weakness since coming into the hospital. His primary oncologist Dr. Velazquez is recommending a radiation oncology evaluation and opinion for this patient. The patient will follow up with Dr. cuellar soon after discharge from the hospital. The patient underwent routine EEG today. The results indicate mild slowing with no evidence of epileptiform discharges. We will continue close neurological follow-up of this patient. We are waiting further recommendations from oncology and radiation oncology in management of this patient with known history of non-small cell lung cancer. His overall prognosis at this time remains guarded. We will continue to follow his neurological course very closely during this admission.
[2017-02-11] MEDS: CARVEDILOL 12.5 MG TAB PO SCH ×3 (01:07→14:01)
[2017-02-11] MEDS: cloNIDine HCL 0.1 MG TAB PO SCH ×4 (01:07→17:48)
[2017-02-11] MEDS: amLODIPine 2.5 MG TAB PO SCH ×2 (01:07→14:01)
[2017-02-11] MEDS: DEXAMETHASONE SOD PHOSPHATE 4 MG/ML 1 ML VIAL IV SCH ×4 (01:41→17:49)
[2017-02-11] MEDS: ALBUTEROL NEBULIZED 2.5 MG/3 ML INHALATION SCH ×3 (05:32→15:37)
[2017-02-11] MEDS: IPRATROPIUM 0.5 MG/2.5 ML NEBU INHALATION SCH ×3 (05:33→15:37)
[2017-02-11 07:57] LABS: Glucose,Whole Blood 271 mg/dL (75-99)
[2017-02-11] MEDS: NON-FORMULARY DRUG (Omega-3 Fatty Acids/Fish Oil [Fish Oil 1,000 Mg Softgel] 1 CAP) PO SCH ×2 (08:11→14:02)
[2017-02-11] MEDS: INSULIN ASPART 100 UNIT/ML 1 ML 10 ML VIAL SQ SCH ×5 (08:13→21:46)
[2017-02-11] MEDS: ISOSORBIDE MONONITRATE ER 60 MG TAB.ER.24H PO SCH ×2 (08:14→21:38)
[2017-02-11] MEDS: SENNOSIDES-DOCUSATE SODIUM 1 EACH TAB PO SCH ×2 (08:14→21:39)
[2017-02-11] MEDS: FUROSEMIDE 20 MG TAB PO SCH ×2 (08:15→17:47)
[2017-02-11] MEDS: PANTOPRAZOLE 40 MG TABLET PO SCH (08:15)
[2017-02-11] MEDS: APIXABAN 2.5 MG TABLET PO SCH ×2 (08:15→21:39)
[2017-02-11] MEDS: AMIODARONE 200 MG TAB PO SCH (08:16)
[2017-02-11] MEDS: POTASSIUM CHLORIDE ER 10 MEQ TAB.ER.PRT PO SCH (08:17)
[2017-02-11 08:43] LABS: Calcium 9.2 mg/dL (8.4-10.2)
[2017-02-11] MEDS: FLUTICASONE 50MCG/SPRAY NASAL 16GM EA NOSTRIL SCH (09:47)
[2017-02-11] MEDS: INSULIN DETEMIR 100 UNIT/ML 10 ML VIAL SQ SCH ×2 (09:47→21:45)
[2017-02-11 12:31] LABS: Glucose,Whole Blood 307 mg/dL (75-99)
--- NOTE | 2017-02-11 12:45 | PN ---
PROGRESS NOTE Patient is seen for followup for acute chronic kidney disease. He has had urine retention overnight. The night nurse describes possible strictures in the urethra. The patient denies having seen a urologist previously. We will consult Urology. He had a postvoid residual of about 300. Previously it had been at 600. EXAMINATION: Blood pressure is 162/73, heart rate 66 per minute. Patient is afebrile. Examination of the heart: S1, S2. Examination lungs: Bilateral breath sounds are heard. Abdomen is soft, nontender. Examination lower extremities shows no significant edema. 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 Patient moving all 4 extremities. LAB: Show sodium of 140, potassium 5.0, BUN 70, serum creatinine 2.01. ASSESSMENT: 1. Chronic kidney disease. Renal function close to baseline, NKF stage IIIB. 2. Urine retention. We will consult Urology. Patient is maintained on Flomax. 3. History of lung adenocarcinoma with metastasis. PLAN: Consult Urology. Continue Flomax and continue to check postvoid residuals every shift. MMODL / IJN: [id number] /
[2017-02-11] MEDS: FERROUS SULFATE 325 MG TAB PO SCH ×2 (14:01→21:39)
[2017-02-11] MEDS: FOLIC ACID 1 MG TAB PO SCH (14:02)
[2017-02-11] MEDS: LACTOBACILLUS ACIDOPH & BULGAR 1 EACH PACKET PO SCH (14:03)
[2017-02-11] MEDS: CLOPIDOGREL 75 MG TAB PO SCH (14:03)
--- NOTE | 2017-02-11 17:27 | P.CONS ---
History of Present Illness - Reason for Consult Consult date: 02/11/17 brain metastases Requesting physician: Sumaya Bae - Chief Complaint left hemiparesis - History of Present Illness The patient is a 81-year-old male with a history of metastatic adenocarcinoma of the lung. The patient has previously undergone chemotherapy, however he stopped after one cycle due to poor tolerance. He has been followed with serial CT scans at the [facility], and his disease has been largely stable since May 2016. Unfortunately, over the past couple of weeks, the patient has had increasing difficulty with left hemiparesis. Specifically, his family notes that his gait had changed, he was having difficulty with ambulation and was unable to lift his left leg when lying down. During this time, the patient was also having intermittent headaches, but denies difficulty with nausea or vomiting. He was admitted to the ER on February 09, and a CT scan of the brain without contrast revealed a right parasagittal lesion 2.4 x 2, and left frontal mass 2.2 cm, and a left frontal parietal mass 1.1 cm. These masses did have vasogenic edema. The patient was started on Decadron, and subsequently has improved with regards to his weakness. Last night, he was able to ambulate with assistance to the nursing station. He did use a walker for this. Of note, the patient has a history of a pacemaker, he has no prior radiotherapy. Review of Systems Constitutional: Denies chills, Denies fever Eyes: denies blurred vision Cardiovascular: Reports dyspnea on exertion, Denies chest pain Respiratory: Denies cough Gastrointestinal: Denies change in bowel habits Musculoskeletal: Denies arm numbness/tingling Neurological: Reports headaches, Reports motor disturbance, Denies aphasia Psychiatric: Denies depression Past Medical History Past Medical History: Atrial Fibrillation, Coronary Artery Disease (CAD), Cancer , Heart Failure, COPD, Diabetes Mellitus, Hyperlipidemia, Hypertension, Myocardial Infarction (SC), Pneumonia, Prostate Disorder Additional Past Medical History / Comment(s): pt is rt side dominant.Chronic systolic heart failure, obstructive sleep apnea, benign prostatic hypertrophy, diabetes type 2 with diabetic neuropathy, 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, melanoma of left axillary, chronic renal failure, chronic anemia, coronary artery disease with previous cardiac catheterization and stenting, chronic back pain, coronary artery bypass surgery , pacemaker insertion, peripheral vascular disease, chronic atrial fibrillation , constipation,tremors in hands, rls, Last Myocardial Infarction Date:: unknown History of Any Multi-Drug Resistant Organisms: None Reported Past Surgical History: Back Surgery, Coronary Bypass/CABG, Heart Catheterization With Stent, Pacemaker Additional Past Surgical History / Comment(s): 5 vessel CABG, cardiac stentsx3, peripheral stents, pacemaker, left axillary melanoma resection.natalia cataracts, bronch/bx, past back sx-fusion. Past Anesthesia/Blood Transfusion Reactions: Previous Problems w/ Anesthesia Additional Past Anesthesia/Blood Transfusion Reaction / Comm: blood transfusion -no reaction. difficulty waking up after aa. Date of Last Stent Placement:: unknown Type of Cardiac Device: Permanent Pacemaker Device Placement Date:: 07-07-11 Past Psychological History: Anxiety Additional Psychological History / Comment(s): pt lives alone in single level home that has 2 porch steps. pt uses a cane when up slao has a rolling walker and glucometer. recieved no home care or outside services. Smoking Status: Former smoker Past Alcohol Use History: Occasional Additional Past Alcohol Use History / Comment(s): Patient started smoking at age 17 and quit at age 72. He denies any medical marijuana, marijuana, street drug use. He denies any alcohol abuse. Past Drug Use History: None Reported - Past Family History Mother Family Medical History: Diabetes Mellitus, Hyperlipidemia, Hypertension Additional Family Medical History / Comment(s): Mother is . Father Family Medical History: Diabetes Mellitus, Hyperlipidemia, Hypertension, Myocardial Infarction (SC) Additional Family Medical History / Comment(s): Father is from a myocardial infarction. Brother(s) Additional Family Medical History / Comment(s): has 11 brothers and 2 sisters. Patient has 2 sons and 2 daughters with no major medical problems. Medications and Allergies Home Medications Medication Instructions Recorded Confirmed Type Amiodarone [Cordarone] 100 mg PO DAILY 04/22/16 02/09/17 History Apixaban [Eliquis] 2.5 mg PO BID 04/22/16 02/09/17 History Aspirin EC [Ecotrin Low Dose] 81 mg PO W/SUPPER 04/22/16 02/09/17 History Atorvastatin [Lipitor] 40 mg PO HS 04/22/16 02/09/17 History Clopidogrel [Plavix] 75 mg PO W/LUNCH 04/22/16 02/09/17 History Ferrous Sulfate [Iron (65 MG 325 mg PO BID@1200,2100 04/22/16 02/09/17 History Elemental)] Folic Acid 1 mg PO DAILY@1200 04/22/16 02/09/17 History Ipratropium-Albuterol Nebulize 3 ml INHALATION RT-QID PRN 04/22/16 02/09/17 History [Duoneb 0.5 mg-3 mg/3 ml Soln] Isosorbide Mononitrate ER [Imdur] 60 mg PO BID 04/22/16 02/09/17 History [place]-3 Fatty Acids/Fish Oil [Fish 1 cap PO BID@0800,1200 04/22/16 02/09/17 History Oil 1,000 mg Softgel] Polyethylene Glycol 3350 [Miralax] 17 gm PO DAILY PRN 04/22/16 02/09/17 History Tamsulosin HCl [Flomax] 0.4 mg PO HS 04/22/16 02/09/17 History Vitamin B Complex 1 cap PO W/SUPPER 04/22/16 02/09/17 History amLODIPine [Norvasc] 5 mg PO W/SUPPER 04/22/16 02/09/17 History rOPINIRole HCL [Requip] 1 mg PO HS 04/22/16 02/09/17 History ALPRAZolam [Xanax] 0.25 mg PO DAILY PRN 05/09/16 02/09/17 History Albuterol Inhaler [Ventolin Hfa 1 - 2 puff INHALATION RT-Q6H PRN 05/09/16 History Inhaler] Pregabalin [Lyrica] 75 mg PO W/SUPPER 05/09/16 02/09/17 History Prochlorperazine [Compazine] 10 mg PO Q6H PRN 05/09/16 02/09/17 History Tiotropium 18 Mcg/Puff [Spiriva] 1 cap INHALATION RT-DAILY 05/09/16 02/09/17 History Zolpidem [Ambien] 5 mg PO HS PRN 05/09/16 02/09/17 History traMADol HCL [Ultram] 50 - 100 mg PO BID PRN 05/09/16 02/09/17 History Nitroglycerin Sl Tabs [Nitrostat] 0.4 mg SUBLINGUAL Q5M PRN #25 tab 05/12/1611/18 Rx Pantoprazole Sodium [Protonix] 40 mg PO DAILY #30 tablet. 05/12/16 02/09/17 Rx Potassium Chloride [K-Tab ER] 10 meq PO DAILY #0 05/12/16 02/09/17 Rx Carvedilol [Carvedilol] 25 mg PO W/SUPPER 02/09/17 02/09/17 History Carvedilol [Coreg] 12.5 mg PO BID@0800,1200 02/09/17 02/09/17 History Furosemide [Lasix] 60 mg PO BID-W/MEALS 02/09/17 02/09/17 History INSULIN LISPRO (humaLOG) [humaLOG] 12 unit SQ AC-BID 02/09/17 02/09/17 History Insulin Glargine [Lantus] 12 unit SQ BID 02/09/17 02/09/17 History L.acidoph,Paracasei, B.lactis 1 cap PO W/LUNCH 02/09/17 02/09/17 History [Probiotic] Lactulose [Cephulac] 30 gm PO DAILY PRN 02/09/17 02/09/17 History Melatonin 10 mg PO HS 02/09/17 02/09/17 History Sennosides-Docusate Sodium 2 tab PO BID 02/09/17 02/09/17 History [Senokot-S] amLODIPine [Norvasc] 2.5 mg PO W/BRKFST 02/09/17 02/09/17 History cloNIDine HCL [Catapres] 0.1 mg PO BID@0000,1200 02/09/17 02/09/17 History Allergies Allergy/AdvReac Type Severity Reaction Status Date / Time ciprofloxacin [From Cipro] Allergy Rash/Hives Verified 02/09/17 11:51 corticotropin Allergy SEVERE Verified 02/09/17 11:51 HYPERGLYCEMIA erythromycin base Allergy HIVES/SWELL Verified 02/09/17 11:51 ING gabapentin Allergy Swelling Verified 02/09/17 11:51 Iodinated Contrast- Oral and Allergy Unknown Verified 02/09/17 11:51 IV Dye [Iodinated Contrast Media - Oral and] Iodine and Iodide Containing Allergy Unknown Verified 02/09/17 11:51 Produc Penicillins Allergy Unknown Verified 02/09/17 11:51 pentoxifylline [From Trental] Allergy Unknown Verified 02/09/17 11:51 phenytoin [From Dilantin] Allergy Unknown Verified 02/09/17 11:51 sulfamethoxazole Allergy Unknown Verified 02/09/17 11:51 [From Bactrim] trimethoprim [From Bactrim] Allergy Unknown Verified 02/09/17 11:51 doxycycline AdvReac TREMORS Verified 02/09/17 11:51 hydralazine AdvReac Confusion Verified 02/09/17 11:51 prednisone AdvReac NERVOUSNESS Verified 02/09/17 11:51 Physical Exam Vitals: Vital Signs Temp Pulse Pulse Resp BP BP Pulse Ox 02/11/17 16:03 60 02/11/17 16:00 20 02/11/17 15:37 56 L 02/11/17 15:00 97.4 F L 60 20 145/67 97 02/11/17 09:12 60 02/11/17 08:55 64 02/11/17 08:00 60 20 02/11/17 07:00 97.2 F L 66 16 164/71 98 02/10/17 23:55 98.2 F 65 20 162/73 97 Intake and Output 02/11/17 02/11/17 02/11/17 06:59 14:59 22:59 Intake Total 100 320 Output Total 900 700 Balance -800 -380 Intake: Oral 100 320 Output: Urine 900 700 Other: Voiding Method Urinal Urinal Urinal # Voids 1 # Bowel Movements 0 - Constitutional General appearance: average body habitus - EENT Eyes: EOMI, PERRLA - Neck Neck: no lymphadenopathy - Respiratory Respiratory: bilateral: CTA - Cardiovascular Rhythm: regular - Gastrointestinal General gastrointestinal: normal bowel sounds - Neurologic Neurologic: CNII-XII intact, focal deficits - Musculoskeletal Musculoskeletal: gait normal - Psychiatric Psychiatric: A&O x's 3, appropriate affect LLE 4/5 strength, RLE 5/5, Bilateral UE 5/5. Results CBC & Chem 7: 02/10/17 07:16 02/11/17 07:46 Labs: Abnormal Lab Results - Last 24 Hours (Table) 02/10/17 02/10/17 02/11/17 Range/Units 16:58 21:38 07:13 BUN (9-20) mg/dL Creatinine (0.66-1.25) mg/dL Glucose (74-99) mg/dL POC Glucose (mg/dL) 310 H 238 H 271 H (75-99) mg/dL 02/11/17 02/11/17 Range/Units 07:46 11:45 BUN 70 H (9-20) mg/dL Creatinine 2.01 H (0.66-1.25) mg/dL Glucose 276 H (74-99) mg/dL POC Glucose (mg/dL) 307 H (75-99) mg/dL Microbiology - Last 24 Hours (Table) 02/09/17 12:20 Urine Culture - Final Urine,Voided CT scan - chest: report reviewed, image reviewed CT Scan - head: report reviewed, image reviewed Assessment and Plan Plan: 1. The patient presents with new diagnosis brain metastases. I discussed his case with Dr. Velazquez at [facility]. I discussed whole-brain radiotherapy as well as radiosurgery with the family. The family does have some concerns regarding the cognitive decline that can be associated with WBRT. Similarly Dr. Velazquez is worried that he has had an excellent performance status (still goes to work!) and may lose some of that independence after whole brain radiotherapy. Therefore, radiosurgery to the 3 lesions was discussed. Unfortunately, the patient cannot get an MRI due to his pacemaker. This would result in suboptimal planning for radiotherapy. The patient is stable to continue on decadron without urgent radiotherapy. I will initiate planning for radiosurgery this Tuesday. We will discuss this plan further with the family. Time with Patient: Greater than 30
[2017-02-11] MEDS ORDERED: INSULIN ASPART 100 UNIT/ML 1 ML 10 ML VIAL SQ SCH (17:30)
[2017-02-11 17:36] LABS: Glucose,Whole Blood 393 mg/dL (75-99)
[2017-02-11] MEDS: B COMPLEX-VIT C-VIT E-ZINC 1 EACH TAB PO SCH (17:47)
[2017-02-11] MEDS: ASPIRIN 81 MG PO SCH (17:48)
[2017-02-11] MEDS: PREGABALIN 75 MG CAP PO SCH (17:56)
[2017-02-11] MEDS: LACTULOSE 20 GM/30 ML CUP PO PRN (18:15)
[2017-02-11] MEDS ORDERED: IPRATROPIUM-ALBUTEROL 3 ML NEB INHALATION PRN (19:27)
[2017-02-11 21:05] LABS: Glucose,Whole Blood 391 mg/dL (75-99)
[2017-02-11] MEDS: IPRATROPIUM-ALBUTEROL 3 ML NEB INHALATION SCH (21:08)
[2017-02-11] MEDS: ATORVASTATIN 40 MG TAB PO SCH (21:39)
[2017-02-11] MEDS: TAMSULOSIN 0.4 MG CAP.ER.24H PO SCH (21:39)
[2017-02-11] MEDS: MELATONIN 5 MG TABLET PO SCH (21:39)
--- NOTE | 2017-02-11 21:51 | P.PN ---
Subjective Progress Note Date: 02/11/17 Michael Clemons is a 81-year-old right-handed white male who was seen in neurology consultation yesterday for evaluation of left-sided weakness and possible metastatic lesions to the brain. The patient has a history of being treated for non-small cell lung adenocarcinoma and is being followed by Dr. Velazquez at the [facility]. Patient was diagnosed earlier this year and has undergone 1-1/2 chemotherapy cycles. He had to stop those treatments due to side effect of the medications. The patient had developed significant left-sided weakness over a period of several days. This was his reason for evaluation and admission to the hospital yesterday. His CAT scan of the brain revealed 3 lesions suggesting metastatic disease. There was no evidence of acute hemorrhage. The patient was started on Decadron as there was moderate degree of edema surrounding these lesions. Since starting on the Decadron the patient has noted improvement with his left-sided weakness. He has an able to use his leg and arm easily and feels there is improvement with muscle strength of his left side. Apparently his oncologist at the [facility] Dr. Velazquez has been contacted regarding this patient' s overall findings. He is been suggesting the patient should be seen by radiation oncology for their opinion. He will follow-up with Dr. Velazquez soon after discharge from the hospital. The patient underwent a routine EEG today which was reviewed. His EEG was mildly abnormal with slight slowing however there was no evidence of any epileptiform discharges. We reviewed the results of the EEG today with the patient at bedside. The patient denies any headache symptoms today. He has been able to get up and ambulate fairly well today. We will await further recommendations from oncology and radiation oncology in terms of management of his lung cancer and metastatic disease.the patient was seen today by radiation oncology and Dr. Jeremiah Eli. Dr. Eli had a long discussion with the patient and his daughter. Various treatment options were discussed in detail. Dr. Velazquez was also informed of these findings today. Treatment options discussed included whole brain radiation vs. radiosurgery. The risk and benefits of both procedures were discussed with the patient and his daughter. The patient himself is leaning more towards radiosurgery procedure. We will await further recommendations from Dr. Eli. The patient continues to do fairly well otherwise. He denies any headaches this evening. We will continue close neurological follow-up with this patient during this admission. Objective - Vital Signs Vital signs: Vital Signs Temp 97.4 F L 02/11/17 15:00 Pulse 60 02/11/17 16:03 Resp 20 02/11/17 16:00 BP 145/67 02/11/17 15:00 Pulse Ox 97 02/11/17 15:00 Intake & Output 02/11/17 02/11/17 02/12/17 06:59 18:59 06:59 Intake Total 300 320 Output Total 900 700 Balance -600 -380 Intake: Oral 300 320 Output: Urine 900 700 Other: Voiding Method Urinal Urinal # Voids 1 # Bowel Movements 0 - Exam Physical examination: PHYSICAL EXAMINATION: Patient is resting comfortably in bed. VITAL SIGNS: Blood pressure is [145/67]. Heart rate is [60]. Respiration is [20] . Temperature is [97.4]. HEENT: Head is atraumatic, neck is supple, there were no carotid bruits. CHEST: Lungs are clear to auscultation and percussion. CARDIAC: S1, S2 normal rate and rhythm. There is no murmur. ABDOMEN: Soft and nontender. Bowel sounds are present. EXTREMITIES: There is no pedal edema. Peripheral pulses are present. Neurological examination: Patient is awake alert and oriented 3. His speech is fluent with no evidence of any aphasia or dysarthria. His memory and intellectual functions are appropriate for his age. Cranial nerve examination: Cranial nerves II through XII are grossly intact. Motor examination: There was no pronator drift. Muscle tone is normal. Muscle strength testing reveals 4/5 strength throughout. Sensory examination was intact. Deep tendon reflexes: The DTRs are 1+ and symmetric. Plantar responses flexor bilaterally. Coordination: Finger to nose was performed normally. Gait: Patient has normal based gait. - Labs CBC & Chem 7: 02/10/17 07:16 02/11/17 07:46 Labs: Abnormal Lab Results - Last 24 Hours (Table) 02/10/17 02/11/17 02/11/17 Range/Units 21:38 07:13 07:46 BUN 70 H (9-20) mg/dL Creatinine 2.01 H (0.66-1.25) mg/dL Glucose 276 H (74-99) mg/dL POC Glucose (mg/dL) 238 H 271 H (75-99) mg/dL 02/11/17 02/11/17 Range/Units 11:45 17:18 BUN (9-20) mg/dL Creatinine (0.66-1.25) mg/dL Glucose (74-99) mg/dL POC Glucose (mg/dL) 307 H 393 H (75-99) mg/dL Microbiology - Last 24 Hours (Table) 02/09/17 12:20 Urine Culture - Final Urine,Voided Assessment and Plan (1) Brain metastasis Current Visit: Yes Status: Acute Priority: High Code(s): C79.31 - SECONDARY MALIGNANT NEOPLASM OF BRAIN SNOMED Code(s): 38955132 (2) Left-sided weakness Current Visit: Yes Status: Acute Priority: High Code(s): R53.1 - WEAKNESS SNOMED Code(s): 609535449 (3) Lung cancer Current Visit: Yes Status: Acute Code(s): C34.90 - MALIGNANT NEOPLASM OF UNSP PART OF UNSP BRONCHUS OR LUNG SNOMED Code(s): 478803105 (4) Diabetes mellitus Current Visit: Yes Status: Acute Code(s): E11.9 - TYPE 2 DIABETES MELLITUS WITHOUT COMPLICATIONS SNOMED Code(s): 76263105 (5) Atrial fibrillation Current Visit: Yes Status: Acute Code(s): I48.91 - UNSPECIFIED ATRIAL FIBRILLATION SNOMED Code(s): 09574287 (6) Coronary artery disease Current Visit: Yes Status: Acute Code(s): I25.10 - ATHSCL HEART DISEASE OF [place] CORONARY ARTERY W/O ANG PCTRS SNOMED Code(s): 84095977 Plan: this patient is a pleasant 81-year-old gentleman who has a history of metastatic adenocarcinoma of the lung. He is undergone chemotherapy for this condition and is being followed closely at the [facility] by Dr. Velazquez. The patient came in due to left-sided weakness and had a computed tomography scan of the brain performed which reveals 3 probable metastatic lesions to the brain. Patient was seen by radiation oncology today and they are considering treatment plans via radiosurgery. We will await further recommendations from Dr. Eli. The patient otherwise continues to do quite well today. We will continue close neurological follow-up with this patient during this admission. His overall prognosis at this time remains guarded.
--- NOTE | 2017-02-11 23:43 | P.PN ---
Subjective Progress Note Date: 02/11/17 Principal diagnosis: Left-sided weakness Patient is a 81-year-old male with a known history of adenocarcinoma the lung with metastasis to brain status post chemotherapy 2, CHF with systolic dysfunction diabetes type 2, coronary artery disease with history of stent and CABG, stent placement and multiple other medical problems came to ER with complaints of left-sided weakness. Patient has been having progressive left- sided weakness and also decrease able to walk over the past 4 days. Patient also slightly confused and was having headache as well. Patient otherwise did not have any nausea or vomiting. No recent trauma. Patients daughter is at bedside. Patient otherwise denied any fever or chills. No recent illnesses or sick contacts at home. EKG showed AV dual paced rhythm CT head showed hiatal right parasagittal lesion noted of increased attenuation measuring 2.4 x 2 which may reflect meningioma are metastatic lesion. 02/10/2017 Patient's left lower and upper extremity strength improved today. Repeat CT head was ordered. Patient being continued on IV steroids. Patient is having hyperglycemia due to steroids and insulin dose has been adjusted. Renal function improved with creatinine 1.68. No other acute overnight issues. Patient is more awake and oriented today. 02/11/2017 Patient's left sided weakness is much improved now. Able to ambulate and sit in the change. Otherwise patient had repeat CT head was done showed 3 metastatic lesions. Patient's oncologist is at [facility], Dr. Velazquez was contacted. Patient was also seen by radiation oncology and recommended possible radiation on Tuesday. MRI could not be done due to his pacemaker. Otherwise patient is still having hyperglycemia due to steroids and insulin dose has been increased and adjusted today. No fever no chills. Otherwise no acute overnight issues. All other review of systems negative except the above Current medications reviewed. Objective - Vital Signs Vital signs: Vital Signs Temp 97.4 F L 02/11/17 15:00 Pulse 64 02/11/17 21:30 Resp 20 02/11/17 16:00 BP 145/67 02/11/17 15:00 Pulse Ox 97 02/11/17 15:00 Intake & Output 02/11/17 02/11/17 02/12/17 06:59 18:59 06:59 Intake Total 300 320 Output Total 900 700 Balance -600 -380 Intake: Oral 300 320 Output: Urine 900 700 Other: Voiding Method Urinal Urinal # Voids 1 # Bowel Movements 0 - Exam PHYSICAL EXAMINATION: Patient is lying in the bed comfortably, no acute distress, awake alert and oriented.. HEENT: Normocephalic. Neck is supple. Pupils reactive. Nostrils clear. Oral cavity is moist. Ears reveal no drainage. Neck reveals no JVD, carotid bruits, or thyromegaly. CHEST EXAMINATION: Trachea is central. Symmetrical expansion. Lung quick clear to auscultation and percussion. CARDIAC: Normal S1, S2 with no gallops. No murmurs ABDOMEN: Soft. Bowel sounds normal. No organomegaly. No abdominal bruits. Extremities: reveal no edema. No clubbing or cyanosis Neurologically awake, alert, oriented x3 with well-coordinated movements. Left- sided weakness almost resolved Skin: No rash or skin lesions. Psychiatric: Cooperative. Nonsuicidal Musculoskeletal: No joint swelling or deformity. Normal range of motion. - Labs CBC & Chem 7: 02/10/17 07:16 02/11/17 07:46 Labs: Abnormal Lab Results - Last 24 Hours (Table) 02/11/17 02/11/17 02/11/17 Range/Units 07:13 07:46 11:45 BUN 70 H (9-20) mg/dL Creatinine 2.01 H (0.66-1.25) mg/dL Glucose 276 H (74-99) mg/dL POC Glucose (mg/dL) 271 H 307 H (75-99) mg/dL 02/11/17 02/11/17 Range/Units 17:18 21:04 BUN (9-20) mg/dL Creatinine (0.66-1.25) mg/dL Glucose (74-99) mg/dL POC Glucose (mg/dL) 393 H 391 H (75-99) mg/dL Microbiology - Last 24 Hours (Table) 02/09/17 12:20 Urine Culture - Final Urine,Voided Assessment and Plan Assessment: #1 left-sided weakness most likely due to brain metastasis involving right parasagittal area as per CT head. Repeat head showed 3 brain lesions. Radiation oncology is planning for radiotherapy on Tuesday. #2 adenocarcinoma the lung stage IV. With history of 2 courses of chemotherapy #2 acute kidney injury most likely prerenal. Improved #3 chronic kidney disease stage III #4 chronic atrial fibrillation on anticoagulation #5 coronary artery disease with history of stent placement and CABG #6 CHF with systolic dysfunction chronic #7 Ischemic cardio myopathy #8 pacemaker placement history #9 BPH #10 diabetes type 2 insulin-dependent. Uncontrolled due to steroids #11 diabetic neuropathy #12 hypertension #13 hyperlipidemia #14 COPD stable #15 and chronic back pain #16 peripheral vascular disease #17 Amaury in hands #18 melanoma left axillary resection history Plan: Patient will be continued on dexamethasone IV every 6 hourly. \ We'll continue the insulin Levemir and sliding scale and added preprandial insulin. 3 times a day before meals and monitor CBG. Neurology is following. Repeat CT head showed 3 foci of lesions. Will follow renal function. Prognosis is poor. Patient does have multiple medical problems and comorbid conditions along with stage IV lung cancer. Further recommendations based on the clinical course. Discussed with his daughter at bedside in detail. Time with Patient: Greater than 30
[2017-02-12] MEDS: CARVEDILOL 12.5 MG TAB PO SCH ×2 (00:25→13:16)
[2017-02-12] MEDS: amLODIPine 2.5 MG TAB PO SCH ×2 (00:25→13:16)
[2017-02-12] MEDS: DEXAMETHASONE SOD PHOSPHATE 4 MG/ML 1 ML VIAL IV SCH ×3 (00:25→13:15)
[2017-02-12] MEDS: cloNIDine HCL 0.1 MG TAB PO SCH ×3 (00:25→13:16)
[2017-02-12 06:42] VITALS: RESP 16; TEMP 96.4
[2017-02-12 07:26] LABS: Glucose,Whole Blood 256 mg/dL (75-99)
[2017-02-12] MEDS: POTASSIUM CHLORIDE ER 10 MEQ TAB.ER.PRT PO SCH (08:03)
[2017-02-12] MEDS: APIXABAN 2.5 MG TABLET PO SCH (08:03)
[2017-02-12] MEDS: FUROSEMIDE 20 MG TAB PO SCH (08:03)
[2017-02-12] MEDS: INSULIN DETEMIR 100 UNIT/ML 10 ML VIAL SQ SCH (08:03)
[2017-02-12] MEDS: FLUTICASONE 50MCG/SPRAY NASAL 16GM EA NOSTRIL SCH (08:05)
[2017-02-12] MEDS: NON-FORMULARY DRUG (Omega-3 Fatty Acids/Fish Oil [Fish Oil 1,000 Mg Softgel] 1 CAP) PO SCH ×2 (08:05→13:14)
[2017-02-12] MEDS: AMIODARONE 200 MG TAB PO SCH (08:05)
[2017-02-12] MEDS: ISOSORBIDE MONONITRATE ER 60 MG TAB.ER.24H PO SCH (08:05)
[2017-02-12] MEDS: PANTOPRAZOLE 40 MG TABLET PO SCH (08:06)
[2017-02-12] MEDS: INSULIN ASPART 100 UNIT/ML 1 ML 10 ML VIAL SQ SCH ×4 (08:15→13:26)
[2017-02-12] MEDS: LACTULOSE 20 GM/30 ML CUP PO PRN (08:16)
[2017-02-12] MEDS: SENNOSIDES-DOCUSATE SODIUM 1 EACH TAB PO SCH (08:20)
[2017-02-12] MEDS: IPRATROPIUM-ALBUTEROL 3 ML NEB INHALATION SCH ×2 (08:25→13:29)
[2017-02-12 11:17] VITALS: BP 148/62
[2017-02-12 12:48] LABS: Glucose,Whole Blood 225 mg/dL (75-99)
--- NOTE | 2017-02-12 12:55 | P.PN ---
Subjective Patient is seen in follow-up for acute kidney injury on chronic kidney disease. Patient has chronic kidney disease stage IIIB with baseline creatinine in the range of 1.6-2.2. Creatinine as of yesterday was 2. He is noted to have urinary retention however in the last 24 hours he has not required straight catheterization. Flomax has been resumed. He denies any chest pain or shortness of breath. He is noted to have lung cancer with metastatic disease and is scheduled to undergo radiotherapy next week. Vital signs are stable. General: The patient appeared well nourished and normally developed. HEENT: Head exam is unremarkable. Neck is without jugular venous distension. LUNGS: Lungs are clear to auscultation and percussion. Breath sounds decreased. HEART: Rate and Rhythm are regular. First and second heart sounds normal. No murmurs, rubs or gallops. ABDOMEN: Abdominal exam reveals normal bowel sounds. Non-tender and non- distended. No evidence of peritonitis. EXTREMITITES: No clubbing, cyanosis, or edema. Objective - Vital Signs Vital signs: Vital Signs Temp 96.4 F L 02/12/17 06:41 Pulse 72 02/12/17 08:36 Resp 16 02/12/17 06:41 BP 148/62 02/12/17 11:17 Pulse Ox 92 L 02/12/17 06:41 Intake & Output 02/11/17 02/12/17 02/12/17 18:59 06:59 18:59 Intake Total 320 Output Total 700 850 Balance -380 -850 Weight 93 kg Intake: Oral 320 Output: Urine 700 850 Other: Voiding Method Urinal Urinal - Labs CBC & Chem 7: 02/10/17 07:16 02/11/17 07:46 Labs: Abnormal Lab Results - Last 24 Hours (Table) 02/11/17 02/11/17 02/12/17 Range/Units 17:18 21:04 07:12 POC Glucose (mg/dL) 393 H 391 H 256 H (75-99) mg/dL 02/12/17 Range/Units 12:45 POC Glucose (mg/dL) 225 H (75-99) mg/dL Assessment and Plan Plan: Assessment: #1. Nonoliguric acute kidney injury mostly prerenal related to hemodynamic instability as well as a component of urinary retention . Resolved. GFR is near baseline. #2. Chronic kidney disease stage IIIB with baseline creatinine near 2. Etiology is nephrosclerosis. Urinalysis is benign. #3. Urinary retention maintained on Flomax. #4. Right-sided weakness possibly related to metastatic disease to the brain. Neurology following. #5. History of lung adenocarcinoma with metastatic disease. #6. Hypertension with chronic kidney disease. His blood pressures have been quite labile. He is currently also on dexamethasone for vasogenic edema which can also be a contributor factor. His blood pressure medications were recently decreased as he was having low blood pressures. He can continue current medications which can be further adjusted as an outpatient. Plan: Avoid nephrotoxic agents and hypotensive episodes. Potential discharge today. He will need to follow-up with urology as an outpatient in the next 1-2 weeks as well as CKD clinic in the next 2 weeks.
[2017-02-12] MEDS: LACTOBACILLUS ACIDOPH & BULGAR 1 EACH PACKET PO SCH (13:15)
[2017-02-12] MEDS: FERROUS SULFATE 325 MG TAB PO SCH (13:16)
[2017-02-12] MEDS: FOLIC ACID 1 MG TAB PO SCH (13:16)
[2017-02-12] MEDS: CLOPIDOGREL 75 MG TAB PO SCH (13:16)
[2017-02-12 13:41] VITALS: PULSE 78
[2017-02-12] MEDS ORDERED: DEXAMETHASONE SOD PHOSPHATE 4 MG/ML 1 ML VIAL PO SCH (18:00)
--- NOTE | 2017-02-12 23:56 | P.DS ---
Providers Date of admission: 02/09/17 13:04 Expected date of discharge: 02/12/17 Attending physician: Chloé Murcia Consults: 02/09/17 13:04 Consult Physician Routine Consulting Provider: Trey Bruno Consult Reason/Comments: brainMets Do you want consulting provider notified?: Yes 02/09/17 16:01 Consult Physician Routine Consulting Provider: Juan J Onofre Consult Reason/Comments: brain CA Do you want consulting provider notified?: Yes 02/10/17 11:02 Consult Physician Routine Consulting Provider: Sonia Marin Consult Reason/Comments: elevated BUN/Creatinine Do you want consulting provider notified?: Yes 02/10/17 18:05 Consult Physician Routine Consulting Provider: Jeremiah Eli Consult Reason/Comments: brain mets, sterotactic vs whole brain? opinion only at this time Do you want consulting provider notified?: Yes, Notify in am Primary care physician: Amaury Reddy [facility] Course: Discharge diagnosis #1 left-sided weakness most likely due to brain metastasis involving right parasagittal area as per CT head. Repeat head showed 3 brain lesions. Radiation oncology is planning for radiotherapy on Tuesday. Left-sided weakness almost resolved with IV Decadron. #2 adenocarcinoma the lung stage IV. With history of 2 courses of chemotherapy #2 acute kidney injury most likely prerenal. Improved #3 chronic kidney disease stage III #4 chronic atrial fibrillation on anticoagulation #5 coronary artery disease with history of stent placement and CABG #6 CHF with systolic dysfunction chronic #7 Ischemic cardio myopathy #8 pacemaker placement history #9 BPH #10 diabetes type 2 insulin-dependent. Uncontrolled due to steroids #11 diabetic neuropathy #12 hypertension #13 hyperlipidemia #14 COPD stable #15 and chronic back pain #16 peripheral vascular disease #17 Amaury in hands #18 melanoma left axillary resection history Hospital course Patient is a 81-year-old male with a known history of adenocarcinoma the lung with metastasis to brain status post chemotherapy 2, CHF with systolic dysfunction diabetes type 2, coronary artery disease with history of stent and CABG, stent placement and multiple other medical problems came to ER with complaints of left-sided weakness. Patient has been having progressive left- sided weakness and also decrease able to walk over the past 4 days. Patient also slightly confused and was having headache as well. Patient otherwise did not have any nausea or vomiting. No recent trauma. Patients daughter is at bedside. Patient otherwise denied any fever or chills. No recent illnesses or sick contacts at home. EKG showed AV dual paced rhythm CT head showed hiatal right parasagittal lesion noted of increased attenuation measuring 2.4 x 2 which may reflect meningioma are metastatic lesion. 02/10/2017 Patient's left lower and upper extremity strength improved today. Repeat CT head was ordered. Patient being continued on IV steroids. Patient is having hyperglycemia due to steroids and insulin dose has been adjusted. Renal function improved with creatinine 1.68. No other acute overnight issues. Patient is more awake and oriented today. 02/11/2017 Patient's left sided weakness is much improved now. Able to ambulate and sit in the change. Otherwise patient had repeat CT head was done showed 3 metastatic lesions. Patient's oncologist is at [facility], Dr. Velazquez was contacted. Patient was also seen by radiation oncology and recommended possible radiation on Tuesday. MRI could not be done due to his pacemaker. Otherwise patient is still having hyperglycemia due to steroids and insulin dose has been increased and adjusted today. No fever no chills. Otherwise no acute overnight issues. 02/12/2017 Patient's left-sided weakness is resolved. Blood sugars are still elevated but improved with increase the insulin dose. Patient was to be discharged home. Patient will be followed with Dr. Eli for radiation therapy on Tuesday. Patient will be continued on Decadron by mouth every 6 hourly and gradual taper after oncology follow-up. Patient was continued on dexamethasone IV every 6 hourly. continue the insulin Levemir and sliding scale and added preprandial insulin. 3 times a day before meals and monitor CBG. Neurology has seen the patient. Repeat CT head showed 3 foci of lesions. Prognosis is poor. Patient does have multiple medical problems and comorbid conditions along with stage IV lung cancer. Patient will be discharged home and follow with radiation oncology on Tuesday. Discharge physical examination was done Patient Condition at Discharge: Serious Plan - Discharge Summary Discharge Rx Participant: Yes New Discharge Prescriptions: New Insulin Aspart [NovoLOG (formulary)] 12 unit SQ AC-TID vial Insulin Aspart [NovoLOG (formulary)] See Protocol SQ ACHS #1 vial Dexamethasone 4 mg PO Q6HR #20 tablet Continue Polyethylene Glycol 3350 [Miralax] 17 gm PO DAILY PRN PRN Reason: Constipation Ipratropium-Albuterol Nebulize [Duoneb 0.5 mg-3 mg/3 ml Soln] 3 ml INHALATION RT-QID PRN PRN Reason: Shortness Of Breath Isosorbide Mononitrate ER [Imdur] 60 mg PO BID Ferrous Sulfate [Iron (65 MG Elemental)] 325 mg PO BID@1200,2100 amLODIPine [Norvasc] 5 mg PO W/SUPPER [place]-3 Fatty Acids/Fish Oil [Fish Oil 1,000 mg Softgel] 1 cap PO BID@0800, 1200 Apixaban [Eliquis] 2.5 mg PO BID Vitamin B Complex 1 cap PO W/SUPPER rOPINIRole HCL [Requip] 1 mg PO HS Clopidogrel [Plavix] 75 mg PO W/LUNCH Atorvastatin [Lipitor] 40 mg PO HS Folic Acid 1 mg PO DAILY@1200 Tamsulosin HCl [Flomax] 0.4 mg PO HS Aspirin EC [Ecotrin Low Dose] 81 mg PO W/SUPPER Amiodarone [Cordarone] 100 mg PO DAILY Pregabalin [Lyrica] 75 mg PO W/SUPPER Tiotropium 18 Mcg/Puff [Spiriva] 1 cap INHALATION RT-DAILY Albuterol Inhaler [Ventolin Hfa Inhaler] 1 - 2 puff INHALATION RT-Q6H PRN PRN Reason: Shortness Of Breath traMADol HCL [Ultram] 50 - 100 mg PO BID PRN PRN Reason: Pain Zolpidem [Ambien] 5 mg PO HS PRN PRN Reason: Insomnia ALPRAZolam [Xanax] 0.25 mg PO DAILY PRN PRN Reason: Anxiety Prochlorperazine [Compazine] 10 mg PO Q6H PRN PRN Reason: Nausea Nitroglycerin Sl Tabs [Nitrostat] 0.4 mg SUBLINGUAL Q5M PRN #25 tab PRN Reason: CHEST PAIN Pantoprazole Sodium [Protonix] 40 mg PO DAILY #30 tablet.dr Potassium Chloride [K-Tab ER] 10 meq PO DAILY #0 amLODIPine [Norvasc] 2.5 mg PO W/BRKFST Carvedilol 25 mg PO W/SUPPER Carvedilol [Coreg] 12.5 mg PO BID@0800,1200 cloNIDine HCL [Catapres] 0.1 mg PO BID@0000,1200 Furosemide [Lasix] 60 mg PO BID-W/MEALS L.acidoph,Paracasei, B.lactis [Probiotic] 1 cap PO W/LUNCH Melatonin 10 mg PO HS Sennosides-Docusate Sodium [Senokot-S] 2 tab PO BID Lactulose [Cephulac] 30 gm PO DAILY PRN PRN Reason: Constipation Changed Insulin Glargine [Lantus] 15 unit SQ BID #0 Discontinued INSULIN LISPRO (humaLOG) [humaLOG] 12 unit SQ AC-BID Discharge Medication List Amiodarone [Cordarone] 100 mg PO DAILY 04/22/16 [History] Apixaban [Eliquis] 2.5 mg PO BID 04/22/16 [History] Aspirin EC [Ecotrin Low Dose] 81 mg PO W/SUPPER 04/22/16 [History] Atorvastatin [Lipitor] 40 mg PO HS 04/22/16 [History] Clopidogrel [Plavix] 75 mg PO W/LUNCH 04/22/16 [History] Ferrous Sulfate [Iron (65 MG Elemental)] 325 mg PO BID@1200,2100 04/22/16 [ History] Folic Acid 1 mg PO DAILY@1200 04/22/16 [History] Ipratropium-Albuterol Nebulize [Duoneb 0.5 mg-3 mg/3 ml Soln] 3 ml INHALATION RT -QID PRN 04/22/16 [History] Isosorbide Mononitrate ER [Imdur] 60 mg PO BID 04/22/16 [History] [place]-3 Fatty Acids/Fish Oil [Fish Oil 1,000 mg Softgel] 1 cap PO BID@0800,1200 04/22/16 [History] Polyethylene Glycol 3350 [Miralax] 17 gm PO DAILY PRN 04/22/16 [History] Tamsulosin HCl [Flomax] 0.4 mg PO HS 04/22/16 [History] Vitamin B Complex 1 cap PO W/SUPPER 04/22/16 [History] amLODIPine [Norvasc] 5 mg PO W/SUPPER 04/22/16 [History] rOPINIRole HCL [Requip] 1 mg PO HS 04/22/16 [History] ALPRAZolam [Xanax] 0.25 mg PO DAILY PRN 05/09/16 [History] Albuterol Inhaler [Ventolin Hfa Inhaler] 1 - 2 puff INHALATION RT-Q6H PRN [History] Pregabalin [Lyrica] 75 mg PO W/SUPPER 05/09/16 [History] Prochlorperazine [Compazine] 10 mg PO Q6H PRN 05/09/16 [History] Tiotropium 18 Mcg/Puff [Spiriva] 1 cap INHALATION RT-DAILY 05/09/16 [History] Zolpidem [Ambien] 5 mg PO HS PRN 05/09/16 [History] traMADol HCL [Ultram] 50 - 100 mg PO BID PRN 05/09/16 [History] Nitroglycerin Sl Tabs [Nitrostat] 0.4 mg SUBLINGUAL Q5M PRN #25 tab 05/12/16 [Rx ] Pantoprazole Sodium [Protonix] 40 mg PO DAILY #30 tablet.dr 05/12/16 [Rx] Potassium Chloride [K-Tab ER] 10 meq PO DAILY #0 05/12/16 [Rx] Carvedilol 25 mg PO W/SUPPER 02/09/17 [History] Carvedilol [Coreg] 12.5 mg PO BID@0800,1200 02/09/17 [History] Furosemide [Lasix] 60 mg PO BID-W/MEALS 02/09/17 [History] L.acidoph,Paracasei, B.lactis [Probiotic] 1 cap PO W/LUNCH 02/09/17 [History] Lactulose [Cephulac] 30 gm PO DAILY PRN 02/09/17 [History] Melatonin 10 mg PO HS 02/09/17 [History] Sennosides-Docusate Sodium [Senokot-S] 2 tab PO BID 02/09/17 [History] amLODIPine [Norvasc] 2.5 mg PO W/BRKFST 02/09/17 [History] cloNIDine HCL [Catapres] 0.1 mg PO BID@0000,1200 02/09/17 [History] Dexamethasone 4 mg PO Q6HR #20 tablet 02/12/17 [Rx] Insulin Aspart [NovoLOG (formulary)] 12 unit SQ AC-TID vial 02/12/17 [Rx] Insulin Aspart [NovoLOG (formulary)] See Protocol SQ ACHS #1 vial 02/12/17 [Rx] Insulin Glargine [Lantus] 15 unit SQ BID #0 02/12/17 [Rx] Follow up Appointment(s)/Referral(s): Jeremiah Eli MD [STAFF PHYSICIAN] - 02/14/17 Amaury Carson MD [STAFF PHYSICIAN] - 1 Week Amaury Reddy MD [Primary Care Provider] - 1-2 days Patient Instructions/Handouts: Heart Failure (DC), Type 2 Diabetes in Adults ( DC) Discharge Disposition: HOME SELF-CARE
--- NOTE | 2017-03-06 21:23 | EEG ---
ELECTROENCEPHALOGRAM REPORT DATE OF EE02/10/2017. REFERRING PHYSICIAN: Dr. Murcia. CONSULTING AND INTERPRETING PHYSICIAN: Dr. Trey Bruno. INDICATION FOR EXAMINATION: This patient is a 81-year-old male being evaluated for episode of TIA versus stroke. AGE: 81. EEG FINDINGS: A routine 21-channel awake digital EEG recording was accomplished utilizing the 10-20 international system with bipolar and referential montages. The background activity in the most alert resting state consists of a low to medium amplitude, fairly well- developed and well-sustained 6-7 Hz activity over the posterior head regions. This posterior rhythm attenuates to eye opening. There is a small amount of low amplitude 18-20 Hz beta activity seen maximally over the anterior head regions. Muscle and movement artifact was observed on a few occasions during the tracing. Hyperventilation was not performed. Photic stimulation at flash frequencies of 2-30 Hz produced a minimal occipital driving response. No epileptiform discharges were seen. Toward the mid and lateral portion of the tracing, the patient does drift into spontaneous drowsiness. IMPRESSION: This EEG is mildly abnormal in a diffuse fashion due to slowing of the EEG background. The EEG failed to reveal any focal, lateralized or epileptiform abnormalities. Clinical correlation is recommended. MMODL / IJN: [id number] /
== END 2017-02-12 16:36 | disposition home or self-care (01) | DRG 54 ==
LOC: EC 10:55 → 4MS4W 13:04
PROVIDERS: ADMIT Hospitalist; ATTEND Hospitalist
DX: C79.31 Secondary malignant neoplasm of brain (principal); G93.6 Cerebral edema; N17.9 Acute kidney failure, unspecified; E11.22 Type 2 diabetes mellitus with diabetic chronic kidney disease; C34.90 Malignant neoplasm of unspecified part of unspecified bronchus or lung; I13.0 Hypertensive heart and chronic kidney disease with heart failure and stage 1 through stage 4 chronic kidney disease, or unspecified chronic kidney disease; G81.94 Hemiplegia, unspecified affecting left nondominant side; I50.22 Chronic systolic (congestive) heart failure; D64.9 Anemia, unspecified; E11.40 Type 2 diabetes mellitus with diabetic neuropathy, unspecified; Z85.820 Personal history of malignant melanoma of skin; E11.51 Type 2 diabetes mellitus with diabetic peripheral angiopathy without gangrene; E11.65 Type 2 diabetes mellitus with hyperglycemia; E78.5 Hyperlipidemia, unspecified; G25.81 Restless legs syndrome; G47.33 Obstructive sleep apnea (adult) (pediatric); G89.29 Other chronic pain; I25.10 Atherosclerotic heart disease of native coronary artery without angina pectoris; I25.2 Old myocardial infarction; I25.5 Ischemic cardiomyopathy; I48.2 Chronic atrial fibrillation; J44.9 Chronic obstructive pulmonary disease, unspecified; N18.3 Chronic kidney disease, stage 3 (moderate); N40.1 Benign prostatic hyperplasia with lower urinary tract symptoms; R33.8 Other retention of urine; T38.0X5A Adverse effect of glucocorticoids and synthetic analogues, initial encounter; Z79.01 Long term (current) use of anticoagulants; Z79.4 Long term (current) use of insulin; Z79.899 Other long term (current) drug therapy; Z82.49 Family history of ischemic heart disease and other diseases of the circulatory system; Z83.3 Family history of diabetes mellitus; Z87.891 Personal history of nicotine dependence; Z92.21 Personal history of antineoplastic chemotherapy; Z95.0 Presence of cardiac pacemaker; Z95.1 Presence of aortocoronary bypass graft; Z95.5 Presence of coronary angioplasty implant and graft; Z88.1 Allergy status to other antibiotic agents; Z88.0 Allergy status to penicillin; Z88.2 Allergy status to sulfonamides; Z88.8 Allergy status to other drugs, medicaments and biological substances; Z60.2 Problems related to living alone; Z98.1 Arthrodesis status; K59.00 Constipation, unspecified; Z87.01 Personal history of pneumonia (recurrent); Z79.82 Long term (current) use of aspirin
CPT/HCPCS: 36415; 70450; 80048; 80053; 81003; 82550; 82553; 83036; 83735; 84100; 84484; 85025; 85610; 85730; 87086; 93005; 94640; 95819; 96361; 96374; 96375; 99285

== ENCOUNTER 2017-02-14 16:42 | Inpatient (IN) | payer MEDICARE ==
--- NOTE | 2017-02-14 16:57 | ED ---
General Adult HPI - General Chief complaint: Recheck/Abnormal Lab/Rx Stated complaint: Hyperglycemia Time Seen by Provider: 02/14/17 16:56 Source: patient, RN notes reviewed, old records reviewed Mode of arrival: wheelchair Limitations: no limitations - History of Present Illness Initial comments: this is a 81-year-old male to the ER for evaluation of abnormal lab tests. Elevated blood sugar. Patient has history of diabetes and currently is receiving steroids and adjunction to his chemotherapy. Patient has no nausea vomiting no chest pain or shortness of breath no bowel pain no diarrhea. No fevers. Taking all medications as directed - Related Data Home Medications Medication Instructions Recorded Confirmed Amiodarone [Cordarone] 100 mg PO W/BRKFST 04/22/16 02/14/17 Apixaban [Eliquis] 2.5 mg PO BID 04/22/16 02/14/17 Aspirin EC [Ecotrin Low Dose] 81 mg PO W/SUPPER 04/22/16 02/14/17 Atorvastatin [Lipitor] 40 mg PO HS 04/22/16 02/14/17 Clopidogrel [Plavix] 75 mg PO W/LUNCH 04/22/16 02/14/17 Ferrous Sulfate [Iron (65 MG 325 mg PO BID@1200,2100 04/22/16 02/14/17 Elemental)] Folic Acid 1 mg PO DAILY@1200 04/22/16 02/14/17 Ipratropium-Albuterol Nebulize 3 ml INHALATION RT-QID PRN 04/22/16 02/14/17 [Duoneb 0.5 mg-3 mg/3 ml Soln] Isosorbide Mononitrate ER [Imdur] 60 mg PO BID 04/22/16 02/14/17 [place]-3 Fatty Acids/Fish Oil [Fish 1 cap PO BID@0800,1200 04/22/16 02/14/17 Oil 1,000 mg Softgel] Polyethylene Glycol 3350 [Miralax] 17 gm PO DAILY PRN 04/22/16 02/14/17 Tamsulosin HCl [Flomax] 0.4 mg PO HS 04/22/16 02/14/17 Vitamin B Complex 1 cap PO W/SUPPER 04/22/16 02/14/17 amLODIPine [Norvasc] 5 mg PO BID@0000,1200 04/22/16 02/14/17 rOPINIRole HCL [Requip] 1 mg PO HS 04/22/16 02/14/17 ALPRAZolam [Xanax] 0.25 mg PO DAILY PRN 05/09/16 02/14/17 Albuterol Inhaler [Ventolin Hfa 1 - 2 puff INHALATION RT-Q6H PRN 05/09/16 Inhaler] Pregabalin [Lyrica] 75 mg PO W/SUPPER 05/09/16 02/14/17 Prochlorperazine [Compazine] 10 mg PO Q6H PRN 05/09/16 02/14/17 Tiotropium 18 Mcg/Puff [Spiriva] 1 cap INHALATION RT-DAILY 05/09/16 02/14/17 Zolpidem [Ambien] 5 mg PO HS PRN 05/09/16 02/14/17 traMADol HCL [Ultram] 50 - 100 mg PO BID PRN 05/09/16 02/14/17 Carvedilol [Coreg] 12.5 mg PO BID@0000,1200 02/09/17 02/14/17 Furosemide [Lasix] 60 mg PO BID-W/MEALS 02/09/17 02/14/17 L.acidoph,Paracasei, B.lactis 1 cap PO W/LUNCH 02/09/17 02/14/17 [Probiotic] Lactulose [Cephulac] 30 gm PO DAILY PRN 02/09/17 02/14/17 Melatonin 10 mg PO HS 02/09/17 02/14/17 Sennosides-Docusate Sodium 2 tab PO BID 02/09/17 02/14/17 [Senokot-S] cloNIDine HCL [Catapres] 0.1 mg PO QID 02/09/17 02/14/17 Ascorbic Acid [Vitamin C] 500 mg PO W/LUNCH 02/14/17 02/14/17 Fluticasone Nasal [place] [Flonase 1 spr EA NOSTRIL DAILY 02/14/17 02/14/17 Nasal [place]] Pantoprazole Sodium [Protonix] 40 mg PO QAM 02/14/17 02/14/17 Potassium Chloride [K-Tab ER] 10 meq PO QAM 02/14/17 02/14/17 Previous Rx's Medication Instructions Recorded Nitroglycerin Sl Tabs [Nitrostat] 0.4 mg SUBLINGUAL Q5M PRN #25 tab 05/12/16 Dexamethasone 4 mg PO Q6HR #20 tablet 02/12/17 Insulin Aspart [NovoLOG 12 unit SQ AC-TID vial 02/12/17 (formulary)] Insulin Aspart [NovoLOG See Protocol SQ ACHS #1 vial 02/12/17 (formulary)] Insulin Glargine [Lantus] 15 unit SQ BID #0 02/12/17 Allergies Allergy/AdvReac Type Severity Reaction Status Date / Time ciprofloxacin [From Cipro] Allergy Rash/Hives Verified 02/14/17 20:17 corticotropin Allergy SEVERE Verified 02/14/17 17:09 HYPERGLYCEMIA erythromycin base Allergy HIVES/SWELL Verified 02/14/17 20:17 ING gabapentin Allergy Swelling Verified 02/14/17 20:17 Iodinated Contrast- Oral and Allergy Unknown Verified 02/14/17 20:17 IV Dye [Iodinated Contrast Media - Oral and] Iodine and Iodide Containing Allergy Unknown Verified 02/14/17 20:17 Produc Penicillins Allergy Unknown Verified 02/14/17 20:17 pentoxifylline [From Trental] Allergy Unknown Verified 02/14/17 20:17 phenytoin [From Dilantin] Allergy Unknown Verified 02/14/17 20:17 sulfamethoxazole Allergy Unknown Verified 02/14/17 20:17 [From Bactrim] trimethoprim [From Bactrim] Allergy Unknown Verified 02/14/17 20:17 Corticosteroids AdvReac Severe Verified 02/14/17 20:17 (Glucocorticoids) hyperglycemia doxycycline AdvReac TREMORS Verified 02/14/17 20:17 hydralazine AdvReac Confusion, Verified 02/14/17 20:17 fatigue, difficulty walking prednisone AdvReac NERVOUSNESS Verified 02/14/17 20:17 Review of Systems ROS Statement: Those systems with pertinent positive or pertinent negative responses have been documented in the HPI. ROS Other: All systems not noted in ROS Statement are negative. Past Medical History Past Medical History: Atrial Fibrillation, Coronary Artery Disease (CAD), Cancer , Heart Failure, COPD, Diabetes Mellitus, Hyperlipidemia, Hypertension, Myocardial Infarction ([place]), Pneumonia, Prostate Disorder Additional Past Medical History / Comment(s): pt is rt side dominant.Chronic systolic heart failure, obstructive sleep apnea, benign prostatic hypertrophy, diabetes type 2 with diabetic neuropathy, 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, melanoma of left axillary, chronic renal failure, chronic anemia, coronary artery disease with previous cardiac catheterization and stenting, chronic back pain, coronary artery bypass surgery , pacemaker insertion, peripheral vascular disease, chronic atrial fibrillation , constipation,tremors in hands, rls, brain ca Last Myocardial Infarction Date:: unknown History of Any Multi-Drug Resistant Organisms: None Reported Past Surgical History: Back Surgery, Coronary Bypass/CABG, Heart Catheterization With Stent, Pacemaker Additional Past Surgical History / Comment(s): 5 vessel CABG, cardiac stentsx3, peripheral stents, pacemaker, left axillary melanoma resection.natalia cataracts, bronch/bx, past back sx-fusion. Past Anesthesia/Blood Transfusion Reactions: Previous Problems w/ Anesthesia Additional Past Anesthesia/Blood Transfusion Reaction / Comment(s): blood transfusion -no reaction. difficulty waking up after aa. Date of Last Stent Placement:: unknown Type of Cardiac Device: Permanent Pacemaker Device Placement Date:: 07-07-11 Past Psychological History: Anxiety Smoking Status: Former smoker Past Alcohol Use History: Occasional Past Drug Use History: None Reported - Past Family History Mother Family Medical History: Diabetes Mellitus, Hyperlipidemia, Hypertension Additional Family Medical History / Comment(s): Mother is . Father Family Medical History: Diabetes Mellitus, Hyperlipidemia, Hypertension, Myocardial Infarction ([place]) Additional Family Medical History / Comment(s): Father is from a myocardial infarction. Brother(s) Additional Family Medical History / Comment(s): has 11 brothers and 2 sisters. Patient has 2 sons and 2 daughters with no major medical problems. General Exam Limitations: no limitations General appearance: alert, in no apparent distress Head exam: Present: atraumatic, normocephalic, normal inspection Eye exam: Present: normal appearance, PERRL, EOMI. Absent: scleral icterus, conjunctival injection, periorbital swelling ENT exam: Present: normal exam, mucous membranes moist Neck exam: Present: normal inspection. Absent: tenderness, meningismus, lymphadenopathy Respiratory exam: Present: normal lung sounds bilaterally. Absent: respiratory distress, wheezes, rales, rhonchi, stridor Cardiovascular Exam: Present: regular rate, normal rhythm, normal heart sounds. Absent: systolic murmur, diastolic murmur, rubs, gallop, clicks GI/Abdominal exam: Present: soft, normal bowel sounds. Absent: distended, tenderness, guarding, rebound, rigid Extremities exam: Present: normal inspection, full ROM, normal capillary refill. Absent: tenderness, pedal edema, joint swelling, calf tenderness Back exam: Present: normal inspection Neurological exam: Present: alert, oriented X3, CN II-XII intact Psychiatric exam: Present: normal affect, normal mood Skin exam: Present: warm, dry, intact, normal color. Absent: rash Course Vital Signs 02/14/17 02/14/17 02/14/17 16:50 17:22 19:00 Temperature 97.0 F L Pulse Rate 63 60 Respiratory 16 22 20 Rate Blood Pressure 201/80 197/76 O2 Sat by Pulse 98 98 Oximetry EKG Findings - EKG Comments: EKG Findings:: EKG shows paced rhythm rate of 60, QRS 200, QTc 512 Medical Decision Making - Medical Decision Making 81 male the ER with severe dehydration severe hyperglycemia secondary to steroid treatment and brain cancer. Patient has increased weakness increased lethargy having occasional headaches. Patient has no neurological complaints at this time. Patient be admitted for continued management of hyperglycemia and dehydration - Lab Data Result diagrams: 02/14/17 17:15 02/14/17 17:15 Lab Results 02/14/17 02/14/17 02/14/17 Range/Units 17:03 17:15 17:15 WBC (3.8-10.6) k/uL RBC (4.30-5.90) m/uL Hgb (13.0-17.5) gm/dL Hct (39.0-53.0) % MCV (80.0-100.0) fL MCH (25.0-35.0) pg MCHC (31.0-37.0) g/dL RDW (11.5-15.5) % Plt Count (150-450) k/uL Neutrophils % % Lymphocytes % % Monocytes % % Eosinophils % % Basophils % % Neutrophils # (1.3-7.7) k/uL Lymphocytes # (1.0-4.8) k/uL Monocytes # (0-1.0) k/uL Eosinophils # (0-0.7) k/uL Basophils # (0-0.2) k/uL Hypochromasia Anisocytosis Sodium 135 L (137-145) mmol/L Potassium 4.5 (3.5-5.1) mmol/L Chloride 101 (98-107) mmol/L Carbon Dioxide 23 (22-30) mmol/L Anion Gap 11 mmol/L BUN 107 H* (9-20) mg/dL Creatinine 1.90 H (0.66-1.25) mg/dL Est GFR (MDRD) Af Amer 42 (>60 ml/min/1.73 sqM) Est GFR (MDRD) Non-Af 34 (>60 ml/min/1.73 sqM) Glucose 502 H* (74-99) mg/dL POC Glucose (mg/dL) 520 H (75-99) mg/dL POC Glu Steam Locomotive Firer/Fireman ID Jackie Horvath Calcium 9.0 (8.4-10.2) mg/dL Phosphorus 4.9 H (2.5-4.5) mg/dL Magnesium 2.3 (1.6-2.3) mg/dL Total Bilirubin 0.3 (0.2-1.3) mg/dL AST 20 (17-59) U/L ALT 36 (21-72) U/L Alkaline Phosphatase 106 (38-126) U/L Total Creatine Kinase 59 (55-170) U/L CK-MB (CK-2) 1.7 (0.0-2.4) ng/mL CK-MB (CK-2) Rel Index 2.9 Troponin I 0.018 (0.000-0.034) ng/mL Total Protein 5.9 L (6.3-8.2) g/dL Albumin 3.4 L (3.5-5.0) g/dL Acetone, Qual Negative (Negative) 02/14/17 02/14/17 Range/Units 17:15 18:43 WBC 7.5 (3.8-10.6) k/uL RBC 4.22 L (4.30-5.90) m/uL Hgb 11.6 L (13.0-17.5) gm/dL Hct 38.7 L (39.0-53.0) % MCV 91.6 (80.0-100.0) fL MCH 27.4 (25.0-35.0) pg MCHC 29.9 L (31.0-37.0) g/dL RDW 16.9 H (11.5-15.5) % Plt Count 178 (150-450) k/uL Neutrophils % 91 % Lymphocytes % 4 % Monocytes % 4 % Eosinophils % 1 % Basophils % 0 % Neutrophils # 6.9 (1.3-7.7) k/uL Lymphocytes # 0.3 L (1.0-4.8) k/uL Monocytes # 0.3 (0-1.0) k/uL Eosinophils # 0.0 (0-0.7) k/uL Basophils # 0.0 (0-0.2) k/uL Hypochromasia Marked Anisocytosis Slight Sodium (137-145) mmol/L Potassium (3.5-5.1) mmol/L Chloride (98-107) mmol/L Carbon Dioxide (22-30) mmol/L Anion Gap mmol/L BUN (9-20) mg/dL Creatinine (0.66-1.25) mg/dL Est GFR (MDRD) Af Amer (>60 ml/min/1.73 sqM) Est GFR (MDRD) Non-Af (>60 ml/min/1.73 sqM) Glucose (74-99) mg/dL POC Glucose (mg/dL) 384 H (75-99) mg/dL POC Glu Steam L[employer]otive Firer/Fireman ID Calcium (8.4-10.2) mg/dL Phosphorus (2.5-4.5) mg/dL Magnesium (1.6-2.3) mg/dL Total Bilirubin (0.2-1.3) mg/dL AST (17-59) U/L ALT (21-72) U/L Alkaline Phosphatase (38-126) U/L Total Creatine Kinase (55-170) U/L CK-MB (CK-2) (0.0-2.4) ng/mL CK-MB (CK-2) Rel Index Troponin I (0.000-0.034) ng/mL Total Protein (6.3-8.2) g/dL Albumin (3.5-5.0) g/dL Acetone, Qual (Negative) Disposition Clinical Impression: Brain metastasis, Lung cancer, Hyperglycemia, Dehydration Disposition: ADMITTED IP TO THIS [facility] Condition: Good Referrals: Amaury Reddy MD [Primary Care Provider] - 1-2 days
[2017-02-14] MEDS ORDERED: SODIUM CHLORIDE 0.9% 500 ML IV STA (16:59)
[2017-02-14] MEDS ORDERED: SODIUM CHLORIDE 0.9% 1,000 ML IV STA ×3 (16:59→18:06)
[2017-02-14 17:30] LABS: Glucose,Whole Blood 520 mg/dL (75-99)
[2017-02-14 17:32] LABS: Anisocytosis Slight; Basophils % (A) 0 %; CH 27.3; Eosinophils % (A) 1 %; HCT 38.7 % (39.0-53.0); HDW 2.52; HGB 11.6 gm/dL (13.0-17.5); Hypochromasia Marked; Luc # (Auto) 0.03; Luc % (Auto) 0; Lymphocytes # (A) 0.3 k/uL (1.0-4.8); Lymphocytes % (A) 4 %; MCH 27.4 pg (25.0-35.0); MCHC 29.9 g/dL (31.0-37.0); MCV 91.6 fL (80.0-100.0); Mean Platelet Volume 9.1; Monocytes # (A) 0.3 k/uL (0-1.0); Monocytes % (A) 4 %; Neutrophils # (A) 6.9 k/uL (1.3-7.7); Neutrophils % (A) 91 %; RBC 4.22 m/uL (4.30-5.90); RDW 16.9 % (11.5-15.5); WBC 7.5 k/uL (3.8-10.6); WBC (Perox) 7.42
[2017-02-14 17:44] LABS: ALT 36 U/L (21-72); AST 20 U/L (17-59); Alkaline Phosphatase 106 U/L (38-126); Anion Gap 11 mmol/L; Carbon Dioxide 23 mmol/L (22-30); Chloride 101 mmol/L (98-107); Magnesium 2.3 mg/dL (1.6-2.3); Non-African American GFR(MDRD) 34 (>60 ml/min/1.73 sqM); Phosphorus 4.9 mg/dL (2.5-4.5); Potassium 4.5 mmol/L (3.5-5.1); Sodium 135 mmol/L (137-145); Total Bilirubin 0.3 mg/dL (0.2-1.3); Total Protein 5.9 g/dL (6.3-8.2)
[2017-02-14 17:46] LABS: Blood Urea Nitrogen 107 mg/dL (9-20); Glucose 502 mg/dL (74-99)
[2017-02-14] MEDS ORDERED: INSULIN REGULAR 100 UNIT/ML VIAL IV ONE ×2 (18:05→18:47)
[2017-02-14] MEDS ORDERED: INSULIN REGULAR 100 UNIT/ML VIAL SQ ONE (18:05)
[2017-02-14 18:09] LABS: Creatine Kinase MB 1.7 ng/mL (0.0-2.4); Troponin I 0.018 ng/mL (0.000-0.034)
[2017-02-14] MEDS ORDERED: ONDANSETRON 4 MG/2 ML VIAL IVP STA (18:45)
[2017-02-14] MEDS ORDERED: KETOROLAC 30 MG/ML 1 ML VIAL IVP STA (18:45)
[2017-02-14] MEDS ORDERED: MORPHINE SULFATE 10 MG/ML SYRINGE IVP STA (18:45)
[2017-02-14 18:49] LABS: Glucose,Whole Blood 384 mg/dL (75-99)
[2017-02-14] MEDS ORDERED: SODIUM CHLORIDE 0.9% 1,000 ML IV ONE (20:38)
[2017-02-14] MEDS ORDERED: LABETALOL 5 MG/ML VIAL MDV IVP STA (20:40)
[2017-02-14 20:51] LABS: Glucose,Whole Blood 321 mg/dL (75-99)
[2017-02-14 22:15] LABS: Appearance,Urine Clear (Clear); Bilirubin,Urine Negative (Negative); Glucose,Urine (UA) 3+ (Negative); Ketones,Urine Negative (Negative); Leukocyte Esterase,Urine Negative (Negative); Nitrite,Urine Negative (Negative); Protein,Urine Trace (Negative); Specific Gravity,Urine 1.009 (1.001-1.035); UA Billing (MACRO vs. MICRO) CHEM; Urobilinogen,Urine <2.0 mg/dL (<2.0)
[2017-02-14] MEDS ORDERED: MORPHINE SULFATE 10 MG/ML SYRINGE IVP PRN (22:49)
[2017-02-14] MEDS ORDERED: INSULIN DETEMIR 100 UNIT/ML 10 ML VIAL SQ SCH (23:45)
[2017-02-14] MEDS ORDERED: LACTULOSE 20 GM/30 ML CUP PO PRN (23:46)
[2017-02-14] MEDS ORDERED: ZOLPIDEM 5 MG TAB PO PRN (23:46)
[2017-02-14] MEDS ORDERED: traMADol 50 MG TAB PO PRN (23:46)
[2017-02-14] MEDS ORDERED: PROCHLORPERAZINE 10 MG TAB PO PRN (23:46)
[2017-02-14] MEDS ORDERED: POLYETHYLENE GLYCOL 3350 17 GM POWD.PACK PO PRN (23:46)
[2017-02-14] MEDS ORDERED: NITROGLYCERIN SL TABS 0.4 MG TAB SUBLINGUAL PRN (23:46)
[2017-02-14] MEDS ORDERED: ALBUTEROL NEBULIZED 2.5 MG/3 ML INHALATION PRN (23:46)
[2017-02-14] MEDS ORDERED: ALPRAZolam 0.25 MG TAB PO PRN (23:46)
[2017-02-15 00:11] LABS: Glucose,Whole Blood 413 mg/dL (75-99)
[2017-02-15] MEDS: amLODIPine 5 MG TAB PO SCH ×2 (00:45→12:55)
[2017-02-15] MEDS: CARVEDILOL 12.5 MG TAB PO SCH ×2 (00:45→12:55)
[2017-02-15] MEDS: DEXAMETHASONE 4 MG TAB PO SCH ×4 (00:45→17:37)
[2017-02-15 02:04] LABS: Glucose,Whole Blood 399 mg/dL (75-99)
[2017-02-15] MEDS: INSULIN REGULAR 100 UNIT in SODIUM CHLORIDE 0.9% 100 ML IV SCH ×2 (02:19→07:54)
[2017-02-15] MEDS: IPRATROPIUM-ALBUTEROL 3 ML NEB INHALATION PRN ×5 (02:55→21:09)
[2017-02-15 03:13] LABS: Glucose,Whole Blood 381 mg/dL (75-99)
[2017-02-15 03:33] LABS: Glucose,Whole Blood 368 mg/dL (75-99)
[2017-02-15 04:02] LABS: Glucose,Whole Blood 343 mg/dL (75-99)
[2017-02-15 04:38] LABS: Glucose,Whole Blood 288 mg/dL (75-99)
[2017-02-15 05:04] LABS: Glucose,Whole Blood 251 mg/dL (75-99)
[2017-02-15 05:33] LABS: Glucose,Whole Blood 227 mg/dL (75-99)
--- NOTE | 2017-02-15 06:01 | HP ---
HISTORY AND PHYSICAL DATE OF SERVICE: 02/14/2017 CHIEF COMPLAINT: Hyperglycemia. HISTORY OF PRESENT ILLNESS: This 81-year-old gentleman with a past medical history of multiple medical problems including adenocarcinoma of the lungs with mets was recently admitted with left- sided weakness, most likely brain metastasis. Patient was treated with IV Decadron and Radiation Oncology is planning radiotherapy this week. The patient went home and apparently the blood sugar is elevated after multiple doses of insulin. Because of lack of improvement. The patient came to [facility] and admitted for further evaluation and treatment. There is no history of vomiting or fever. No history of headache, loss of consciousness or seizures at this time. PAST MEDICAL HISTORY: History of lung cancer with mets, history atrial fibrillation, CAD, CHF, COPD, diabetes, hypertension, history of myocardial infarction. MEDICATIONS: Medications prior to admission include home medications are: 1. Insulin protocol and 12 units t.i.d. with meals. 2. Flonase 1 daily. 3. Vitamin C 500 mg. 4. Requip 1 mg q.h.s. 5. Norvasc 5 mg daily. 6. Ambien 5 mg q.h.s. 7. Compazine 10 mg q.6 p.r.n. 8. Lyrica 75 mg with supper. 9. K-Tab 10 mEq p.o. q.a.m. 10.Melatonin 10 mg q.h.s. 11.Cephulac 30 grams p.o. daily p.r.n. 12.Probiotic 1 capsule with lunch. 13.DuoNeb q.i.d. and p.r.n. 14.Lantus 15 units subcutaneously b.i.d. 15.Fish oil 1 capsule b.i.d. 16.Nitrostat 0.4 sublingual p.r.n. 17.Folic acid 1 mg b.i.d. 18.Iron sulfate 325 mg p.o. b.i.d. 19.Plavix 75 mg with lunch. 20.Coreg 12.5 mg b.i.d. 21.Spiriva 1 cap daily. 22.Lipitor 40 mg q.h.s. 23.Ecotrin 81 mg daily. 24.Ventolin 1 to 2 puffs q.6 p.r.n. 25.Xanax 0.25 daily p.r.n. 26.Ultram 50 to 100 mg daily p.r.n. 27.Vitamin B complex 1 capsule supper. 28.Flomax 0.4 q.h.s. 29.Senokot-S 2 tablets p.o. b.i.d. 30.Catapres 0.1 p.o. q.i.d. 31.Protonix 40 mg q.a.m. 32.Imdur 60 mg p.o. b.i.d. 33.Lasix 60 mg p.o. b.i.d. 34.Eliquis 2.5 mg b.i.d. 35.Cordarone 100 mg with breakfast. 36.Dexamethasone 4 mg q.6. 37.MiraLAX 17 grams daily p.r.n. ALLERGIES: Allergies are CIPRO, CORTICOTROPIN, ERYTHROMYCIN, GABAPENTIN, IODINATED CONTRAST , PENICILLIN, PENTOXIFYLLINE, PHENYTOIN, SULFAMETHOXAZOLE, TRIMETHOPRIM, CORTICOSTEROIDS, DOXYCYCLINE, HYDRALAZINE, PREDNISONE. FAMILY HISTORY: History of diabetes, hypertension, hyperlipidemia. SOCIAL HISTORY: Previous history of smoking. No history of current smoking or alcohol intake. REVIEW OF SYSTEMS: ENT: As mentioned earlier. CARDIOVASCULAR: No angina. RESPIRATORY SYSTEM: No cough. GI: No nausea. : No dysuria. NERVOUS SYSTEM: As mentioned earlier. ALLERGY/IMMUNOLOGY: No history of asthma or hayfever. MUSCULOSKELETAL: As mentioned earlier. HEMATOLOGY/ONCOLOGY: No history of anemia. ENDOCRINE: As mentioned earlier. CONSTITUTIONAL: As mentioned earlier. DERMATOLOGY: Negative. RHEUMATOLOGY: Negative. PSYCHIATRY: As mentioned earlier. PHYSICAL EXAMINATION: The patient is alert and oriented x3. Pulse is 59, blood pressure 156/89, respirations 14, temperature 97.7, pulse ox 98% on room air. HEENT: Conjunctivae normal. NECK: No jugular venous distention. CARDIOVASCULAR: S1, S2 muffled. RESPIRATORY: Breath sounds diminished at the bases. A few scattered rhonchi. No crackles. ABDOMEN: Soft, obese, nontender. No mass palpable. LEGS: No edema, no swelling. NERVOUS SYSTEM: Higher functions as mentioned earlier. Cranial nerves 2 through 12 grossly intact. Moves all 4 limbs. Mild diffuse weakness. LYMPHATICS: No lymphadenopathy in the neck, axillae or groin. SKIN: No ulcers, rashes or bleeding. LABS: WBC 7.5, hemoglobin 11.6. Sodium 135, potassium 4.5. Glucose 502. ASSESSMENT: 1. Diabetes type 2, uncontrolled, hyperosmolar diabetic state with no evidence of acute acidosis. 2. Atrial fibrillation. 3. History of lung cancer with brain metastasis. 4. Coronary artery disease. 5. Congestive heart failure. 6. Chronic obstructive pulmonary disease. 7. Hyperlipidemia. 8. Hypertension. 9. History of myocardial infarction. 10.History of prostate disorder. 11.History of chronic renal failure. 12.History of coronary artery disease, CABG, stent. RECOMMENDATIONS AND DISCUSSION: This 81-year-old gentleman who presented with multiple complex medical issues, will monitor the patient closely. Continue the current medications. Continue symptomatic treatment. I would recommend continue with scale and as well as increase Lantus to units subcutaneously b.i.d. Resume the home medications. Otherwise with the sugars being persistently elevated, I would recommend insulin drip to control the blood sugars to avoid the risk of any occurrence of ketoacidosis. Otherwise, home medications are reviewed and initiated. Overall prognosis is extremely guarded and diet is recommended as well diabetic education. Recommend continued monitoring in the outpatient setting. Also discussed with the family, understands and agrees. MMJOSUÉL / IJN: [id number] / [place]
[2017-02-15] MEDS ORDERED: traMADol 50 MG TAB PO PRN (07:15)
[2017-02-15] MEDS: IPRATROPIUM 0.5 MG/2.5 ML NEBU INHALATION SCH ×4 (07:24→21:10)
[2017-02-15] MEDS ORDERED: INSULIN ASPART 100 UNIT/ML 1 ML 10 ML VIAL SQ SCH ×5 (07:30→17:30)
[2017-02-15 07:38] LABS: Glucose,Whole Blood 169 mg/dL (75-99)
[2017-02-15] MEDS: FUROSEMIDE 20 MG TAB PO SCH ×2 (07:44→17:38)
[2017-02-15] MEDS: cloNIDine HCL 0.1 MG TAB PO SCH ×2 (07:44→12:54)
[2017-02-15] MEDS: SENNOSIDES-DOCUSATE SODIUM 1 EACH TAB PO SCH ×2 (07:44→20:58)
[2017-02-15] MEDS: FLUTICASONE 50MCG/SPRAY NASAL 16GM EA NOSTRIL SCH (07:45)
[2017-02-15] MEDS: AMIODARONE 100 MG TAB PO SCH (07:45)
[2017-02-15] MEDS: APIXABAN 2.5 MG TABLET PO SCH ×2 (07:45→20:57)
[2017-02-15] MEDS: ISOSORBIDE MONONITRATE ER 60 MG TAB.ER.24H PO SCH ×2 (07:45→20:57)
[2017-02-15] MEDS: PANTOPRAZOLE 40 MG TABLET PO SCH (07:46)
[2017-02-15] MEDS: NON-FORMULARY DRUG (Omega-3 Fatty Acids/Fish Oil [Fish Oil 1,000 Mg Softgel] 1 CAP) PO SCH ×2 (07:48→13:08)
[2017-02-15] MEDS: POTASSIUM CHLORIDE ER 10 MEQ TAB.ER.PRT PO SCH (07:49)
[2017-02-15] MEDS: INSULIN ASPART 100 UNIT/ML 1 ML 10 ML VIAL SQ SCH ×5 (08:08→21:00)
[2017-02-15 08:51] LABS: Anisocytosis Slight; Basophils % (A) 0 %; CH 27.7; CHCM 30.7; Eosinophils % (A) 0 %; HCT 37.3 % (39.0-53.0); HDW 2.57; HGB 11.1 gm/dL (13.0-17.5); Hypochromasia Moderate; Luc # (Auto) 0.08; Luc % (Auto) 1; Lymphocytes # (A) 0.4 k/uL (1.0-4.8); Lymphocytes % (A) 4 %; MCHC 29.8 g/dL (31.0-37.0); MCV 90.5 fL (80.0-100.0); Mean Platelet Volume 8.6; Monocytes # (A) 0.5 k/uL (0-1.0); Monocytes % (A) 6 %; Neutrophils # (A) 7.6 k/uL (1.3-7.7); Neutrophils % (A) 89 %; RBC 4.12 m/uL (4.30-5.90); RDW 17.1 % (11.5-15.5); WBC 8.6 k/uL (3.8-10.6); WBC (Perox) 8.82
[2017-02-15 09:04] LABS: Calcium 9.1 mg/dL (8.4-10.2); Potassium 4.2 mmol/L (3.5-5.1)
[2017-02-15 09:42] LABS: Glucose,Whole Blood 196 mg/dL (75-99)
[2017-02-15 11:47] LABS: Glucose,Whole Blood 149 mg/dL (75-99)
[2017-02-15 12:45] LABS: Glucose,Whole Blood 124 mg/dL (75-99)
[2017-02-15] MEDS: LACTOBACILLUS ACIDOPH & BULGAR 1 EACH PACKET PO SCH (12:53)
[2017-02-15] MEDS: FOLIC ACID 1 MG TAB PO SCH (12:53)
[2017-02-15] MEDS: ASCORBIC ACID 500 MG TAB PO SCH (12:53)
[2017-02-15] MEDS: FERROUS SULFATE 325 MG TAB PO SCH ×2 (12:54→20:57)
[2017-02-15] MEDS: CLOPIDOGREL 75 MG TAB PO SCH (12:55)
[2017-02-15] MEDS: OMEGA PO SCH (13:06)
[2017-02-15] MEDS: FISH OIL PO SCH (13:06)
[2017-02-15] MEDS: FATTY ACIDS PO SCH (13:06)
[2017-02-15] MEDS ORDERED: NON-FORMULARY DRUG (Insulin Glargine 15 UNIT) SQ SCH (13:45)
[2017-02-15] MEDS ORDERED: INSULIN ASPART 100 UNIT/ML 1 ML 10 ML VIAL SQ ONE (13:52)
[2017-02-15] MEDS: INSULIN DETEMIR 100 UNIT/ML 10 ML VIAL SQ SCH ×2 (14:23→20:52)
--- NOTE | 2017-02-15 14:27 | P.PN ---
Subjective Progress Note Date: 02/15/17 Principal diagnosis: brain metastases Patient is a 81-year-old male with a history of metastatic non-small cell lung cancer, with newly diagnosed brain metastases. The patient was hospitalized 1 week ago with left-sided hemiparesis. He has subsequently shown partial improvement since starting Decadron. At the time of his discharge, the patient was able to ambulate with a walker. Unfortunately, the patient has developed difficulty with control of his blood sugars. He reports feeling very fatigued at home, and his blood sugars were over 500. This is likely been exacerbated by his steroids. He reports that he was feeling weak and dehydrated yesterday, when he presented to the hospital. Today he reports he is feeling slightly better. He feels that the left-sided weakness is similar, if not slightly worse in the left lower extremity. Objective - Vital Signs Vital signs: Vital Signs Temp 99.1 F 02/15/17 07:00 Pulse 68 02/15/17 11:23 Resp 16 02/15/17 08:00 BP 153/71 02/15/17 07:00 Pulse Ox 95 02/15/17 07:00 Intake & Output 02/14/17 02/15/17 02/15/17 18:59 06:59 18:59 Intake Total 2065.449 21.400 Output Total 700 Balance 1365.449 21.400 Weight 90.718 kg Intake: Amount of Fluid Infused ( 2000 ml) Intake, IV Titration 65.449 21.400 Amount Insulin Regular 100 unit 65.449 21.400 In Sodium Chloride 0.9% 100 ml @ Titrate IV .Q0M [facility] Rx#:[id number] Output: Urine 700 Other: # Voids 2 - Constitutional General appearance: Present: average body habitus. Absent: no acute distress - EENT Eyes: Present: EOMI, PERRLA ENT: Present: hearing grossly normal - Neck Neck: Absent: lymphadenopathy - Respiratory Respiratory: bilateral: CTA - Cardiovascular Rhythm: regular - Gastrointestinal General gastrointestinal: Absent: tenderness - Integumentary Integumentary: Present: pale - Neurologic Neurologic: Present: CNII-XII intact (Slight left facial droop) - Musculoskeletal Musculoskeletal: Present: left sided weakness (5/5 strength LUE, 4/5 LLE. ) - Psychiatric Psychiatric: Present: A&O x's 3, appropriate affect - Labs CBC & Chem 7: 02/15/17 07:48 02/15/17 07:48 Labs: Abnormal Lab Results - Last 24 Hours (Table) 02/14/17 02/14/17 02/14/17 Range/Units 17:03 17:15 17:15 RBC 4.22 L (4.30-5.90) m/uL Hgb 11.6 L (13.0-17.5) gm/dL Hct 38.7 L (39.0-53.0) % MCHC 29.9 L (31.0-37.0) g/dL RDW 16.9 H (11.5-15.5) % Lymphocytes # 0.3 L (1.0-4.8) k/uL Sodium 135 L (137-145) mmol/L Chloride (98-107) mmol/L BUN 107 H* (9-20) mg/dL Creatinine 1.90 H (0.66-1.25) mg/dL Glucose 502 H* (74-99) mg/dL POC Glucose (mg/dL) 520 H (75-99) mg/dL Phosphorus 4.9 H (2.5-4.5) mg/dL Total Protein 5.9 L (6.3-8.2) g/dL Albumin 3.4 L (3.5-5.0) g/dL Urine Protein (Negative) Urine Glucose (UA) (Negative) 02/14/17 02/14/17 02/14/17 Range/Units 18:43 20:47 22:00 RBC (4.30-5.90) m/uL Hgb (13.0-17.5) gm/dL Hct (39.0-53.0) % MCHC (31.0-37.0) g/dL RDW (11.5-15.5) % Lymphocytes # (1.0-4.8) k/uL Sodium (137-145) mmol/L Chloride (98-107) mmol/L BUN (9-20) mg/dL Creatinine (0.66-1.25) mg/dL Glucose (74-99) mg/dL POC Glucose (mg/dL) 384 H 321 H (75-99) mg/dL Phosphorus (2.5-4.5) mg/dL Total Protein (6.3-8.2) g/dL Albumin (3.5-5.0) g/dL Urine Protein Trace H (Negative) Urine Glucose (UA) 3+ H (Negative) 02/15/17 02/15/17 02/15/17 Range/Units 00:10 01:52 02:50 RBC (4.30-5.90) m/uL Hgb (13.0-17.5) gm/dL Hct (39.0-53.0) % MCHC (31.0-37.0) g/dL RDW (11.5-15.5) % Lymphocytes # (1.0-4.8) k/uL Sodium (137-145) mmol/L Chloride (98-107) mmol/L BUN (9-20) mg/dL Creatinine (0.66-1.25) mg/dL Glucose (74-99) mg/dL POC Glucose (mg/dL) 413 H 399 H 381 H (75-99) mg/dL Phosphorus (2.5-4.5) mg/dL Total Protein (6.3-8.2) g/dL Albumin (3.5-5.0) g/dL Urine Protein (Negative) Urine Glucose (UA) (Negative) 02/15/17 02/15/17 02/15/17 Range/Units 03:31 04:00 04:35 RBC (4.30-5.90) m/uL Hgb (13.0-17.5) gm/dL Hct (39.0-53.0) % MCHC (31.0-37.0) g/dL RDW (11.5-15.5) % Lymphocytes # (1.0-4.8) k/uL Sodium (137-145) mmol/L Chloride (98-107) mmol/L BUN (9-20) mg/dL Creatinine (0.66-1.25) mg/dL Glucose (74-99) mg/dL POC Glucose (mg/dL) 368 H 343 H 288 H (75-99) mg/dL Phosphorus (2.5-4.5) mg/dL Total Protein (6.3-8.2) g/dL Albumin (3.5-5.0) g/dL Urine Protein (Negative) Urine Glucose (UA) (Negative) 02/15/17 02/15/17 02/15/17 Range/Units 05:01 05:30 07:36 RBC (4.30-5.90) m/uL Hgb (13.0-17.5) gm/dL Hct (39.0-53.0) % MCHC (31.0-37.0) g/dL RDW (11.5-15.5) % Lymphocytes # (1.0-4.8) k/uL Sodium (137-145) mmol/L Chloride (98-107) mmol/L BUN (9-20) mg/dL Creatinine (0.66-1.25) mg/dL Glucose (74-99) mg/dL POC Glucose (mg/dL) 251 H 227 H 169 H (75-99) mg/dL Phosphorus (2.5-4.5) mg/dL Total Protein (6.3-8.2) g/dL Albumin (3.5-5.0) g/dL Urine Protein (Negative) Urine Glucose (UA) (Negative) 02/15/17 02/15/17 02/15/17 Range/Units 07:48 07:48 09:39 RBC 4.12 L (4.30-5.90) m/uL Hgb 11.1 L (13.0-17.5) gm/dL Hct 37.3 L (39.0-53.0) % MCHC 29.8 L (31.0-37.0) g/dL RDW 17.1 H (11.5-15.5) % Lymphocytes # 0.4 L (1.0-4.8) k/uL Sodium (137-145) mmol/L Chloride 111 H (98-107) mmol/L BUN 95 H* (9-20) mg/dL Creatinine 1.90 H (0.66-1.25) mg/dL Glucose 116 H (74-99) mg/dL POC Glucose (mg/dL) 196 H (75-99) mg/dL Phosphorus (2.5-4.5) mg/dL Total Protein (6.3-8.2) g/dL Albumin (3.5-5.0) g/dL Urine Protein (Negative) Urine Glucose (UA) (Negative) 02/15/17 02/15/17 Range/Units 11:28 12:30 RBC (4.30-5.90) m/uL Hgb (13.0-17.5) gm/dL Hct (39.0-53.0) % MCHC (31.0-37.0) g/dL RDW (11.5-15.5) % Lymphocytes # (1.0-4.8) k/uL Sodium (137-145) mmol/L Chloride (98-107) mmol/L BUN (9-20) mg/dL Creatinine (0.66-1.25) mg/dL Glucose (74-99) mg/dL POC Glucose (mg/dL) 149 H 124 H (75-99) mg/dL Phosphorus (2.5-4.5) mg/dL Total Protein (6.3-8.2) g/dL Albumin (3.5-5.0) g/dL Urine Protein (Negative) Urine Glucose (UA) (Negative) Microbiology - Last 24 Hours (Table) 02/14/17 22:00 Urine Culture - Preliminary Urine,Voided Assessment and Plan Plan: 1. Patient was evaluated in our office, and has elected to undergo radiosurgery to the new brain metastases. The patient had a planning session Tuesday, and we'll start his radiotherapy this Tuesday. The patient will be scheduled for 4 total treatments. During this hospitalization, we hope the patient can achieve better blood sugar control, as he will likely be on steroids for some time. Furthermore, the patient's brain metastasis that appear to potentially have a hemorrhagic component. The patient should be evaluated medically to see if any of his blood thinners can be stopped. Time with Patient: Less than 30
[2017-02-15 17:06] LABS: Glucose,Whole Blood 265 mg/dL (75-99)
--- NOTE | 2017-02-15 17:15 | P.PN ---
Subjective Progress Note Date: 02/15/17 Progress note being dictated for Dr. Martinez Interval history: This a 81-year-old gentleman with multiple medical issues including adenocarcinoma of the lung with brain metastasis admitted with diabetes mellitus type 2 [id number], atrial fibrillation, and multiple other medical issues. Weaned off of insulin drip, maintained on Lantus , pre-meal insulin and sliding scale. Blood Sugars currently 124. Evaluated by Oncology radiologist, recommendations noted, scheduled for radiation treatment tomorrow. Diet intake, denies nausea vomiting or diarrhea. Denies chest pain, palpitations or increasing shortness of breath. Complains of generalized fatigue, weakness. Objective - Vital Signs Vital signs: Vital Signs Temp 98.9 F 02/15/17 15:00 Pulse 64 02/15/17 15:00 Resp 16 02/15/17 15:00 BP 144/80 02/15/17 15:00 Pulse Ox 96 02/15/17 15:00 Intake & Output 02/14/17 02/15/17 02/15/17 18:59 06:59 18:59 Intake Total 2065.449 21.400 Output Total 700 400 Balance 1365.449 -378.600 Weight 90.718 kg Intake: Amount of Fluid Infused ( 2000 ml) Intake, IV Titration 65.449 21.400 Amount Insulin Regular 100 unit 65.449 21.400 In Sodium Chloride 0.9% 100 ml @ Titrate IV .Q0M [facility] Rx#:[id number] Output: Urine 700 400 Other: # Voids 2 400 # Bowel Movements 0 - Exam PHYSICAL EXAM: VITAL SIGNS: As above GENERAL: Being up in chair, no acute distress HEENT: Conjunctivae normal. eyes normal. Because and moist NECK: No JVD. No thyroid enlargement. No LNs CARDIOVASCULAR: S1, S2 muffled. No murmur RESPIRATION: Breath sounds diminished in the bases. Occasional scattered rhonchi,no crackles. No bronchial breathing. ABDOMEN: Soft, nontender . No guarding. no masses palpable. Bowel sounds heard. LEGS: No edema. no swelling PSYCHIATRY: Alert and oriented -3, mood and affect normal. NERVOUS SYSTEM: Cranial N 2-12 grossly normal. Moves all 4 limbs. Diffuse weakness No focal deficits. No sensory deficit. Skin: no ulcer no rash Joints: No active swelling. No inflammation. Lymphatic system. No LN neck axilla or groin. - Labs CBC & Chem 7: 02/15/17 07:48 02/15/17 07:48 Labs: Abnormal Lab Results - Last 24 Hours (Table) 02/14/17 02/14/17 02/14/17 Range/Units 17:03 17:15 17:15 RBC 4.22 L (4.30-5.90) m/uL Hgb 11.6 L (13.0-17.5) gm/dL Hct 38.7 L (39.0-53.0) % MCHC 29.9 L (31.0-37.0) g/dL RDW 16.9 H (11.5-15.5) % Lymphocytes # 0.3 L (1.0-4.8) k/uL Sodium 135 L (137-145) mmol/L Chloride (98-107) mmol/L BUN 107 H* (9-20) mg/dL Creatinine 1.90 H (0.66-1.25) mg/dL Glucose 502 H* (74-99) mg/dL POC Glucose (mg/dL) 520 H (75-99) mg/dL Phosphorus 4.9 H (2.5-4.5) mg/dL Total Protein 5.9 L (6.3-8.2) g/dL Albumin 3.4 L (3.5-5.0) g/dL Urine Protein (Negative) Urine Glucose (UA) (Negative) 02/14/17 02/14/17 02/14/17 Range/Units 18:43 20:47 22:00 RBC (4.30-5.90) m/uL Hgb (13.0-17.5) gm/dL Hct (39.0-53.0) % MCHC (31.0-37.0) g/dL RDW (11.5-15.5) % Lymphocytes # (1.0-4.8) k/uL Sodium (137-145) mmol/L Chloride (98-107) mmol/L BUN (9-20) mg/dL Creatinine (0.66-1.25) mg/dL Glucose (74-99) mg/dL POC Glucose (mg/dL) 384 H 321 H (75-99) mg/dL Phosphorus (2.5-4.5) mg/dL Total Protein (6.3-8.2) g/dL Albumin (3.5-5.0) g/dL Urine Protein Trace H (Negative) Urine Glucose (UA) 3+ H (Negative) 02/15/17 02/15/17 02/15/17 Range/Units 00:10 01:52 02:50 RBC (4.30-5.90) m/uL Hgb (13.0-17.5) gm/dL Hct (39.0-53.0) % MCHC (31.0-37.0) g/dL RDW (11.5-15.5) % Lymphocytes # (1.0-4.8) k/uL Sodium (137-145) mmol/L Chloride (98-107) mmol/L BUN (9-20) mg/dL Creatinine (0.66-1.25) mg/dL Glucose (74-99) mg/dL POC Glucose (mg/dL) 413 H 399 H 381 H (75-99) mg/dL Phosphorus (2.5-4.5) mg/dL Total Protein (6.3-8.2) g/dL Albumin (3.5-5.0) g/dL Urine Protein (Negative) Urine Glucose (UA) (Negative) 02/15/17 02/15/17 02/15/17 Range/Units 03:31 04:00 04:35 RBC (4.30-5.90) m/uL Hgb (13.0-17.5) gm/dL Hct (39.0-53.0) % MCHC (31.0-37.0) g/dL RDW (11.5-15.5) % Lymphocytes # (1.0-4.8) k/uL Sodium (137-145) mmol/L Chloride (98-107) mmol/L BUN (9-20) mg/dL Creatinine (0.66-1.25) mg/dL Glucose (74-99) mg/dL POC Glucose (mg/dL) 368 H 343 H 288 H (75-99) mg/dL Phosphorus (2.5-4.5) mg/dL Total Protein (6.3-8.2) g/dL Albumin (3.5-5.0) g/dL Urine Protein (Negative) Urine Glucose (UA) (Negative) 02/15/17 02/15/17 02/15/17 Range/Units 05:01 05:30 07:36 RBC (4.30-5.90) m/uL Hgb (13.0-17.5) gm/dL Hct (39.0-53.0) % MCHC (31.0-37.0) g/dL RDW (11.5-15.5) % Lymphocytes # (1.0-4.8) k/uL Sodium (137-145) mmol/L Chloride (98-107) mmol/L BUN (9-20) mg/dL Creatinine (0.66-1.25) mg/dL Glucose (74-99) mg/dL POC Glucose (mg/dL) 251 H 227 H 169 H (75-99) mg/dL Phosphorus (2.5-4.5) mg/dL Total Protein (6.3-8.2) g/dL Albumin (3.5-5.0) g/dL Urine Protein (Negative) Urine Glucose (UA) (Negative) 02/15/17 02/15/17 02/15/17 Range/Units 07:48 07:48 09:39 RBC 4.12 L (4.30-5.90) m/uL Hgb 11.1 L (13.0-17.5) gm/dL Hct 37.3 L (39.0-53.0) % MCHC 29.8 L (31.0-37.0) g/dL RDW 17.1 H (11.5-15.5) % Lymphocytes # 0.4 L (1.0-4.8) k/uL Sodium (137-145) mmol/L Chloride 111 H (98-107) mmol/L BUN 95 H* (9-20) mg/dL Creatinine 1.90 H (0.66-1.25) mg/dL Glucose 116 H (74-99) mg/dL POC Glucose (mg/dL) 196 H (75-99) mg/dL Phosphorus (2.5-4.5) mg/dL Total Protein (6.3-8.2) g/dL Albumin (3.5-5.0) g/dL Urine Protein (Negative) Urine Glucose (UA) (Negative) 02/15/17 02/15/17 Range/Units 11:28 12:30 RBC (4.30-5.90) m/uL Hgb (13.0-17.5) gm/dL Hct (39.0-53.0) % MCHC (31.0-37.0) g/dL RDW (11.5-15.5) % Lymphocytes # (1.0-4.8) k/uL Sodium (137-145) mmol/L Chloride (98-107) mmol/L BUN (9-20) mg/dL Creatinine (0.66-1.25) mg/dL Glucose (74-99) mg/dL POC Glucose (mg/dL) 149 H 124 H (75-99) mg/dL Phosphorus (2.5-4.5) mg/dL Total Protein (6.3-8.2) g/dL Albumin (3.5-5.0) g/dL Urine Protein (Negative) Urine Glucose (UA) (Negative) Microbiology - Last 24 Hours (Table) 02/14/17 22:00 Urine Culture - Preliminary Urine,Voided Assessment and Plan Assessment: 1. Diabetes mellitus type 2 uncontrolled, hyperosmolar diabetic state without acute acidosis, steroid induced 2. Atrial fibrillation 3. Lung cancer with brain metastasis 4. CAD, history of CABG and stent 5. CHF, no acute exacerbation 6. Hyperlipidemia 7. Acute on chronic renal failure, Plan: Continue on current medication regime ,monitoring and symptomatic treatment. Close monitoring of Accu-Cheks, currently on Lantus, pre-meal insulin and sliding scale; will adjust accordingly. Close monitoring of renal function with repeat labs ordered for a.m. Discharge planning in progress for tomorrow morning. First radiation treatment scheduled for tomorrow. Prognosis guarded. Plan of care discussed at bedside with patient and family who verbalized understanding and agreement with. The impression and plan of care has been dictated as directed. : I performed a history and examination of this patient, discussed the same with the dictator. I agree with the dictator's note ,documented as a scribe. Any additional findings or plans will be noted.
[2017-02-15] MEDS ORDERED: ASPIRIN 81 MG PO SCH (17:30)
[2017-02-15] MEDS ORDERED: PREGABALIN 75 MG CAP PO SCH (17:30)
[2017-02-15] MEDS ORDERED: B COMPLEX-VIT C-VIT E-ZINC 1 EACH TAB PO SCH (17:30)
[2017-02-15 20:27] LABS: Glucose,Whole Blood 216 mg/dL (75-99)
[2017-02-15] MEDS ORDERED: TAMSULOSIN 0.4 MG CAP.ER.24H PO SCH (21:00)
[2017-02-15] MEDS ORDERED: MELATONIN 5 MG TABLET PO SCH (21:00)
[2017-02-15] MEDS ORDERED: ATORVASTATIN 40 MG TAB PO SCH (21:00)
[2017-02-16] MEDS ORDERED: CARVEDILOL 12.5 MG TAB ONE
[2017-02-16] MEDS ORDERED: amLODIPine 5 MG TAB ONE
[2017-02-16] MEDS ORDERED: DEXAMETHASONE 4 MG TAB ONE
[2017-02-16] MEDS: CARVEDILOL 12.5 MG TAB PO SCH ×2 (03:37→14:18)
[2017-02-16] MEDS: amLODIPine 5 MG TAB PO SCH ×2 (03:37→14:17)
[2017-02-16] MEDS: DEXAMETHASONE 4 MG TAB PO SCH ×3 (03:38→14:19)
[2017-02-16 04:06] LABS: Glucose,Whole Blood 80 mg/dL (75-99)
[2017-02-16 07:14] LABS: Anisocytosis Slight; Basophils % (A) 0 %; CH 27.3; CHCM 30.8; Eosinophils # (A) 0.1 k/uL (0-0.7); Eosinophils % (A) 1 %; HCT 35.2 % (39.0-53.0); HDW 2.51; HGB 10.9 gm/dL (13.0-17.5); Hypochromasia Slight; Luc # (Auto) 0.04; Luc % (Auto) 0; Lymphocytes # (A) 0.4 k/uL (1.0-4.8); Lymphocytes % (A) 4 %; MCH 27.7 pg (25.0-35.0); MCHC 31.1 g/dL (31.0-37.0); MCV 89.1 fL (80.0-100.0); Mean Platelet Volume 9.5; Monocytes # (A) 0.4 k/uL (0-1.0); Monocytes % (A) 4 %; Neutrophils # (A) 9.5 k/uL (1.3-7.7); Neutrophils % (A) 91 %; RBC 3.95 m/uL (4.30-5.90); RDW 18.6 % (11.5-15.5); WBC 10.4 k/uL (3.8-10.6); WBC (Perox) 11.07
[2017-02-16 07:24] LABS: Calcium 8.9 mg/dL (8.4-10.2); Potassium 4.3 mmol/L (3.5-5.1)
[2017-02-16 07:42] LABS: Glucose,Whole Blood 98 mg/dL (75-99)
[2017-02-16] MEDS: INSULIN ASPART 100 UNIT/ML 1 ML 10 ML VIAL SQ SCH ×4 (07:46→14:15)
[2017-02-16] MEDS: IPRATROPIUM 0.5 MG/2.5 ML NEBU INHALATION SCH ×3 (07:54→15:36)
[2017-02-16] MEDS: OMEGA PO SCH ×2 (09:05→14:17)
[2017-02-16] MEDS: FISH OIL PO SCH ×2 (09:05→14:17)
[2017-02-16] MEDS: FATTY ACIDS PO SCH ×2 (09:05→14:17)
[2017-02-16] MEDS: FLUTICASONE 50MCG/SPRAY NASAL 16GM EA NOSTRIL SCH (09:05)
[2017-02-16] MEDS: FUROSEMIDE 20 MG TAB PO SCH (09:06)
[2017-02-16] MEDS: AMIODARONE 100 MG TAB PO SCH (09:06)
[2017-02-16] MEDS: ISOSORBIDE MONONITRATE ER 60 MG TAB.ER.24H PO SCH (09:07)
[2017-02-16] MEDS: APIXABAN 2.5 MG TABLET PO SCH (09:07)
[2017-02-16] MEDS: POTASSIUM CHLORIDE ER 10 MEQ TAB.ER.PRT PO SCH (09:07)
[2017-02-16] MEDS: PANTOPRAZOLE 40 MG TABLET PO SCH (09:08)
[2017-02-16] MEDS: SENNOSIDES-DOCUSATE SODIUM 1 EACH TAB PO SCH (09:12)
[2017-02-16] MEDS: INSULIN DETEMIR 100 UNIT/ML 10 ML VIAL SQ SCH (09:12)
[2017-02-16 11:27] LABS: Glucose,Whole Blood 203 mg/dL (75-99)
--- NOTE | 2017-02-16 13:13 | P.CRDCN ---
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 We have been asked to see Mr. Clemons in consultation for recommendations on anticoagulation since radiation oncologist believes his brain mets may appear to have a hemorrhagic component. He currently takes apixiban 2.5 mg BID, aspirin 81 mg daily and plavix 75 mg daily. He follows regularly with a adz worker out of [facility] Dr. Chaudhari. Per the patient these medications have all been recommended daily secondary to recent stenting and atrial fibrillation. At the time of my exam he is seen sitting up in bed in no acute distress drinking coffee. He denies chest pain, palpitations, dizziness, nausea, vomiting or shortness of breath. EKG reveals a paced rhythm. Hgb 10.9, plt 150, potassium 4.3, magnesium 2.3, BUN 98, Cr 1.95. Blood pressure 152/67 with heart rate 72. Review of Systems CONSTITUTIONAL: Denies fever. Denies chills. EYES: Denies blurred vision. Denies vision changes. Denies eye pain. EARS, NOSE, MOUTH & THROAT: Denies headache. Denies sore throat. Denies ear pain. CARDIOVASCULAR: Denies chest pain. Denies shortness of breath at rest. Denies orthopnea. Denies PND. Denies palpitations. RESPIRATORY: Denies cough. GASTROINTESTINAL: Denies abdominal pain. Denies diarrhea. Denies constipation. Denies nausea. Denies vomiting. MUSCULOSKELETAL: Denies myalgias. INTEGUMENTARY: Denies pruitis. Denies rash. NEUROLOGIC: Denies dizziness. PSYCHIATRIC: Denies anxiety. Denies depression. ENDOCRINE: Denies fatigue. Denies weight change. Denies polydipsia. Denies polyurina. GENITOURINARY: Denies burning, hematuria or urgency with micturation. HEMATOLOGIC: Denies bleeding. Past Medical History Past Medical History: Atrial Fibrillation, Coronary Artery Disease (CAD), Cancer , Heart Failure, COPD, Diabetes Mellitus, Hyperlipidemia, Hypertension, Myocardial Infarction (SD), Pneumonia, Prostate Disorder Additional Past Medical History / Comment(s): pt is rt side dominant.Chronic systolic heart failure, obstructive sleep apnea, benign prostatic hypertrophy, diabetes type 2 with diabetic neuropathy, 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, melanoma of left axillary, chronic renal failure, chronic anemia, coronary artery disease with previous cardiac catheterization and stenting, chronic back pain, coronary artery bypass surgery , pacemaker insertion, peripheral vascular disease, chronic atrial fibrillation , constipation,tremors in hands, rls, brain ca Last Myocardial Infarction Date:: unknown History of Any Multi-Drug Resistant Organisms: None Reported Past Surgical History: Back Surgery, Coronary Bypass/CABG, Heart Catheterization With Stent, Pacemaker Additional Past Surgical History / Comment(s): 5 vessel CABG, cardiac stentsx3, peripheral stents, pacemaker, left axillary melanoma resection.natalia cataracts, bronch/bx, past back sx-fusion. Past Anesthesia/Blood Transfusion Reactions: Previous Problems w/ Anesthesia Additional Past Anesthesia/Blood Transfusion Reaction / Comment(s): blood transfusion -no reaction. difficulty waking up after aa. Date of Last Stent Placement:: unknown Type of Cardiac Device: Permanent Pacemaker Device Placement Date:: 07-07-11 Past Psychological History: Anxiety Additional Psychological History / Comment(s): pt lives alone in single level home that has 2 porch steps. pt uses a cane when up slao has a rolling walker and glucometer. recieved no home care or outside services. children are there alot to help Smoking Status: Former smoker Past Alcohol Use History: Occasional Additional Past Alcohol Use History / Comment(s): Patient started smoking at age 17 and quit at age 72. He denies any medical marijuana, marijuana, street drug use. He denies any alcohol abuse. Past Drug Use History: None Reported - Past Family History Mother Family Medical History: Diabetes Mellitus, Hyperlipidemia, Hypertension Additional Family Medical History / Comment(s): Mother is . Father Family Medical History: Diabetes Mellitus, Hyperlipidemia, Hypertension, Myocardial Infarction (SD) Additional Family Medical History / Comment(s): Father is from a myocardial infarction. Brother(s) Additional Family Medical History / Comment(s): has 11 brothers and 2 sisters. Patient has 2 sons and 2 daughters with no major medical problems. Medications and Allergies Home Medications Medication Instructions Recorded Confirmed Type Amiodarone [Cordarone] 100 mg PO W/BRKFST 04/22/16 02/14/17 History Apixaban [Eliquis] 2.5 mg PO BID 04/22/16 02/14/17 History Aspirin EC [Ecotrin Low Dose] 81 mg PO W/SUPPER 04/22/16 02/14/17 History Atorvastatin [Lipitor] 40 mg PO HS 04/22/16 02/14/17 History Clopidogrel [Plavix] 75 mg PO W/LUNCH 04/22/16 02/14/17 History Ferrous Sulfate [Iron (65 MG 325 mg PO BID@1200,2100 04/22/16 02/14/17 History Elemental)] Folic Acid 1 mg PO DAILY@1200 04/22/16 02/14/17 History Ipratropium-Albuterol Nebulize 3 ml INHALATION RT-QID PRN 04/22/16 02/14/17 History [Duoneb 0.5 mg-3 mg/3 ml Soln] Isosorbide Mononitrate ER [Imdur] 60 mg PO BID 04/22/16 02/14/17 History [place]-3 Fatty Acids/Fish Oil [Fish 1 cap PO BID@0800,1200 04/22/16 02/14/17 History Oil 1,000 mg Softgel] Polyethylene Glycol 3350 [Miralax] 17 gm PO DAILY PRN 04/22/16 02/14/17 History Tamsulosin HCl [Flomax] 0.4 mg PO HS 04/22/16 02/14/17 History Vitamin B Complex 1 cap PO W/SUPPER 04/22/16 02/14/17 History amLODIPine [Norvasc] 5 mg PO BID@0000,1200 04/22/16 02/14/17 History rOPINIRole HCL [Requip] 1 mg PO HS 04/22/16 02/14/17 History ALPRAZolam [Xanax] 0.25 mg PO DAILY PRN 05/09/16 02/14/17 History Albuterol Inhaler [Ventolin Hfa 1 - 2 puff INHALATION RT-Q6H PRN 05/09/16 History Inhaler] Pregabalin [Lyrica] 75 mg PO W/SUPPER 05/09/16 02/14/17 History Prochlorperazine [Compazine] 10 mg PO Q6H PRN 05/09/16 02/14/17 History Tiotropium 18 Mcg/Puff [Spiriva] 1 cap INHALATION RT-DAILY 05/09/16 02/14/17 History Zolpidem [Ambien] 5 mg PO HS PRN 05/09/16 02/14/17 History traMADol HCL [Ultram] 50 - 100 mg PO BID PRN 05/09/16 02/14/17 History Nitroglycerin Sl Tabs [Nitrostat] 0.4 mg SUBLINGUAL Q5M PRN #25 tab 05/12/16 Rx Carvedilol [Coreg] 12.5 mg PO BID@0000,1200 02/09/17 02/14/17 History Furosemide [Lasix] 60 mg PO BID-W/MEALS 02/09/17 02/14/17 History L.acidoph,Paracasei, B.lactis 1 cap PO W/LUNCH 02/09/17 02/14/17 History [Probiotic] Lactulose [Cephulac] 30 gm PO DAILY PRN 02/09/17 02/14/17 History Melatonin 10 mg PO HS 02/09/17 02/14/17 History Sennosides-Docusate Sodium 2 tab PO BID 02/09/17 02/14/17 History [Senokot-S] cloNIDine HCL [Catapres] 0.1 mg PO QID 02/09/17 02/14/17 History Dexamethasone 4 mg PO Q6HR #20 tablet 02/12/17 02/14/17 Rx Insulin Aspart [NovoLOG 12 unit SQ AC-TID vial 02/12/17 02/14/17 Rx (formulary)] Insulin Aspart [NovoLOG See Protocol SQ ACHS #1 vial 02/12/17 02/14/17 Rx (formulary)] Insulin Glargine [Lantus] 15 unit SQ BID #0 02/12/17 02/14/17 Rx Ascorbic Acid [Vitamin C] 500 mg PO W/LUNCH 02/14/17 02/14/17 History Fluticasone Nasal [place] [Flonase 1 spr EA NOSTRIL DAILY 02/14/17 02/14/17 History Nasal [place]] Pantoprazole Sodium [Protonix] 40 mg PO QAM 02/14/17 02/14/17 History Potassium Chloride [K-Tab ER] 10 meq PO QAM 02/14/17 02/14/17 History Insulin Glargine [Lantus] 30 unit SQ BID 02/15/17 02/15/17 History Allergies Allergy/AdvReac Type Severity Reaction Status Date / Time ciprofloxacin [From Cipro] Allergy Rash/Hives Verified 02/14/17 20:17 corticotropin Allergy SEVERE Verified 02/14/17 17:09 HYPERGLYCEMIA erythromycin base Allergy HIVES/SWELL Verified 02/14/17 20:17 ING gabapentin Allergy Swelling Verified 02/14/17 20:17 Iodinated Contrast- Oral and Allergy Unknown Verified 02/14/17 20:17 IV Dye [Iodinated Contrast Media - Oral and] Iodine and Iodide Containing Allergy Unknown Verified 02/14/17 20:17 Produc Penicillins Allergy Unknown Verified 02/14/17 20:17 pentoxifylline [From Trental] Allergy Unknown Verified 02/14/17 20:17 phenytoin [From Dilantin] Allergy Unknown Verified 02/14/17 20:17 sulfamethoxazole Allergy Unknown Verified 02/14/17 20:17 [From Bactrim] trimethoprim [From Bactrim] Allergy Unknown Verified 02/14/17 20:17 Corticosteroids AdvReac Severe Verified 02/14/17 20:17 (Glucocorticoids) hyperglycemia doxycycline AdvReac TREMORS Verified 02/14/17 20:17 hydralazine AdvReac Confusion, Verified 02/14/17 20:17 fatigue, difficulty walking prednisone AdvReac NERVOUSNESS Verified 02/14/17 20:17 Physical Exam Vitals: Vital Signs Temp Pulse Pulse Resp BP Pulse Ox 02/16/17 11:25 70 02/16/17 08:06 66 02/16/17 07:56 64 02/16/17 07:00 98.1 F 68 18 152/67 92 L 02/15/17 22:14 60 16 02/15/17 22:12 96.8 F L 60 16 147/65 96 02/15/17 21:18 68 02/15/17 21:10 64 02/15/17 17:23 64 02/15/17 17:09 62 02/15/17 15:00 98.9 F 64 16 144/80 96 Intake and Output 02/15/17 02/16/17 02/16/17 22:59 06:59 14:59 Intake Total 960 Output Total 480 350 Balance 480 -350 Intake: Oral 960 Output: Urine 480 350 Other: Voiding Method Toilet Toilet Urinal Urinal # Voids 1 GENERAL: This is a 81-year-old male in no apparent distress at the time of my examination. HEENT: Head is atraumatic, normocephalic. Pupils are equal, round. Sclerae anicteric. Conjunctivae are clear. Mucous membranes of the mouth are moist. Neck is supple. There is no jugular venous distention. No carotid bruit is heard. LUNGS: Clear to auscultation no wheezes, rales or rhonchi. No chest wall tenderness is noted on palpation or with deep breathing. Diminished b/l. HEART: Regular rate and rhythm with systolic ejectin type murmur at the base, no rubs or gallops. S1 and S2 heard. ABDOMEN: Soft, nontender. Bowel sounds are heard. No organomegaly noted. EXTREMITIES: 1+ peripheral pulses with no evidence of pre-tibial edema and no calf tenderness noted. NEUROLOGIC: Patient is awake, alert and oriented x3. Results 02/16/17 06:55 02/16/17 06:55 CBC 02/16/17 Range/Units 06:55 WBC 10.4 (3.8-10.6) k/uL RBC 3.95 L (4.30-5.90) m/uL Hgb 10.9 L (13.0-17.5) gm/dL Hct 35.2 L (39.0-53.0) % Plt Count 150 (150-450) k/uL Comprehensive Metabolic Panel 02/16/17 Range/Units 06:55 Sodium 143 (137-145) mmol/L Potassium 4.3 (3.5-5.1) mmol/L Chloride 113 H (98-107) mmol/L Carbon Dioxide 24 (22-30) mmol/L BUN 98 H* (9-20) mg/dL Creatinine 1.95 H (0.66-1.25) mg/dL Glucose 94 (74-99) mg/dL Calcium 8.9 (8.4-10.2) mg/dL Current Medications Generic Name Dose Route Start Last Admin Trade Name Freq PRN Reason Stop Dose Admin Albuterol/Ipratropium 3 ml 02/14/17 23:46 02/15/17 21:09 Duoneb 0.5 Mg-3 Mg/3 Ml Soln INHALATION 3 ml RT-QID PRN Administration Shortness Of Breath Alprazolam 0.25 mg 02/14/17 23:46 Xanax PO DAILY PRN Anxiety Amiodarone HCl 100 mg 02/15/17 07:30 02/16/17 09:06 Cordarone PO 100 mg W/BRKFST MELISSA Administration Amlodipine Besylate 5 mg 02/15/17 00:00 02/16/17 03:37 Norvasc PO Not Given BID@0000,1200 ON LICENSE OF [facility] Apixaban 2.5 mg 02/15/17 09:00 02/16/17 09:07 Eliquis PO 2.5 mg BID MELISSA Administration Ascorbic Acid 500 mg 02/15/17 12:30 02/15/17 12:53 Vitamin C PO 500 mg W/LUNCH MELISSA Administration Aspirin 81 mg 02/15/17 17:30 02/15/17 17:36 Aspirin PO 81 mg W/SUPPER MELISSA Administration Atorvastatin Calcium 40 mg 02/15/17 21:00 02/15/17 20:57 Lipitor PO 40 mg HS ON LICENSE OF [facility] Administration Carvedilol 12.5 mg 02/15/17 00:00 02/16/17 03:37 Coreg PO Not Given BID@0000,1200 ON LICENSE OF [facility] Clopidogrel Bisulfate 75 mg 02/15/17 12:30 02/15/17 12:55 Plavix PO 75 mg W/LUNCH MELISSA Administration Dexamethasone 4 mg 02/15/17 00:00 02/16/17 06:14 Hexadrol PO 4 mg Q6HR MELISSA Administration Ferrous Sulfate 325 mg 02/15/17 12:00 02/15/17 20:57 Feosol PO 325 mg BID@1200,2100 ON LICENSE OF [facility] Administration Fluticasone Propionate 1 spray 02/15/17 09:00 02/16/17 09:05 Flonase Nasal [place] EA NOSTRIL 1 spray DAILY MELISSA Administration Folic Acid 1 mg 02/15/17 12:00 02/15/17 12:53 Folic Acid PO 1 mg DAILY@1200 ON LICENSE OF [facility] Administration Furosemide 60 mg 02/15/17 07:30 02/16/17 09:06 Lasix PO 60 mg BID-W/MEALS MELISSA Administration Insulin Aspart 12 unit 02/15/17 17:30 02/16/17 09:04 Novolog SQ Not Given AC-TID ON LICENSE OF [facility] Insulin Aspart 0 unit 02/15/17 17:30 02/16/17 07:46 Novolog SQ Not Given ACHS ON LICENSE OF [facility] Protocol Insulin Detemir 30 unit 02/15/17 14:00 02/16/17 09:12 Levemir SQ 30 unit BID MELISSA Administration Ipratropium [place] 0.5 mg 02/15/17 08:00 02/16/17 11:25 Atrovent Nebulized INHALATION 0.5 mg RT-QID MELISSA Administration Isosorbide Mononitrate 60 mg 02/15/17 09:00 02/16/17 09:07 Imdur PO 60 mg BID MELISSA Administration Lactobacillus Acidoph/[place] 1 each 02/15/17 12:30 02/15/17 12:53 Lactinex PO 1 each W/LUNCH MELISSA Administration Lactulose 30 gm 02/14/17 23:46 02/15/17 19:48 Cephulac PO 30 gm DAILY PRN Administration Constipation Melatonin 10 mg 02/15/17 21:00 02/15/17 20:57 Melatonin PO 10 mg HS MELISSA Administration Morphine Sulfate 4 mg 02/14/17 22:49 Morphine Sulfate (Inj) IVP Q4HR PRN SEVERE Pain Nitroglycerin 0.4 mg 02/14/17 23:46 Nitrostat SUBLINGUAL Q5M PRN CHEST PAIN Non-Formulary Drug ( 1 cap 02/15/17 12:00 02/16/17 09:05 [place]-3 Fatty Acids/ PO 1 cap Fish Oil [Fish Oil 1 BID@0800,1200 MELISSA Administration ,200 Mg Softgel] 1 Cap) Pantoprazole Sodium 40 mg 02/15/17 09:00 02/16/17 09:08 Protonix PO 40 mg QAM MELISSA Administration Polyethylene Glycol 17 gm 02/14/17 23:46 Miralax PO DAILY PRN Constipation Potassium Chloride 10 meq 02/15/17 09:00 02/16/17 09:07 K-Dur 10 PO 10 meq QAM MELISSA Administration Pregabalin 75 mg 02/15/17 17:30 02/15/17 17:42 Lyrica PO 75 mg W/SUPPER MELISSA Administration Prochlorperazine Maleate 10 mg 02/14/17 23:46 Compazine PO Q6H PRN Nausea Ropinirole HCl 1 mg 02/15/17 21:00 02/15/17 20:58 Requip PO 1 mg HS MELISSA Administration Senna/Docusate Sodium 2 each 02/15/17 09:00 02/16/17 09:12 Senokot-S PO 2 each BID MELISSA Administration Tamsulosin HCl 0.4 mg 02/15/17 21:00 02/15/17 20:57 Flomax PO 0.4 mg HS MELISAS Administration Tramadol HCl 50 mg 02/14/17 23:46 Ultram PO BID PRN MILD Pain Tramadol HCl 100 mg 02/15/17 07:15 Ultram PO BID PRN MODERATE Pain Vitamin B Complex/Vit C/Vit E/Zinc 1 each 02/15/17 17:30 02/15/17 17:36 Z-Bec PO 1 each W/SUPPER MELISSA Administration Zolpidem Tartrate 5 mg 02/14/17 23:46 Ambien PO HS PRN Insomnia Intake and Output 02/15/17 02/16/17 02/16/17 22:59 06:59 14:59 Intake Total 960 Output Total 480 350 Balance 480 -350 Intake: Oral 960 Output: Urine 480 350 Other: Voiding Method Toilet Toilet Urinal Urinal # Voids 1 02/16/17 06:55 02/16/17 06:55 Assessment and Plan Assessment: ASSESSMENT 1. History of paroxysmal atrial fibrillation on sample maker anticoagulation with eliquis 2. History of coronary artery disease with CABG and recent stenting approximately 1-yr ago. 3. Hypertension 4. Hyperlipidemia 5. Diabetes mellitus 6. Chronic diastolic heart failure, currently compensated 7. Acute on chronic renal failure 8. Lung cancer with mets to the brain PLAN It is our recommendation that he can stop taking aspirin at this time. If his most recent stent was less than 1-year plavix should be continued, if it was greater than 1-year the plavix may be stopped. Eliquis should be continued to prevent a thromboembolic event. Our recommendation has been explained to the patient and he has been advised to also discuss this with his primary adz worker who he has an appointment with next week. Thank you kindly for this consultation. Nurse Practitioner note has been reviewed, I agree with a documented findings and plan of care. Patient was seen and examined.
[2017-02-16] MEDS: ASCORBIC ACID 500 MG TAB PO SCH (14:17)
[2017-02-16] MEDS: FERROUS SULFATE 325 MG TAB PO SCH (14:19)
[2017-02-16] MEDS: FOLIC ACID 1 MG TAB PO SCH (14:19)
[2017-02-16] MEDS: LACTOBACILLUS ACIDOPH & BULGAR 1 EACH PACKET PO SCH (14:20)
[2017-02-16 14:29] LABS: Glucose,Whole Blood 179 mg/dL (75-99)
[2017-02-16] MEDS: CLOPIDOGREL 75 MG TAB PO SCH (14:38)
--- NOTE | 2017-02-16 15:39 | P.DS ---
Providers Date of admission: 02/14/17 20:38 Expected date of discharge: 02/16/17 Attending physician: Chloé Martinez Consults: 02/15/17 06:34 Consult Physician Routine Consulting Provider: Jeremiah Eli Consult Reason/Comments: brain CA Do you want consulting provider notified?: Yes, Notify in [facility] Primary care physician: Amaury Gutierrez [facility] Course: Final Diagnoses 1. Diabetes mellitus type 2 uncontrolled, hyperosmolar diabetic state without acute acidosis, steroid induced 2. Proximal Atrial fibrillation 3. Lung cancer with brain metastasis 4. CAD, history of CABG and stent 5. CHF, no acute exacerbation 6. Hyperlipidemia 7. Acute on chronic renal failure, Hospital course:This a 81-year-old gentleman with multiple medical issues including adenocarcinoma of the lung with brain metastasis admitted with diabetes mellitus type 2 [id number], atrial fibrillation, and multiple other medical issues. Initially required insulin drip, weaned off , maintained on Lantus, pre-meal insulin and sliding scale. Evaluated by Oncology radiologist, and cardiology.received first radiation treatment, tolerated well. Significant clinical improvement. Cardiology recommended aspirin be discontinued as radiation oncologist believes his brain metastases may have a hemorrhagic component. Lantus increased to 35 units twice a day and patient as well as family instructed that the Lantus should be decreased as Decadron is tapered per PCP. Next Radiation appointment to be scheduled prior to discharge. Patient has been cleared by all consults.Patient is being discharged home in a stable condition with guarded prognosis. The impression and plan of care has been dictated as directed. : I performed a history and examination of this patient, discussed the same with the dictator. I agree with the dictator's note ,documented as a scribe. Any additional findings or plans will be noted. Patient Condition at Discharge: Stable Plan - Discharge Summary Discharge Rx Participant: No New Discharge Prescriptions: Continue Polyethylene Glycol 3350 [Miralax] 17 gm PO DAILY PRN PRN Reason: Constipation Ipratropium-Albuterol Nebulize [Duoneb 0.5 mg-3 mg/3 ml Soln] 3 ml INHALATION RT-QID PRN PRN Reason: Shortness Of Breath Isosorbide Mononitrate ER [Imdur] 60 mg PO BID Ferrous Sulfate [Iron (65 MG Elemental)] 325 mg PO BID@1200,2100 amLODIPine [Norvasc] 5 mg PO BID@0000,1200 [place]-3 Fatty Acids/Fish Oil [Fish Oil 1,000 mg Softgel] 1 cap PO BID@0800, 1200 Apixaban [Eliquis] 2.5 mg PO BID Vitamin B Complex 1 cap PO W/SUPPER rOPINIRole HCL [Requip] 1 mg PO HS Clopidogrel [Plavix] 75 mg PO W/LUNCH Atorvastatin [Lipitor] 40 mg PO HS Folic Acid 1 mg PO DAILY@1200 Tamsulosin HCl [Flomax] 0.4 mg PO HS Amiodarone [Cordarone] 100 mg PO W/BRKFST Pregabalin [Lyrica] 75 mg PO W/SUPPER Tiotropium 18 Mcg/Puff [Spiriva] 1 cap INHALATION RT-DAILY Albuterol Inhaler [Ventolin Hfa Inhaler] 1 - 2 puff INHALATION RT-Q6H PRN PRN Reason: Shortness Of Breath traMADol HCL [Ultram] 50 - 100 mg PO BID PRN PRN Reason: Pain Zolpidem [Ambien] 5 mg PO HS PRN PRN Reason: Insomnia ALPRAZolam [Xanax] 0.25 mg PO DAILY PRN PRN Reason: Anxiety Prochlorperazine [Compazine] 10 mg PO Q6H PRN PRN Reason: Nausea Nitroglycerin Sl Tabs [Nitrostat] 0.4 mg SUBLINGUAL Q5M PRN #25 tab PRN Reason: CHEST PAIN Carvedilol [Coreg] 12.5 mg PO BID@0000,1200 cloNIDine HCL [Catapres] 0.1 mg PO QID Furosemide [Lasix] 60 mg PO BID-W/MEALS L.acidoph,Paracasei, B.lactis [Probiotic] 1 cap PO W/LUNCH Melatonin 10 mg PO HS Sennosides-Docusate Sodium [Senokot-S] 2 tab PO BID Lactulose [Cephulac] 30 gm PO DAILY PRN PRN Reason: Constipation Insulin Aspart [NovoLOG (formulary)] See Protocol SQ ACHS #1 vial Dexamethasone 4 mg PO Q6HR #20 tablet Potassium Chloride [K-Tab ER] 10 meq PO QAM Pantoprazole Sodium [Protonix] 40 mg PO QAM Fluticasone Nasal [place] [Flonase Nasal [place]] 1 spr EA NOSTRIL DAILY Ascorbic Acid [Vitamin C] 500 mg PO W/LUNCH Insulin Aspart [NovoLOG (formulary)] 12 unit SQ AC-TID #0 vial Changed Insulin Glargine [Lantus] 35 unit SQ BID #0 Discontinued Aspirin EC [Ecotrin Low Dose] 81 mg PO W/SUPPER Discharge Medication List Amiodarone [Cordarone] 100 mg PO W/BRKFST 04/22/16 [History] Apixaban [Eliquis] 2.5 mg PO BID 04/22/16 [History] Atorvastatin [Lipitor] 40 mg PO HS 04/22/16 [History] Clopidogrel [Plavix] 75 mg PO W/LUNCH 04/22/16 [History] Ferrous Sulfate [Iron (65 MG Elemental)] 325 mg PO BID@1200,2100 04/22/16 [ History] Folic Acid 1 mg PO DAILY@1200 04/22/16 [History] Ipratropium-Albuterol Nebulize [Duoneb 0.5 mg-3 mg/3 ml Soln] 3 ml INHALATION RT -QID PRN 04/22/16 [History] Isosorbide Mononitrate ER [Imdur] 60 mg PO BID 04/22/16 [History] [place]-3 Fatty Acids/Fish Oil [Fish Oil 1,000 mg Softgel] 1 cap PO BID@0800,1200 04/22/16 [History] Polyethylene Glycol 3350 [Miralax] 17 gm PO DAILY PRN 04/22/16 [History] Tamsulosin HCl [Flomax] 0.4 mg PO HS 04/22/16 [History] Vitamin B Complex 1 cap PO W/SUPPER 04/22/16 [History] amLODIPine [Norvasc] 5 mg PO BID@0000,1200 04/22/16 [History] rOPINIRole HCL [Requip] 1 mg PO HS 04/22/16 [History] ALPRAZolam [Xanax] 0.25 mg PO DAILY PRN 05/09/16 [History] Albuterol Inhaler [Ventolin Hfa Inhaler] 1 - 2 puff INHALATION RT-Q6H PRN [History] Pregabalin [Lyrica] 75 mg PO W/SUPPER 05/09/16 [History] Prochlorperazine [Compazine] 10 mg PO Q6H PRN 02/05/17 [History] Tiotropium 18 Mcg/Puff [Spiriva] 1 cap INHALATION RT-DAILY 05/09/16 [History] Zolpidem [Ambien] 5 mg PO HS PRN 05/09/16 [History] traMADol HCL [Ultram] 50 - 100 mg PO BID PRN 05/09/16 [History] Nitroglycerin Sl Tabs [Nitrostat] 0.4 mg SUBLINGUAL Q5M PRN #25 tab 05/12/16 [Rx ] Carvedilol [Coreg] 12.5 mg PO BID@0000,1200 02/09/17 [History] Furosemide [Lasix] 60 mg PO BID-W/MEALS 02/09/17 [History] L.acidoph,Paracasei, B.lactis [Probiotic] 1 cap PO W/LUNCH 02/09/17 [History] Lactulose [Cephulac] 30 gm PO DAILY PRN 02/09/17 [History] Melatonin 10 mg PO HS 02/09/17 [History] Sennosides-Docusate Sodium [Senokot-S] 2 tab PO BID 02/09/17 [History] cloNIDine HCL [Catapres] 0.1 mg PO QID 02/09/17 [History] Dexamethasone 4 mg PO Q6HR #20 tablet 02/12/17 [Rx] Insulin Aspart [NovoLOG (formulary)] See Protocol SQ ACHS #1 vial 02/12/17 [Rx] Ascorbic Acid [Vitamin C] 500 mg PO W/LUNCH 02/14/17 [History] Fluticasone Nasal [place] [Flonase Nasal [place]] 1 spr EA NOSTRIL DAILY 02/14/17 [ History] Pantoprazole Sodium [Protonix] 40 mg PO QAM 02/14/17 [History] Potassium Chloride [K-Tab ER] 10 meq PO QAM 02/14/17 [History] Insulin Aspart [NovoLOG (formulary)] 12 unit SQ AC-TID #0 vial 02/16/17 [Rx] Insulin Glargine [Lantus] 35 unit SQ BID #0 02/16/17 [Rx] Follow up Appointment(s)/Referral(s): [facility], pts. own [Other] - 1 Week Juan J Onofre MD [STAFF PHYSICIAN] - 1 Week Jeremiah Eli MD [STAFF PHYSICIAN] - 1 Week (Please schedule next radiation treatment prior to discharge.) Amaury Reddy MD [Primary Care Provider] - 3 Days Ambulatory/Diagnostic Orders: Basic Metabolic Panel [LAB.AMB] Location: Determined By Patient Patient Instructions/Handouts: Heart Failure (DC), Managing Diabetes During Sick Days (DC) Activity/Diet/Wound Care/Special Instructions: Cardiac, diabetic diet. CHF and DM folders given on previous admission. PCP to further adjust Lantus insulin as Decadron tapered, discussed with patient and family at bedside.
--- NOTE | 2017-02-16 15:43 | CDI ---
In responding to this query, please exercise your independent professional judgment. The [facility] Coding Staff and Clinical Documentation Specialists appreciate your assistance in clarifying documentation, maintaining compliance with coding guidelines, accurately documenting patients condition and capturing severity of illness. The fact that a question is asked does not imply that any particular answer is desired or expected. Communication forms are a method of clarifying documentation and are not made part of the Legal Health Record. Thank you in advance for your clarification. Last Revision, February [address] [facility] [place] [address] Documentation Clarification Form Date: 02/16/2017 3:26:00 PM From: Maite Lovell Admit Date: 02/14/2017 8:38:00 PM Patient Name: Michael Clemons Visit Number: [id number] Dr. 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 Include clinical findings that support your diagnosis. FYI: Press F11 to launch patient chart. FRANKLIN
[2017-02-16 15:46] VITALS: BP 144/67; PULSE 69; RESP 16; TEMP 97.8
--- NOTE | 2017-03-01 09:54 | CDI ---
In responding to this query, please exercise your independent professional judgment. The [facility] Coding Staff and Clinical Documentation Specialists appreciate your assistance in clarifying documentation, maintaining compliance with coding guidelines, accurately documenting patients condition and capturing severity of illness. The fact that a question is asked does not imply that any particular answer is desired or expected. Communication forms are a method of clarifying documentation and are not made part of the Legal Health Record. Thank you in advance for your clarification. Last Revision, February [address] [facility] [place] [address] Documentation Clarification Form Date: 02/16/2017 3:26:00 PM From: Maite Lovell Admit Date: 02/14/2017 8:38:00 PM Patient Name: Michael Clemons Visit Number: [id number] Discharge Date: 02/16/2017 Dr. 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 Include clinical findings that support your diagnosis. FYI: Press F11 to launch patient chart. FR[place]LIN
== END 2017-02-16 17:00 | disposition home or self-care (01) | DRG 638 ==
LOC: EC 16:42 → 4MS4W 20:38 → 5ONC 02-15 16:02
PROVIDERS: ADMIT Hospitalist; ATTEND Hospitalist
DX: E09.00 Drug or chemical induced diabetes mellitus with hyperosmolarity without nonketotic hyperglycemic-hyperosmolar coma (NKHHC) (principal); C34.90 Malignant neoplasm of unspecified part of unspecified bronchus or lung; N17.9 Acute kidney failure, unspecified; C79.31 Secondary malignant neoplasm of brain; I13.0 Hypertensive heart and chronic kidney disease with heart failure and stage 1 through stage 4 chronic kidney disease, or unspecified chronic kidney disease; I50.32 Chronic diastolic (congestive) heart failure; E86.0 Dehydration; I48.0 Paroxysmal atrial fibrillation; J44.9 Chronic obstructive pulmonary disease, unspecified; I48.2 Chronic atrial fibrillation; E78.5 Hyperlipidemia, unspecified; N18.3 Chronic kidney disease, stage 3 (moderate); D64.9 Anemia, unspecified; G47.33 Obstructive sleep apnea (adult) (pediatric); G25.81 Restless legs syndrome; T38.0X5A Adverse effect of glucocorticoids and synthetic analogues, initial encounter; E11.22 Type 2 diabetes mellitus with diabetic chronic kidney disease; E11.40 Type 2 diabetes mellitus with diabetic neuropathy, unspecified; I25.10 Atherosclerotic heart disease of native coronary artery without angina pectoris; I25.2 Old myocardial infarction; N40.0 Benign prostatic hyperplasia without lower urinary tract symptoms; F41.9 Anxiety disorder, unspecified; G89.29 Other chronic pain; R25.1 Tremor, unspecified; M54.9 Dorsalgia, unspecified; E11.51 Type 2 diabetes mellitus with diabetic peripheral angiopathy without gangrene; Z79.01 Long term (current) use of anticoagulants; Z79.02 Long term (current) use of antithrombotics/antiplatelets; Z79.4 Long term (current) use of insulin; Z79.82 Long term (current) use of aspirin; Z79.899 Other long term (current) drug therapy; Z95.5 Presence of coronary angioplasty implant and graft; Z95.1 Presence of aortocoronary bypass graft; Z87.891 Personal history of nicotine dependence; Z85.820 Personal history of malignant melanoma of skin; Z88.0 Allergy status to penicillin; Z88.2 Allergy status to sulfonamides; Z88.8 Allergy status to other drugs, medicaments and biological substances; Z88.1 Allergy status to other antibiotic agents; Z91.041 Radiographic dye allergy status; Z95.0 Presence of cardiac pacemaker; Z98.1 Arthrodesis status; Z82.49 Family history of ischemic heart disease and other diseases of the circulatory system; Y92.009 Unspecified place in unspecified non-institutional (private) residence as the place of occurrence of the external cause
CPT/HCPCS: 36415; 80048; 80053; 81003; 82009; 82550; 82553; 83036; 83735; 84100; 84484; 85025; 87086; 93005; 94640; 96361; 96374; 96375; 99285